=== PATIENT | male | born 1975 | race Caucasian/White ===

== ENCOUNTER 2019-04-12 19:47 | Emergency (ER) | payer OTHER, SELFPAY ==
[2018-11-03 12:39] VITALS: BMI 27.5
[2019-04-12 19:47] VITALS: BP 125/77; PULSE 58; RESP 16; TEMP 36.7; O2SAT 98; BMI 27.8
--- NOTE | 2019-04-12 20:08 | ED.VIS.GEN ---
History of Present Illness Chief Complaint: Laceration Informant: Patient Onset: Today Current Severity: Mild Narrative: Indicates cutting with a tomato can lid inadvertently cut himself on the sharp lid margin left index finger presents for evaluation tetanus is up-to-date no past history no complaints Past Medical History - Allergies and Home Meds Allergies/Adverse Reactions: Allergies No Known Allergies Allergy (Verified 04/12/19 19:49) Primary Care Physician: Damian Kam MD [Primary Care Provider] - Past Medical History: - Smoking Status: Never smoker Review of Systems ROS: - Denies General: Denies: Chills, Fever, Sweats Eyes: Denies: Visual changes - bilaterally, Diplopia ENT: Denies: Rhinorrhea, Sore throat Cardiovascular: Denies: Chest pain, Palpitations Respiratory: Denies: Dyspnea, Cough, Dyspnea on exertion Gastrointestinal: Denies: Abdominal pain, Nausea, Vomiting, Diarrhea, Melena, Hematochezia Genitourinary: Denies: Dysuria, Hematuria, Frequency Musculoskeletal: Denies: Back pain, Extremity Pain Skin: Denies: Rash, Wounds Neurological: Denies: Headache, Weakness, Numbness Physical Exam Vital Signs/Narrative: Vital Signs Temp Pulse Resp BP Pulse Ox 04/12/19 19:47 98.1 F 58 L 16 125/77 H 98 General: Well nourished, Well developed, No Acute Distress Head: Normocephalic, Atraumatic Eyes: Perrl, EOMI ENT: Moist mucous membranes, No rhinorrhea Neck: Supple, Nontender Cardiovascular: Regular rate, Regular rhythm, No murmurs Respiratory: No distress, CTA bilaterally, Chest nontender Abdomen: Soft, Nontender, Nondistended, Normal bowel sounds Back: Nontender, Normal Inspection Extremities: Nontender, No edema, - - Linear 1 cm laceration to left index fingertip there is very little bleeding the wound margins well approximated the nail nailbed unremarkable DIP PIP flexion extension totally normal Skin: Normal color, No rash Neurological: Alert, Oriented x3, Cranial nerves II-XII grossly intact, Normal Strength, Normal Sensation Psychological: Normal affect, Normal Mood Diagnostic/Tx/Re-eval - Medical Decision Making We discussed wound closure options including suturing he refused declined that he preferred tissue adhesive we did cleanse the area was sterilely prepped and applied tissue adhesive with good results there is no bleeding there was excellent approximation of wound margin we will provide aluminum finger splint to protect the area and to follow-up with his family physicians the next few days return for change in status, his tetanus is up-to-date Home stable Final impression 1 cm left index fingertip laceration closed with tissue adhesive ED Disposition - Plan for ED Patient: Instructions: LACERATION, All, LACERATION, Extremity (Skin Glue) Referrals: Damian Kam MD [Primary Care Provider] -
[2019-04-12 20:37] VITALS: BP 120/52; PULSE 80; RESP 16; O2SAT 98
== END 2019-04-12 20:38 | disposition home or self-care (01) ==
LOC: ED 20:22
PROVIDERS: Emergency Provider Emergency Medicine; Family Provider Family Medicine; PCP Family Medicine
DX: S61.211A Laceration without foreign body of left index finger without damage to nail, initial encounter (principal); W26.8XXA Contact with other sharp object(s), not elsewhere classified, initial encounter; Y93.9 Activity, unspecified; Y92.9 Unspecified place or not applicable; Y99.9 Unspecified external cause status
CPT/HCPCS: 12001; 99283

== ENCOUNTER 2019-10-30 17:12 | Emergency (ER) | payer OTHER, SELFPAY ==
[2019-10-30 17:13] VITALS: BP 140/88; PULSE 55; RESP 18; TEMP 36.1; O2SAT 99; BMI 25.2
--- NOTE | 2019-10-30 17:20 | RAD_ITS ---
STUDY: X-RAY - RIGHT KNEE REASON FOR EXAM: Male, 44 years old. Right knee injury. TECHNIQUE: 4 view(s) of the knee. COMPARISON: None. FINDINGS: Normal visualized distal femur. Normal visualized proximal tibia and fibula. Normal proximal tibiofibular articulation. There is no demonstrated fracture. Normal medial femorotibial compartment. Normal lateral femorotibial compartment. Normal patellofemoral articulation. There is no demonstrated joint effusion. The soft tissue structures are unremarkable. RAD/Knee 4 or More Views IMPRESSION: Normal x-ray examination of the knee. Electronically Signed: Josué Santana MD at 17:44 EDT , Service support ,
--- NOTE | 2019-10-30 18:36 | ED.DCSUM_ITS ---
- ER Visit Summary Date of Service: 10/30/19 Chief Complaint: [Injury to right knee] History of Present Illness: The patient is a 44 M presents to the emergency department with an injury to the right leg that occurred this morning. Patient states that a steer, crushed him against a post. Patient complains of pain to the right leg. Complains of swelling. This is a Workmen's [employer]. injury. Patient has no medical history. [] Physical Examination: [HEENT-PERRLA, EOMI. Cranial nerves II through XII grossly intact. TMs clear. Mucous membranes moist. No adenopathy. Cardiovascular-regular rate and rhythm without murmur or ectopy Lungs-clear to auscultation, chest wall stable without crepitus or subcu emphysema Abdomen-normoactive bowel sounds, soft, nontender, no rebound or rigidity, no peritoneal signs. Extremities-intact ?4, normal range of motion, normal pulses. Right leg-patient has a hematoma noted over the proximal anterior medial portion of the tibia just inferior to the knee. No joint effusion noted knee is ligamentously stable. No real tenderness about the joint line of the knee. Patient has some subtle ecchymosis and bruising noted on the anterior aspect lateral aspect of the calf and tibia. Compartments are soft with no evidence of compartment s yndrome.] Test Results: [Rays of the right knee obtained were normal just showed some soft tissue swelling.] Emergency Department Course and Treatment: [Was given an Jose wrap. He did not want any opioids for pain.] Treatment Plan: [Patient will follow-up with corporate care in 3 to 5 days.] Disposition: [Discharged home in stable condition] Impression: [Contusion/crush injury right knee] This note was generated with [employer] dictation software. It may contain incorrect words, spelling, and punctuation that were not noted in review of the chart prior to signing ED Disposition - Plan for ED Patient: Referrals: Damian Kam MD [Primary Care Provider] -
--- NOTE | 2019-10-30 18:39 | DCINST.ED_ITS ---
ED Disposition - Plan for ED Patient: Instructions: ED EXTREMITY CONTUSION Lower Referrals: Damian Kam MD [Primary Care Provider] - [facility] [GROUP OF PHYSICIANS] - 3-5 Days
--- NOTE | 2019-10-30 18:39 | ED.DEP ---
ED Disposition - Plan for ED Patient: Instructions: ED EXTREMITY CONTUSION Lower Referrals: Damian Kam MD [Primary Care Provider] - [facility] [GROUP OF PHYSICIANS] - 3-5 Days
== END 2019-10-30 18:52 | disposition home or self-care (01) ==
LOC: ED 18:48
PROVIDERS: Emergency Provider Emergency Medicine; PCP Family Medicine
DX: S80.01XA Contusion of right knee, initial encounter (principal); W23.0XXA Caught, crushed, jammed, or pinched between moving objects, initial encounter
CPT/HCPCS: 73564; 99282

== ENCOUNTER → 2019-12-31 16:31 | Outpatient (CLI) | payer OTHER, SELFPAY ==
[2019-12-31 16:30] VITALS: BMI 25.2
--- NOTE | 2019-12-31 16:35 | RAD_ITS ---
STUDY: X-RAY CHEST REASON FOR EXAM: Male, 44 years old. Cough x 4 days TECHNIQUE: Frontal and lateral views of the chest. COMPARISON: 06/11/2017. FINDINGS: The lungs are clear and expanded. There is no demonstrated pleural abnormality. Normal size heart. Normal mediastinum and berta. Normal visualized pulmonary arteries. Normal visualized aortic arch and descending thoracic aorta. Normal visualized thoracic spine. Normal visualized ribs, clavicles, and shoulders. There is no demonstrated abnormality of the visualized soft tissue structures of the upper abdomen. RAD/Chest PA and Lateral IMPRESSION: Normal x-ray examination of the chest. Electronically Signed: Josué Santana MD at 16:45 EDT , Service support ,
== END ==
PROVIDERS: PCP Family Medicine; Referring Provider Physician Assistant; Visit Provider Physician Assistant
DX: R05 Cough (principal)
CPT/HCPCS: 71046

== ENCOUNTER → 2020-01-01 | Outpatient (CLI) | payer OTHER, SELFPAY ==
[2019-12-31 16:30] VITALS: BMI 25.2
== END | disposition home or self-care (01) ==
LOC: LABSPEC 11:10
PROVIDERS: PCP Family Medicine; Referring Provider Physician Assistant; Visit Provider Physician Assistant
DX: Z20.828 Contact with and (suspected) exposure to other viral communicable diseases (principal); R05 Cough; R06.09 Other forms of dyspnea; R09.89 Other specified symptoms and signs involving the circulatory and respiratory systems
CPT/HCPCS: 87635; G2023; U0003

== ENCOUNTER 2020-10-08 23:22 | Emergency (ER) | payer OTHER, SELFPAY ==
[2020-01-03 13:13] VITALS: BMI 25.2
[2020-10-08 23:22] VITALS: BP 134/76; PULSE 66; RESP 16; TEMP 36.7; O2SAT 100; BMI 26.1
--- NOTE | 2020-10-09 00:03 | EX.ED.DYSGE1 ---
HPI History of Present Illness Chief Complaint: Back Informant: patient Narrative Narrative: Patient is a 45-year-old previously healthy male who presents to the emergency department for nontraumatic right-sided lower back pain that radiates into his lower leg. He has had this before in the past but it has been many years. He states that he was playing soccer earlier today. It did not bother him until he went home and was sitting down. The pain has been becoming more intense. He has not tried to urinate since the onset of symptoms. He did try to take an anti-inflammatory for this which did not give He denies any fevers or chills. No chest pain, eben Denies any abdominal pain or nausea/vomiting.s of breath. him significant relief. He denies any saddle anesthesia. Pushing on his back and moving the legs seems to make it worse. The leg pain is over the right lateral side just below the knee. He cannot reproduce this unless he pushes on his back. He denies any history of drug abuse. PFSH PFSH Home Medications multivitamin 1 tab PO DAILY 10/08/20 [History Last Taken Unknown] cyclobenzaprine 10 mg PO TID PRN #10 tablet 10/09/20 [Rx Last Taken Unknown] Allergy/AdvReac Type Severity Reaction Status Date / Time No Known Allergies Allergy Verified 10/08/20 23:24 Social History (Updated 01/03/20 @ 13:22 by Harman ZABALA, VJ) Smoking Status: Never smoker alcohol intake: current alcohol intake frequency: holidays/special occasions only ROS ROS ED Constitutional Constitutional ED: Denies chills or fever(s) Eyes Eyes: Denies change in vision ENT ENT ED: Denies epistaxis or rhinorrhea Cardiovascular Cardiovascular: Denies chest pain or palpitations Respiratory/Chest Respiratory/Chest: Denies cough, dyspnea or dyspnea on exertion Gastrointestinal Gastrointestinal: Denies abdominal pain, diarrhea, nausea or vomiting Genitourinary Genitourinary ED: Denies dysuria, hematuria or urinary frequency Musculoskeletal Musculoskeletal: Reports back pain and other Details: Leg pain ; Denies neck pain Integumentary Denies rash Neurologic Neurologic: Denies dizziness, headache(s) or weakness EXAM Physical Exam Const Vital Signs: 10/08/20 23:22 10/09/20 01:02 Temperature 98.1 F Temperature Source Oral Pulse Rate 66 Respiratory Rate 16 16 Blood Pressure 134/76 H Blood Pressure Mean 95 Pulse Ox 100 Oxygen Delivery Method Room Air Positive well nourished and well developed General Appearance ED: well developed and NAD HEENT Reports normocephalic, head/scalp atraumatic and moist mucous membranes Eyes PERRL and EOMs intact bilaterally Neck supple General: Negative for tenderness Chest Wall inspection of chest normal Resp normal respiratory effort and clear to auscultation bilaterally Auscultation: Negative for rales, rhonchi or wheezes Cardio regular rate, regular rhythm and no murmurs GI normal to inspection, nondistended, normoactive bowel sounds and non-tender Palpation: soft; Negative for guarding or rebound tenderness present Back/Spine no CVA tenderness General Back: other Pain over right piriformis. Cervical Spine: Negative for cervical spine tenderness Thoracic Spine / Upper Back: Negative for thoracic spinal tenderness or paraspinal muscle tenderness Lumbar Spine / Lower Back: Negative for lumbar spinal tenderness Extremity normal to inspection Extremity Narrative: 2+ radial pulse bilateral lower extremities. 5 out of 5 muscle strength. No peripheral edema. No reproducible tenderness of the lower extremities. General Extremety ED: Negative for edema or tenderness General Extremity: Negative for edema Neuro oriented x3, CN's II-XII intact bilaterally and no sensory deficits noted Sensorium / Orientation: alert Motor Exam: strength 5/5 throughout Psych mental status grossly normal Skin no rashes or lesions noted MDM MDM MDM Narrative Medical decision making narrative: Patient presents to the ED for nontraumatic low back pain that radiates down his right leg. Upon arrival to the ED vital signs within normal limits. He is in no acute distress. Will trial symptomatic treatment with a dose of Toradol. Without any trauma I do not feel imaging is indicated at this time. His symptoms do sound related to piriformis syndrome as he has reproducible pain over the right buttock. The leg pain is not reproducible. He otherwise is neurovascularly intact. Patient does appear to be resting more comfortably on repeat exam. He is sitting up in the chair now. He states that he can find positions where he is pain-free. Some movement still set off the pain. This time I believe symptomatic treatment is the appropriate course. We will write a prescription for Flexeril. He can take ibuprofen and Tylenol with this. He understands that the Flexeril can make him sleepy and should not take this when operating heavy machinery. I do recommend he follow-up with his PCP otherwise. Return precautions are reviewed. He understands and is agreeable to plan. Discharged home in stable condition. All questions answered. Discharge Plan Triage Chief Complaint: Back ED Provider: Roshan Zuñiga Dx/Rx/DC Orders Clinical Impression: Back pain Instructions: ED Back and Neck Pain, General Prescriptions: New cyclobenzaprine 10 mg tablet 10 mg PO TID PRN (Reason: Muscle Spasm) Qty: 10 RF: 0 No Action multivitamin Tablet 1 tab PO DAILY RF: 0 Primary Care Provider: Damian Kam Referrals: Damian Kam MD [Primary Care Provider] - 3-5 Days if not improving Disposition Disposition: Home, self care Discharge Date/Time: 10/09/20 01:03
[2020-10-09] MEDS: Ketorolac 30 MG/ML Syringe IM (00:17)
[2020-10-09 01:02] VITALS: RESP 16
== END 2020-10-09 01:03 | disposition home or self-care (01) ==
PROVIDERS: Emergency Provider Emergency Medicine; PCP Family Medicine
DX: M54.5 Low back pain (principal); M79.661 Pain in right lower leg
CPT/HCPCS: 96372; 99282; A4216

== ENCOUNTER → 2021-03-16 11:56 | Outpatient (CLI) | payer OTHER, SELFPAY ==
--- NOTE | 2021-03-16 11:59 | RAD_ITS ---
INDICATION: PAIN EXAMINATION/TECHNIQUE: X-RAY - LEFT XR Knee Complete 4 Views or More 4 VIEWS COMPARISON: None. FINDINGS: SOFT TISSUES: No soft tissue swelling or gas. No radiopaque foreign body. BONES/JOINTS: No acute fracture or subluxation.. Degenerative bone changes, unremarkable alignment no evidence of dislocation. No sclerotic or destructive changes observed. RAD/Knee 4 or More Views IMPRESSION: Mild degenerative changes, no acute osseous abnormality is seen. Electronically Signed: Juno Schmid MD at 14:35 EDT Tel , Service support ,
== END ==
PROVIDERS: PCP Family Medicine; Referring Provider Family Medicine; Visit Provider Family Medicine
DX: M25.562 Pain in left knee (principal)
CPT/HCPCS: 73564

== ENCOUNTER 2021-03-27 12:30 | Emergency (ER) | payer OTHER, SELFPAY ==
[2021-03-27 12:31] VITALS: BP 114/76; PULSE 55; RESP 18; TEMP 35.9; O2SAT 97; BMI 26.2
--- NOTE | 2021-03-27 13:02 | EDS_ITS ---
HPI HPI - GI History of Present Illness Chief Complaint: GI Bleed Narrative Narrative: Presents with painful hemorrhoid noticed 3 days ago. Bleeding yesterday. No anticoagulation medicines. He states normal stools. Using [id number] hemorrhoid cream with wipes. Burning sensation when he wipes. No colonoscopies in the past. No past medical history. See a new PCP Dr. Rosales this coming Sunday. No lightheaded symptoms. No abdominal pain. Prior similar symptoms: No PFSH PFSH Medical History no medical history Home Medications multivitamin 1 tab PO DAILY 10/08/20 [History Last Taken Unknown] docusate sodium [Colace] 100 mg PO BID #60 cap 03/27/21 [Rx Last Taken Unknown] hydrocortisone-pramoxine [Proctofoam HC] 1 applic CO BID #10 g 03/27/21 [Rx Last Taken Unknown] Allergy/AdvReac Type Severity Reaction Status Date / Time No Known Allergies Allergy Verified 03/27/21 12:38 Surgical History no surgical history Social History Smoking Status: Never smoker alcohol intake: current alcohol intake frequency: holidays/special occasions on ly ROS ROS ED Constitutional Constitutional ED: Denies chills, fever(s) or sweats Eyes Eyes: Denies change in vision ENT ENT ED: Denies dysphagia or sore throat Cardiovascular Cardiovascular: Denies chest pain, leg edema, palpitations or racing heartbeat Respiratory/Chest Respiratory/Chest: Denies cough, dyspnea or dyspnea on exertion Gastrointestinal Gastrointestinal: Reports other Details: Hemorrhoid ; Denies abdominal pain, diarrhea, nausea or vomiting Genitourinary Genitourinary ED: Denies dysuria, hematuria or urinary frequency Musculoskeletal Musculoskeletal: Denies back pain, extremity pain or neck pain Integumentary Denies rash or wounds Neurologic Neurologic: Denies headache(s), paresthesias or weakness EXAM Physical Exam Const Vital Signs: 03/27/21 12:31 Temperature 96.6 F L Temperature Source Temporal Pulse Rate 55 L Respiratory Rate 18 Blood Pressure 114/76 Blood Pressure Mean 88 Pulse Ox 97 Oxygen Delivery Method Room Air Positive well nourished and well developed General Appearance ED: well developed and NAD HEENT Reports moist mucous membranes normocephalic and atraumatic Eyes PERRL, EOMs intact bilaterally and conjunctivae normal General Eye ED: Yes normal appearance of both eyes Neck no lymphadenopathy and supple General: Negative for tenderness Chest Wall Chest: Negative for tenderness Resp normal respiratory effort and normal air movement Effort and Inspection: symmetric chest movement; Negative for respiratory distress Cardio regular rate, regular rhythm and no murmurs Peripheral Pulses: pulses 2+ throughout GI normal to inspection, nondistended, normoactive bowel sounds and non-tender GI Narrative: Rectal: 2 cm hemorrhoid at 3 o'clock position with abrasion and no active bleeding, tender to palpation. Firm. Palpation: Negative for guarding or rebound tenderness present Back/Spine no CVA tenderness and no thoracic nor lumbar tenderness Extremity normal to inspection General Extremety ED: Negative for edema or tenderness General Extremity: Negative for edema Neuro oriented x3 and no sensory deficits noted Sensorium / Orientation: awake and alert Skin no rashes or lesions noted and no wounds MDM MDM MDM Narrative Medical decision making narrative: Patient exam concerns for a thrombosed hemorrhoid. Discussed with patient I&D for symptom relief. He agrees. Performed with no complications, hemorrhoid flattening dialysis, wound care discussed. Monitor for rebleeding. He is prescribed Proctofoam and Colace. Pads provided for discharge. He is given GI for follow-up. Procedure note: Verbal consent. I&D. Nursing present to assist. 6 cc lidocaine 1% with epinephrine used for local injection, elliptical incision performed, thrombosed hemorrhoids extracted. No active bleeding. 4 x 4 placed for pressure, patient tolerated procedure well. Discharge Plan Triage Chief Complaint: GI Bleed ED Provider: Trey Awad Dx/Rx/DC Orders Clinical Impression: External hemorrhoid, thrombosed Instructions: Thrombosed Hemorrhoids Prescriptions: New docusate sodium [Colace] 100 mg capsule 100 mg PO BID Qty: 60 RF: 0 Proctofoam HC 1-1 % foam 1 applic CO BID Qty: 10 RF: 0 No Action multivitamin Tablet 1 tab PO DAILY RF: 0 Primary Care Provider: Dino Solitario Referrals: iDno Solitario MD [Primary Care Provider] - Timoteo Marcano DO [STAFF PHYSICIAN] - 1 Week Disposition Discharge Date/Time: 03/27/21 14:11
[2021-03-27] MEDS: Lidocaine 1% /Epi 1:100 (20ml) 20 ML Vial INFILT (13:20)
== END 2021-03-27 14:11 | disposition home or self-care (01) ==
PROVIDERS: Emergency Provider Emergency Medicine; PCP Family Medicine
DX: K64.5 Perianal venous thrombosis (principal); K64.4 Residual hemorrhoidal skin tags; Z87.19 Personal history of other diseases of the digestive system
CPT/HCPCS: 99283

== ENCOUNTER 2021-07-29 15:30 | Outpatient (RCR) | payer OTHER, SELFPAY ==
--- NOTE | 2021-06-29 10:23 | HP.PTEVAL_ITS ---
Patient's Visit Information ELLIOT CEVALLOS is a 45 year old M referred to Physical Therapy by Dr. Dino Solitario MD with a diagnosis of Lumbago with sciatica, SI disfunction. Date of Evaluation: 06/28/21 Physical Therapist: Wade Oconnor DPT - Visit Plan Frequency: 2x /Week Duration: 4 Weeks Plan: Start with flexion positioning with modalities to reduce symptoms, progress to extension exercises as tolerated. Add in core stability to reduce future injury. - Subjective Pt. is here today for his initial evaluation with diagnosis of low back with sciatica, SI dysfunction. Pt. reports having pain for ~5 days now after having a 12 hour flight back home from [facility]. 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 He reports having increased R sided low back pain that extends down his leg to lateral calf. Pt. reports that his leg does not give out on him, but does have some N/T. Pt. reports his leg pain is worse than his back. Pt. reports morning are very painful. Pt. has had some relief with pain meds and muscle relaxer. Pt. is still having similar symptoms. Pt. had been doing exercises from physician with mixed tolerance. He is able to sit for a bit, but not too long and is having difficulty walking longer distances. Pt. is hopeful to reduce symptoms in order to get back to all work and recreational activities without limitations. Imaging: none. - Pain R side of lumbar spine Pain Intensity (Out of 10): 8 Pain Intensity Range: 5, 10 - Objective POSTURE: Pt. has general flexed posture in stance with slight R lateral lean during gait. Pt. is pain with attempts to improve. PALAPTION: pt. has tenderness with spring testing at L2-S1 with hypombility noted. Pain at R side of SI joint as well. Normal leg length bilaterally. NEURO: normal reflexes bilaterally. Normal sensation to light and sharp touch. ROM: Lumbar spine: flexion min/mod loss increase NW, ext: max loss increase worse, SB mod loss bi lat increase NW, rotation mod loss bilat increase NW. Pt. has normal HS length bilaterally. MMT: RLE: normal strength of RLE and LLE. No myotomal weakness noted. GAIT: pt. ambulates with minimal to no arm swing (indicating guarding), Pt. has general flexed posture with slight R trunk lean. He does not appear to have a lateral shift in stance and with walking. - Special Tests L/S Slump test left side: Positive L/S Slump test right side: Negative L/S Left Straight Leg Raise: Positive L/S Right Straight Leg Raise: Negative Lumbar Standing: Flexion - Mechanical Response: No effect Lumbar Standing: Flexion - Symptoms During Testing: Increases Lumbar Standing: Flexion - Symptoms After Testing: Worse Lumbar Standing: Extension - Mechanical Response: No effect Lumbar Standing: Extension - Symptoms During Testing: Increases Lumbar Standing: Extension - Symptoms After Testing: Worse Lumbar Standing: Right Side [place] - Symptoms During Testing: Increases Lumbar Standing: Right Side [place] - Symptoms After Testing: No worse Lumbar Standing: Left Side [place] - Mechanical Response: No effect Lumbar Standing: Left Side [place] - Symptoms During Testing: Increases Lumbar Standing: Left Side [place] - Symptoms After Testing: No worse Lumbar Lying: Flexion - Mechanical Response: No effect Lumbar Lying: Flexion - Symptoms During Testing: Decreases Lumbar Lying: Flexion - Symptoms After Testing: Better Lumbar Lying: Extension - Mechanical Response: No effect Lumbar Lying: Extension - Symptoms During Testing: Increases Lumbar Lying: Extension - Symptoms After Testing: Worse Lumbar Static: Slouched Sit - Mechanical Response: No effect Lumbar Static: Slouched Sit - Symptoms During Testing: Increases Lumbar Static: Slouched Sit - Symptoms After Testing: Worse Lumbar Static: Sitting Erect - Mechanical Response: No effect Lumbar Static: Sitting Erect - Symptoms During Testing: Decreases Lumbar Static: Sitting Erect - Symptoms After Testing: No better Lumbar Static:Lying Prone in Extension - Mechanical Response: No effect Lumbar Static: Lying Prone in Extension - Sx During Testing: Increases Lumbar Static: Lying Prone in Extension - Sx After Testing: Worse - Balance/Special Test Scores Oswestry Low Back Score: 33 - Goals Goal 1:: STG: Pt. to have decreased pain with all walking and functional activities to 0-2/10 pain. Goal Time Frame: 2 Weeks Goal 2:: STG: pt. to have no radiating leg pain. Goal Time Frame: 2 Weeks Goal 3:: STG: Pt. to have increased lumbar ROM to at least 50% throughout. Goal Time Frame: 2 Weeks Goal 4:: LTG: Pt. to have full ROM of lumbar spine allowing for ability to comp lete all daily and work activities without limitations. Goal Time Frame: 2-4 Weeks Goal 5:: LTG: Pt. to be educated in HEP for both prophylaxis techniques and for core stability exercises to reduce risk of re occurrence of his back/leg pain. Goal Time Frame: 4-6 Weeks Goal 6:: LTG: Pt. to have increased core strength to fair+ in order to reduce risk for future injury. Goal Time Frame: 4-6 Weeks - Rehabilitation Potential Physical Therapy Diagnosis: Pt. has signs and symptoms consistent with Lumbago with sciatica on his R side. Pt. has subsequent hypomobility, increased pain in back and down his leg and decreased tolerance to all functional and work activities. Pt. would benefit from PT to increase his ROM, decrease pain then promote increase core stability. Rehabilitation Potential: Good - Anticipated Interventions Patient/Client Instruction: Educate patient on: Condition, Plan of Care, Risk Factors, Benefits of Fitness Program For the Purpose of:: To improve decision making, To facilitate caregiver knowledge, To improve self management, To prevent re-injury, To improve ability to perform tasks related to life management Therapeutic Exercise to Include: Strength training, Power training, Body mechanics, Flexibilty training, Passive ROM, Active ROM, Dynamic Lumbar Stabilization, Sam Exercises For the Purpose of:: To decrease pain, To increase ROM, To improve nutrient delivery to tissue, To increase oxygenation perfusion, To improve muscle performance and motor function, To improve ability to perform ADL's, To improve performance and independence with ADL's, To improve health of tissue, To decrease soft tissue restriction, To increase flexibility/ROM Manual Therapy Techniques to Include: Mobilization, Functional dry needling, Soft tissue mobilization For the Purpose of:: To decrease pain, To decrease swelling/inflammation, To increase ROM, To improve nutrient delivery to tissue IF ES: Yes Cryotherapy (ice pack, ice massage): Yes Thermo therapy (hot pack): Yes Ultrasound (thermal/non thermal): Yes For the Purpose of:: To decrease pain, To decrease swelling/inflammation, To increase ROM, To improve nutrient delivery to tissue Thank you for the opportunity to evaluate your patient. For Medicare and Medicare HMO plans, please review the plan of care and approve it. It will need to be FAXED BACK to us at [phone] for Medicare purposes. For Medicare only, by signing this I certify the plan of care. Please let me know if there are questions or concerns regarding this plan of care. Physician Signature: Date:
--- NOTE | 2021-07-29 16:01 | HP.PTREVAL_ITS ---
Dr. Dino Solitario MD, It has been my pleasure to treat ELLIOT CEVALLOS over the last 8 visits for Lumbago with sciatica, SI disfunction. Please see the progress note below for an update on the physical therapy plan of care! Subjective: Pt reports he was making significant progress until recenty trying to strengthen. Pt reports he is now getting a little better Objective/Function: Pt reports he was 80% improved until having a set back 2 weeks ago. Pt reports LBP is now 5/10. Pt reports he has improved R LE radicu lopathy x 80% as it is now just tingling, and not painful. Pt has mad significant gains, but would benefit from further skilled PT to focus on core strengthening and pain reduction to allow him to return to his normal daily activities without limitation Plan Plan: Attempt to get 8 more visits approved Balance/Gait/Functional tests - Balance/Special Test Scores Oswestry Low Back Score: 23 Goals Goal 1:: STG: Pt. to have decreased pain with all walking and functional activities to 0-2/10 pain. Goal Time Frame: 2 Weeks Goal Progress: Progressing Goal 2:: STG: pt. to have no radiating leg pain. Goal Time Frame: 2 Weeks Goal Progress: Progressing Goal 3:: STG: Pt. to have increased lumbar ROM to at least 50% throughout. Goal Time Frame: 2 Weeks Goal Progress: Goal Met Goal 4:: LTG: Pt. to have full ROM of lumbar spine allowing for ability to complete all daily and work activities without limitations. Goal Time Frame: 2-4 Weeks Goal Progress: Progressing Goal 5:: LTG: Pt. to be educated in HEP for both prophylaxis techniques and for core stability exercises to reduce risk of re occurrence of his back/leg pain. Goal Time Frame: 4-6 Weeks Goal Progress: Progressing Goal 6:: LTG: Pt. to have increased core strength to fair+ in order to reduce risk for future injury. Goal Time Frame: 4-6 Weeks Goal Progress: Progressing Anticipated Interventions Patient/Client Instruction: Educate patient on: Condition, Plan of Care, Risk Factors, Benefits of Fitness Program For the Purpose of:: To improve decision making, To facilitate caregiver knowledge, To improve self management, To prevent re-injury, To improve ability to perform tasks related to life management Therapeutic Exercise to Include: Strength training, Power training, Body mechanics, Flexibilty training, Passive ROM, Active ROM, Dynamic Lumbar Stabilization, Sam Exercises For the Purpose of:: To decrease pain, To increase ROM, To improve nutrient delivery to tissue, To increase oxygenation perfusion, To improve muscle performance and motor function, To improve ability to perform ADL's, To improve performance and independence with ADL's, To improve health of tissue, To decrease soft tissue restriction, To increase flexibility/ROM Manual Therapy Techniques to Include: Mobilization, Functional dry needling, Soft tissue mobilization For the Purpose of:: To decrease pain, To decrease swelling/inflammation, To increase ROM, To improve nutrient delivery to tissue IF ES: Yes Cryotherapy (ice pack, ice massage): Yes Thermo therapy (hot pack): Yes Ultrasound (thermal/non thermal): Yes For the Purpose of:: To decrease pain, To decrease swelling/inflammation, To increase ROM, To improve nutrient delivery to tissue Please do not hesitate to contact me at [phone] by phone or if you have questions or concerns regarding this new plan of care! Sincerely, Denny Chavez, PT, ATC
--- NOTE | 2021-12-07 12:37 | HP.PTDCNRP_ITS ---
ELLIOT CEVALLOS was seen in my office for initial evaluation on 06/28/21. The following Plan of Care was established for this patient: Initial Frequency: 2x /Week Initial Duration: 4 Weeks Patient/Client Instruction: Educate patient on: Condition, Plan of Care, Risk Factors, Benefits of Fitness Program For the Purpose of:: To improve decision making, To facilitate caregiver knowledge, To improve self management, To prevent re-injury, To improve ability to perform tasks related to life management Therapeutic Exercise to Include: Strength training, Power training, Body mechanics, Flexibilty training, Passive ROM, Active ROM, Dynamic Lumbar St abilization, Sam Exercises For the Purpose of:: To decrease pain, To increase ROM, To improve nutrient delivery to tissue, To increase oxygenation perfusion, To improve muscle performance and motor function, To improve ability to perform ADL's, To improve performance and independence with ADL's, To improve health of tissue, To decrease soft tissue restriction, To increase flexibility/ROM Manual Therapy Techniques to Include: Mobilization, Functional dry needling, Soft tissue mobilization For the Purpose of:: To decrease pain, To decrease swelling/inflammation, To increase ROM, To improve nutrient delivery to tissue IF ES: Yes Cryotherapy (ice pack, ice massage): Yes Thermo therapy (hot pack): Yes Ultrasound (thermal/non thermal): Yes For the Purpose of:: To decrease pain, To decrease swelling/inflammation, To increase ROM, To improve nutrient delivery to tissue This patient was last seen in our office . Pertinent comments regarding their Physical therapy will appear below: Pt was treated for 8 PT visits for LBP through the date of 07/29/21. Pt has not returned through todays date and is discontinued at this time. At this point I will be discontinuing this patient from physical therapy. I would be happy to see this patient again in the future if found appropriate by the physician. Thank you! Denny Chavez, PT, ATC Balance/Gait/Functional tests - Balance/Special Test Scores Oswestry Low Back Score: 23
== END 2021-07-29 19:00 | disposition home or self-care (01) ==
LOC: PT 15:30
PROVIDERS: PCP Family Medicine; Referring Provider Family Medicine; Visit Provider Family Medicine
DX: M54.41 Lumbago with sciatica, right side (principal); M53.3 Sacrococcygeal disorders, not elsewhere classified
CPT/HCPCS: 97110; 97140; 97161; 97164

== ENCOUNTER 2021-08-10 09:16 | Outpatient (CLI) | payer OTHER, SELFPAY ==
--- NOTE | 2021-08-10 09:19 | RAD_ITS ---
History: BACK PAIN Lumbar spine 7 views including flexion and extension lateral views: Findings: No fracture or subluxation. Straightening of the lumbar lordosis suggestive of muscle spasm. Limited range of motion with flexion and extension. Disc space narrowing noted at the L3-4, L4-5 and L5-S1 levels. Bilateral L5 spondylolysis noted without spondylolisthesis Pedicles and posterior elements appear intact. IMPRESSION: Limited range of motion. Bilateral L5 spondylolysis. Mild multilevel disc space narrowing. at [id number] Reported and signed by: Frandy Car MD Electronically Signed: Frandy Car MD at 8:52 EST , RAD/L/S Spine w Bend Min 6 Vw
== END 2021-08-10 23:59 | disposition home or self-care (01) ==
LOC: MTRAD 09:17
PROVIDERS: PCP Family Medicine; Referring Provider Family Medicine; Visit Provider Family Medicine
DX: M54.9 Dorsalgia, unspecified (principal)
CPT/HCPCS: 72114

== ENCOUNTER 2021-08-25 13:03 | Outpatient (CLI) | payer OTHER, SELFPAY ==
--- NOTE | 2021-08-25 13:04 | MRI_ITS ---
STUDY: MR Spine Lumbar W/O Contrast 08/25/2021 3:07 PM REASON FOR EXAM: Male, 45 years old. Back pain somatic dysfunction of lumbar region, RT LEG RADICULOPATHY TECHNIQUE: MR Spine Lumbar W/O Contrast Standardized fat and water weighted pulse sequences were obtained. COMPARISON: Aug 10 2021 9:23amCR Lumbar Spine FINDINGS: T12-L1: Normal endplates. Normal disc height, hydration and morphology. Normal bilateral facet joints. Normal central canal and bilateral lateral recesses. Normal bilateral intervertebral neural foramina. Normal lumbar lordosis. There is no substantial scoliosis. Normal conus medullaris that terminates at the L1. L1-2: Normal endplates. Normal disc height and morphology. Normal central canal and intervertebral neuroforamina. L2-3: Normal endplates. Normal disc height, hydration and morphology. Normal bilateral facet joints. Normal central canal and bilateral lateral recesses. Normal bilateral intervertebral neural foramina. L3-4: Loss of intervertebral disc height. There is endplate spondylosis of the vertebral body. Normal central canal and intervertebral neuroforamina. There is bilateral facet arthropathy. There is bilateral ligamentum flavum thickening. L4-5: Loss of intervertebral disc height. There is endplate spondylosis of the vertebral body. mild spinal stenosis. There is bilateral facet arthropathy. Right paracentral disc herniation. Narrowing of the right lateral recess. L4 vertebral body hemangioma. There is bilateral ligamentum flavum thickening. L5-S1: Loss of intervertebral disc height. There is endplate spondylosis of the vertebral body. There is bilateral facet arthropathy. Bilateral neural foraminal stenosis. Compression of exiting nerve roots. Discogenic endplate changes. Grade 1 anterolisthesis of L5 on S1 measuring 3.8 mm. Normal visualized sacral ala. Normal visualized paraspinous soft tissue structures. MRI/Spine Lumbar (Routine) IMPRESSION: Multilevel degenerative changes, as described above. L5-S1: Bilateral neural foraminal stenosis. Compression of exiting nerve roots. Grade 1 anterolisthesis of L5 on S1 measuring 3.8 mm. L4-5: mild spinal stenosis. Right paracentral disc herniation. Narrowing of the right lateral recess. L4 vertebral body hemangioma. Electronically Signed: Denny Bautista MD at 15:11 EDT ,
== END 2021-08-25 23:59 | disposition home or self-care (01) ==
PROVIDERS: PCP Family Medicine; Visit Provider Family Medicine
DX: M99.03 Segmental and somatic dysfunction of lumbar region (principal)
CPT/HCPCS: 72148

== ENCOUNTER → 2022-04-25 | Outpatient (CLI) | payer OTHER, SELFPAY ==
--- NOTE | 2022-04-25 12:50 | RAD_ITS ---
STUDY: X-RAY CHEST REASON FOR EXAM: Male, 46 years old. Bronchitis. TECHNIQUE: Frontal and lateral views of the chest. COMPARISON: December 31, 2019. FINDINGS: Stable mild hyperinflation with scattered healed parenchymal granulomatous calcifications. There is no demonstrated pleural abnormality. Normal size heart. Normal mediastinum and berta. Normal visualized pulmonary arteries. Normal visualized aortic arch and descending thoracic aorta. Normal visualized thoracic spine. Normal visualized ribs, clavicles, and shoulders. There is no demonstrated abnormality of the visualized soft tissue structures of the upper abdomen. RAD/Chest PA and Lateral IMPRESSION: Stable chest with no acute or active cardiopulmonary disease. Electronically Signed: Chato Borrego, at 13:29 EST ,
== END | disposition home or self-care (01) ==
LOC: MTRAD 12:48
PROVIDERS: PCP Family Medicine; Referring Provider Family Medicine; Visit Provider Family Medicine
DX: J40 Bronchitis, not specified as acute or chronic (principal)
CPT/HCPCS: 71046

== ENCOUNTER 2023-01-02 15:17 | Emergency (ER) | payer OTHER, SELFPAY ==
[2023-01-02 15:18] VITALS: BP 131/75; PULSE 59; TEMP 36.2; O2SAT 100; BMI 27.2
--- NOTE | 2023-01-02 15:48 | EDS_ITS ---
HPI History of Present Illness Chief Complaint: Back Informant: patient Onset/Context/Timing Onset: Today Context: Gradual Onset Injury: twisting and bending Timing: Continuous Quality: Aching Location: Lumbar (left, no radiation) Current Severity: Moderate Maximum Severity: Moderate Worsened by: improves with Movement and Ambulation Relieved by: Remaining Still Associated Symptoms Associated Symptoms: Negative for Numbness, Tingling, Radiation to Right Leg, Radiation to Left Leg, Abdominal Pain, Unable to Ambulate, Urinary Retention, Urinary Incontinence, Constipation or Fecal Incontinence Narrative Narrative: Patient currently undergoing physical therapy for his left knee. He was doing an exercise today, and he felt something relatively mild in his left low back. There is no significant pain at the time, nor neurologic symptoms, nor abdominal pain. He was able to walk okay, he went home and within the next couple hours he started having pain in that area that gradually started to became worse. No bowel or bladder dysfunction or saddle anesthesia. [facility] Medical History Acute bronchitis, unspecified URI (upper respiratory infection) Home Medications multivitamin 1 tab PO DAILY 10/08/20 [History Last Taken Unknown] benzonatate 200 mg capsule 200 mg PO TID PRN cough #20 caps 10/30/22 [Rx Last Taken Unknown] methylprednisolone 4 mg tablets in a dose pack (Medrol ([place])) See Rx Instructions PO PER PKG DIR #21 tabs 10/30/22 [Rx Last Taken Unknown] cyclobenzaprine 10 mg tablet 10 mg PO TID PRN Muscle Spasm #20 TABLETS 01/02/23 [Rx Last Taken Unknown] naproxen 500 mg tablet (Naprosyn) 500 mg PO BID PRN pain #20 tabs 01/02/23 [Rx Last Taken Unknown] Allergy/AdvReac Type Severity Reaction Status Date / Time No Known Allergies Allergy Verified 01/02/23 15:18 Social History Smoking Status: Never smoker alcohol intake: current alcohol intake frequency: holidays/special occasions only ROS ROS ED Constitutional Constitutional ED: Denies chills or fever(s) Gastrointestinal Gastrointestinal: Denies abdominal pain, constipation, fecal incontinence, nausea or vomiting Genitourinary Genitourinary ED: Reports other Details: no urinary retention ; Denies abdominal discomfort or urinary incontinence Musculoskeletal Musculoskeletal: Reports as per HPI and back pain; Denies neck pain Integumentary Denies rash or wounds Neurologic Neurologic: Denies headache(s), paresthesias or weakness EXAM Physical Exam Const Vital Signs: 01/02/23 15:18 Temperature 97.1 F L Temperature Source Temporal Pulse Rate 59 L Blood Pressure 131/75 H Blood Pressure Mean 93 Pulse Ox 100 Oxygen Delivery Method Room Air Positive well nourished and well developed General Appearance ED: well developed and NAD HEENT Negative for trauma or tenderness Eyes PERRL and EOMs intact bilaterally Neck full ROM and supple GI normal to inspection, nondistended, normoactive bowel sounds, soft to palpation and non-tender Back/Spine normal to inspection Lumbar Spine / Lower Back: ROM limited, paraspinal muscle tenderness left (Mid lumbar without midline tenderness or SI joint/external rotator tenderness of the hip.) and straight leg raise negative bilaterally; Negative for lumbar spinal tenderness Extremity normal to inspection, full ROM and no pedal edema Neuro oriented x3 and no sensory deficits noted Sensorium / Orientation: alert Motor Exam: strength 5/5 throughout and clonus absent Deep Tendon Reflexes: Rt Patellar (L4): 2+, Lt Patellar (L4): 2+, Rt Ankle (S1): 2+ and Lt Ankle (S1): 2+ Deep Tendon Reflexes Back: Rt Patellar (L4): 2+, Lt Patellar (L4): 2+, Rt Ankle (S1): 2+ and Lt Ankle (S1): 2+ Plantar Reflex: Downgoing: bilateral Psych mental status grossly normal and thought process normal Skin no rashes or lesions noted and no wounds MDM MDM MDM Narrative Medical decision making narrative: Reassured patient this is likely musculoskeletal back pain such as muscle or tendon strain, no need for imaging, negative straight leg raises neurologically intact, supportive care advised we will give injections here and prescriptions for home Discharge Plan Triage Chief Complaint: Back ED Provider: Hans Sutherland Dx/Rx/DC Orders Clinical Impression: Acute lumbar myofascial strain Instructions: ED Back Sprain/Strain Prescriptions: New cyclobenzaprine [cyclobenzaprine] 10 mg tablet 10 mg PO TID PRN (Reason: Muscle Spasm) Qty: 20 0RF naproxen [Naprosyn] 500 mg tablet 500 mg PO BID PRN (Reason: pain) Qty: 20 0RF No Action methylprednisolone [Medrol ([place]ison)] 4 mg tablets,dose pack See Rx Instructions PO PER PKG DIR Qty: 21 0RF Rx Instructions: PO PER PKG DIR benzonatate 200 mg capsule 200 mg PO TID PRN (Reason: cough) Qty: 20 0RF multivitamin Tablet 1 tab PO DAILY Primary Care Provider: Dino Solitario Referrals: Dino Solitario MD [Primary Care Provider] - 1 Week if not improving Activity Restrictions/Additional Instructions: Cyclobenzaprine is a muscle relaxer may make you little sleepy, take precautions and plan before you take it, it may or may not help but it is there if you need it. Disposition Disposition: Home, Self Care
[2023-01-02] MEDS: Orphenadrine 60 MG/2 ML Ampul IM (16:07)
[2023-01-02] MEDS: Ketorolac 60 MG/2 ML Vial IM (16:07)
== END 2023-01-02 16:36 | disposition home or self-care (01) ==
LOC: ED 16:00
PROVIDERS: Emergency Provider Emergency Medicine; PCP Family Medicine; Visit Provider Emergency Medicine
DX: S39.012A Strain of muscle, fascia and tendon of lower back, initial encounter (principal); X50.1XXA Overexertion from prolonged static or awkward postures, initial encounter; Y92.538 Other ambulatory health services establishments as the place of occurrence of the external cause
CPT/HCPCS: 96372; 99282

== ENCOUNTER → 2023-02-17 | Outpatient (CLI) | payer OTHER, SELFPAY ==
--- NOTE | 2023-02-17 07:56 | MRI_ITS ---
INDICATION: left medial knee pain EXAMINATION: MRI - LEFT MR Knee W/O Contrast TECHNIQUE: Multiplanar and multisequence MR images of the LEFT knee. IV Contrast Dosage and Agent: None. COMPARISON: FINDINGS: BONE: No fracture or abnormal bone marrow signal. JOINT: No pathologic effusion, synovial hypertrophy, or intra-articular body. MUSCLES: Unremarkable. MENISCI: Medial and lateral menisci unremarkable. CRUCIATE LIGAMENTS: Proximal ACL demonstrates mild increased signal intensity on fat saturation imaging consistent with small partial tear likely subacute or chronic given absence of joint effusion. COLLATERAL LIGAMENTS: Medial collateral ligament and lateral collateral ligamentous complex, inclusive of the popliteal tendon, are intact. CARTILAGE: Articular cartilage intact. OTHER SOFT TISSUES: There is a small partial tear of the proximal patellar tendon with high signal intensity seen on fat saturation imaging. MRI/Lower Ext Joint Only (Routine) IMPRESSION: Partial tear proximal patellar tendon. Small subacute or chronic tear of the proximal ACL. Electronically Signed: Rod Benites MD at 9:03 EDT ,
== END | disposition home or self-care (01) ==
LOC: MRI 07:55
PROVIDERS: PCP Family Medicine; Referring Provider Family Medicine; Visit Provider Family Medicine
DX: M25.562 Pain in left knee (principal)
CPT/HCPCS: 73721

== ENCOUNTER 2023-04-01 22:28 | Emergency (ER) | payer OTHER, SELFPAY ==
[2023-04-01 22:29] VITALS: BP 131/75; PULSE 57; RESP 15; TEMP 36.3; O2SAT 97; BMI 25.9
[2023-04-01] MEDS: Lidocaine/Epi/Tetracaine 50 ML 1 APPLIC TOPICAL (23:25)
--- NOTE | 2023-04-01 23:25 | EDS_ITS ---
HPI History of Present Illness Chief Complaint: Dental Detail of Chief Complaint: Bleeding from gum graft site Informant: patient Onset/Context/Timing Onset: Today and Hours Context: Gradual Onset Timing: Intermittent Current Severity: Mild Maximum Severity: Mild Narrative Narrative: 47-year-old male no significant past medical history. 9 days ago underwent a dental procedure where they took a graft from his hard palate and grafted his gum of his lower dentition and right upper outer gumline. He had been doing well. He was on antibiotics for several days and pain medication. He is not taking ibuprofen. Tonight after eating a meal of soft food he started having some oozing of blood from the graft site. Prior similar symptoms: No Recent Illness/Hospitalization: No PFSH PFS Medical History Acute bronchitis, unspecified Bronchitis Contact with and (suspected) exposure to other viral communicable diseases Left knee pain Tinnitus URI (upper respiratory infection) Allergy/AdvReac Type Severity Reaction Status Date / Time No Known Allergies Allergy Verified 04/01/23 22:32 Surgical History Hx of hand surgery Social History Smoking Status: Never smoker alcohol intake: current alcohol intake frequency: holidays/special occasions only ROS ROS ED ROS Narrative Denies recent illness. Denies bruising. He is on no blood thinners other than ibuprofen. He has had no nosebleeds or hematuria or bloody stools. Review of Systems ROS Unobtainable: Denies due to encephalopathy Constitutional Constitutional ED: Denies chills or fever(s) Eyes Eyes: Denies blurry vision ENT ENT ED: Denies ear pain Cardiovascular Cardiovascular: Denies chest pain Respiratory/Chest Respiratory/Chest: Denies cough Gastrointestinal Gastrointestinal: Denies abdominal pain Genitourinary Genitourinary ED: Denies dysuria Musculoskeletal Musculoskeletal: Denies arthralgias Integumentary Denies abscess Neurologic Neurologic: Denies headache(s) Psychiatric Psychiatric: Denies anxiety Endocrine Endocrinology: Denies cold intolerance Hematologic/Lymphatic Hematologic/Lymphatic: Denies easy bleeding or easy bruising Allergic/Immunologic Allergic/Immunologic ED: Denies mouth swelling or tongue swelling EXAM Physical Exam Narrative Exam Narrative: Well-appearing middle-age male. Vital signs stable afebrile. H EENT exam there is an area on his hard palate on the proximal aspect to his right of the midline mild left where there was a gum graft taken. Currently there is very very mini mal oozing. No pulsatile bleeding. The sites where it was grafted on the right upper outer gumline and lower gumline there is no active bleeding. Otherwise exam normal. Lungs are clear. Heart regular rhythm. Abdomen soft nontender. Const Vital Signs: 04/01/23 22:29 Temperature 97.4 F L Temperature Source Temporal Pulse Rate 57 L Respiratory Rate 15 Blood Pressure 131/75 H Blood Pressure Mean 93 Pulse Ox 97 Oxygen Delivery Method Room Air Positive well nourished and well developed; Negative for obese, cachectic, contractures or unkempt General Appearance ED: well developed and NAD; Negative for unkempt, cachectic or contractures Nutritional Appearance: Negative for cachectic or obese HEENT HEENT Narrative: Very minimal bleeding from upper hard palate mucosal graft site. Negative for trauma Throat: posterior oropharynx normal Eyes PERRL and EOMs intact bilaterally General Eye ED: Negative for pale conjunctiva Neck no lymphadenopathy, supple and no JVD General: normal visual inspection; Negative for anterior neck swelling or tenderness Lymph Lymphatic: no lymphadenopathy noted Chest Wall inspection of chest normal and palpation of chest normal Resp normal respiratory effort, no retractions and clear to auscultation bilaterally Cardio regular rate, regular rhythm, S1 normal heart sound, S2 normal heart sound and no murmurs Jugular Venous Distention: Negative for other Palpation: Negative for palpable S3 Rate: Negative for bradycardia or tachycardic Rhythm: Negative for abnormal rhythm GI normal to inspection, nondistended, normoactive bowel sounds, non-tender, non- distended and no masses Extremity normal to inspection and no joint enlargement General Extremety ED: Negative for edema or other findings General Extremity: Negative for edema or other findings Neuro CN's II-XII intact bilaterally, moves all extremities and no focal motor deficits Sensorium / Orientation: oriented to person, oriented to place and oriented to time; Negative for orientation impaired Motor Exam: strength 5/5 throughout Psych mental status grossly normal Appearance: Negative for unkempt Attitude: No agitated Mood & Affect: Negative for depressed, anxious or tearful Skin no rashes or lesions noted and no wounds Image ED - URI/Dental Diagram: 1. Graft site where the graft was harvested from the hard palate. Minimal oozing. MDM MDM MDM Narrative Medical decision making narrative: Patient has very minimal oozing from the graft site on the hard palate. LET and direct pressure will be applied to the area deceiving get the oozing to stop. Repeat exam patient is doing well at 12:05 AM. He held a let soaked gauze in pl [place] for over 20 minutes. There is no further bleeding at this time. He will follow-up with his dentist tomorrow. History & Record Review Discussion w/independent historian: Patient Additional record(s) reviewed:: No prior records Discharge Plan Triage Chief Complaint: Dental ED Provider: Glenn Raymundo Dx/Rx/DC Orders Clinical Impression: History of surgical procedure on mouth, Post-op bleeding Primary Care Provider: Dino Solitario Referrals: Dino Solitario MD [Primary Care Provider] - Activity Restrictions/Additional Instructions: Call and follow-up with the dentist that performed the procedure on your gums tomorrow. If this starts bleeding again hold direct pressure. Ice to the area and or a tea bag. Do not put any gauze in your mouth without being extremely careful by holding it with direct pressure due to the risk of aspiration. Avoid aspirin and ibuprofen like products that could cause more bleeding. Disposition Disposition: Home, Self Care
== END 2023-04-02 00:13 | disposition home or self-care (01) ==
PROVIDERS: Emergency Provider Emergency Medicine; PCP Family Medicine; Visit Provider Emergency Medicine
DX: K91.840 Postprocedural hemorrhage of a digestive system organ or structure following a digestive system procedure (principal)
CPT/HCPCS: 99282

== ENCOUNTER 2023-04-18 20:09 | Emergency (ER) | payer OTHER, SELFPAY ==
[2023-04-18 20:09] VITALS: BP 127/49; PULSE 52; RESP 18; TEMP 36.6; O2SAT 98; BMI 24.7
--- NOTE | 2023-04-18 21:42 | EX.ED.UPPERE ---
HPI History of Present Illness HPI Narrative: Patient presents with a laceration to his left thumb that occurred today. Patient was using a knife to separate 2 pieces of meat. Patient states the knife slipped and cut his left thumb. Patient admits to some tingling over the pad of his thumb. Patient describes the pain as burning. Patient states it is worse with movement. Patient states his last tetanus was approximately 8 years ago. Patient denies any other injuries. Chief Complaint: Laceration Informant: patient Onset/Context/Timing Onset: Today Context: Sudden Onset Timing: Continuous Quality of Pain: Burning Location: Left thumb Worsened by: Movement Relieved by: Nothing Associated Symptoms Associated Symptoms: Positive for Parasthesia; Negative for Weakness or Loss of Funtion Narrative Tetanus Immunization: 5-10 years [facility] Medical History Acute bronchitis, unspecified Bronchitis Contact with and (suspected) exposure to other viral communicable diseases Left knee pain Patellar tendinitis, left knee Tinnitus URI (upper respiratory infection) Home Medications NK 04/05/23 [History Last Taken Unknown] Allergy/AdvReac Type Severity Reaction Status Date / Time No Known Allergies Allergy Verified 04/18/23 20:12 Surgical History Hx of hand surgery Social History Smoking Status: Never smoker alcohol intake: current alcohol intake frequency: holidays/special occasions only ROS ROS ED Constitutional Constitutional ED: Denies chills or fever(s) Eyes Eyes: Denies blurry vision or change in vision ENT ENT ED: Denies rhinorrhea or sore throat Cardiovascular Cardiovascular: Denies chest pain or palpitations Respiratory/Chest Respiratory/Chest: Denies cough or dyspnea Gastrointestinal Gastrointestinal: Denies nausea or vomiting Genitourinary Genitourinary ED: Denies dysuria or hematuria Musculoskeletal Musculoskeletal: Denies back pain or neck pain Integumentary Denies abscess or rash Neurologic Neurologic: Denies headache(s) or weakness Allergic/Immunologic Allergic/Immunologic ED: Denies mouth swelling or urticaria EXAM Physical Exam Const Vital Signs: 04/18/23 20:09 Temperature 97.9 F Temperature Source Temporal Pulse Rate 52 L Respiratory Rate 18 Blood Pressure 127/49 H Blood Pressure Mean 75 Pulse Ox 98 Oxygen Delivery Method Room Air Positive well nourished and well developed General Appearance ED: well developed and NAD HEENT Reports moist mucous membranes Neck full ROM and supple Neuro oriented x3, CN's II-XII intact bilaterally, moves all extremities, no focal motor deficits and no sensory deficits noted Sensorium / Orientation: alert Motor Exam: strength 5/5 throughout Psych mental status grossly normal Skin Skin Narrative: There is a 1.2 cm full-thickness linear laceration over the pad of the left thumb. There is mild bleeding noted. There is moderate gapping of the wound margins. There is no foreign body noted. There is no bony crepitance noted. There is no involvement of the nailbed. Sensation was intact to light touch in all digits. Capillary refill was less than 2 seconds in all digits. There is full range of motion of the IP and MP joints of the left thumb. MDM MDM MDM Narrative Medical decision making narrative: The wound was cleaned and irrigated with copious amounts of normal saline. The wound was anesthetized with 1% plain lidocaine via digital block. The wound was closed with 2 simple interrupted #4-0 nylon sutures under sterile technique. Patient tolerated the procedure well. Bacitracin dressing was applied. Patient was instructed to keep the wound clean and dry. Patient was instructed to take Tylenol or ibuprofen for pain. Patient was instructed to follow-up with his primary care physician in 7 days for wound recheck and suture removal. Patient understood and was agreeable with the plan. All questions were answered. Procedures Lacerations Left thumb: Length: 1.2 cm Depth: Sub Q Shape: Linear Prep: Sterile Conditions and Chlorhexadine Laceration repair: Digital block, Irrigated, Lidocaine and Skin sutures Irrigated (ml): 100 Number of Sutures/Warnock: 2 Suture Information: Ethilon, Simple and 4-0 Discharge Plan Triage Chief Complaint: Laceration ED Provider: Deacon Webster Dx/Rx/DC Orders Clinical Impression: Laceration of left thumb Instructions: ED Laceration, Hand: All Closures Prescriptions: No Action NK Primary Care Provider: Dino Solitario Referrals: Dino Solitario MD [Primary Care Provider] - 7 Days for suture removal Disposition Disposition: Home, Self Care
[2023-04-18] MEDS: Lidocaine 1% (20 ml mdv) 20 ML Vial INFILT (21:51)
[2023-04-18 22:50] VITALS: BP 118/69; PULSE 71; RESP 18; O2SAT 98
== END 2023-04-18 22:51 | disposition home or self-care (01) ==
PROVIDERS: Emergency Provider Emergency Medicine; PCP Family Medicine; Visit Provider Emergency Medicine
DX: S61.012A Laceration without foreign body of left thumb without damage to nail, initial encounter (principal); W26.0XXA Contact with knife, initial encounter; Y93.G1 Activity, food preparation and clean up
CPT/HCPCS: 12001; 99283

== ENCOUNTER 2023-05-23 08:41 | Day surgery (SDC) | payer OTHER, SELFPAY ==
[2023-05-23] VITALS (7 sets, daily range): BP systolic 109–122; BP diastolic 59–84; PULSE 50–61; RESP 16; TEMP 36.1–36.3; O2SAT 98–100; BMI 25.5
[2023-05-23] MEDS: Lactated Ringers 1,000 ML 15 ML IV (09:41)
--- NOTE | 2023-05-23 10:58 | HP.PCM_ITS ---
HPI - General HPI Narrative ELLIOT CEVALLOS, is a 47 M who presents FOR left knee arthroscopy, debridement patellar tendon, possible medial meniscus repair or partial meniscectomy. No change to history and physical exam. Patient wished to proceed. Risks alternatives benefits discussed as well as postoperative restrictions and narco tic counseling. Knee marked. MR#: [id number] Acct: [id number] Name: ELLIOT CEVALLOS Rep #: [id number] : 1975 Provider: Dr. Zach Hawkins MD Age/Sex: 47/M Location: [facility] [place] Status: Signed Intake Vital Signs 01/02/2315:18 04/01/2322:29 Height 5 ft 10 in 5 ft 10 in Intake Visit Reasons: LEFT KNEE Chief Complaint: left knee Accompanied by: Self Is patient in pain?: Yes Pain scale (1-10): 1 Allergies No Known Allergies Allergy (Verified 04/05/23 14:29) Medications NK 04/05/23 [History Confirmed 04/05/23] [facility] Medical History (Updated 04/05/23 @ 14:46 by Zach Hawkins MD) Acute bronchitis, unspecified Bronchitis Contact with and (suspected) exposure to other viral communicable diseases Left knee pain Patellar tendinitis, left knee Tinnitus URI (upper respiratory infection) Surgical History Hx of hand surgery Social History Smoking Status: Never smoker alcohol intake: current alcohol intake frequency: holidays/special occasions only HPI LEFT KNEE Details: This documentation accurately reflects the service provided and the decisions made by me, Dr. Zach Hawkins MD 04/05/23 1426. Part of today?s visit was documented by [ ], acting as scribe. ELLIOT CEVALLOS is a 47 year old M here today for follow-up on left knee pain. Patient states that the injection did help but wore off. Most of his pain is on the medial side more anteriorly as well as slightly at the patellar tendon. Patient is quite active and it is stopping him from doing the activities that he enjoys. The knee is not versus a loose but it is more so painful that is stopping him from doing and living his active lifestyle. Ortho Exam General General: Yes no acute distress Neurologic: Yes alert and Yes oriented x3 Psychologic: Yes reasonable and appropriate Right Knee Patella Translation: 2 Left Knee Skin/Wound: Yes CDI, No ecchymosis, No erythema and No swelling Knee ROM: Yes ROM-Flexion 0-140 Examination: Yes med jt line tenderness, No Lat jt line tenderness, No TTP inf pole patella, No Crepitus, No Pain with flexion, Yes Lorraine's Test, Yes TTP Patellar tendon, No TTP Tibial tubercle, No TTP Pes Anserine and No Illiotibial band tenderness Quad Atrophy: No Stability: NML: Anterior Drawer, NML: Jennie, NML: Posterior Drawer, NML: Valgus 0, NML: Valgus 30, NML: Varus 0 and NML: Varus 30 Apprehension with Lateral Translation: No Patella Translation: 2 Patellar Tilt Normal: Yes Patella Grind: No KNEE: Patient has normal gait normal alignment medial joint line tenderness negative Lorraine's although there was a little bit of a click with going into full extension seeming to come from medial side of the knee. Supplemental Info [facility] [address] [place] [address] Lower Ext Joint Only (Routine) MR#: [id number] Acct: [id number] Name: ELLIOT CEVALLOS Rep #: [id number] : 1975 M 47 From: Rod Benites MD PCP: Dr. Dino Solitario MD Status: REG CLI Study: Lower Ext Joint Only (Routine) Date of Exam: 02/17/23 Exam# [id number] Ordering Dr: Dino Solitario MD INDICATION: left medial knee pain EXAMINATION: MRI - LEFT MR Knee W/O Contrast TECHNIQUE: Multiplanar and multisequence MR images of the LEFT knee. IV Contrast Dosage and Agent: None. COMPARISON: FINDINGS: BONE: No fracture or abnormal bone marrow signal. JOINT: No pathologic effusion, synovial hypertrophy, or intra-articular body. MUSCLES: Unremarkable. MENISCI: Medial and lateral menisci unremarkable. CRUCIATE LIGAMENTS: Proximal ACL demonstrates mild increased signal intensity on fat saturation imaging consistent with small partial tear likely subacute or chronic given absence of joint effusion. COLLATERAL LIGAMENTS: Medial collateral ligament and lateral collateral ligamentous complex, inclusive of the popliteal tendon, are intact. CARTILAGE: Articular cartilage intact. OTHER SOFT TISSUES: There is a small partial tear of the proximal patellar tendon with high signal intensity seen on fat saturation imaging. MRI/Lower Ext Joint Only (Routine) IMPRESSION: Partial tear proximal patellar tendon. Small subacute or chronic tear of the proximal ACL. Electronically Signed: Rod Benites MD at 9:03 EDT , Coding Level of Care Code Off vis,est,level 3 Diagnoses Left knee pain M25.562 Patellar tendinitis, left knee M76.52 Assessment and Plan Assessment and Plan (1) Left knee pain: Status: Acute Plan: 39-year-old man with ongoing medial sided knee pain as well as pain at the patellar tendon. MRI shows partial undersurface fraying proximal end of patellar tendon. There is no obvious meniscal tear but he has signs and symptoms consistent with a tear of the medial meniscus and there is some area of signal change at the anterior aspect of the medial meniscus that seems to correspond to his pain. He did get good relief with an injection but is not interested in carry on with continued injections or other forms of treatment like rest ice anti-inflammatories or physical therapy. The ACL does feel like it has some mild increased translation compared to the other side but a firm endpoint and negative pivot shift with only strain on MRI so I do not think it is tse in this 47-year-old man to consider ACL reconstruction that being said he is interested in the surgical solution to try to address this problem. In my hands that would be a left knee arthroscopy, debridement patellar tendon, possible medial meniscus repair or partial meniscectomy. We talked about the pros and cons risk benefits of this as well as postoperative recovery 1 to 2 weeks on crutches 6 weeks prior to going back to normal activities unless there is a meniscus repair that would prolong things up to 3 months. He understands wishes to proceed with the surgery no further questions or concerns. Pros and cons risks and benefits were discussed with the patient including but not limited to infection, pain, stiffness, bleeding, damage to surrounding structures, neurovascular injury, recurrence or retear, failure or wear of hardware or fixation, instability, fracture, deep vein thrombosis and pulmonary embolism, anesthetic risks, , patient dissatisfaction, need for further surgery and other risks. Patient understood and wished to proceed with surgery, and signed the informed consent documentation. (2) Patellar tendinitis, left knee: [facility] Medical History Abrasion Acute bronchitis, unspecified Bronchitis Contact with and (suspected) exposure to other viral communicable diseases Left knee pain Patellar tendinitis, left knee Tinnitus URI (upper respiratory infection) Wears glasses Home Medications omega 8-nof-kid-fish oil 1,200 mg (144 mg-216 mg) capsule (Fish Oil) 1 cap PO DAILY SUPPLEMENT 05/11/23 [History Last Taken Unknown] Allergy/AdvReac Type Severity Reaction Status Date / Time No Known Allergies Allergy Verified 05/23/23 09:10 Surgical History Hx of hand surgery Social History Smoking Status: Never smoker alcohol intake: current alcohol intake frequency: holidays/special occasions only Vital Signs Vital Signs Vital Signs: 05/23/23 09:12 05/23/23 09:18 Temperature 97 F L Temperature Source Temporal Pulse Rate 61 Respiratory Rate 16 Respiratory Pattern Normal Blood Pressure 117/65 Blood Pressure Mean 82 Blood Pressure Source Monitor Blood Pressure Position Sitting Blood Pressure Location Right Arm Pulse Ox 100 Oxygen Delivery Method Room Air Weight Weight: 178 lb 9.191 oz Body Mass Index (BMI) 25.5
[2023-05-23] MEDS: Cefazolin 2 GM in 0.9% Normal Saline (100mL Bag) 100 ML IV (11:36)
[2023-05-23] MEDS: Epinephrine (1 mg/ml) 1 MG/ML VIAL (11:52)
[2023-05-23] MEDS: Bupivacaine 0.25% 30 ML Vial (12:12)
--- NOTE | 2023-05-23 12:17 | PCM.OPRPT ---
Problems Associated Problem List Diagnoses (1) Patellar tendinitis, left knee: Report of Operation Date of Procedure: 05/23/23 Pre-Operative Diagnosis: Left knee patellar tendinitis and partial tearing, possible medial meniscus tear Post-Operative Diagnosis: Left knee partial tearing proximal patellar tendon medial meniscus tear and LFC chondral thinning Surgeon: Zach Hawkins Type of Anesthesia: General and Local Anesthesiologist: Silas Caban Estimated Blood Loss (mL): 20 Description of Procedure: Patient brought to the operating room theater. Placed supine on the table. General anesthesia induced. 2 g IV Ancef administered prior to the start of the procedure. Tourniquet applied to left thigh appropriately padded. All bony prominences padded. SCD on the nonoperative leg. Stress positioner to the patient's left side. Lower extremity prepped and draped in the usual sterile fashion allowing over 3 minutes drying talent acquisition partner prior to draping. Preoperative timeout performed to confirm the site patient and surgery. Began by elevating the limb inflated the tourniquet to 250 mmHg. Made standard anterolateral and anteromedial arthroscopy portals. Patellofemoral joint appeared normal. I performed a gentle debridement of the proximal end of the patellar tendon as well as performed a spinal needle trephination at the proximal end as well. There was anterior horn and a partial fraying superior aspect of the medial meniscus I gently debrided that. There is also some fraying but no obvious complete tear at the outer margin anterior horn medial meniscus I probed this it was stable as well to probing no full thickness tear, therefore no repair sutures were placed. Cartilage on the medial side of the knee was normal. There is partial fraying of the ACL but appeared intact I gently debrided that. Normal PCL, normal gutters. Lateral meniscus was stable and solid to probing no tears. Cartilage at the lateral aspect tibial plateau was normal. There was an area at about 90 degrees of flexion at the lateral femoral condyle rectangular in nature anterior to posterior measuring about 1.5 cm and medial to lateral measuring 5 mm with a small area of unstable flap which I again gently debrided. This was grade 3 changes, over 50% loss thickness otherwise normal throughout rest of LFC. Arthroscopy pictures taken and saved throughout the case. Knee thoroughly irrigated. Quarter percent bupivacaine instilled around the soft tissue sites of the portals. Tourniquet let down. Wounds cleaned and dried Steri-Strips applied followed by Adaptic 4 x 4 gauze ABD dressing and Jose wrap. Patient woken up from a general anesthetic transferred off the operating table and taken to postanesthetic care unit in stable condition. All sponge needle instrument counts were correct. Plan for patient weightbearing as tolerated range of motion as tolerated and on crutches follow-up in 2 [address]. cpt 30279?and [id number]? Complications none Admit VTE Documentation VTE Present on Admission: No VTE Mechan Device Prophylaxis: SCD's VTE Pharm Prophylaxis ordered?: No Reason prophylaxis not ordered:: Treatment Not Indicated Procedures Musculoskeletal 20xxx-29xxx: Other Procedure See Report
--- NOTE | 2023-05-23 12:26 | DCINST_ITS ---
Discharge Instructions Diet Discharge Diet: No restrictions Activity Discharge Activity: Use Crutches Ice area for (Minutes): 10 Weight Bearing Status: Weight bearing as tolerated Keep extremity elevated above heart level: Operative Extremity Dressing / Incision Call your doctor if your incision/area has: Continuous Slow Oozing, Sudden Increased Bleeding, Increased Pain/ Swelling, Increased Redness, Foul Smelling Discharge and Swelling at the incision site Remove Dressing in: leave in place till F/U Follow Up Care Please Follow Up With: Zach Hawkins MD When: 2 days Test Results: Test results from this visit will be discussed in further detail at your follow- up appointment, if applicable. Discharge Plan Admission Attending Provider: Zach Hawkins Primary Care Provider: Dino Solitario Discharge Orders/Prescriptions Prescriptions: New oxycodone-acetaminophen [Endocet] 5-325 mg tablet 1 tab PO Q4H MDD 6 PRN (Reason: pain) 5 Days Qty: 20 0RF No Action omega 0-tjv-lsh-fish oil [Fish Oil] 1,200 (144-216) mg capsule 1 cap PO DAILY Patient Comments: WIILL STOP 5 DAYS BEFORE SURGERY Referrals / Follow Up: Dino Solitario MD [Primary Care Provider] - Zach Hawkins MD [Med Staff - Active Staff] - Disposition Disposition (needs filled in before D/C Order can be placed): Home, Self Care
[2023-05-23] MEDS: Oxycodone/Apap 5/325 Tablet PO (13:30)
== END 2023-05-23 13:47 | disposition home or self-care (01) ==
LOC: SDC 08:42 → AC 08:44
PROVIDERS: PCP Family Medicine; Referring Provider Orthopaedic Surgery Sports Medicine; Visit Provider Orthopaedic Surgery Sports Medicine
PROC: (CPT 29870; principal; 2023-05-23 09:50)
DX: S83.242A Other tear of medial meniscus, current injury, left knee, initial encounter (principal); S76.112A Strain of left quadriceps muscle, fascia and tendon, initial encounter; M76.52 Patellar tendinitis, left knee; X58.XXXA Exposure to other specified factors, initial encounter
CPT/HCPCS: 29881; G0289; 01400; J7120; J2405

== ENCOUNTER 2023-08-26 06:15 | Emergency (ER) | payer OTHER, SELFPAY ==
[2023-08-26 06:18] VITALS: BP 124/47; PULSE 78; RESP 20; TEMP 36.7; O2SAT 97; BMI 27.8
--- NOTE | 2023-08-26 06:27 | EKG12_ITS ---
Test Reason : CHEST PRESSURE Blood Pressure : / mmHG Vent. Rate : 074 BPM Atrial Rate : 074 BPM P-R Int : 160 ms QRS Dur : 094 ms QT Int : 360 ms P-R-T Axes : 071 -09 038 degrees QTc Int : 399 ms Normal sinus rhythm Abnormal ECG Confirmed by LOUISE HANNA MD ([id number]), rewrite editor BRENDA RICK ([id number]) on 08/28/2023 10:46:22 AM Referred By: DACIA Confirmed By:LOUISE HANNA MD
--- NOTE | 2023-08-26 06:28 | EDS_ITS ---
HPI History of Present Illness Chief Complaint: Chest Pain Narrative Narrative: 47-year-old male who denies significant past medical history presents with midsternal chest pain and pressure that began at about 3:00 this morning, approximately 3-1/2 hours ago. He states it awoke him from sleep. While he denies any nausea or vomiting, no diaphoresis with this, he felt a little short of breath . As he was walking into the emergency department, he states he developed a nonproductive cough. No fevers or chills, occasional runny nose since 3:00 this morning. He denies any leg swelling. He is not a smoker. He presents because of the continued chest pressure. [facility] Medical History Abrasion Acute bronchitis, unspecified Bronchitis Contact with and (suspected) exposure to other viral communicable diseases Left knee pain Patellar tendinitis, left knee Tinnitus URI (upper respiratory infection) Wears glasses Home Medications omega [id number]-[id number]-fish oil 1,200 mg (144 mg-216 mg) capsule (Fish Oil) 1 cap PO DAILY SUPPLEMENT 05/11/23 [History Last Taken Unknown] Allergy/AdvReac Type Severity Reaction Status Date / Time No Known Allergies Allergy Verified 08/26/23 06:22 Surgical History Hx of hand surgery Social History Smoking Status: Never smoker alcohol intake: current alcohol intake frequency: holidays/special occasions only ROS ROS ED ROS Narrative Constitutional: No fever, no chills. HEENT: No sore throat. No neck pain. No loss of vision. No rhinorrhea. Cardiovascular: Positive midsternal chest pain. No palpitations. No pedal edema. Respiratory: Positive dry cough, a little shortness of breath. Abdominal: No abdominal pain. No nausea. No vomiting. Genitourinary: No dysuria. No hematuria. Musculoskeletal: No myalgias. No arthralgias. Neurologic: No headaches. No dizziness. No lightheadedness. Skin: No rash. No change in color. Psychiatric: No depression. No anxiety. EXAM Physical Exam Narrative Exam Narrative: Afebrile. Vital signs noted. HEENT: Normocephalic. Atraumatic. PERRL, EOMI. Neck soft and supple. No point tenderness or step off. Cardiovascular: Regular rate and rhythm. No murmurs, rubs, or gallops appreciated. Respiratory: No tachypnea. Lungs clear to auscultation bilaterally. Gastrointestinal: Abdomen soft, nontender, with normoactive bowel sounds. No rebound or guarding. Neurological: Awake. Alert. Nonfocal, nonlateralizing. Skin: No rash. Normal color. No pallor. Musculoskeletal: No pedal edema. Full range of motion extremities. Const Vital Signs: 08/26/23 06:18 08/26/23 06:33 Temperature 98.0 F Temperature Source Temporal Pulse Rate 78 Respiratory Rate 20 H Blood Pressure 124/47 H Blood Pressure Mean 72 Pulse Ox 97 98 Oxygen Delivery Method Room Air Room Air Heart Score History: Slightly/Non-Suspicious ECG: Normal Age: >45 - <65 years Risk Factors: No Risk Factors Troponin: </= Normal Limit Score: 1 MDM MDM MDM Narrative Medical decision making narrative: In the differential diagnosis is acute coronary syndrome versus pulmonary embolism versus aortic dissection versus URI/pneumonia. His symptoms began at 3 AM suddenly. He has a dry cough but I have low suspicion for pneumonia as he is afebrile here. I also have low suspicion for pulmonary embolism because he is PERC negative. Regardless, D-dimer will be obtained along with serial troponins, 1 view chest x-ray, CBC, and BMP. EKG was obtained and interpreted by myself independently as normal sinus rhythm at 74 bpm without ectopy or acute ST changes. There is wandering baseline and motion artifact in the inferior leads especially lead II. Chest x-ray in 1 view interpreted by myself independently shows no evidence of an acute pneumonia or consolidation, no pneumothorax. I reviewed the radiology report which confirms my independent interpretation. I reviewed his laboratory work and he has normal white count of 10.3, hemoglobin normal at 14.3, hematocrit 43.5, platelet count normal at 180. D-dimer is negative at less than 0.27 so I have low suspicion for pulmonary embolism currently. BMP reviewed and he has a chloride elevated at 108 which I think is nonspecific, glucose 94, normal BUN of 16 and creatinine 1.20. Sodium is normal at 141 and potassium normal at 3.8. Upon repeat examination at approximately 7:20 AM, he is resting comfortably and states that he feels mildly improved. His initial high-sensitivity troponin is 6. At this point in time, I have low suspicion for acute coronary syndrome. His respiratory swabs are currently pending, but given his cough he may be coming down with an upper respiratory infection/bronchitis. He will be signed out to the oncoming physician, Dr. Small, to check the second troponin, and make final disposition on this patient which I anticipate would be discharged. Patient is in stable condition. History & Record Review Discussion w/independent historian: Patient Additional record(s) reviewed:: Prior ED visit Lab Data Attestation: I reviewed the patient's lab results. Labs: Laboratory Results - last 24 hr 08/26/23 06:30 WBC 10.3 RBC 4.86 Hgb 14.3 Hct 43.5 MCV 89.5 MCH 29.4 MCHC 32.9 RDW Std Deviation 40.3 RDW Coeff of Brook 12.4 Plt Count 180 MPV 11.1 Immature Gran % (Auto) 0.500 Neut % (Auto) 80.9 H Lymph % (Auto) 13.2 L [place] % (Auto) 3.0 Eos % (Auto) 1.6 Baso % (Auto) 0.8 Absolute Neuts (auto) 8.4 H Absolute Lymphs (auto) 1.36 Nucleated RBC % 0 D-Dimer Quant (PE/DVT) < 0.27 L Sodium 141 Potassium 3.8 Chloride 108 H Carbon Dioxide 30.0 Anion Gap 3 L BUN 16 Creatinine 1.20 Estim Creat Clear Calc 86.61 Est GFR (MDRD) Af Amer 83 Est GFR (MDRD) Non-Af 68 BUN/Creatinine Ratio 13.3 Glucose 94 Calcium 9.0 Troponin I High Sens 6 Radiography Diagnostic Testing: Clinical Impression(s) from Imaging Studies Chest X-Ray 08/26/23 06:40 IMPRESSION: 1. Low lung volumes limit the exam. No consolidations. 2. No acute cardiopulmonary abnormality. Electronically Signed: Mike Ferro MD at 7:15 EDT , Discharge Plan Triage Chief Complaint: Chest Pain ED Provider: Earnest Snyder Dx/Rx/DC Orders Clinical Impression: Cough, Chest pressure Instructions: ED Chest Pain, Uncertain Cause, ED Symptoms Uncertain Cause Prescriptions: No Action omega [id number]-[id number]-fish oil [Fish Oil] 1,200 (144-216) mg capsule 1 cap PO DAILY Patient Comments: WIILL STOP 5 DAYS BEFORE SURGERY Primary Care Provider: Dino Solitario Referrals: Dino Solitario MD [Primary Care Provider] - 3-5 Days if not improving
[2023-08-26 06:33] VITALS: O2SAT 98
[2023-08-26 06:39] LABS: Absolute Lymphocyte Count 1.36 X10^3/uL (0.83-4.51); Absolute Neutrophil Count 8.4 X10^3/uL (2.0-7.7); Basophil# 0.08 X10^3/uL; Basophil% 0.8 % (0-1); Eosinophil# 0.16 X10^3/uL; Eosinophils% 1.6 % (0-5); Hematocrit 43.5 % (40-54); Hemoglobin 14.3 g/dL (13.0-16.5); Lymphocyte # 1.36 X10^3/ul (0.83-4.51); Lymphocyte % 13.2 % (19-41); Mean Corp Hgb Conc 32.9 g/dL (32-36); Mean Corpuscular Hgb 29.4 pg (27.0-32.0); Mean Corpuscular Volume 89.5 fL (80-94); Mean Platelet Vol. 11.1 fl (6.2-12.0); Monocyte# 0.31 X10^3/uL; NRBC Flagged by Analyzer 0 % (0-5); Neutrophil # 8.36 X10^3/uL (2.7-7.7); Neutrophil % 80.9 % (47-70); Platelet Count 180 K/mm3 (150-450); RBC Distribution Width CV 12.4 % (11.6-14.6); RBC Distribution Width SD 40.3 fl (35.1-43.9); Red Blood Count 4.86 M/mm3 (4.6-6.2); White Blood Count 10.3 K/mm3 (4.4-11.0)
--- NOTE | 2023-08-26 06:40 | RAD_ITS ---
EXAM: XR CHEST, 1 VIEW CLINICAL INDICATION: chest pain TECHNIQUE: Frontal view of the chest. COMPARISON: No relevant prior studies available. FINDINGS: LUNGS AND PLEURAL SPACES: Low lung volumes limit the exam. No consolidations. No pneumothorax. No effusion. HEART: Unremarkable. Cardiac silhouette not enlarged. MEDIASTINUM: Central airways and mediastinal contour are unremarkable. BONES/JOINTS: Unremarkable. No acute fracture. SOFT TISSUES: Unremarkable. RAD/Chest 1 View (Portable) IMPRESSION: 1. Low lung volumes limit the exam. No consolidations. 2. No acute cardiopulmonary abnormality. Electronically Signed: Mike Ferro MD at 7:15 EDT ,
[2023-08-26 06:55] LABS: Anion Gap 3 (5-15); BUN 16 mg/dL (7-18); BUN/Creat Ratio 13.3 RATIO (10-20); Chloride 108 mmol/L (98-107); EST Glomerular Filtration Rate 68 mL/min (>60); Est Glom Filt Rate - Afr Amer 83 mL/min (>60); Estimated Creatinine Clearance 86.61 ml/min; Glucose 94 mg/dL (74-106); Potassium 3.8 mmol/L (3.5-5.1); Sodium Level 141 mmol/L (136-145); Troponin-I HS (w/2H Reflex) 6 pg/mL (3.0-78.0)
--- OUTSIDE RECORDS SUMMARY | 2023-08-26 06:57 | XMS RPT_ITS | CCD ---
Author Name Unknown Address [address] [place] [address] Organization [facility] Care Team Providers Care Dermatological Surgeon Name Role Phone Radha Morales MD Primary Care Provider ROB SOLITARIO Referring Unavailabl e ANDREW, RADHA A Primary Care Unavailable ROB SOLITARIO Referring Unavailabl e NADREW, RADHA A Primary Care Unavailable ROB SOLITARIO Referring Unavailabl e ANDREW, RADHA A Primary Care Unavailable ROB SOLITARIO Referring Unavailabl e ANDREW, RADHA A Primary Care Unavailable ROB SOLITARIO Referring Unavailabl e ANDREW, RADHA A Primary Care Unavailable DIETER BURNS Attending Unavailable ROB SOLITARIO Referring Unavailabl e ANDREW, RADHA A Primary Care Unavailable ROB SOLITARIO Referring Unavailabl e ANDREW, RADHA A Primary Care Unavailable DIETER BURNS Attending Unavailable ROB SOLITARIO Referring Unavailabl DIETER Renteria Attending Unavailable RADHA MORALES Primary Care Unavailable ROB SOLITARIO Referring Unavailabl e ANDREW, RADHA A Primary Care Unavailable DIETER BURNS Attending Unavailable RADHA MORALES Primary Care Unavailable DIETER BURNS Attending Unavailable ROB SOLITARIO Referring Unavailabl e ROB SOLITARIO Referring Unavailabl e ANDREW, RADHA A Primary Care Unavailable WHITNEY JAQUEZ Attending Unavailable ROB SOLITARIO Referring Unavailabl e ANDREW, RADHA A Primary Care Unavailable ROB SOLITARIO Referring Unavailabl e ANDREW, RADHA A Primary Care Unavailable WHITNEY JAQUEZ Attending Unavailable ROB SOLITARIO Referring Unavailabl e ANDREW, RADHA A Primary Care Unavailable ROB SOLITARIO Referring Unavailabl e DIETER BURNS Attending Unavailable ANDREW, RADHA A Primary Care Unavailable ROB SOLITARIO Referring Unavailabl e KATY, DIETER Attending Unavailable RADHA MORALES A Primary Care Unavailable ROB SOLITARIO Referring Unavailabl e KATY, DIETER Attending Unavailable ILENE MORALESREY A Primary Care Unavailable ROB SOLITARIO Referring Unavailabl e KATY, DIETER Attending Unavailable RADHA MORALES A Primary Care Unavailable ROB SOLITARIO Referring Unavailabl e KATY, DIETER Attending Unavailable ILENE MORALESREY A Primary Care Unavailable ROB SOLITARIO Referring Unavailabl e KATY, DIETER Attending Unavailable ANDREW, RADHA A Primary Care Unavailable ROB SOLITARIO Referring Unavailabl e KATY, DIETER Attending Unavailable RADHA MORALES A Primary Care Unavailable ROB SOLITARIO Referring Unavailabl e ANDREW, RADHA A Primary Care Unavailable KATY, DIETER Attending Unavailable ROB SOLITARIO Referring Unavailabl e ANDREW, RADHA A Primary Care Unavailable ROB SOLITARIO Referring Unavailabl e ANDREW, RADHA A Primary Care Unavailable WHITNEY JAQUEZ Attending Unavailable ROB SOLITARIO Referring Unavailabl e KATY, DIETER Attending Unavailable RADHA MORALES A Primary Care Unavailable RADHA MORALES A Primary Care Unavailable RADHA MORALES A Primary Care Unavailable KATY, DIETER Attending Unavailable ROB SOLITARIO Referring Unavailabl e ROB SOLITARIO Referring Unavailabl e KATY, DIETER Attending Unavailable RADHA MORALES A Primary Care Unavailable ROB SOLITARIO Referring Unavailabl e KATY, DIETER Attending Unavailable RADHA MORALES A Primary Care Unavailable ROB SOLITARIO Referring Unavailabl e ANDREW, RADHA A Primary Care Unavailable ANDREW, RADHA A Primary Care Unavailable KATY, DIETER Attending Unavailable ROB SOLITARIO Referring Unavailabl e ANDREW, RADHA A Primary Care Unavailable KATY, DIETER Attending Unavailable ROB SOLITARIO Referring Unavailabl e ROB SOLITARIO Referring Unavailabl e ANDREW, RADHA A Primary Care Unavailable KATY, DIETER Attending Unavailable ROB SOLITARIO Referring Unavailabl e KATY, DIETER Attending Unavailable RADHA MORALES A Primary Care Unavailable ROB SOLITARIO Referring Unavailabl e ANDREW, RADHA A Primary Care Unavailable ROB SOLIATRIO Referring Unavailabl e ANDREW, RADHA A Primary Care Unavailable ROB SOLITARIO Referring UnavailDIETER Diaz Attending Unavailable RADHA MORALES Primary Care Unavailable ROB SOLITARIO Referring Unavailabl DIETER Renteria Attending Unavailable RADHA MORALES Primary Care Unavailable ROB SOLITARIO Referring Unavailabl DIETER Renteria Attending Unavailable RADHA MORALES Primary Care Unavailable RADHA MORALSE Primary Care Unavailable DIETER BURNS Attending Unavailable ROB SOLITARIO Referring Unavailabl e Medications Completed/Discontinued Medications Medication Drug Class(es) Dates Sig (Normalized) Sig (Original) cyclobenzaprine hydrochloride 10 mg oral tablet (20 sources) Muscle Relaxant Start: 10-19-2020 take 1 tablet by mouth every eight hours as needed cyclobenzaprine (FLEXERIL) 10 mg tablet Take 1 tablet by mouth three times daily as needed for Muscle Spasm. 30 tablet 1 10/19/2020 Active Problems Active Problems Problem Classification Problem Date Documented Date Episodic/Chronic Other connective tissue disease (20 sources) Tendonitis of left patellar tendon; Translations: [Patellar tendinitis, left knee] Onset: 05-31-2023 07-18-2023 Episodic Other eye disorders (1 source) Subconjunctival hemorrhage of right eye; Translations: [Conjunctival hemorrhage, right eye] 12-19-2022 Episodic Past or Other Problems Problem Classification Problem Date Documented Date Episodic/Chronic Neoplasms of unspecified nature or uncertain behavior (20 sources) Neoplasm of uncertain behavior of skin of scalp; Translations: [Neoplasm of uncertain behavior of skin] Onset: 07-31-2017 07-31-2017 Episodic Other connective tissue disease (20 sources) Disorder of Achilles tendon; Translations: [Other specified disorders of synovium and tendon, other site] Onset: 06-15-2022 Episodic Other connective tissue disease (20 sources) Pain in right lower limb; Translations: [Pain in right leg] Onset: 11-17-2020 11-17-2020 Episodic Other screening for suspected conditions (not mental disorders or infectious disease) (20 sources) Patient encounter status; Translations: [Encounter for screening for cardiovascular disorders] Onset: 07-31-2017 07-31-2017 Episodic Spondylosis; intervertebral disc disorders; other back problems (20 sources) Acute back pain with sciatica; Translations: [Lumbago with sciatica, right side] Onset: 11-17-2020 11-17-2020 Episodic Results Test Name Value Interpretation Reference Range Facil ity Vital Signs Date Time Vital Sign Value Performing Clinician Fide christine 12-19-2022 11:41-0400 Body temperature 97.39 [degF] Krislyn Aberegg PA Work Phone: [facility] 12-19-2022 11:41-0400 Body weight 86.64 kg Krislyn Aberegg PA Work Phone: [facility] 12-19-2022 11:41-0400 Diastolic blood pressure 74 mm[Hg] Krislyn Aberegg PA Work Phone: [facility] 12-19-2022 11:41-0400 Heart rate 55 /min Krislyn Aberegg PA Work Phone: [facility] 12-19-2022 11:41-0400 Respiratory rate 16 /min Krislyn Aberegg PA Work Phone: [facility] 12-19-2022 11:41-0400 SaO2% (BldA) [Mass fraction] 97 % Krislyn Aberegg PA Work Phone: [facility] 12-19-2022 11:41-0400 Systolic blood pressure 110 mm[Hg] Krislyn Aberegg PA Work Phone: [facility] Encounters Encounter Date Encounter Type Care Provider Facility Start: 08-23-2023 End: 08-23-2023 ambulatory ROB SOLITARIO Facility:[facility] Start: 08-23-2023 End: 08-23-2023 ambulatory Dieter Burns PT Work Phone: [facility] Physical Therapy Procedures Date Procedure Procedure Detail Performing Clinician Start: 08-01-2017 Lipid 1996 panel - S fe or Plasma Dyana Ch [employer] Work Phone: Plan of Treatment Date Care Activity Detail Author Start: 03-22-2025 Urine microalbumin profile [facility] Start: 06-11-2023 Depression Assessment Depression Ass essment [facility] Start: 02-09-2023 Covid-19 Vaccine ( season) Covid-19 Vaccine () [facility] Start: 02-09-2023 Influenza vaccination [facility] Start: 08-01-2022 [facility] Start: 08-01-2022 LIPID SCREEN LIPID SCREEN [facility] Start: 06-11-2022 DEPRESSION ASSESSMENT DEPRESSION ASS ESSMENT [facility] Start: 07-06-2021 COVID-19 VACCINE (5 - Booster for Pfizer series) COVID-19 VACCINE (5 - Booster for Pfizer series) [facility] Start: 07-06-2021 COVID-19 VACCINE (5 - Pfizer series) COVID-19 VACCINE (5 - Pfizer series) [facility] Start: 08-01-2020 DIABETES SCREEN DIABETES SCREEN [facility] Start: 08-01-2020 Diabetes Screening Diabetes Screenin g [facility] Start: 10-01-2019 COLOGUARD (FIT-DNA) COLOGUARD (FIT-D NA) [facility] Start: 10-01-2019 Colonoscopy COLONOSCOPY [facility] Start: 10-01-2019 COLORECTAL CANCER SCREENING COLORECTAL CANCER SCREENING [facility] Start: 10-01-[address] COLONOGRAPHY [facility] Start: 10-01-2019 FECAL OCCULT BLOOD FECAL OCCULT BLOO D [facility] Start: 10-01-2019 Screening for malign ant neoplasm of colon [facility] Start: 10-01-2019 SIGMOIDOSCOPY SIGMOIDOSCOPY [facility] Start: 1993 Hepatitis B Vaccine (1 of 3 - 19+ 3-dose series) Hepatitis B Vaccine (1 of 3 - 19+ 3-dose series) [facility] Start: 1992 HEPATITIS C SCREENING HEPATITIS C [facility] Start: 1992 Hepatitis C screening Hepatitis C [facility] Start: 1992 HIV SCREENING HIV SCREENING [facility] Start: 1992 HIV screening HIV Screening [facility] Start: 1974 HEPATITIS B (1 of 3 - 3-dose series) HEPATITIS B (1 of 3 - 3-dose series) [facility] Start: 1974 Hepatitis B Vaccine (1 of 3 - 3-dose series) Hepatitis B Vaccine (1 of 3 - 3-dose series) [facility] Immunizations Immunization Date Immunization Notes Care Provider Whitney micharajni 06-07-2022 influenza virus vaccine, unspecified formulation Dyana Ch PTA Work Phone: [facility] 03-06-2020 influenza, injectabl e, quadrivalent, contains preservative Dieter Burns PT [facility] 03-23-2018 influenza, injectabl e, quadrivalent, contains preservative Dieter Burns PT [facility] Work Phone: 03-06-2016 influenza, injectabl e, quadrivalent, contains preservative Dieter Burns PT [facility] 03-22-2015 tetanus toxoid, redu nancy diphtheria toxoid, and acellular pertussis vaccine, adsorbed Dieter Burns PT [facility] Work Phone: Payers Date Payer Category Payer Unknown [id number] 2015 Unknown [id number] Social History Date Type Detail Facility Start: 07-31-2017 End: 12-19-2022 Tobacco smoking status NHIS Never smoked tobacco [facility] Start: 07-31-2017 End: 12-19-2022 Tobacco use and exposure Smokeless tobacco non-user [facility] Start: 02-13-2021 End: 12-19-2022 Alcohol intake Not Asked [facility] Start: 1975 Sex Assigned At Not on file [facility] Start: 02-13-2021 End: 10-12-2022 History of Social function [facility] Start: 02-13-2021 End: 10-12-2022 Tobacco use panel [facility] National Score (1-10 0), lower number is lower risk 66 [facility] Clinical Notes 06-15-2022 to 08-23-2023 Dieter Burns, PT - 08/23/2023 4:22 PM Whitney Yousif PT, DPT - 08/20/2023 3:42 PM Whitney Yousif, PT, DPT - 08/15/2023 3:34 PM Aris Mckay PT - 08/13/2023 3:31 PM EST Note Date & Type Note Facility 08-23-2023 Note HNO ID: [id number] Author: DIETER BURNS PT Service: ? Author Type: Physical Therapist Type: Progress Notes Filed: 08/23/2023 17:15 Note Text: Episode Visit Count: 20 Therapist That Will Accept/Oversee The Plan Of Care: Dieter Burns PT Start of Care Date: 05/31/23 Onset Date: 05/31/23 Patient Identified by Name and Date of : Yes REHABILITATION AND SPORTS THERAPY PHYSICAL THERAPY PROGRESS REPORT PLAN OF CARE UPDATE: Assessment: Elliot Murillo demonstrates difficulty with kneeling, running, jumping, and squatting and improvements in rising from a chair, walking, and working. He has progressed toward goals. Patient continues to present with impairments in independence in exercise, overall function, and strength that interfere with running, kneeling . Current prognosis is Good due to: current objective clinical presentation, good overall health status, good support system/ coping skills . Main findings are gluteal and quadriceps weakness on the LLE. He will benefit from continued skilled therapy services to meet the updated goals for this plan of care as noted below. Goals updated 07/30/2023 Goals for Episode of Care: created on 05/31/23 through 08/27/23 [place] in home exercise program. - MET so far Patient will decrease pain rating by 2 points to meet minimal clinical important difference for numeric pain rating scale. - MET Perform jogging with 2/10 pain or less. - Not able to assess yet, will continue Increase ROM of LLE to WNL for improved gait mechanics - MET Increased strength of LLE to 5/5 for return to PLOF - Progressing, will continue Improve flexibility of L gastrocnemius for improved gait mechanics - Not assessed Normal gait.- MET Reciprocal stair negotiation. - Progressing, ongoing gait abnormalities Patient Goals: Return to jogging Patient Goals: Return to jogging Planned Interventions, Frequency, and Duration: 2x/week, 4 weeks Total Number of Visits Planned: 8 Patient to be seen for Neuromuscular re-education (30046), Therapeutic exercise (83697), Manual therapy (94925), Self-assisted management (43367), Gait Training (08009), Patient/Family/Caregiver Education, Therapeutic activities (75095), Body Mechanics Training, Functional training, General Conditioning PLAN FOR NEXT VISIT: Continue to focus on gluteal and quadriceps strengthening SUBJECTIVE: Saw the physician and said he had no problem for him to start running when the pt is ready. Can get pain with lunges. Still feels some oddness with descending stairs and kneeling in the L leg. Patient Goals: Return to jogging Functional Limitations: running, kneeling Prior Level of Function: Independent without limitations Intake Information: Prescription present Previous Treatment: Surgery Pain: Pain Pain Location: Knee - Left PROMIS Scales 08/08/2023 07/02/2023 05/29/2023 Higher is Better Phys Func - Score 44 (mild dysfunction) 39 (moderate dysfunction) 29 (severe dysfunction) Phys Func - Percentile 27 14 2 Self-Eff Symptom - Score 51 (Average) 37 (Low) 36 (Low) Self-Eff Symptom - Percentile 54 10 8 T-scores: mean of general population = 50. 5 points is clinically meaningfully difference Percentiles provide an indication of how the patient's score ranks in relation to the general population. Higher percentile rankings indicate better function/quality of life. 50th percentile is the average of the general population and indicates half of respondents had a worse score. OBJECTIVE MEASURES WITH LEVEL OF FUNCTION: LE AROM R LE AROM: WNL L LE AROM: WNL LE Strength R LE Strength: Grossly 5/5 L Hip Flexion (L2): 5/5 L Hip ABduction: 4/5 L Hip External Rotation: 4+/5 L Knee Extension (L3): 4+/5 Dynamometer Strength Left Quadriceps Strength (lbs): 58 Gait Gait: Independent L knee IR with jogging and lateral knee pain noted TREATMENT: Therapeutic Exercise: 1: All objective measures taken this session 2: [place] purple TB 3 x 12 reps 5: Lateral band walk series verse GTB at ankles, neutral, foot ER, foot IR 2x[address] Skilled Intervention: Patient was educated in proper exercise technique and purpose for exercises. Provided written instruction for home exercise program to facilitate proper performance and compliance. Correct performance of therapeutic exercises was facilitated with verbal and visual cuing. Billing Therapeutic Exercise Treatment Minutes: 41 Skilled Treatment Time Minutes (timed and untimed codes): 41 Total Session Time (minutes): 41 Session Start Time : 1622 Session Stop Time : 1703 Dieter Burns PT [facility] 08-23-2023 History of Present illness Narrative Images from the original note were not included. Episode Visit Count: 20 Therapist That Will Accept/Oversee The Plan Of Care: Dieter Burns PT Start of Care Date: 05/31/23 Onset Date: 05/31/23 Patient Identified by Name and Date of : Yes REHABILITATION AND SPORTS THERAPY PHYSICAL THERAPY PROGRESS REPORT PLAN OF CARE UPDATE: Assessment: Elliot Murillo demonstrates difficulty with kneeling, running, jumping, and squatting and improvements in rising from a chair, walking, and working. He has progressed toward goals. Patient continues to present with impairments in independence in exercise, overall function, and strength that interfere with running, kneeling . Current prognosis is Good due to: current objective clinical presentation, good overall health status, good support system/ coping skills . Main findings are gluteal and quadriceps weakness on the LLE. He will benefit from continued skilled therapy services to meet the updated goals for this plan of care as noted below. Goals updated 07/30/2023 Goals for Episode of Care: created on 05/31/23 through 08/27/23 [place] in home exercise program. - MET so far Patient will decrease pain rating by 2 points to meet minimal clinical important difference for numeric pain rating scale. - MET Perform jogging with 2/10 pain or less. - Not able to assess yet, will continue Increase ROM of LLE to WNL for improved gait mechanics - MET Increased strength of LLE to 5/5 for return to PLOF - Progressing, will continue Improve flexibility of L gastrocnemius for improved gait mechanics - Not assessed Normal gait.- MET Reciprocal stair negotiation. - Progressing, ongoing gait abnormalities Patient Goals: Return to jogging Patient Goals: Return to jogging Planned Interventions, Frequency, and Duration: 2x/week, 4 weeks Total Number of Visits Planned: 8 Patient to be seen for Neuromuscular re-education (66295), Therapeutic exercise (87069), Manual therapy (62074), Self-assisted management (82635), Gait Training (08231), Patient/Family/Caregiver Education, Therapeutic activities (52048), Body Mechanics Training, Functional training, General Conditioning PLAN FOR NEXT VISIT: Continue to focus on gluteal and quadriceps strengthening SUBJECTIVE: Saw the physician and said he had no problem for him to start running when the pt is ready. Can get pain with lunges. Still feels some oddness with descending stairs and kneeling in the L leg. Patient Goals: Return to jogging Functional Limitations: running, kneeling Prior Level of Function: Independent without limitations Intake Information: Prescription present Previous Treatment: Surgery Pain: Pain Pain Location: Knee - Left PROMIS Scales 08/08/2023 07/02/2023 05/29/2023 Higher is Better Phys Func - Score 44 (mild dysfunction) 39 (moderate dysfunction) 29 (severe dysfunction) Phys Func - Percentile 27 14 2 Self-Eff Symptom - Score 51 (Average) 37 (Low) 36 (Low) Self-Eff Symptom - Percentile 54 10 8 T-scores: mean of general population = 50. 5 points is clinically meaningfully difference Percentiles provide an indication of how the patient's score ranks in relation to the general population. Higher percentile rankings indicate better function/quality of life. 50th percentile is the average of the general population and indicates half of respondents had a worse score. OBJECTIVE MEASURES WITH LEVEL OF FUNCTION: LE AROM R LE AROM: WNL L LE AROM: WNL LE Strength R LE Strength: Grossly 5/5 L Hip Flexion (L2): 5/5 L Hip ABduction: 4/5 L Hip External Rotation: 4+/5 L Knee Extension (L3): 4+/5 Dynamometer Strength Left Quadriceps Strength (lbs): 58 Gait Gait: Independent L knee IR with jogging and lateral knee pain noted TREATMENT: Therapeutic Exercise: 1: All objective measures taken this session 2: [place] purple TB 3 x 12 reps 5: Lateral band walk series verse GTB at ankles, neutral, foot ER, foot IR 2x[address] Skilled Intervention: Patient was educated in proper exercise technique and purpose for exercises. Provided written instruction for home exercise program to facilitate proper performance and compliance. Correct performance of therapeutic exercises was facilitated with verbal and visual cuing. Billing Therapeutic Exercise Treatment Minutes: 41 Skilled Treatment Time Minutes (timed and untimed codes): 41 Total Session Time (minutes): 41 Session Start Time : 1622 Session Stop Time : 1703 Dieter Burns PT documented in this encounter [facility] 08-20-2023 Note HNO ID: [id number] Author: WHITNEY JAQUEZ PT, DPT Service: ? Author Type: Physical Therapist Type: Progress Notes Filed: 08/20/2023 16:24 Note Text: Episode Visit Count: 19 Therapist That Will Accept/Oversee The Plan Of Care: Dieter Burns PT Start of Care Date: 05/31/23 Onset Date: 05/31/23 Patient Identified by Name and Date of : Yes REHABILITATION AND SPORTS THERAPY PHYSICAL THERAPY TREATMENT NOTE ASSESSMENT: Elliot Murillo tolerated the session with expected muscle soreness. He demonstrated pain with attempted mini lunge prior to BFR. Good tolerance of all exercises this session. Lateral hip fatigue with band walk series to end the session. The patient will continue to benefit from ongoing skilled physical therapy to progress toward set goals. PLAN FOR NEXT VISIT: PN, potentially move away from BFR. SUBJECTIVE: Patient reports he wishes that he would have returned to running by now. Still some pain occasionally when descending stairs. Pain: Pain Pain Level: 1 Pain Location: Knee - Left Post Treatment Pain Post Treatment Pain Level: No Change Post Treatment Pain Location: Knee - Left OBJECTIVE MEASURES WITH LEVEL OF FUNCTION: Anterior knee pain with lunging. TREATMENT: Therapeutic Exercise: 1: Stationary bike x 5 minutes, seat # 3 lvl 2.5 2: BFR LAQ in sitting 2# ankle weight LOP 128mmHg large cuff, x30,15,15,15 (30 second rest between sets, 1 minute rest between exercises) 3: BFR SL HS curl machine 50# (last set 40#) in sitting LOP 128mmHg large cuff, x30,15,15,15 (30 second rest between sets, 1 minute rest between exercises) 4: BFR leg press 30# SL( last set of 15 at 40#) ; x30,15,15,15 large cuff 144 mmHg (30 second rest between sets, 1 minute rest between exercises) 5: Lateral band walk series verse GTB at ankles, neutral, foot ER, foot IR 2x20 [address] Skilled Intervention: Patient was educated in proper exercise technique and purpose for exercises. Skilled judgment was used in selection of appropriate interventions. Correct performance of therapeutic exercises was facilitated with verbal and visual cuing. Billing Therapeutic Exercise Treatment Minutes: 40 Skilled Treatment Time Minutes (timed and untimed codes): 40 Total Session Time (minutes): 40 Session Start Time : 1542 Session Stop Time : 162 Whitney Jaquez PT, DPT [facility] 08-20-2023 History of Present illness Narrative Episode Visit Count: 19 Therapist That Will Accept/Oversee The Plan Of Care: Dieter Burns PT Start of Care Date: 05/31/23 Onset Date: 05/31/23 Patient Identified by Name and Date of : Yes REHABILITATION AND SPORTS THERAPY PHYSICAL THERAPY TREATMENT NOTE ASSESSMENT: Elliot Murillo tolerated the session with expected muscle soreness. He demonstrated pain with attempted mini lunge prior to BFR. Good tolerance of all exercises this session. Lateral hip fatigue with band walk series to end the session. The patient will continue to benefit from ongoing skilled physical therapy to progress toward set goals. PLAN FOR NEXT VISIT: PN, potentially move away from BFR. SUBJECTIVE: Patient reports he wishes that he would have returned to running by now. Still some pain occasionally when descending stairs. Pain: Pain Pain Level: 1 Pain Location: Knee - Left Post Treatment Pain Post Treatment Pain Level: No Change Post Treatment Pain Location: Knee - Left OBJECTIVE MEASURES WITH LEVEL OF FUNCTION: Anterior knee pain with lunging. TREATMENT: Therapeutic Exercise: 1: Stationary bike x 5 minutes, seat # 3 lvl 2.5 2: BFR LAQ in sitting 2# ankle weight LOP 128mmHg large cuff, x30,15,15,15 (30 second rest between sets, 1 minute rest between exercises) 3: BFR SL HS curl machine 50# (last set 40#) in sitting LOP 128mmHg large cuff, x30,15,15,15 (30 second rest between sets, 1 minute rest between exercises) 4: BFR leg press 30# SL( last set of 15 at 40#) ; x30,15,15,15 large cuff 144 mmHg (30 second rest between sets, 1 minute rest between exercises) 5: Lateral band walk series verse GTB at ankles, neutral, foot ER, foot IR 2x20 [address] Skilled Intervention: Patient was educated in proper exercise technique and purpose for exercises. Skilled judgment was used in selection of appropriate interventions. Correct performance of therapeutic exercises was facilitated with verbal and visual cuing. Billing Therapeutic Exercise Treatment Minutes: 40 Skilled Treatment Time Minutes (timed and untimed codes): 40 Total Session Time (minutes): 40 Session Start Time : 1542 Session Stop Time : 1622 Whitney Jaquez PT, DPT documented in this encounter [facility] 08-15-2023 Note HNO ID: [id number] Author: WHITNEY JAQUEZ PT, DPT Service: ? Author Type: Physical Therapist Type: Progress Notes Filed: 08/16/2023 10:31 Note Text: Episode Visit Count: 18 Therapist That Will Accept/Oversee The Plan Of Care: Dieter Burns PT Start of Care Date: 05/31/23 Onset Date: 05/31/23 Patient Identified by Name and Date of : Yes REHABILITATION AND SPORTS THERAPY PHYSICAL THERAPY TREATMENT NOTE ASSESSMENT: Elliot Murillo tolerated the session with fatigue and expected muscle soreness. He demonstrated difficulty with hip abduction with BFR due to fatigue. The patient will continue to benefit from ongoing skilled physical therapy to progress toward set goals. PLAN FOR NEXT VISIT: Continue with BFR and hip strengthening. SUBJECTIVE: Pt reports that he had some pain in the knee. Pt reports that he felt fine after last session. Pain: Pain Pain Level: 2 Pain Location: Knee - Left Post Treatment Pain Post Treatment Pain Location: Knee - Left OBJECTIVE MEASURES WITH LEVEL OF FUNCTION: Form observed throughout session TREATMENT: Therapeutic Exercise: 1: Stationary bike x 5 minutes, seat # 3 lvl 2.5 (1:1 direct supervision. subjective collected) 2: BFR leg press 30# SL( last set of 15 at 20#) ; x30,15,15,15 large cuff 144 mmHg (30 second rest between sets, 1 minute rest between exercises) 3: BFR hip abduction machine 50# x30,15,15,15 large cuff, 152 mmHg 4: BFR SL HS curl machine 40# Skilled Intervention: Patient was educated in proper exercise technique and purpose for exercises. Skilled judgment was used in selection of appropriate interventions. Correct performance of therapeutic exercises was facilitated with verbal cuing. Billing Therapeutic Exercise Treatment Minutes: 38 Skilled Treatment Time Minutes (timed and untimed codes): 38 Total Session Time (minutes): 38 Session Start Time : 1531 Session Stop Time : 161 HARPREET Iqbal PT, DPReva [facility] 08-15-2023 History of Present illness Narrative Episode Visit Count: 18 Therapist That Will Accept/Oversee The Plan Of Care: Dieter Burns PT Start of Care Date: 05/31/23 Onset Date: 05/31/23 Patient Identified by Name and Date of : Yes REHABILITATION AND SPORTS THERAPY PHYSICAL THERAPY TREATMENT NOTE ASSESSMENT: Elliot Murillo tolerated the session with fatigue and expected muscle soreness. He demonstrated difficulty with hip abduction with BFR due to fatigue. The patient will continue to benefit from ongoing skilled physical therapy to progress toward set goals. PLAN FOR NEXT VISIT: Continue with BFR and hip strengthening. SUBJECTIVE: Pt reports that he had some pain in the knee. Pt reports that he felt fine after last session. Pain: Pain Pain Level: 2 Pain Location: Knee - Left Post Treatment Pain Post Treatment Pain Location: Knee - Left OBJECTIVE MEASURES WITH LEVEL OF FUNCTION: Form observed throughout session TREATMENT: Therapeutic Exercise: 1: Stationary bike x 5 minutes, seat # 3 lvl 2.5 (1:1 direct supervision. subjective collected) 2: BFR leg press 30# SL( last set of 15 at 20#) ; x30,15,15,15 large cuff 144 mmHg (30 second rest between sets, 1 minute rest between exercises) 3: BFR hip abduction machine 50# x30,15,15,15 large cuff, 152 mmHg 4: BFR SL HS curl machine 40# Skilled Intervention: Patient was educated in proper exercise technique and purpose for exercises. Skilled judgment was used in selection of appropriate interventions. Correct performance of therapeutic exercises was facilitated with verbal cuing. Billing Therapeutic Exercise Treatment Minutes: 38 Skilled Treatment Time Minutes (timed and untimed codes): 38 Total Session Time (minutes): 38 Session Start Time : 1531 Session Stop Time : 161 HARPREET Iqbal PT, DPT documented in this encounter [facility] 08-13-2023 Note HNO ID: [id number] Author: ARIS HERNÁNDEZ, BELÉN Service: ? Author Type: Physical Therapist Type: Progress Notes Filed: 08/13/2023 17:30 Note Text: Episode Visit Count: 17 Therapist That Will Accept/Oversee The Plan Of Care: Dieter Burns PT Start of Care Date: 05/31/23 Onset Date: 05/31/23 Patient Identified by Name and Date of : Yes REHABILITATION AND SPORTS THERAPY PHYSICAL THERAPY TREATMENT NOTE ASSESSMENT: Elliot Murillo tolerated the session with fatigue and expected muscle soreness. He demonstrated improvements in technique with heel taps with increased step height and fatigue. The patient will continue to benefit from ongoing skilled physical therapy to progress toward set goals. PLAN FOR NEXT VISIT: Continue with BFR and hip strengthening. SUBJECTIVE: Pt reports that he had some glute soreness after last session. Pain: Pain Pain Level: 0 Pain Location: Knee - Left Post Treatment Pain Post Treatment Pain Level: 0 Post Treatment Pain Location: Knee - Left OBJECTIVE MEASURES WITH LEVEL OF FUNCTION: Good eccentric quad control with heel taps on 6 inch step. TREATMENT: Therapeutic Exercise: 1: Stationary bike x 5 minutes, seat # 3 lvl 2.5 (1:1 direct supervision. Discussed rationale for gluteal soreness.) 2: Hip machine: abduction, flexion , abduction, and extension; 60# 2x10 B 3: BFR leg press 20# SL; large cuff 144 mmhg (30 second rest between sets, 1 minute rest between exercises) 4: BFR bridges, LOP 144 mmHg large cuff, x30,15,15,15 5: BFR heel taps on 6 inch step x30,15,15,15 large cuff, 152 mmHg Skilled Intervention: Patient was educated in proper exercise technique and purpose for exercises. Skilled judgment was used in selection of appropriate interventions. Correct performance of therapeutic exercises was facilitated with verbal and visual cuing. Billing Therapeutic Exercise Treatment Minutes: 45 Skilled Treatment Time Minutes (timed and untimed codes): 45 Total Session Time (minutes): 45 Session Start Time : 1529 Session Stop Time : 1614 Dyana Ch, [employer] Aris Hernández, BELÉN [facility] 08-13-2023 History of Present illness Narrative Episode Visit Count: 17 Therapist That Will Accept/Oversee The Plan Of Care: Dieter Burns PT Start of Care Date: 05/31/23 Onset Date: 05/31/23 Patient Identified by Name and Date of : Yes REHABILITATION AND SPORTS THERAPY PHYSICAL THERAPY TREATMENT NOTE ASSESSMENT: Elliot Murillo tolerated the session with fatigue and expected muscle soreness. He demonstrated improvements in technique with heel taps with increased step height and fatigue. The patient will continue to benefit from ongoing skilled physical therapy to progress toward set goals. PLAN FOR NEXT VISIT: Continue with BFR and hip strengthening. SUBJECTIVE: Pt reports that he had some glute soreness after last session. Pain: Pain Pain Level: 0 Pain Location: Knee - Left Post Treatment Pain Post Treatment Pain Level: 0 Post Treatment Pain Location: Knee - Left OBJECTIVE MEASURES WITH LEVEL OF FUNCTION: Good eccentric quad control with heel taps on 6 inch step. TREATMENT: Therapeutic Exercise: 1: Stationary bike x 5 minutes, seat # 3 lvl 2.5 (1:1 direct supervision. Discussed rationale for gluteal soreness.) 2: Hip machine: abduction, flexion , abduction, and extension; 60# 2x10 B 3: BFR leg press 20# SL; large cuff 144 mmhg (30 second rest between sets, 1 minute rest between exercises) 4: BFR bridges, LOP 144 mmHg large cuff, x30,15,15,15 5: BFR heel taps on 6 inch step x30,15,15,15 large cuff, 152 mmHg Skilled Intervention: Patient was educated in proper exercise technique and purpose for exercises. Skilled judgment was used in selection of appropriate interventions. Correct performance of therapeutic exercises was facilitated with verbal and visual cuing. Billing Therapeutic Exercise Treatment Minutes: 45 Skilled Treatment Time Minutes (timed and untimed codes): 45 Total Session Time (minutes): 45 Session Start Time : 1529 Session Stop Time : 1614 HARPREET Iqbal PT documented in this encounter [facility] 08-10-2023 Note HNO ID: [id number] Author: WHITNEY JAQUEZ PT, DPT Service: ? Author Type: Physical Therapist Type: Progress Notes Filed: 08/10/2023 14:09 Note Text: Episode Visit Count: 16 Therapist That Will Accept/Oversee The Plan Of Care: Dieter Burns PT Start of Care Date: 05/31/23 Onset Date: 06/15/21 Patient Identified by Name and Date of : Yes REHABILITATION AND SPORTS THERAPY PHYSICAL THERAPY TREATMENT NOTE ASSESSMENT: Elliot Murillo tolerated the session with fatigue and expected muscle soreness. He demonstrated improvements in SL leg press with BFR without any pain in LLE. The patient will continue to benefit from ongoing skilled physical therapy to progress toward set goals. PLAN FOR NEXT VISIT: Consider hip machine without BFR for BLE to increase stability in LLE SUBJECTIVE: Pt tried elliptical yesterday and that caused pain, he however was able to use the rowing machine. Pt stated tiredness after last session, no soreness or pain in L knee. Pain: Pain Pain Level: 0 Pain Location: Knee - Left Post Treatment Pain Post Treatment Pain Level: 0 Post Treatment Pain Location: Knee - Left OBJECTIVE MEASURES WITH LEVEL OF FUNCTION: Good form with eccentric heel taps. TREATMENT: Therapeutic Exercise: 1: Stationary bike x 5 minutes, seat # 3 lvl 2.5 (1:1 direct supervision. Discussed exercises pt can complete at home and rationale for pain with eliptical.) 2: BFR hip thrusts ( only x 30) then switched to bridges- too hard on his shoulders , LOP 128mmHg large cuff, x30,15,15,15 (30 second rest between sets, 1 minute rest between exercise) 3: BFR leg press 20# SL; large cuff 144 mmhg (30 second rest between sets, 1 minute rest between exercise, no pain today) 4: BFR heel taps on 4 inch step x30,15,15,15 large cuff, 152 mmHg (30 second rest between sets, 1 minute rest between exercise) 5: BFR hip abduction machine 50# x30,15,15,15 large cuff, 152 mmHg (30 second rest between sets, 1 minute rest between exercise) Skilled Intervention: Patient was educated in proper exercise technique and purpose for exercises. Skilled judgment was used in selection of appropriate interventions. Correct performance of therapeutic exercises was facilitated with verbal and visual cuing. Billing Therapeutic Exercise Treatment Minutes: 42 Skilled Treatment Time Minutes (timed and untimed codes): 42 Total Session Time (minutes): 42 Session Start Time : 844 Session Stop Time : 926 Dyana Ch, HARPREET Jaquez, PT, DPT [facility] 08-10-2023 History of Present illness Narrative Episode Visit Count: 16 Therapist That Will Accept/Oversee The Plan Of Care: Dieter Burns PT Start of Care Date: 05/31/23 Onset Date: 06/15/21 Patient Identified by Name and Date of : Yes REHABILITATION AND SPORTS THERAPY PHYSICAL THERAPY TREATMENT NOTE ASSESSMENT: Elliot Murillo tolerated the session with fatigue and expected muscle soreness. He demonstrated improvements in SL leg press with BFR without any pain in LLE. The patient will continue to benefit from ongoing skilled physical therapy to progress toward set goals. PLAN FOR NEXT VISIT: Consider hip machine without BFR for BLE to increase stability in LLE SUBJECTIVE: Pt tried elliptical yesterday and that caused pain, he however was able to use the rowing machine. Pt stated tiredness after last session, no soreness or pain in L knee. Pain: Pain Pain Level: 0 Pain Location: Knee - Left Post Treatment Pain Post Treatment Pain Level: 0 Post Treatment Pain Location: Knee - Left OBJECTIVE MEASURES WITH LEVEL OF FUNCTION: Good form with eccentric heel taps. TREATMENT: Therapeutic Exercise: 1: Stationary bike x 5 minutes, seat # 3 lvl 2.5 (1:1 direct supervision. Discussed exercises pt can complete at home and rationale for pain with eliptical.) 2: BFR hip thrusts ( only x 30) then switched to bridges- too hard on his shoulders , LOP 128mmHg large cuff, x30,15,15,15 (30 second rest between sets, 1 minute rest between exercise) 3: BFR leg press 20# SL; large cuff 144 mmhg (30 second rest between sets, 1 minute rest between exercise, no pain today) 4: BFR heel taps on 4 inch step x30,15,15,15 large cuff, 152 mmHg (30 second rest between sets, 1 minute rest between exercise) 5: BFR hip abduction machine 50# x30,15,15,15 large cuff, 152 mmHg (30 second rest between sets, 1 minute rest between exercise) Skilled Intervention: Patient was educated in proper exercise technique and purpose for exercises. Skilled judgment was used in selection of appropriate interventions. Correct performance of therapeutic exercises was facilitated with verbal and visual cuing. Billing Therapeutic Exercise Treatment Minutes: 42 Skilled Treatment Time Minutes (timed and untimed codes): 42 Total Session Time (minutes): 42 Session Start Time : 844 Session Stop Time : 926 Dyana Ch, HARPREET Jaquez PT, DPT documented in this encounter [facility] 08-08-2023 Note HNO ID: [id number] Author: WHITNEY JAQUEZ PT, DPT Service: ? Author Type: Physical Therapist Type: Progress Notes Filed: 08/10/2023 14:29 Note Text: Episode Visit Count: 15 Therapist That Will Accept/Oversee The Plan Of Care: Dieter Burns PT Start of Care Date: 05/31/23 Onset Date: 06/15/21 Patient Identified by Name and Date of : Yes REHABILITATION AND SPORTS THERAPY PHYSICAL THERAPY TREATMENT NOTE ASSESSMENT: Elliot Murillo tolerated the session with fatigue and expected muscle soreness. He demonstrated difficulty with LAQ due to fatigue , but improvements in pain with completing LAQ through full range. The patient will continue to benefit from ongoing skilled physical therapy to progress toward set goals. PLAN FOR NEXT VISIT: Consider hip thrusts with BFR or prone HS curls SUBJECTIVE: Pt reports that he was not able to exercise as much last week due to his daughter being hospitalized. Pt states he is walking at more of his normal space. He cannot descend stairs reciprocally if he is carrying a child or has a backpack on. Pain: Pain Pain Level: 1 Pain Location: Knee - Left Post Treatment Pain Post Treatment Pain Level: No Change Post Treatment Pain Location: Knee - Left OBJECTIVE MEASURES WITH LEVEL OF FUNCTION: Good form with heel taps on 4 inch step. TREATMENT: Therapeutic Exercise: 1: Stationary bike x 5 minutes, seat # 3 lvl 2.5 2: BFR bridges x30,15,15,15 large cuff, 144mmHg (30 second rest between reps, 1 minute between exercises) 3: BFR re-aquisition in standing using large cuff; LOP= 190 mmHg , 80%=152 mmHg 4: BFR heel taps on 4 inch step x30,15,15,15 large cuff, 152 mmHg (30 second rest between reps, 1 minute between exercises) 5: BFR prone hip extension x30,15,15,15 large cuff, 144mmHg (30 second rest between reps, 1 minute between exercises) 6: BFR LAQ in sitting LOP 128mmHg large cuff, x30,15,15,15 (30 second rest between reps, 1 minute between exercises) Skilled Intervention: Patient was educated in proper exercise technique and purpose for exercises. Skilled judgment was used in selection of appropriate interventions. Correct performance of therapeutic exercises was facilitated with verbal and visual cuing. Billing Therapeutic Exercise Treatment Minutes: 45 Skilled Treatment Time Minutes (timed and untimed codes): 45 Total Session Time (minutes): 45 Session Start Time : 1520 Session Stop Time : 1605 Dyana Ch, [employer] Whitney Jaquez, PT, DPT [facility] 08-08-2023 History of Present illness Narrative Episode Visit Count: 15 Therapist That Will Accept/Oversee The Plan Of Care: Dieter Burns PT Start of Care Date: 05/31/23 Onset Date: 06/15/21 Patient Identified by Name and Date of : Yes REHABILITATION AND SPORTS THERAPY PHYSICAL THERAPY TREATMENT NOTE ASSESSMENT: Elliot Murillo tolerated the session with fatigue and expected muscle soreness. He demonstrated difficulty with LAQ due to fatigue , but improvements in pain with completing LAQ through full range. The patient will continue to benefit from ongoing skilled physical therapy to progress toward set goals. PLAN FOR NEXT VISIT: Consider hip thrusts with BFR or prone HS curls SUBJECTIVE: Pt reports that he was not able to exercise as much last week due to his daughter being hospitalized. Pt states he is walking at more of his normal space. He cannot descend stairs reciprocally if he is carrying a child or has a backpack on. Pain: Pain Pain Level: 1 Pain Location: Knee - Left Post Treatment Pain Post Treatment Pain Level: No Change Post Treatment Pain Location: Knee - Left OBJECTIVE MEASURES WITH LEVEL OF FUNCTION: Good form with heel taps on 4 inch step. TREATMENT: Therapeutic Exercise: 1: Stationary bike x 5 minutes, seat # 3 lvl 2.5 2: BFR bridges x30,15,15,15 large cuff, 144mmHg (30 second rest between reps, 1 minute between exercises) 3: BFR re-aquisition in standing using large cuff; LOP= 190 mmHg , 80%=152 mmHg 4: BFR heel taps on 4 inch step x30,15,15,15 large cuff, 152 mmHg (30 second rest between reps, 1 minute between exercises) 5: BFR prone hip extension x30,15,15,15 large cuff, 144mmHg (30 second rest between reps, 1 minute between exercises) 6: BFR LAQ in sitting LOP 128mmHg large cuff, x30,15,15,15 (30 second rest between reps, 1 minute between exercises) Skilled Intervention: Patient was educated in proper exercise technique and purpose for exercises. Skilled judgment was used in selection of appropriate interventions. Correct performance of therapeutic exercises was facilitated with verbal and visual cuing. Billing Therapeutic Exercise Treatment Minutes: 45 Skilled Treatment Time Minutes (timed and untimed codes): 45 Total Session Time (minutes): 45 Session Start Time : 1520 Session Stop Time : 1605 HARPREET Iqbal PT, DPT documented in this encounter [facility] 07-30-2023 Note HNO ID: [id number] Author: WHITNEY JAQUEZ PT, DPT Service: ? Author Type: Physical Therapist Type: Progress Notes Filed: 07/30/2023 18:53 Note Text: Episode Visit Count: 14 Therapist That Will Accept/Oversee The Plan Of Care: Dieter Burns PT Start of Care Date: 05/31/23 Onset Date: 06/15/21 Patient Identified by Name and Date of : Yes REHABILITATION AND SPORTS THERAPY PHYSICAL THERAPY PROGRESS REPORT PLAN OF CARE UPDATE: Assessment: Elliot Murillo demonstrates improvements in overall strength, pain levels, and functional performance. Ongoing difficulty with pain during activities at his PLOF, and impaired stair negotiation. LLE strength greatly improved, though not symmetrical with RLE. He has progressed toward/met goals as outlined below. Patient continues to present with impairments in gait, independence in exercise, overall function, strength, and symptom management that interfere with running, walking, stair negotiation . Current prognosis is Good due to: current objective clinical presentation, good overall health status, good support system/ coping skills . He will benefit from continued skilled therapy services to meet the updated goals for this plan of care as noted below. Goals updated 07/30/2023 Goals for Episode of Care: created on 05/31/23 through 08/27/23 [place] in home exercise program. - MET so far Patient will decrease pain rating by 2 points to meet minimal clinical important difference for numeric pain rating scale. - MET Perform jogging with 2/10 pain or less. - Not able to assess yet, will continue Increase ROM of LLE to WNL for improved gait mechanics - MET Increased strength of LLE to 5/5 for return to PLOF - Progressing, will continue Improve flexibility of L gastrocnemius for improved gait mechanics - Not assessed Normal gait.- MET Reciprocal stair negotiation. - Progressing, ongoing gait abnormalities Patient Goals: Return to jogging Planned Interventions, Frequency, and Duration: 2x/week, 4 weeks Total Number of Visits Planned: 8 Patient to be seen for Neuromuscular re-education (31222), Therapeutic exercise (11782), Manual therapy (15974), Self-assisted management (05888), Gait Training (67821), Patient/Family/Caregiver Education, Therapeutic activities (22005), Body Mechanics Training, Functional training, General Conditioning PLAN FOR NEXT VISIT: BFR re-acquisition in standing. Continue BFR training for quad strength. SUBJECTIVE: Patient is able to descend stairs reciprocally, though, he does not increased knee valgus on the left with stairs. Functional Limitations: running, walking, stair negotiation Pain: Pain Pain Level: 1 Pain Location: Knee - Left Post Treatment Pain Post Treatment Pain Location: Knee - Left PROMIS Scales Higher is Better 07/02/2023 05/29/2023 12/18/2022 Phys Func - Score 39 (moderate dysfunction) 29 (severe dysfunction) 48 (within normal limits) Phys Func - Percentile 14% 2% 42% Self-Eff Symptom - Score 37 (Low) 36 (Low) 48 (Average) Self-Eff Symptom - Percentile 10% 8% 42% T-scores: mean of general population = 50. 5 points is clinically meaningfully difference Percentiles provide an indication of how the patient's score ranks in relation to the general population. Higher percentile rankings indicate better function/quality of life. 50th percentile is the average of the general population and indicates half of respondents had a worse score. OBJECTIVE MEASURES WITH LEVEL OF FUNCTION: Posture / Alignment Posture: Slump Knee Observations L Knee Palpation Tenderness: No tenderness noted LE AROM L Knee Extension: 3 Degrees L Knee Flexion: 142 Degrees LE Strength R Hip Extension: 5/5 R Hip Flexion (L2): 5/5 R Hip ABduction: 5/5 R Hip External Rotation: 4+/5 L Hip Extension: 5/5 L Hip Flexion (L2): 5/5 L Hip ABduction: 4/5 L Hip External Rotation: 4+/5 L Knee Extension (L3): 4+/5 Dynamometer Strength Left Quadriceps Strength (lbs): 58.7 Functional Strength Functional Strength: Pain with full LAQ during eccentric portion, now pain with LAQ to 45 degrees Gait Gait Observation: WNL Stairs: WNL on ascent, increased left knee hyperextension on the left on descent. Decreased eccentric control/ TREATMENT: Therapeutic Exercise: 1: Stationary bike x 5 minutes, seat # 3 lvl 2.5 2: Re-assessment per above 3: BFR re-acquisition using large cuff supine, LOP 180 mmHg, 80% = 144 mmHg 4: BFR re-acquisition using large cuff sitting, LOP 160 mmHg, 80% = 128 mmHg 6: Leg press 80# no BFR , slight pain at terminal knee extension 2x10 Skilled Intervention: Skilled judgment was used in selection of appropriate interventions. Correct performance of therapeutic exercises was facilitated with verbal and visual cuing. Billing Therapeutic Exercise Treatment Minutes: 43 Skilled Treatment Time Minutes (timed and untimed codes): 43 Total Session Time (minutes (more content not included)... [facility] 07-30-2023 History of Present illness Narrative Episode Visit Count: 14 Therapist That Will Accept/Oversee The Plan Of Care: Dieter Burns PT Start of Care Date: 05/31/23 Onset Date: 06/15/21 Patient Identified by Name and Date of : Yes REHABILITATION AND SPORTS THERAPY PHYSICAL THERAPY PROGRESS REPORT PLAN OF CARE UPDATE: Assessment: Elliot Murillo demonstrates improvements in overall strength, pain levels, and functional performance. Ongoing difficulty with pain during activities at his PLOF, and impaired stair negotiation. LLE strength greatly improved, though not symmetrical with RLE. He has progressed toward/met goals as outlined below. Patient continues to present with impairments in gait, independence in exercise, overall function, strength, and symptom management that interfere with running, walking, stair negotiation . Current prognosis is Good due to: current objective clinical presentation, good overall health status, good support system/ coping skills . He will benefit from continued skilled therapy services to meet the updated goals for this plan of care as noted below. Goals updated 07/30/2023 Goals for Episode of Care: created on 05/31/23 through 08/27/23 [place] in home exercise program. - MET so far Patient will decrease pain rating by 2 points to meet minimal clinical important difference for numeric pain rating scale. - MET Perform jogging with 2/10 pain or less. - Not able to assess yet, will continue Increase ROM of LLE to WNL for improved gait mechanics - MET Increased strength of LLE to 5/5 for return to PLOF - Progressing, will continue Improve flexibility of L gastrocnemius for improved gait mechanics - Not assessed Normal gait.- MET Reciprocal stair negotiation. - Progressing, ongoing gait abnormalities Patient Goals: Return to jogging Planned Interventions, Frequency, and Duration: 2x/week, 4 weeks Total Number of Visits Planned: 8 Patient to be seen for Neuromuscular re-education (81816), Therapeutic exercise (32776), Manual therapy (33967), Self-assisted management (02773), Gait Training (36213), Patient/Family/Caregiver Education, Therapeutic activities (88941), Body Mechanics Training, Functional training, General Conditioning PLAN FOR NEXT VISIT: BFR re-acquisition in standing. Continue BFR training for quad strength. SUBJECTIVE: Patient is able to descend stairs reciprocally, though, he does not increased knee valgus on the left with stairs. Functional Limitations: running, walking, stair negotiation Pain: Pain Pain Level: 1 Pain Location: Knee - Left Post Treatment Pain Post Treatment Pain Location: Knee - Left PROMIS Scales Higher is Better 07/02/2023 05/29/2023 12/18/2022 Phys Func - Score 39 (moderate dysfunction) 29 (severe dysfunction) 48 (within normal limits) Phys Func - Percentile 14% 2% 42% Self-Eff Symptom - Score 37 (Low) 36 (Low) 48 (Average) Self-Eff Symptom - Percentile 10% 8% 42% T-scores: mean of general population = 50. 5 points is clinically meaningfully difference Percentiles provide an indication of how the patient's score ranks in relation to the general population. Higher percentile rankings indicate better function/quality of life. 50th percentile is the average of the general population and indicates half of respondents had a worse score. OBJECTIVE MEASURES WITH LEVEL OF FUNCTION: Posture / Alignment Posture: Slump Knee Observations L Knee Palpation Tenderness: No tenderness noted LE AROM L Knee Extension: 3 Degrees L Knee Flexion: 142 Degrees LE Strength R Hip Extension: 5/5 R Hip Flexion (L2): 5/5 R Hip ABduction: 5/5 R Hip External Rotation: 4+/5 L Hip Extension: 5/5 L Hip Flexion (L2): 5/5 L Hip ABduction: 4/5 L Hip External Rotation: 4+/5 L Knee Extension (L3): 4+/5 Dynamometer Strength Left Quadriceps Strength (lbs): 58.7 Functional Strength Functional Strength: Pain with full LAQ during eccentric portion, now pain with LAQ to 45 degrees Gait Gait Observation: WNL Stairs: WNL on ascent, increased left knee hyperextension on the left on descent. Decreased eccentric control/ TREATMENT: Therapeutic Exercise: 1: Stationary bike x 5 minutes, seat # 3 lvl 2.5 2: Re-assessment per above 3: BFR re-acquisition using large cuff supine, LOP 180 mmHg, 80% = 144 mmHg 4: BFR re-acquisition using large cuff sitting, LOP 160 mmHg, 80% = 128 mmHg 6: Leg press 80# no BFR , slight pain at terminal knee extension 2x10 Skilled Intervention: Skilled judgment was used in selection of appropriate interventions. Correct performance of therapeutic exercises was facilitated with verbal and visual cuing. Billing Therapeutic Exercise Treatment Minutes: 43 Skilled Treatment Time Minutes (timed and untimed codes): 43 Total Session Time (minutes): 43 Session Start Time : 1547 Session Stop Time : 1630 Whitney Jaquez PT, DPT documented in this encounter [facility] 07-27-2023 Note HNO ID: [id number] Author: WHITNEY JAQUEZ PT, DPT Service: ? Author Type: Film Processor Type: Progress Notes Filed: 08/01/2023 12:14 Note Text: Episode Visit Count: 13 Therapist That Will Accept/Oversee The Plan Of Care: Dieter Burns PT Start of Care Date: 05/31/23 Onset Date: 06/15/21 Patient Identified by Name and Date of : Yes REHABILITATION AND SPORTS THERAPY PHYSICAL THERAPY TREATMENT NOTE ASSESSMENT: Elliot Murillo tolerated the session with fatigue and expected muscle soreness. He demonstrated difficulty with pain in HS with leg press with BFR . The patient will continue to benefit from ongoing skilled physical therapy to progress toward set goals. PLAN FOR NEXT VISIT: Re-aquisiton using large cuff due to increased muscle mass. SUBJECTIVE: Pt reports that he is able to descend stairs reciprocally. Pt states eventhough SLR with weight was challenging, he was not sore afterwards. Pain: Pain Pain Level: 0 Pain Location: Knee - Left Post Treatment Pain Post Treatment Pain Location: Knee - Left Post Treatment Symptoms: Fatigue and soreness in L HS OBJECTIVE MEASURES WITH LEVEL OF FUNCTION: Form observed throughout session. TREATMENT: Therapeutic Exercise: 1: Stationary bike x 5 minutes, seat # 3 lvl 2.5 (1:1 throughout. Discussed use of certain equipment to benefit certain muscle groups.) 2: BFR M cuff 152 mmHg (80% LOP) SLR 1# ankle weight x 30, 15,15,15 (30 second rest between sets, 1 minute rest between exercise.) 3: BFR M cuff 152 mmHg (80% LOP) 20# SL LP x 30 x15 x15 x15 (c/o pain in HS) 4: BFR M cuff 152 mmHg (80% LOP) 40# SL HS curls x 30 x15 x15 x15 5: BFR M cuff 152 mmHg (80% LOP) calf raises on step x 30, 15,15,15 Skilled Intervention: Patient was educated in proper exercise technique and purpose for exercises. Skilled judgment was used in selection of appropriate interventions. Correct performance of therapeutic exercises was facilitated with verbal and visual cuing. Billing Therapeutic Exercise Treatment Minutes: 46 Skilled Treatment Time Minutes (timed and untimed codes): 46 Total Session Time (minutes): 46 Session Start Time : 1523 Session Stop Time : 1609 Dyana Ch, [employer] Whitney Jaquez, PT, DPT [facility] 07-27-2023 History of Present illness Narrative Episode Visit Count: 13 Therapist That Will Accept/Oversee The Plan Of Care: Dieter Burns PT Start of Care Date: 05/31/23 Onset Date: 06/15/21 Patient Identified by Name and Date of : Yes REHABILITATION AND SPORTS THERAPY PHYSICAL THERAPY TREATMENT NOTE ASSESSMENT: Elliot Murillo tolerated the session with fatigue and expected muscle soreness. He demonstrated difficulty with pain in HS with leg press with BFR . The patient will continue to benefit from ongoing skilled physical therapy to progress toward set goals. PLAN FOR NEXT VISIT: Re-aquisiton using large cuff due to increased muscle mass. SUBJECTIVE: Pt reports that he is able to descend stairs reciprocally. Pt states eventhough SLR with weight was challenging, he was not sore afterwards. Pain: Pain Pain Level: 0 Pain Location: Knee - Left Post Treatment Pain Post Treatment Pain Location: Knee - Left Post Treatment Symptoms: Fatigue and soreness in L HS OBJECTIVE MEASURES WITH LEVEL OF FUNCTION: Form observed throughout session. TREATMENT: Therapeutic Exercise: 1: Stationary bike x 5 minutes, seat # 3 lvl 2.5 (1:1 throughout. Discussed use of certain equipment to benefit certain muscle groups.) 2: BFR M cuff 152 mmHg (80% LOP) SLR 1# ankle weight x 30, 15,15,15 (30 second rest between sets, 1 minute rest between exercise.) 3: BFR M cuff 152 mmHg (80% LOP) 20# SL LP x 30 x15 x15 x15 (c/o pain in HS) 4: BFR M cuff 152 mmHg (80% LOP) 40# SL HS curls x 30 x15 x15 x15 5: BFR M cuff 152 mmHg (80% LOP) calf raises on step x 30, 15,15,15 Skilled Intervention: Patient was educated in proper exercise technique and purpose for exercises. Skilled judgment was used in selection of appropriate interventions. Correct performance of therapeutic exercises was facilitated with verbal and visual cuing. Billing Therapeutic Exercise Treatment Minutes: 46 Skilled Treatment Time Minutes (timed and untimed codes): 46 Total Session Time (minutes): 46 Session Start Time : 1523 Session Stop Time : 1609 Dyana Ch PTA documented in this encounter [facility] 07-23-2023 Note HNO ID: [id number] Author: WHITNEY JAQUEZ, PT, DPT Service: ? Author Type: Physical Therapist Type: Progress Notes Filed: 07/23/2023 16:57 Note Text: Episode Visit Count: 12 Therapist That Will Accept/Oversee The Plan Of Care: Dieter Burns PT Start of Care Date: 05/31/23 Onset Date: 06/15/21 Patient Identified by Name and Date of : Yes REHABILITATION AND SPORTS THERAPY PHYSICAL THERAPY TREATMENT NOTE ASSESSMENT: Elliot Murillo tolerated the session with expected muscle soreness. He demonstrated good tolerance of BFR exercises this session. Education provided regarding proper squat form during goblet squat. Ongoing pain with LAQ around patellar tendon. The patient will continue to benefit from ongoing skilled physical therapy to progress toward set goals. PLAN FOR NEXT VISIT: Continue with BFR for quad strenghtening, continue assessing pain with LAQ. Ongoing gait training. SUBJECTIVE: Patient reports ongoing knee stiffness when he wakes up in the morning. He reports he is nervous to walk normally due to fear of increasing the pain. Per patient, MD cleared him to run potentially next week. Pain: Pain Pain Level: 1 Pain Location: Knee - Left Post Treatment Pain Post Treatment Pain Level: 0 Post Treatment Pain Location: Knee - Left Post Treatment Symptoms: Fatigue and soreness OBJECTIVE MEASURES WITH LEVEL OF FUNCTION: Gait Stairs: Mild decreased stance phase left, with exaggerated TKE at times. Limited knee flexion during swing phase. TREATMENT: Therapeutic Exercise: 1: Stationary bike x 5 minutes, seat # 3 lvl 2.5 2: Side-stepping BTB at ankles x [address], monster walk x30ft each way 3: BFR M cuff 152 mmHg (80% LOP) step downs on 4 inch step x 30 x15 x15 x15 4: BFR M cuff 152 mmHg (80% LOP) goblet squat 10# KB x 30 x15 x15 x15 5: Ongoing pain with LAQ, though less than previous session 6: BFR M cuff 152 mmHg (80% LOP) SLR 4# ankle weight x 30, reduced to 2.5# ankle weight x15 reduced to no weight due to patient muscle fatigue x15 x15, no weight recommended moving forward 7: Education on OKC vs CKC exercises, pain management, and rehabilitation process. Education on adding eccentric lower to squats at home. Skilled Intervention: Patient was educated in proper exercise technique and purpose for exercises. Reviewed and educated patient on additions/changes for home exercise program as above (*). Skilled judgment was used in selection of appropriate interventions. Correct performance of therapeutic exercises was facilitated with verbal and visual cuing. Billing Therapeutic Exercise Treatment Minutes: 46 Skilled Treatment Time Minutes (timed and untimed codes): 46 Total Session Time (minutes): 46 Session Start Time : 1545 Session Stop Time : 1631 Whitney Jaquez PT, DPT [facility] 07-23-2023 History of Present illness Narrative Episode Visit Count: 12 Therapist That Will Accept/Oversee The Plan Of Care: Dieter Burns PT Start of Care Date: 05/31/23 Onset Date: 06/15/21 Patient Identified by Name and Date of : Yes REHABILITATION AND SPORTS THERAPY PHYSICAL THERAPY TREATMENT NOTE ASSESSMENT: Elliot Murillo tolerated the session with expected muscle soreness. He demonstrated good tolerance of BFR exercises this session. Education provided regarding proper squat form during goblet squat. Ongoing pain with LAQ around patellar tendon. The patient will continue to benefit from ongoing skilled physical therapy to progress toward set goals. PLAN FOR NEXT VISIT: Continue with BFR for quad strenghtening, continue assessing pain with LAQ. Ongoing gait training. SUBJECTIVE: Patient reports ongoing knee stiffness when he wakes up in the morning. He reports he is nervous to walk normally due to fear of increasing the pain. Per patient, MD cleared him to run potentially next week. Pain: Pain Pain Level: 1 Pain Location: Knee - Left Post Treatment Pain Post Treatment Pain Level: 0 Post Treatment Pain Location: Knee - Left Post Treatment Symptoms: Fatigue and soreness OBJECTIVE MEASURES WITH LEVEL OF FUNCTION: Gait Stairs: Mild decreased stance phase left, with exaggerated TKE at times. Limited knee flexion during swing phase. TREATMENT: Therapeutic Exercise: 1: Stationary bike x 5 minutes, seat # 3 lvl 2.5 2: Side-stepping BTB at ankles x [address], monster walk x30ft each way 3: BFR M cuff 152 mmHg (80% LOP) step downs on 4 inch step x 30 x15 x15 x15 4: BFR M cuff 152 mmHg (80% LOP) goblet squat 10# KB x 30 x15 x15 x15 5: Ongoing pain with LAQ, though less than previous session 6: BFR M cuff 152 mmHg (80% LOP) SLR 4# ankle weight x 30, reduced to 2.5# ankle weight x15 reduced to no weight due to patient muscle fatigue x15 x15, no weight recommended moving forward 7: Education on OKC vs CKC exercises, pain management, and rehabilitation process. Education on adding eccentric lower to squats at home. Skilled Intervention: Patient was educated in proper exercise technique and purpose for exercises. Reviewed and educated patient on additions/changes for home exercise program as above (*). Skilled judgment was used in selection of appropriate interventions. Correct performance of therapeutic exercises was facilitated with verbal and visual cuing. Billing Therapeutic Exercise Treatment Minutes: 46 Skilled Treatment Time Minutes (timed and untimed codes): 46 Total Session Time (minutes): 46 Session Start Time : 1545 Session Stop Time : 1631 Whitney Jaquez PT, DPT documented in this encounter [facility] 07-18-2023 Note HNO ID: [id number] Author: WHITNEY JAQUEZ PT, DPT Service: ? Author Type: Film Processor Type: Progress Notes Filed: 08/01/2023 12:13 Note Text: Episode Visit Count: 11 Therapist That Will Accept/Oversee The Plan Of Care: Dieter Burns PT Start of Care Date: 05/31/23 Onset Date: 06/15/21 Patient Identified by Name and Date of : Yes REHABILITATION AND SPORTS THERAPY PHYSICAL THERAPY TREATMENT NOTE ASSESSMENT: Elliot Murillo tolerated the session with fatigue and expected muscle soreness. He demonstrated difficulty with LAQ due to increased pain when relaxing into knee flexion and improved gait. The patient will continue to benefit from ongoing skilled physical therapy to progress toward set goals. PLAN FOR NEXT VISIT: Asseds AROM LAQ for pain. Continue with BFR for quad strenghtening SUBJECTIVE: Pt reports that both of his legs were sore after last session. Pt reports that soreness has decreased, but still having some. Pain: Pain Pain Level: 0 Pain Location: Knee - Left Post Treatment Pain Post Treatment Pain Location: Knee - Left Post Treatment Symptoms: Fatigue and soreness OBJECTIVE MEASURES WITH LEVEL OF FUNCTION: Decreased lateral heel whip with ambulation this visit compared to previous session. TREATMENT: Therapeutic Exercise: 1: Stationary bike x 5 minutes, seat # 3 lvl 2.5 2: Side-stepping BTB at ankles x [address] 3: Monster walks with BTB all 4 directions x 2 laps around gym. 4: Heel taps on 4 inch step 3x10 LLE 5: BFR M cuff 152 mmHg (80% LOP) step downs on 4 inch step x 30 x15 x15 x15 6: BFR M cuff 152 mmHg (80% LOP) squats x 30 x15 x15 x15 7: Acquisition in sitting Medium cuff LOP= 230 mmHg, 80%=184mmHg 8: Attempted LAQ with BFR, but increased pain with bending L knee so discontinued Skilled Intervention: Patient was educated in proper exercise technique and purpose for exercises. Skilled judgment was used in selection of appropriate interventions. Correct performance of therapeutic exercises was facilitated with verbal and visual cuing. Billing Therapeutic Exercise Treatment Minutes: 42 Skilled Treatment Time Minutes (timed and untimed codes): 42 Total Session Time (minutes): 42 Session Start Time : 1528 Session Stop Time : 1610 Dyana Ch, HARPREET Jaquez, PT, DPT [facility] 07-18-2023 History of Present illness Narrative Episode Visit Count: 11 Therapist That Will Accept/Oversee The Plan Of Care: Dieter Burns PT Start of Care Date: 05/31/23 Onset Date: 06/15/21 Patient Identified by Name and Date of : Yes REHABILITATION AND SPORTS THERAPY PHYSICAL THERAPY TREATMENT NOTE ASSESSMENT: lEliot Murillo tolerated the session with fatigue and expected muscle soreness. He demonstrated difficulty with LAQ due to increased pain when relaxing into knee flexion and improved gait. The patient will continue to benefit from ongoing skilled physical therapy to progress toward set goals. PLAN FOR NEXT VISIT: Asseds AROM LAQ for pain. Continue with BFR for quad strenghtening SUBJECTIVE: Pt reports that both of his legs were sore after last session. Pt reports that soreness has decreased, but still having some. Pain: Pain Pain Level: 0 Pain Location: Knee - Left Post Treatment Pain Post Treatment Pain Location: Knee - Left Post Treatment Symptoms: Fatigue and soreness OBJECTIVE MEASURES WITH LEVEL OF FUNCTION: Decreased lateral heel whip with ambulation this visit compared to previous session. TREATMENT: Therapeutic Exercise: 1: Stationary bike x 5 minutes, seat # 3 lvl 2.5 2: Side-stepping BTB at ankles x [address] 3: Monster walks with BTB all 4 directions x 2 laps around gym. 4: Heel taps on 4 inch step 3x10 LLE 5: BFR M cuff 152 mmHg (80% LOP) step downs on 4 inch step x 30 x15 x15 x15 6: BFR M cuff 152 mmHg (80% LOP) squats x 30 x15 x15 x15 7: Acquisition in sitting Medium cuff LOP= 230 mmHg, 80%=184mmHg 8: Attempted LAQ with BFR, but increased pain with bending L knee so discontinued Skilled Intervention: Patient was educated in proper exercise technique and purpose for exercises. Skilled judgment was used in selection of appropriate interventions. Correct performance of therapeutic exercises was facilitated with verbal and visual cuing. Billing Therapeutic Exercise Treatment Minutes: 42 Skilled Treatment Time Minutes (timed and untimed codes): 42 Total Session Time (minutes): 42 Session Start Time : 1528 Session Stop Time : 1610 Dyana Ch PTA documented in this encounter [facility] 07-16-2023 Note HNO ID: [id number] Author: DIETER BURNS PT Service: ? Author Type: Physical Therapist Type: Progress Notes Filed: 07/16/2023 17:34 Note Text: Episode Visit Count: 10 Therapist That Will Accept/Oversee The Plan Of Care: Dieter Burns PT Start of Care Date: 05/31/23 Onset Date: 06/15/21 Patient Identified by Name and Date of : Yes REHABILITATION AND SPORTS THERAPY PHYSICAL THERAPY TREATMENT NOTE ASSESSMENT: Elliot Murillo tolerated the session with fatigue and expected muscle soreness. He demonstrated improvements in technique with squats and improved gait pattern with cueing. The patient will continue to benefit from ongoing skilled physical therapy to progress toward set goals. PLAN FOR NEXT VISIT: Continue with BFR strengthening for the L quad. SUBJECTIVE: Pt reports that he is feeling good. Feels that he is walking weird, but not because of pain. Pain: Pain Pain Level: 0 Pain Location: Knee - Left OBJECTIVE MEASURES WITH LEVEL OF FUNCTION: Increased L lateral heel whip and decreased push off on LLE. TREATMENT: Therapeutic Exercise: 1: Stationary bike x 5 minutes, seat # 4 lvl 2.5 2: BFR M cuff 152 mmHg (80% LOP) 20# SL LP x 30 x15 x15 x15 (30 second rest between sets, 1 minute rest between exercise) 3: BFR M cuff 152 mmHg (80% LOP) squats x 30 x15 x15 x15 (30 second rest between sets, 1 minute rest between exercise) Skilled Intervention: Patient was educated in proper exercise technique and purpose for exercises. Skilled judgment was used in selection of appropriate interventions. Correct performance of therapeutic exercises was facilitated with verbal and visual cuing. Gait Trainin: Gait training with emphasis on improved push off with L forefoot with swing phase with increased L knee flexion. Skilled Intervention: Patient was provided supervision during pre-gait/gait training to prevent falls and insure safety. Facilitated proper gait cycle with the use of verbal and visual cues for correction of gait deviations identified in the objective section above. Billing Therapeutic Exercise Treatment Minutes: 32 Gait Training Treatment Minutes: 8 Skilled Treatment Time Minutes (timed and untimed codes): 40 Total Session Time (minutes): 40 Session Start Time : 1530 Session Stop Time : 1610 HARPREET Iqbal PT [facility] 07-12-2023 Note HNO ID: [id number] Author: DIETER BURNS PT Service: ? Author Type: Physical Therapist Type: Progress Notes Filed: 07/12/2023 16:31 Note Text: Episode Visit Count: 9 Therapist That Will Accept/Oversee The Plan Of Care: Dieter Burns PT Start of Care Date: 05/31/23 Onset Date: 06/15/21 Patient Identified by Name and Date of : Yes REHABILITATION AND SPORTS THERAPY PHYSICAL THERAPY TREATMENT NOTE ASSESSMENT: Elliot Murillo tolerated the session with expected muscle soreness. He demonstrated good tolerance to newly performed BFR strengthening exercises. The patient will continue to benefit from ongoing skilled physical therapy to progress toward set goals. PLAN FOR NEXT VISIT: Continue with BFR strengthening for the L quad. SUBJECTIVE: When sitting too much then he has a little more pain. Had a good day yesterday but more sore today and not sure why. Was able to put on his sock as he should normally be able to do. Pain: Pain Pain Level: (Not rated) Pain Location: Knee - Left OBJECTIVE MEASURES WITH LEVEL OF FUNCTION: Gait WNL TREATMENT: Therapeutic Exercise: 1: BFR M cuff 152 mmHg (80% LOP) 20# SL LP x 30 x15 x15 x15 2: BFR M cuff 152 mmHg (80% LOP) Supine SLR x 30 x15 x15 x15 3: Side-stepping BTB at ankles x [address] 4: Stationary bike seat 5 2.5 min , then seat 4 for 2.5 min Skilled Intervention: Patient was educated in proper exercise technique and purpose for exercises. Provided written instruction for home exercise program to facilitate proper performance and compliance. Correct performance of therapeutic exercises was facilitated with verbal and visual cuing. Billing Therapeutic Exercise Treatment Minutes: 42 Skilled Treatment Time Minutes (timed and untimed codes): 42 Total Session Time (minutes): 42 Session Start Time : 1547 Session Stop Time : 1629 Dieter Burns PT [facility] 07-09-2023 Note HNO ID: [id number] Author: DIETER BURNS PT Service: ? Author Type: Physical Therapist Type: Progress Notes Filed: 07/09/2023 15:28 Note Text: Episode Visit Count: 8 Therapist That Will Accept/Oversee The Plan Of Care: Dieter Burns PT Start of Care Date: 05/31/23 Onset Date: 06/15/21 Patient Identified by Name and Date of : Yes REHABILITATION AND SPORTS THERAPY PHYSICAL THERAPY TREATMENT NOTE ASSESSMENT: Elliot Murillo tolerated the session with expected muscle soreness. Pt did demonstrate some meniscal soreness during wall slide exercise. He demonstrated improved knee flexion ROM. The patient will continue to benefit from ongoing skilled physical therapy to progress toward set goals. PLAN FOR NEXT VISIT: BFR strengthening starting with SL leg press and SLR. SUBJECTIVE: Feeling very weak when walking. Pain: Pain Pain Level: 4 Pain Location: Knee - Left OBJECTIVE MEASURES WITH LEVEL OF FUNCTION: LE AROM L Knee Flexion: 138 Degrees (144 with help) TREATMENT: Therapeutic Exercise: 1: Stationary bike x 2.5 minutes, seat #8, then seat #6 for 2.5 min 2: *Wall slides 3 x 10 3: Seated HS curl machine 50# 3 x 10 4: *BFR acquisition supine 152 mmhg and standing at 80% 200 mmHg 5: Knee flexion stretch on chair x 10 7: SL Leg press 30# 2x12 with 3 second eccentric control lowering Skilled Intervention: Patient was educated in proper exercise technique and purpose for exercises. Correct performance of therapeutic exercises was facilitated with verbal and visual cuing. Billing Therapeutic Exercise Treatment Minutes: 45 Skilled Treatment Time Minutes (timed and untimed codes): 45 Total Session Time (minutes): 45 Session Start Time : 1442 Session Stop Time : 1527 Dieter Burns PT [facility] 07-04-2023 Note HNO ID: [id number] Author: GABBI GOLDBERG PT Service: ? Author Type: Physical Therapist Type: Progress Notes Filed: 07/04/2023 16:29 Note Text: Episode Visit Count: 7 Therapist That Will Accept/Oversee The Plan Of Care: Dieter Burns PT Start of Care Date: 05/31/23 Onset Date: 06/15/21 Patient Identified by Name and Date of : Yes REHABILITATION AND SPORTS THERAPY PHYSICAL THERAPY TREATMENT NOTE ASSESSMENT: Elliot Murillo tolerated the session with fatigue and expected muscle soreness. He demonstrated difficulty with step downs on 6 inch step, pt fearful of knee not supporting him. The patient will continue to benefit from ongoing skilled physical therapy to progress toward set goals. PLAN FOR NEXT VISIT: Continue with eccentric quad strengthening and advancing flexion ROM. SUBJECTIVE: Pt reports that his knee is feeling good today. Pt states wearing boots yesterday and his knee felt like it kept hyper-extending in a sense. Pain: Pain Pain Level: 1 Pain Location: Knee - Left Post Treatment Pain Post Treatment Pain Level: 0 Post Treatment Pain Location: Knee - Left Post Treatment Symptoms: tired and sore OBJECTIVE MEASURES WITH LEVEL OF FUNCTION: LE AROM L Knee Flexion: 128 Degrees (with deep squat, 130 supine with assistance) Knee alignment observed with all exercises, especially with eccentric control of the quads. TREATMENT: Therapeutic Exercise: 1: Stationary bike x 2.5 minutes, seat #9, then 2.5 minutes, seat #8 (1:1 throughout. Subjective collected) 2: knee flexion stretch on step 3x30 second holds 3: Deep squat holds 3x15 seconds for knee flexion 4: Heel slides x10 5: Step downs on 4 inch step 1x10, then 1x10 on 6 inch step, somewhat painful at a certain point of knee flexion on lateral side of proximal tibia 6: Eccentric quads on 4 inch step 2x5 LLE (cues to keep weight shifted posteriorly) 7: SL Leg press 30# 2x8 with 3 second eccentric control lowering 8: Seated LAQ 1# 2 x 10 Skilled Intervention: Patient was educated in proper exercise technique and purpose for exercises. Skilled judgment was used in selection of appropriate interventions. Correct performance of therapeutic exercises was facilitated with verbal and visual cuing. Billing Therapeutic Exercise Treatment Minutes: 46 Skilled Treatment Time Minutes (timed and untimed codes): 46 Total Session Time (minutes): 46 Session Start Time : 1528 Session Stop Time : 1614 HARPREET Iqbal, PT [facility] 07-02-2023 Note HNO ID: [id number] Author: DIETER BURNS PT Service: ? Author Type: Physical Therapist Type: Progress Notes Filed: 07/02/2023 13:22 Note Text: Episode Visit Count: 6 Therapist That Will Accept/Oversee The Plan Of Care: Dieter Burns PT Start of Care Date: 05/31/23 Onset Date: 06/15/21 Patient Identified by Name and Date of : Yes REHABILITATION AND SPORTS THERAPY PHYSICAL THERAPY PROGRESS REPORT PLAN OF CARE UPDATE: Assessment: Elliot Murillo demonstrates difficulty with walking in the community, stair negotiation, recreational activities, running, jumping, and squatting and improvements in rising from a chair and walking. He has progressed toward goals. Patient continues to present with impairments in ADL's, independence in exercise, overall function, range of motion, and strength that interfere with running, walking, stair negotiation . Current prognosis is Good due to: current objective clinical presentation, good overall health status, good support system/ coping skills . He will benefit from continued skilled therapy services to meet the updated goals for this plan of care as noted below. Goals updated 07/02/2023 Goals for Episode of Care: created on 05/31/23 through 08/23/23 [place] in home exercise program. - MET so far Patient will decrease pain rating by 2 points to meet minimal clinical important difference for numeric pain rating scale. - Progressing, will continue Perform jogging with 2/10 pain or less. - Not able to assess yet, will continue Increase ROM of LLE to WNL for improved gait mechanics - Nearly Met Increased strength of LLE to 5/5 for return to PLOF - Progressing, will continue Improve flexibility of L gastrocnemius for improved gait mechanics - Not assessed Normal gait.- MET Reciprocal stair negotiation. - Progressing, will continue Patient Goals: Return to jogging Patient Goals: Return to jogging Planned Interventions, Frequency, and Duration: 2x/week, 4 weeks Total Number of Visits Planned: 8 Patient to be seen for Neuromuscular re-education (54137), Therapeutic exercise (69883), Manual therapy (86033), Self-assisted management (12186), Gait Training (37862), Patient/Family/Caregiver Education PLAN FOR NEXT VISIT: Assess knee ROM. stationary bike. Quad strengthening as tolerated focusing on eccentric phase. SUBJECTIVE: Cannot go down the stairs normally.Can go up the stairs normally. Patient Goals: Return to jogging Functional Limitations: running, walking, stair negotiation Prior Level of Function: Independent without limitations Intake Information: Prescription present Previous Treatment: Surgery Pain: Pain Pain Level: 1 Pain Location: Knee - Left PROMIS Scales Higher is Better 07/02/2023 05/29/2023 12/18/2022 Phys Func - Score 39 (moderate dysfunction) 29 (severe dysfunction) 48 (within normal limits) Phys Func - Percentile 14% 2% 42% Self-Eff Symptom - Score 37 (Low) 36 (Low) 48 (Average) Self-Eff Symptom - Percentile 10% 8% 42% T-scores: mean of general population = 50. 5 points is clinically meaningfully difference Percentiles provide an indication of how the patient's score ranks in relation to the general population. Higher percentile rankings indicate better function/quality of life. 50th percentile is the average of the general population and indicates half of respondents had a worse score. OBJECTIVE MEASURES WITH LEVEL OF FUNCTION: Knee Observations L Knee Palpation Tenderness: Patellar tendon LE AROM R LE AROM: WNL L Knee Flexion: 124 Degrees (130 with assistance) LE Strength R LE Strength: Grossly 5/5 L Knee Extension (L3): 3-/5 Lower Extremity Dynamometer Testing : Yes Dynamometer Strength Right Quadriceps Strength (lbs): 78 Left Quadriceps Strength (lbs): 25.8 Gait Gait Observation: WNL Stairs: Modified Independent Stairs: Pt lacks ability to completely extend the knee due to walking with ascending stairs and must step down with the LLE one step at a time TREATMENT: Therapeutic Exercise: 1: All objective measures taken this session 2: Squats x 10 3: Seated LAQ 1# 2 x 10 4: Knee flexion stretch on step 10 x 10 sec holds Skilled Intervention: Patient was educated in proper exercise technique and purpose for exercises. Provided written instruction for home exercise program to facilitate proper performance and compliance. Correct performance of therapeutic exercises was facilitated with verbal and visual cuing. Billing Therapeutic Exercise Treatment Minutes: 42 Skilled Treatment Time Minutes (timed and untimed codes): 42 Total Session Time (minutes): 42 Session Start Time : 1216 Session Stop Time : 1258 Dieter Burns PT [facility] 06-25-2023 Note HNO ID: [id number] Author: DIETER BURNS PT Service: ? Author Type: Physical Therapist Type: Progress Notes Filed: 06/25/2023 16:34 Note Text: Episode Visit Count: 5 Therapist That Will Accept/Oversee The Plan Of Care: Dieter Burns PT Start of Care Date: 05/31/23 Onset Date: 06/15/21 Patient Identified by Name and Date of : Yes REHABILITATION AND SPORTS THERAPY PHYSICAL THERAPY TREATMENT NOTE ASSESSMENT: Elliot Murillo tolerated the session with fatigue and expected muscle soreness. He demonstrated improvements in technique with STS. The patient will continue to benefit fromto progress toward set goals ongoing skilled physical therapy . PLAN FOR NEXT VISIT: Continue with hip and knee stability and strengthening SUBJECTIVE: Pt reports that he did a lot of stairs yestreday and his knee was sore from that . Pain: Pain Pain Level: 0 Pain Location: Knee - Left OBJECTIVE MEASURES WITH LEVEL OF FUNCTION: LE AROM L Knee Flexion: 118 Degrees TREATMENT: Therapeutic Exercise: 1: Stationary bike x 5 minutes, seat #10 with partial revolutions, then full revolutions backwards, then full revolutions forwards (1:1 throughout. Subjective collected) 2: Supine heel slides 2x10 3: Supine SLR 3x10 4: *STS 2x10 (minimal weight shift to the R with descent, corrected with verbal cueing) 5: Step ups on 6 inch step 2x10 6: Lateral step ups 1x10 on 4 inch step, 1x10 on 6 inch step 7: Standing hip abduction 2x10 on LLE 8: Standing hip extension 2x10 LLE 9: LAQ 2x10 LLE Skilled Intervention: Patient was educated in proper exercise technique and purpose for exercises. Reviewed and educated patient on additions/changes for home exercise program as above (*). Skilled judgment was used in selection of appropriate interventions. Correct performance of therapeutic exercises was facilitated with verbal and visual cuing. Billing Therapeutic Exercise Treatment Minutes: 41 Skilled Treatment Time Minutes (timed and untimed codes): 41 Total Session Time (minutes): 41 Session Start Time : 1522 Session Stop Time : 1603 Dyana Ch, HARPREET Burns, PT [facility] 06-20-2023 Note HNO ID: [id number] Author: GABBI GOLDBERG PT Service: ? Author Type: Physical Therapist Type: Progress Notes Filed: 06/20/2023 17:52 Note Text: Episode Visit Count: 4 Therapist That Will Accept/Oversee The Plan Of Care: Dieter Burns PT Start of Care Date: 05/31/23 Onset Date: 06/15/21 Patient Identified by Name and Date of : Yes REHABILITATION AND SPORTS THERAPY PHYSICAL THERAPY TREATMENT NOTE ASSESSMENT: Elliot Murillo tolerated the session with fatigue and expected muscle soreness. He demonstrated difficulty with STS due to fatigue. The patient will continue to benefit from ongoing skilled physical therapy to progress toward set goals. PLAN FOR NEXT VISIT: Give STS for HEP SUBJECTIVE: Pt reports that his knee was really sore the next day after last session. Pt rpeorts that his knee is feeling okay today. Pain: Pain Pain Level: 0 Pain Location: Knee - Left Post Treatment Pain Post Treatment Pain Location: Knee - Left Post Treatment Symptoms: My knee feels tired OBJECTIVE MEASURES WITH LEVEL OF FUNCTION: LE AROM L Knee Extension: 3 Degrees (hyperextension) L Knee Flexion: 113 Degrees TREATMENT: Therapeutic Exercise: 1: Stationary bike x 5 minutes, seat #10 with partial revolutions (1:1 throughout. Discussed continuation of icing and progressions of exercises and incorporation of BFR.) 2: Supine heel slides 2x10 3: Supine SLR 3x10 4: Supine quad sets 3x10 5: Seated LAQ 2x10 6: Step ups on 6 inch step 2x10 7: Lateral step ups on 6 inch step 1x10 (stated pain on last rep, but thinks it may be due to muscles getting fatigued) 8: STS 2x8 (very fatiguing, favoring LLE) Skilled Intervention: Patient was educated in proper exercise technique and purpose for exercises. Skilled judgment was used in selection of appropriate interventions. Correct performance of therapeutic exercises was facilitated with verbal and visual cuing. Billing Therapeutic Exercise Treatment Minutes: 42 Skilled Treatment Time Minutes (timed and untimed codes): 42 Total Session Time (minutes): 42 Session Start Time : 1445 Session Stop Time : 1527 HARPREET Iqbal, PT [facility] 06-18-2023 Note HNO ID: [id number] Author: DIETER BURNS PT Service: ? Author Type: Physical Therapist Type: Progress Notes Filed: 06/18/2023 09:59 Note Text: Episode Visit Count: 3 Therapist That Will Accept/Oversee The Plan Of Care: Dieter Burns PT Start of Care Date: 05/31/23 Onset Date: 06/15/21 Patient Identified by Name and Date of : Yes REHABILITATION AND SPORTS THERAPY PHYSICAL THERAPY TREATMENT NOTE ASSESSMENT: Elliot Murillo tolerated the session with fatigue and expected muscle soreness. He demonstrated improvements in ability to perform SLR actively on LLE with minimal quad lag.. The patient will continue to benefit from ongoing skilled physical therapy to progress toward set goals. PLAN FOR NEXT VISIT: Asses response to quad strengthening for HEP. COntinue with quad strengthening as able. SUBJECTIVE: Pt reports that his knee is feeling better today. Pt states he is able to go up the stairs reciprocally, but can only do 1 step at a time descending. Pt still having some pain when bending the knee too much. Pain: Pain Pain Level: 0 Pain Location: Knee - Left OBJECTIVE MEASURES WITH LEVEL OF FUNCTION: LE AROM L Knee Flexion: 102 Degrees TREATMENT: Therapeutic Exercise: 1: Sitting HS stretch 3 x 30 sec 2: Supine SLR 2x10 qith minimal quad lag. 3: *Supine quad sets with half roll under ankle 2x10 with 5 second holds (gave seated for HEP) 4: Supine SAQ 2x10 5: Prone TKE 2x8 6: Supine heel slides AROM 2x10 with 3-4 second hold at end range. 7: Seated HS curls with GTB 1x10 8: *Seated LAQ x10 Skilled Intervention: Patient was educated in proper exercise technique and purpose for exercises. Reviewed and educated patient on additions/changes for home exercise program as above (*). Skilled judgment was used in selection of appropriate interventions. Provided written instruction for home exercise program to facilitate proper performance and compliance. Correct performance of therapeutic exercises was facilitated with verbal and visual cuing. Billing Therapeutic Exercise Treatment Minutes: 40 Skilled Treatment Time Minutes (timed and untimed codes): 40 Total Session Time (minutes): 40 Session Start Time : 842 Session Stop Time : 922 Dyana Ch, [employer] Dieter Burns PT [facility] 06-12-2023 Note HNO ID: [id number] Author: Dieter Burns PT Service: ? Author Type: Physical Therapist Type: Progress Notes Filed: 06/12/2023 2:57 PM Note Text: Episode Visit Count: 2 Therapist That Will Accept/Oversee The Plan Of Care: Dieter Burns PT Start of Care Date: 05/31/23 Onset Date: 06/15/21 Patient Identified by Name and Date of : Yes REHABILITATION AND SPORTS THERAPY PHYSICAL THERAPY TREATMENT NOTE ASSESSMENT: Elliot Murillo tolerated the session with expected muscle soreness. He demonstrated good tolerance to NMES and all therapeutic exercises. The patient will continue to benefit from ongoing skilled physical therapy to progress toward set goals. PLAN FOR NEXT VISIT: Attended NMES as needed. Could trial SLR to assess ability SUBJECTIVE: The knee feels like it wants to give out when he moves or twists at times. Pain: Pain Pain Level: 0 Pain Location: Knee - Left OBJECTIVE MEASURES WITH LEVEL OF FUNCTION: LE AROM L Knee Extension: 2 Degrees L Knee Flexion: 88 Degrees Pt unable to perform SLR at the beginning of the session. After NMES modality, pt is able to perform SLR with slight quad lag due to decreased mobility of the knee joint not necessarily weakness TREATMENT: Discussed the purpose of NMES to recruit more motor units and pt is agreeable to trying this modality Therapeutic Exercise: 1: Longisitting quad set 30 reps x 10 sec each (done with NMES simultaneously with active quad contraction during on cycle) 2: Long-sitting knee ext stretch 5 x 20 sec holds (Done with towel roll under heel and 3# weight on distal quad) 3: Sitting Hs stretch x 30 sec 4: Standing calf stretch x 30 sec Skilled Intervention: Patient was educated in proper exercise technique and purpose for exercises. Correct performance of therapeutic exercises was facilitated with verbal and visual cuing. Billing Therapeutic Exercise Treatment Minutes: 50 Skilled Treatment Time Minutes (timed and untimed codes): 50 Total Session Time (minutes): 50 Session Start Time : 1407 Session Stop Time : 1457 Dieter Burns PT [facility] 05-31-2023 Note HNO ID: [id number] Author: Dieter Burns PT Service: ? Author Type: Physical Therapist Type: Progress Notes Filed: 05/31/2023 4:36 PM Note Text: Episode Visit Count: 1 Therapist That Will Accept/Oversee The Plan Of Care: Dieter Burns PT Start of Care Date: 05/31/23 Onset Date: 06/15/21 Patient Identified by Name and Date of : Yes REHABILITATION AND SPORTS THERAPY PHYSICAL THERAPY EVALUATION PLAN OF CARE: Assessment: Elliot Murillo presents with diagnosis of post op medial meniscectomy and patellar tendon debridement that interferes with running, walking, stair negotiation . He presents with impairments in ADL's, independence in exercise, overall function, range of motion, strength, and tissue tenderness. Patient did not complete the PROMIS? (Patient Reported Outcome Measures Information System). Prognosis for therapy is Good due to: current objective clinical presentation, good overall health status, good support system/ coping skills . He will benefit from skilled therapy services to meet the goals established for this plan of care as noted below. Goals for Episode of Care: created on 05/31/23 through 08/23/23 [place] in home exercise program. Patient will decrease pain rating by 2 points to meet minimal clinical important difference for numeric pain rating scale. Perform jogging with 2/10 pain or less. Increase ROM of LLE to WNL for improved gait mechanics Increased strength of LLE to 5/5 for return to PLOF Improve flexibility of L gastrocnemius for improved gait mechanics Normal gait. Reciprocal stair negotiation. Patient Goals: Return to jogging Planned Interventions, Frequency, and Duration: Current Frequency: 2x/week Duration: 4 weeks Total Number of Visits Planned: 8 Planned Treatment Interventions: Neuromuscular re-education (09664), Therapeutic exercise (16122), Manual therapy (80366), Self-assisted management (32225), Gait Training (33566), Patient/Family/Caregiver Education PLAN FOR NEXT VISIT: Work on improving knee ROM. Quad sets, SLR once leg extension is WNL. sidelying hip abduction and clamshell. Patient demonstrates good understanding of plan of care and treatment. The above goals and plan of care were discussed and agreed upon by patient/family. SUBJECTIVE: Surgery last sunday. 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 5 points is clinically meaningfully difference Percentiles provide an indication of how the patient's score ranks in relation to the general population. Higher percentile rankings indicate better function/quality of life. 50th percentile is the average of the general population and indicates half of respondents had a worse score. OBJECTIVE MEASURES WITH LEVEL OF FUNCTION: Posture / Alignment Posture: Slump LE AROM R Knee Extension: 0 Degrees R Knee Flexion: 139 Degrees L Knee Extension: 3 Degrees L Knee Flexion: 65 Degrees LE Flexibility Flexibility: Gastrocnemius Flexibility R Gastrocnemius Flexibility: WNL L Gastrocnemius Flexibility: Tight LE Strength R LE Strength: Grossly 5/5 L LE Strength: Not tested due to post-op status Gait Gait Observation: Antalgic gait with LLE Stairs: Pt unable to do in a recipricol fashion Education: Education Learning Preferences: Demonstration, Explanation, Performance, Printed Materials TREATMENT: PT Treatment Interventions: Therapeutic Exercise Evaluation Therapeutic Exercise: 1: Discussed therapy goals and exam findings. 2: Knee flexion stretch seated x 10 holding 5 sec each 3: Knee extension stretch x 60 sec with 2# over distal quad 4: Long-sitting gastroc stretch 3 x 30 sec Skilled Intervention: Patient was educated in proper exercise technique and purpose for exercises. Skilled judgment was used in selection of appropriate interventions. Provided written instruction for home exercise program to facilitate proper performance and compliance. Correct performance of therapeutic exercises was facilitated with verbal and visual cuing. Billing * Evaluation Low Complexity: 1 Unit Therapeutic Exercise Treatment Minutes: 11 Skilled Treatment Time Minutes (timed and untimed codes): 24 Total Session Time (minutes): 24 Session Start Time : 1511 Session Stop Time : 153 Dieter (more content not included)... [facility] 03-23-2023 Note HNO ID: [id number] Author: Dieter Burns PT Service: ? Author Type: Physical Therapist Type: Progress Notes Filed: 03/23/2023 11:05 AM Note Text: 03/23/2023 [facility] REHABILITATION AND SPORTS THERAPY PHYSICAL THERAPY DISCONTINUANCE OF CARE Plan of Care Period: Start of Care Date: 06/15/22 Last Visit Date: 01/02/2023 Therapy Program: The following is a summary of the interventions provided for this episode of care; Therapeutic exercise, Neuromuscular re-education, Manual therapy, Self-assisted management, and Patient/Family/Caregiver Education Assessment: The following is the goal status: Goals updated 12/11/2022 Goals for Episode of Care: created on 06/15/22 through 08/24/22 Pt will demo Gluteal strength of 4+/5 or greater in 8 weeks week or less for return to running - MET Pt will report overall improvement in symptoms by 50% or greater in 8 weeks or less with ADL's - MET Pt will report overall improvement of symptoms by 80% in 4 weeks or less - MET Pt will demo improved intrinsic foot strength by displaying decreased R foot pronation with gait in 8 weeks or less - Progressed, will continue [place] in home exercise program. - Met so far, will continue Pt will be able to jog with 2/10 pain or less in 6 weeks or less - Met so far Pt will demo good knee control with 8 heel tap for LLE in 4 weeks (NEW) Patient Goals: Decrease pain to allow pt to run and complete ADL's without pain Based on the most recent progress report, patient was progressing as expected toward functional goals based on pain levels and documented subjective information on progress. Reason for Discontinuation of Care: Patient has not returned to therapy or scheduled additional follow-up appointments. Dieter Burns PT [facility] 01-02-2023 Note HNO ID: [id number] Author: Dieter Burns PT Service: ? Author Type: Physical Therapist Type: Progress Notes Filed: 01/02/2023 4:16 PM Note Text: Episode Visit Count: 26 Therapist That Will Accept/Oversee The Plan Of Care: Dieter Burns Start of Care Date: 06/15/22 Onset Date: 06/15/21 Patient Identified by Name and Date of : Yes REHABILITATION AND SPORTS THERAPY PHYSICAL THERAPY TREATMENT NOTE ASSESSMENT: Elliot Murillo tolerated the session with Some reproduction of L knee pain with heavier weight with DL LP exercise. He demonstrated tolerance to HEP as long as he avoids excessive knee flexion and weight. The patient will continue to benefit from ongoing skilled physical therapy to progress toward set goals. PLAN FOR NEXT VISIT: Continue strengthening the LE's SUBJECTIVE: Patient Reason for Visit: The L knee feels better isnce he has been resting it the past few days. bending the knee excessively hurts and the heel tap exercise can hurt. Does not feel like the PT is helping his knee much but the R achilles tendon is much better overall. Pain: Pain Pain Level: 4 Pain Location: Knee - Left Post Treatment Pain Post Treatment Pain Level: (Not rated) OBJECTIVE MEASURES WITH LEVEL OF FUNCTION: L patellar tendon is not tender Pt points deep into medial joint line as location of pain L knee ROM full in supine TREATMENT: Therapeutic Exercise: 1: DL LP 184# x 3 (too painful) 2: DL LP 160# 3 x 10 3: Seated Hs curl 100# 3 x 10 4: Monster walks Purple TB 20 feet x 2 F and B 5: Side-stepping purple TB around ankles in athletic position [address] x 3 6: SL stance with side taps purple TB to fatigue each leg x 2 Skilled Intervention: Patient was educated in proper exercise technique and purpose for exercises. Correct performance of therapeutic exercises was facilitated with verbal and visual cuing. Billing Therapeutic Exercise Treatment Minutes: 43 Total Treatment Time Minutes (timed/untimed): 43 Session Start Time : 1235 Session Stop Time : 1318 Dieter Burns PT [facility] 12-19-2022 Note HNO ID: [id number] Author: VJ Onofre Service: ? Author Type: Physician Senior Gl Accountant Type: Progress Notes Filed: 12/19/2022 11:51 AM Note Text: This note was created using Bloom[employer]. Subjective Elliot Murillo is a 47 year old male. HPI 47-year-old male presents for right eye redness that started few days ago. He states that his right eye feels a little bit irritated. He does wear glasses, no contacts. No vision changes. No headache, dizziness, vomiting. He denies being hit in the face or eye, no trauma. He states he does not have high blood pressure. No pain in the eye. No pressure in the eye. No other complaints. History reviewed. No pertinent past medical history. PAST SURGICAL HISTORY Procedure Laterality Date NONE ALLERGIES Patient has no known allergies. MEDICATIONS Ibuprofen (ADVIL) 100 mg tablet Take 100 mg by mouth every 6 hours as needed. Multivitamin capsule Take 1 capsule by mouth once daily. predniSONE (DELTASONE) 20 mg tablet Take 2 tablets by mouth once daily. (Patient not taking: Reported on 12/19/2022) cyclobenzaprine (FLEXERIL) 10 mg tablet Take 1 tablet by mouth three times daily as needed for Muscle Spasm. (Patient not taking: Reported on 12/19/2022) OMEGA-3 FATTY ACIDS/FISH OIL (OMEGA 3 FISH OIL ORAL) Take by mouth. (Patient not taking: Reported on 10/19/2020 ) FAMILY HISTORY Problem Relation Age of Onset Heart Brother arythmia Social History Tobacco Use Smoking status: Never Smokeless tobacco: Never Review of Systems Constitutional: Negative for chills and fever. HENT: Negative for congestion and sore throat. Eyes: Positive for redness. Negative for photophobia, pain, discharge, itching and visual disturbance. Respiratory: Negative for cough and shortness of breath. Gastrointestinal: Negative for diarrhea and vomiting. Objective BP 110/74 Pulse (!) 55 Temp 36.3 ?C (97.4 ?F) (Tympanic) Resp 16 Wt 86.6 kg (191 lb) SpO2 97% BMI 27.42 kg/m? Physical Exam Vitals and nursing note reviewed. Constitutional: General: He is not in acute distress. Appearance: Normal appearance. He is not toxic-appearing. HENT: Nose: Nose normal. Mouth/Throat: Mouth: Mucous membranes are moist. Eyes: General: Vision grossly intact. Extraocular Movements: Extraocular movements intact. Conjunctiva/sclera: Right eye: Hemorrhage present. Comments: Right subconjunctival hemorrhage noted. PERRLA. EOMI. Right eye 20/13, left eye 20/20, bilateral 20/20 Cardiovascular: Rate and Rhythm: Normal rate and regular rhythm. Pulmonary: Effort: Pulmonary effort is normal. Breath sounds: Normal breath sounds. Skin: General: Skin is warm and dry. Neurological: Mental Status: He is alert. Assessment and Plan ASSESSMENT/PLAN: 1. Subconjunctival hemorrhage of right eye - ICD9: 372.72, ICD10: H11.31 -No signs of trauma on exam. Eye exam normal other than subconjunctival hemorrhage. -BP normal on exam. Vision normal on exam. -Advised patient that should resolve on its own. If he develops eye pain, headache, vision changes, dizziness, go to ER immediately. -If it does not resolve, follow-up with his eye doctor. Diagnosis and treatment plan were discussed and questions were answered to the patient's satisfaction. Pt acknowledged understanding of concepts and follow up plan. Specific signs and symptoms that would indicate the need for higher level of care were discussed in detail warranting prompt ER evaluation. VJ Onofre [facility] 12-19-2022 History of Present illness Narrative This note was created using [employer]. Subjective Elliot Murillo is a 47 year old male. HPI 47-year-old male presents for right eye redness that started few days ago. He states that his right eye feels a little bit irritated. He does wear glasses, no contacts. No vision changes. No headache, dizziness, vomiting. He denies being hit in the face or eye, no trauma. He states he does not have high blood pressure. No pain in the eye. No pressure in the eye. No other complaints. History reviewed. No pertinent past medical history. PAST SURGICAL HISTORY Procedure Laterality Date NONE ALLERGIES Patient has no known allergies. MEDICATIONS Ibuprofen (ADVIL) 100 mg tablet Take 100 mg by mouth every 6 hours as needed. Multivitamin capsule Take 1 capsule by mouth once daily. predniSONE (DELTASONE) 20 mg tablet Take 2 tablets by mouth once daily. (Patient not taking: Reported on 12/19/2022) cyclobenzaprine (FLEXERIL) 10 mg tablet Take 1 tablet by mouth three times daily as needed for Muscle Spasm. (Patient not taking: Reported on 12/19/2022) OMEGA-3 FATTY ACIDS/FISH OIL (OMEGA 3 FISH OIL ORAL) Take by mouth. (Patient not taking: Reported on 10/19/2020 ) FAMILY HISTORY Problem Relation Age of Onset Heart Brother arythmia Social History Tobacco Use Smoking status: Never Smokeless tobacco: Never Review of Systems Constitutional: Negative for chills and fever. HENT: Negative for congestion and sore throat. Eyes: Positive for redness. Negative for photophobia, pain, discharge, itching and visual disturbance. Respiratory: Negative for cough and shortness of breath. Gastrointestinal: Negative for diarrhea and vomiting. Objective BP 110/74 Pulse (!) 55 Temp 36.3 C (97.4 F) (Tympanic) Resp 16 Wt 86.6 kg (191 lb) SpO2 97% BMI 27.42 kg/m Physical Exam Vitals and nursing note reviewed. Constitutional: General: He is not in acute distress. Appearance: Normal appearance. He is not toxic-appearing. HENT: Nose: Nose normal. Mouth/Throat: Mouth: Mucous membranes are moist. Eyes: General: Vision grossly intact. Extraocular Movements: Extraocular movements intact. Conjunctiva/sclera: Right eye: Hemorrhage present. Comments: Right subconjunctival hemorrhage noted. PERRLA. EOMI. Right eye 20/13, left eye 20/20, bilateral 20/20 Cardiovascular: Rate and Rhythm: Normal rate and regular rhythm. Pulmonary: Effort: Pulmonary effort is normal. Breath sounds: Normal breath sounds. Skin: General: Skin is warm and dry. Neurological: Mental Status: He is alert. Assessment and Plan ASSESSMENT/PLAN: 1. Subconjunctival hemorrhage of right eye - ICD9: 372.72, ICD10: H11.31 -No signs of trauma on exam. Eye exam normal other than subconjunctival hemorrhage. -BP normal on exam. Vision normal on exam. -Advised patient that should resolve on its own. If he develops eye pain, headache, vision changes, dizziness, go to ER immediately. -If it does not resolve, follow-up with his eye doctor. Diagnosis and treatment plan were discussed and questions were answered to the patient's satisfaction. Pt acknowledged understanding of concepts and follow up plan. Specific signs and symptoms that would indicate the need for higher level of care were discussed in detail warranting prompt ER evaluation. VJ Onofre documented in this encounter [facility] 12-18-2022 Note HNO ID: [id number] Author: Dieter Burns PT Service: ? Author Type: Physical Therapist Type: Progress Notes Filed: 12/18/2022 6:11 PM Note Text: Episode Visit Count: 25 Therapist That Will Accept/Oversee The Plan Of Care: Dieter Bruns Start of Care Date: 06/15/22 Onset Date: 06/15/21 Patient Identified by Name and Date of : Yes REHABILITATION AND SPORTS THERAPY PHYSICAL THERAPY TREATMENT NOTE ASSESSMENT: Elliot Murillo tolerated the session with increased symptoms. He demonstrated difficulty with increased medial joint line pain with weighted knee flexion beyond 70 degrees. The patient will continue to benefit from ongoing skilled physical therapy to progress toward set goals. PLAN FOR NEXT VISIT: Assess reaction to new HEP. quad strengthening SUBJECTIVE: Patient Reason for Visit: After the last session the L knee was very painful. Pain: Pain Pain Level: (Not rated) Pain Location: Knee - Left Pain Level 2: 1 Pain Location 2: Ankle - Right OBJECTIVE MEASURES WITH LEVEL OF FUNCTION: TREATMENT: Therapeutic Exercise: 1: Squats with purple TB around distal thighs 2 x 10 2: Wall sits with purple TB around distal thighs 4 x 20 sec holds 3: Discussed modifying heel tap exercise with 4 step instead of 6 but be sure not to continue with the HEP if the pain worsens Skilled Intervention: Patient was educated in proper exercise technique and purpose for exercises. Provided written instruction for home exercise program to facilitate proper performance and compliance. Correct performance of therapeutic exercises was facilitated with verbal and visual cuing. Billing Neuromuscular Re-Education Treatment Minutes: 26 Total Treatment Time Minutes (timed/untimed): 26 Dieter Burns PT [facility] 12-18-2022 History of Present illness Narrative Episode Visit Count: 25 Therapist That Will Accept/Oversee The Plan Of Care: Dieter Burns Start of Care Date: 06/15/22 Onset Date: 06/15/21 Patient Identified by Name and Date of : Yes REHABILITATION AND SPORTS THERAPY PHYSICAL THERAPY TREATMENT NOTE ASSESSMENT: Elliot Murillo tolerated the session with increased symptoms. He demonstrated difficulty with increased medial joint line pain with weighted knee flexion beyond 70 degrees. The patient will continue to benefit from ongoing skilled physical therapy to progress toward set goals. PLAN FOR NEXT VISIT: Assess reaction to new HEP. quad strengthening SUBJECTIVE: Patient Reason for Visit: After the last session the L knee was very painful. Pain: Pain Pain Level: (Not rated) Pain Location: Knee - Left Pain Level 2: 1 Pain Location 2: Ankle - Right OBJECTIVE MEASURES WITH LEVEL OF FUNCTION: TREATMENT: Therapeutic Exercise: 1: Squats with purple TB around distal thighs 2 x 10 2: Wall sits with purple TB around distal thighs 4 x 20 sec holds 3: Discussed modifying heel tap exercise with 4 step instead of 6 but be sure not to continue with the HEP if the pain worsens Skilled Intervention: Patient was educated in proper exercise technique and purpose for exercises. Provided written instruction for home exercise program to facilitate proper performance and compliance. Correct performance of therapeutic exercises was facilitated with verbal and visual cuing. Billing Neuromuscular Re-Education Treatment Minutes: 26 Total Treatment Time Minutes (timed/untimed): 26 Dieter Burns PT documented in this encounter [facility] 12-11-2022 Note HNO ID: [id number] Author: Dieter Burns PT Service: ? Author Type: Physical Therapist Type: Progress Notes Filed: 12/11/2022 9:52 AM Note Text: Episode Visit Count: 24 Therapist That Will Accept/Oversee The Plan Of Care: Dieter Burns Start of Care Date: 06/15/22 Onset Date: 06/15/21 Patient Identified by Name and Date of : Yes REHABILITATION AND SPORTS THERAPY PHYSICAL THERAPY PROGRESS REPORT PLAN OF CARE UPDATE: Assessment: Elliot Murillo demonstrates difficulty with continued knee pain with running, knee stability, and slight achilles tendon pain and improvements in overall LE strength, decreased pain intensity, improved tolerance to exercise and jogging (achilles). He has progressed toward goals. Patient continues to present with impairments in independence in exercise, overall function, and L quad control that interfere with running . Current prognosis is Good due to: current objective clinical presentation, good overall health status, good support system/ coping skills . He will benefit from continued skilled therapy services to meet the updated goals for this plan of care as noted below. Goals updated 12/11/2022 Goals for Episode of Care: created on 06/15/22 through 08/24/22 Pt will demo Gluteal strength of 4+/5 or greater in 8 weeks week or less for return to running - MET Pt will report overall improvement in symptoms by 50% or greater in 8 weeks or less with ADL's - MET Pt will report overall improvement of symptoms by 80% in 4 weeks or less - MET Pt will demo improved intrinsic foot strength by displaying decreased R foot pronation with gait in 8 weeks or less - Progressed, will continue [place] in home exercise program. - Met so far, will continue Pt will be able to jog with 2/10 pain or less in 6 weeks or less - Met so far Pt will demo good knee control with 8 heel tap for LLE in 4 weeks (NEW) Patient Goals: Decrease pain to allow pt to run and complete ADL's without pain Patient Goals: Decrease pain to allow pt to run and complete ADL's without pain Planned Interventions, Frequency, and Duration: 1x/week, 4 weeks Total Number of Visits Planned: 4 Patient to be seen for Therapeutic exercise (69800), Neuromuscular re-education (66186), Manual therapy (59894), Self-assisted management (89184), Gait Training ([id number]), Patient/Family/Caregiver Education PLAN FOR NEXT VISIT: Quad control exercises SUBJECTIVE: Patient Reason for Visit: No improvement with the L knee but not getting worse. Doing some biking. The knee is sore. Patient Goals: Decrease pain to allow pt to run and complete ADL's without pain Functional Limitations: running Prior Level of Function: Independent without limitations Intake Information: Prescription present Previous Treatment: Exercises per physician Pain: Pain Pain Level: 4 Pain Location: Knee - Left Pain Level 2: 1 Pain Location 2: Ankle - Right PROMIS Scales Higher is Better 11/02/2022 Phys Func - Score 50 (within normal limits) Phys Func - Percentile 50 % Self-Eff Symptom - Score 49 (Average) Self-Eff Symptom - Percentile 46 % T-scores: mean of general population = 50. 5 points is clinically meaningfully difference Percentiles provide an indication of how the patient's score ranks in relation to the general population. Higher percentile rankings indicate better function/quality of life. 50th percentile is the average of the general population and indicates half of respondents had a worse score. OBJECTIVE MEASURES WITH LEVEL OF FUNCTION: LE AROM R LE AROM: WNL L LE AROM: WNL L Knee Flexion: 135 Degrees (Pain at end range in joint line on either side of patellar tendon) LE Flexibility Flexibility: Hip Internal Rotation Flexibility, Hip External Rotation Flexibility R Hamstring Flexibility: WNL L Hamstring Flexibility: WNL R Quadriceps Flexibility: WNL L Quadriceps Flexibility: WNL R Hip Internal Rotation Flexibility: WNL L Hip Internal Rotation Flexibility: WNL R Hip External Rotation Flexibility: WNL L Hip External Rotation Flexibility: WNL LE Joint Mobility R Patellar Mobility: WNL L Patellar Mobility: WNL LE Strength R LE Strength: 5/5 grossly L LE Strength: 5/5 grossly TREATMENT: Neuromuscular Re-Education: 1: All objective measures taken this session 2: Heel taps on 6 surface focusing on knee control and avoiding knee valgus throughout the exercise. 2 x 10 reps (Used a yard stick as a target for the knee to help maintain proper alignment and reinforce proper mechanics) Skilled Intervention: Skilled judgment used to assess appropriate program for balance and coordination activity. Billing Neuromuscular Re-Education Treatment Minutes: 25 Total Treatment Time Minutes (timed/untimed): 25 Dieter Burns, PT [facility] 12-11-2022 History of Present illness Narrative Episode Visit Count: 24 Therapist That Will Accept/Oversee The Plan Of Care: Dieter Burns Start of Care Date: 06/15/22 Onset Date: 06/15/21 Patient Identified by Name and Date of : Yes REHABILITATION AND SPORTS THERAPY PHYSICAL THERAPY PROGRESS REPORT PLAN OF CARE UPDATE: Assessment: Elliot Murillo demonstrates difficulty with continued knee pain with running, knee stability, and slight achilles tendon pain and improvements in overall LE strength, decreased pain intensity, improved tolerance to exercise and jogging (achilles). He has progressed toward goals. Patient continues to present with impairments in independence in exercise, overall function, and L quad control that interfere with running . Current prognosis is Good due to: current objective clinical presentation, good overall health status, good support system/ coping skills . He will benefit from continued skilled therapy services to meet the updated goals for this plan of care as noted below. Goals updated 12/11/2022 Goals for Episode of Care: created on 06/15/22 through 08/24/22 Pt will demo Gluteal strength of 4+/5 or greater in 8 weeks week or less for return to running - MET Pt will report overall improvement in symptoms by 50% or greater in 8 weeks or less with ADL's - MET Pt will report overall improvement of symptoms by 80% in 4 weeks or less - MET Pt will demo improved intrinsic foot strength by displaying decreased R foot pronation with gait in 8 weeks or less - Progressed, will continue [place] in home exercise program. - Met so far, will continue Pt will be able to jog with 2/10 pain or less in 6 weeks or less - Met so far Pt will demo good knee control with 8 heel tap for LLE in 4 weeks (NEW) Patient Goals: Decrease pain to allow pt to run and complete ADL's without pain Patient Goals: Decrease pain to allow pt to run and complete ADL's without pain Planned Interventions, Frequency, and Duration: 1x/week, 4 weeks Total Number of Visits Planned: 4 Patient to be seen for Therapeutic exercise (55187), Neuromuscular re-education (52111), Manual therapy (93311), Self-assisted management (58727), Gait Training (74906), Patient/Family/Caregiver Education PLAN FOR NEXT VISIT: Quad control exercises SUBJECTIVE: Patient Reason for Visit: No improvement with the L knee but not getting worse. Doing some biking. The knee is sore. Patient Goals: Decrease pain to allow pt to run and complete ADL's without pain Functional Limitations: running Prior Level of Function: Independent without limitations Intake Information: Prescription present Previous Treatment: Exercises per physician Pain: Pain Pain Level: 4 Pain Location: Knee - Left Pain Level 2: 1 Pain Location 2: Ankle - Right PROMIS Scales Higher is Better 11/02/2022 Phys Func - Score 50 (within normal limits) Phys Func - Percentile 50 % Self-Eff Symptom - Score 49 (Average) Self-Eff Symptom - Percentile 46 % T-scores: mean of general population = 50. 5 points is clinically meaningfully difference Percentiles provide an indication of how the patient's score ranks in relation to the general population. Higher percentile rankings indicate better function/quality of life. 50th percentile is the average of the general population and indicates half of respondents had a worse score. OBJECTIVE MEASURES WITH LEVEL OF FUNCTION: LE AROM R LE AROM: WNL L LE AROM: WNL L Knee Flexion: 135 Degrees (Pain at end range in joint line on either side of patellar tendon) LE Flexibility Flexibility: Hip Internal Rotation Flexibility, Hip External Rotation Flexibility R Hamstring Flexibility: WNL L Hamstring Flexibility: WNL R Quadriceps Flexibility: WNL L Quadriceps Flexibility: WNL R Hip Internal Rotation Flexibility: WNL L Hip Internal Rotation Flexibility: WNL R Hip External Rotation Flexibility: WNL L Hip External Rotation Flexibility: WNL LE Joint Mobility R Patellar Mobility: WNL L Patellar Mobility: WNL LE Strength R LE Strength: 5/5 grossly L LE Strength: 5/5 grossly TREATMENT: Neuromuscular Re-Education: 1: All objective measures taken this session 2: Heel taps on 6 surface focusing on knee control and avoiding knee valgus throughout the exercise. 2 x 10 reps (Used a yard stick as a target for the knee to help maintain proper alignment and reinforce proper mechanics) Skilled Intervention: Skilled judgment used to assess appropriate program for balance and coordination activity. Billing Neuromuscular Re-Education Treatment Minutes: 25 Total Treatment Time Minutes (timed/untimed): 25 Dieter Burns PT documented in this encounter [facility] 12-04-2022 Note HNO ID: [id number] Author: Dieter Burns PT Service: ? Author Type: Physical Therapist Type: Progress Notes Filed: 12/04/2022 1:08 PM Note Text: Episode Visit Count: 23 Therapist That Will Accept/Oversee The Plan Of Care: Dieter Burns Start of Care Date: 06/15/22 Onset Date: 06/15/21 Patient Identified by Name and Date of : Yes REHABILITATION AND SPORTS THERAPY PHYSICAL THERAPY TREATMENT NOTE ASSESSMENT: Elliot Murillo tolerated the session with no issues. He demonstrated good tolerance to all therapeutic exercises. The patient will continue to benefit from ongoing skilled physical therapy to progress toward set goals. PLAN FOR NEXT VISIT: POC update SUBJECTIVE: Patient Reason for Visit: The ankle is doing pretty well. The L knee is still giving him problems when running Pain: Pain Pain Level: 0 Pain Location: Heel - Right OBJECTIVE MEASURES WITH LEVEL OF FUNCTION: TREATMENT: Therapeutic Exercise: 2: BLE hops with BFR x 30 x 15 x 15 x 15 (medium cuff at 147 mmhG) 3: SL heel raise with speed x30, x15, x15, x15 (medium cuff at 147 mmHg) 4: DL LP 113#x 15 x 15, x 15 (Medium cuff at 147 mmHg) Skilled Intervention: Correct performance of therapeutic exercises was facilitated with verbal and visual cuing. Billing Therapeutic Exercise Treatment Minutes: 32 Total Treatment Time Minutes (timed/untimed): 32 Dieter Burns PT [facility] 12-04-2022 History of Present illness Narrative Episode Visit Count: 23 Therapist That Will Accept/Oversee The Plan Of Care: Dieter Burns Start of Care Date: 06/15/22 Onset Date: 06/15/21 Patient Identified by Name and Date of : Yes REHABILITATION AND SPORTS THERAPY PHYSICAL THERAPY TREATMENT NOTE ASSESSMENT: Elliot Murillo tolerated the session with no issues. He demonstrated good tolerance to all therapeutic exercises. The patient will continue to benefit from ongoing skilled physical therapy to progress toward set goals. PLAN FOR NEXT VISIT: POC update SUBJECTIVE: Patient Reason for Visit: The ankle is doing pretty well. The L knee is still giving him problems when running Pain: Pain Pain Level: 0 Pain Location: Heel - Right OBJECTIVE MEASURES WITH LEVEL OF FUNCTION: TREATMENT: Therapeutic Exercise: 2: BLE hops with BFR x 30 x 15 x 15 x 15 (medium cuff at 147 mmhG) 3: SL heel raise with speed x30, x15, x15, x15 (medium cuff at 147 mmHg) 4: DL LP 113#x 15 x 15, x 15 (Medium cuff at 147 mmHg) Skilled Intervention: Correct performance of therapeutic exercises was facilitated with verbal and visual cuing. Billing Therapeutic Exercise Treatment Minutes: 32 Total Treatment Time Minutes (timed/untimed): 32 Dieter Burns PT documented in this encounter [facility] 11-20-2022 Note HNO ID: [id number] Author: Dieter Burns PT Service: ? Author Type: Physical Therapist Type: Progress Notes Filed: 11/20/2022 5:38 PM Note Text: Episode Visit Count: 22 Therapist That Will Accept/Oversee The Plan Of Care: Dieter Burns Start of Care Date: 06/15/22 Onset Date: 06/15/21 Patient Identified by Name and Date of : Yes REHABILITATION AND SPORTS THERAPY PHYSICAL THERAPY TREATMENT NOTE ASSESSMENT: Elliot Murillo tolerated the session with expected muscle soreness. He demonstrated good tolerance to therapeutic exercises. The patient will continue to benefit from ongoing skilled physical therapy to progress toward set goals. PLAN FOR NEXT VISIT: PRogress quad strengthening SUBJECTIVE: Pain: Pain Pain Location: Heel - Right Pain Location 2: Knee - Left OBJECTIVE MEASURES WITH LEVEL OF FUNCTION: Negative Lorraine's and Apley's testing May be demonstrating more joint line pain but challenging to tell Negative anterior drawer and posterior drawer TREATMENT: Therapeutic Exercise: 2: BLE hops 2 x 10 3: SL heel raise with speed x30, x15, x15, x15 (M cuff at 147 mmHg) 4: DL LP 184# x 30, then 113#x 15, then 80# x 15, x 15 Skilled Intervention: Patient was educated in proper exercise technique and purpose for exercises. Correct performance of therapeutic exercises was facilitated with verbal and visual cuing. Billing Therapeutic Exercise Treatment Minutes: 38 Total Treatment Time Minutes (timed/untimed): 38 Dieter Burns PT [facility] 11-02-2022 Note HNO ID: [id number] Author: Dieter Burns PT Service: ? Author Type: Physical Therapist Type: Progress Notes Filed: 11/02/2022 10:40 AM Note Text: Episode Visit Count: 21 Therapist That Will Accept/Oversee The Plan Of Care: Dieter Burns Start of Care Date: 06/15/22 Onset Date: 06/15/21 Patient Identified by Name and Date of : Yes REHABILITATION AND SPORTS THERAPY PHYSICAL THERAPY PROGRESS REPORT PLAN OF CARE UPDATE: Assessment: Elliot Murillo demonstrates difficulty with running and improvements in pain intensity, strength, and independence with the HEP. He has progressed toward goals. Patient continues to present with impairments in independence in exercise and strength that interfere with running . Current prognosis is . He will benefit from continued skilled therapy services to meet the updated goals for this plan of care as noted below. Goals updated 11/02/2022 Goals for Episode of Care: created on 06/15/22 through 08/24/22 Pt will demo Gluteal strength of 4+/5 or greater in 8 weeks week or less for return to running - MET Pt will report overall improvement in symptoms by 50% or greater in 8 weeks or less with ADL's - MET Pt will report overall improvement of symptoms by 80% in 4 weeks or less - MET Pt will demo improved intrinsic foot strength by displaying decreased R foot pronation with gait in 8 weeks or less - Progressed, will continue [place] in home exercise program. - Met so far, will continue Pt will be able to jog with 2/10 pain or less in 6 weeks or less - Met so far Patient Goals: Decrease pain to allow pt to run and complete ADL's without pain Patient Goals: Decrease pain to allow pt to run and complete ADL's without pain Planned Interventions, Frequency, and Duration: , Patient to be seen for PLAN FOR NEXT VISIT: Continue with BFR strengthening. Toe walking as suggested exercise. SUBJECTIVE: Patient Reason for Visit: Had treatment for pneumonia which also helped the L knee. Feeling good. Ran 15 minutes at 5.5 mph. Wants to continue with therapy once a week. Patient Goals: Decrease pain to allow pt to run and complete ADL's without pain Functional Limitations: running Prior Level of Function: Independent without limitations Intake Information: Prescription present Previous Treatment: Exercises per physician Pain: Pain Pain Level: 0 Pain Location: Heel - Right Pain Level 2: 0 Pain Location 2: Knee - Left PROMIS Scales Higher is Better 11/02/2022 Phys Func - Score 50 (within normal limits) Phys Func - Percentile 50 % Self-Eff Symptom - Score 49 (Average) Self-Eff Symptom - Percentile 46 % T-scores: mean of general population = 50. 5 points is clinically meaningfully difference Percentiles provide an indication of how the patient's score ranks in relation to the general population. Higher percentile rankings indicate better function/quality of life. 50th percentile is the average of the general population and indicates half of respondents had a worse score. OBJECTIVE MEASURES WITH LEVEL OF FUNCTION: LE AROM R LE AROM: WNL L LE AROM: WNL LE Flexibility R Hamstring Flexibility: WNL L Hamstring Flexibility: WNL R Quadriceps Flexibility: WNL L Quadriceps Flexibility: WNL R Hip Internal Rotation Flexibility: WNL L Hip Internal Rotation Flexibility: WNL R Hip External Rotation Flexibility: WNL L Hip External Rotation Flexibility: WNL LE Strength R LE Strength: 5/5 grossly L LE Strength: 5/5 grossly R Hip Extension: 4+/5 L Hip Extension: 4/5 Arch of R foot decreased pronation during WB TREATMENT: Therapeutic Exercise: 2: All ovbjective measures taken this session 3: SL heel raise with speed x30, x15, x15, x15 (Medium cuff at 147 mmHg) 4: DL LP 84# x 30, x 15x 15, x 15 Skilled Intervention: Patient was educated in proper exercise technique and purpose for exercises. Correct performance of therapeutic exercises was facilitated with verbal cuing. Billing Therapeutic Exercise Treatment Minutes: 40 Total Treatment Time Minutes (timed/untimed): 40 Dieter Burns PT [facility] 10-30-2022 Note HNO ID: [id number] Author: Dieter Burns PT Service: ? Author Type: Physical Therapist Type: Progress Notes Filed: 10/30/2022 9:46 AM Note Text: Episode Visit Count: 20 Therapist That Will Accept/Oversee The Plan Of Care: Dieter Burns Start of Care Date: 06/15/22 Onset Date: 06/15/21 Patient Identified by Name and Date of : Yes REHABILITATION AND SPORTS THERAPY PHYSICAL THERAPY TREATMENT NOTE ASSESSMENT: Elliot Murillo tolerated the session with no issues. He demonstrated good tolerance to HEP. The patient will continue to benefit from ongoing skilled physical therapy to progress toward set goals. PLAN FOR NEXT VISIT: POC update SUBJECTIVE: Patient Reason for Visit: Sunday night out of the blue the knee was not letting him sleep. Running for 10 min and no problems. Next week he hopes to be able to 20 min. Does have 1-2/10 pain durign the exercise and a little pain the next. Pain: Pain Pain Level: 0 Pain Location: Heel - Right Additional Pain Information : Location 2 Pain Level 2: 1 Pain Location 2: Knee - Left OBJECTIVE MEASURES WITH LEVEL OF FUNCTION: L knee ext iso causes some familiar knee pain TREATMENT: Therapeutic Exercise: 3: SL heel raise with speed x30, x15, x15, x15 (medium cuff 147 mmHg) 4: LP 82.5# x 30, x 15 , x 15, x 15 (medium cuff at 161 mmHg) Skilled Intervention: Patient was educated in proper exercise technique and purpose for exercises. Correct performance of therapeutic exercises was facilitated with verbal cuing. Billing Therapeutic Exercise Treatment Minutes: 30 Total Treatment Time Minutes (timed/untimed): 30 Dieter Burns PT [facility] 10-26-2022 Note HNO ID: [id number] Author: Dieter Burns PT Service: ? Author Type: Physical Therapist Type: Progress Notes Filed: 10/26/2022 3:32 PM Note Text: Episode Visit Count: 19 Therapist That Will Accept/Oversee The Plan Of Care: Dieter Burns Start of Care Date: 06/15/22 Onset Date: 06/15/21 Patient Identified by Name and Date of : Yes REHABILITATION AND SPORTS THERAPY PHYSICAL THERAPY TREATMENT NOTE ASSESSMENT: Elliot Murillo tolerated the session with no issues. He demonstrated improved strength of the LE with LP exercise. The patient will continue to benefit from ongoing skilled physical therapy to progress toward set goals. PLAN FOR NEXT VISIT: BFR strengthening. Trial SL heel raise without assistance of other leg SUBJECTIVE: Patient Reason for Visit: The tendon is between sore and discomfort. The knee can be uncomfortable. Still fearful about relapsing into more tendon pain with exercise. Pain: Pain Pain Level: 1 Pain Location: Heel - Right OBJECTIVE MEASURES WITH LEVEL OF FUNCTION: Gait WNL without pain TREATMENT: Therapeutic Exercise: 2: Discussed trialing DL LP in the gym starting at 200 lbs. Also, discussed SL heel raise without assistance during the concentric phase with the other leg. 3: SL heel raise with speed x30, x15, x15, x15 (Medium cuff 147 mmHg) 4: LP 82.5# x 30, x 15 , x 15, x 15 (medium cuff at 161 mmHg) Skilled Intervention: Patient was educated in proper exercise technique and purpose for exercises. Correct performance of therapeutic exercises was facilitated with verbal cuing. Billing Therapeutic Exercise Treatment Minutes: 25 Total Treatment Time Minutes (timed/untimed): 25 Dieter Burns PT [facility] 10-20-2022 Note HNO ID: [id number] Author: Dieter Burns PT Service: ? Author Type: Physical Therapist Type: Progress Notes Filed: 10/20/2022 9:27 AM Note Text: Episode Visit Count: 18 Therapist That Will Accept/Oversee The Plan Of Care: Dieter Burns Start of Care Date: 06/15/22 Onset Date: 06/15/21 Patient Identified by Name and Date of : Yes REHABILITATION AND SPORTS THERAPY PHYSICAL THERAPY TREATMENT NOTE ASSESSMENT: Elliot Murillo tolerated the session with no issues. He demonstrated good tolerance to therapeutic exercises. The patient will continue to benefit from ongoing skilled physical therapy to progress toward set goals. PLAN FOR NEXT VISIT: BFR therapeutic exercises SUBJECTIVE: Patient Reason for Visit: Sunday pt was feeling better and went to the gym. Ran 5 min on the treadmill with no problem. Pain: Pain Pain Level: (Not rated) Pain Location: Heel - Right OBJECTIVE MEASURES WITH LEVEL OF FUNCTION: L posterior capsule tight and R is WNL TREATMENT: Therapeutic Exercise: 1: Seated glute max stretch in figure 4 position 2 x 30 sec 2: Posterior capsule stretch (LLE) 2 x 30 seconds in supine 3: SL heel raise with speed x30, x15, x15, x15 (Medium cuff at 70% occlusion 147 mmHg) 4: LP 80# x 30, x 15 , x 15, x 15 (medium cuff at 70% occlusion 161 mmHg) Skilled Intervention: Patient was educated in proper exercise technique and purpose for exercises. Provided written instruction for home exercise program to facilitate proper performance and compliance. Correct performance of therapeutic exercises was facilitated with verbal cuing. Billing Therapeutic Exercise Treatment Minutes: 41 Total Treatment Time Minutes (timed/untimed): 41 Dieter Burns PT [facility] 10-16-2022 Note HNO ID: [id number] Author: Dieter Burns PT Service: ? Author Type: Physical Therapist Type: Progress Notes Filed: 10/16/2022 2:48 PM Note Text: Episode Visit Count: 17 Therapist That Will Accept/Oversee The Plan Of Care: Dieter Burns Start of Care Date: 06/15/22 Onset Date: 06/15/21 Patient Identified by Name and Date of : Yes REHABILITATION AND SPORTS THERAPY PHYSICAL THERAPY TREATMENT NOTE ASSESSMENT: Elliot Murillo tolerated the session with no issues. He demonstrated good tolerance to therapeutic exercises. The patient will continue to benefit from ongoing skilled physical therapy to progress toward set goals. PLAN FOR NEXT VISIT: Assess reaction to HEP SUBJECTIVE: Patient Reason for Visit: Pain 8in the L knee after running. Now a little painful to go down stairs and squat. Pain: Pain Pain Location: Heel - Right OBJECTIVE MEASURES WITH LEVEL OF FUNCTION: Bilat Hs strength 4/5 TREATMENT: Therapeutic Exercise: 2: Discussed Hs strengthening exercises that are appropriate for home use 3: SL heel raise with speed x30, x15, x15, x15 (medium cuff 70% 147 mmHg) 4: LP 80# x 30, x 15 , x 15, x 15 Skilled Intervention: Patient was educated in proper exercise technique and purpose for exercises. Provided written instruction for home exercise program to facilitate proper performance and compliance. Correct performance of therapeutic exercises was facilitated with verbal and visual cuing. Billing Therapeutic Exercise Treatment Minutes: 40 Total Treatment Time Minutes (timed/untimed): 40 Dieter Burns PT [facility] 10-16-2022 History of Present illness Narrative Episode Visit Count: 17 Therapist That Will Accept/Oversee The Plan Of Care: Dieter Burns Start of Care Date: 06/15/22 Onset Date: 06/15/21 Patient Identified by Name and Date of : Yes REHABILITATION AND SPORTS THERAPY PHYSICAL THERAPY TREATMENT NOTE ASSESSMENT: Elliot Murillo tolerated the session with no issues. He demonstrated good tolerance to therapeutic exercises. The patient will continue to benefit from ongoing skilled physical therapy to progress toward set goals. PLAN FOR NEXT VISIT: Assess reaction to HEP SUBJECTIVE: Patient Reason for Visit: Pain 8in the L knee after running. Now a little painful to go down stairs and squat. Pain: Pain Pain Location: Heel - Right OBJECTIVE MEASURES WITH LEVEL OF FUNCTION: Bilat Hs strength 4/5 TREATMENT: Therapeutic Exercise: 2: Discussed Hs strengthening exercises that are appropriate for home use 3: SL heel raise with speed x30, x15, x15, x15 (medium cuff 70% 147 mmHg) 4: LP 80# x 30, x 15 , x 15, x 15 Skilled Intervention: Patient was educated in proper exercise technique and purpose for exercises. Provided written instruction for home exercise program to facilitate proper performance and compliance. Correct performance of therapeutic exercises was facilitated with verbal and visual cuing. Billing Therapeutic Exercise Treatment Minutes: 40 Total Treatment Time Minutes (timed/untimed): 40 Dieter Burns PT documented in this encounter [facility] 10-05-2022 Note HNO ID: [id number] Author: Dieter Burns PT Service: ? Author Type: Physical Therapist Type: Progress Notes Filed: 10/16/2022 1:55 PM Note Text: Episode Visit Count: 16 Therapist That Will Accept/Oversee The Plan Of Care: Dieter Burns Start of Care Date: 06/15/22 Onset Date: 06/15/21 Patient Identified by Name and Date of : Yes REHABILITATION AND SPORTS THERAPY PHYSICAL THERAPY TREATMENT NOTE ASSESSMENT: Elliot Murillo tolerated the session with no issues. He demonstrated good tolerance to all therapeutic exercises. The patient will continue to benefit from ongoing skilled physical therapy to progress toward set goals. PLAN FOR NEXT VISIT: Jogging on treadmill 6-7 min. LE strengthening with BFR cuffs SUBJECTIVE: Patient Reason for Visit: Rosalia good overall. No pain after the jog a few days ago. Pain in Left knee with prolonged flexion (in the car) and stairs. Pain: Pain Pain Location: Heel - Right OBJECTIVE MEASURES WITH LEVEL OF FUNCTION: Quad flexibility WBL Knee flexion ROM WNL Patellar mobility WNL bilat without grinding or pain TREATMENT: Therapeutic Exercise: 2: Discussed jogging regimen in terms of duration and speed. Discussed progression of jogging program to increase duration instead of speed for now. 3: SL heel raise with speed x30, x15, x15, x15 (medium cuff 70% 147 mmHg) 4: LP 82# x30, x 15 , x 15, x 15 (Medium cuff at 70% occlusion pressure of 161 mmHg) Skilled Intervention: Patient was educated in proper exercise technique and purpose for exercises. Billing Therapeutic Exercise Treatment Minutes: 38 Total Treatment Time Minutes (timed/untimed): 38 Dieter Burns, PT [facility] 10-05-2022 History of Present illness Narrative Episode Visit Count: 16 Therapist That Will Accept/Oversee The Plan Of Care: Dieter Burns Start of Care Date: 06/15/22 Onset Date: 06/15/21 Patient Identified by Name and Date of : Yes REHABILITATION AND SPORTS THERAPY PHYSICAL THERAPY TREATMENT NOTE ASSESSMENT: Elliot Murillo tolerated the session with no issues. He demonstrated good tolerance to all therapeutic exercises. The patient will continue to benefit from ongoing skilled physical therapy to progress toward set goals. PLAN FOR NEXT VISIT: Jogging on treadmill 6-7 min. LE strengthening with BFR cuffs SUBJECTIVE: Patient Reason for Visit: Ros[place] good overall. No pain after the job a few days ago. Pain in Left knee with prolonged flexion (in the car) and stairs. Pain: Pain Pain Location: Heel - Right OBJECTIVE MEASURES WITH LEVEL OF FUNCTION: Quad flexibility WBL Knee flexion ROM WNL Patellar mobility WNL bilat without grinding or pain TREATMENT: Therapeutic Exercise: 2: Discussed jogging regimen in terms of duration and speed. Discussed progression of jogging program to increase duration instead of speed for now. 3: SL heel raise with speed x30, x15, x15, x15 (medium cuff 70% 147 mmHg) 4: LP 82# x30, x 15 , x 15, x 15 Skilled Intervention: Patient was educated in proper exercise technique and purpose for exercises. Billing Therapeutic Exercise Treatment Minutes: 38 Total Treatment Time Minutes (timed/untimed): 38 Dieter Burns PT documented in this encounter [facility] 10-02-2022 Note HNO ID: [id number] Author: Dieter Burns PT Service: ? Author Type: Physical Therapist Type: Progress Notes Filed: 10/02/2022 9:22 AM Note Text: Episode Visit Count: 15 Therapist That Will Accept/Oversee The Plan Of Care: Dieter Burns Start of Care Date: 06/15/22 Onset Date: 06/15/21 Patient Identified by Name and Date of : Yes REHABILITATION AND SPORTS THERAPY PHYSICAL THERAPY PROGRESS REPORT PLAN OF CARE UPDATE: Assessment: Elliot Murillo demonstrates difficulty with running and improvements in pain levels, tolerance to load in the achilles, and level of independence with the exercise. He has progressed toward goals. Patient continues to present with impairments in independence in exercise, overall function, and symptom management that interfere with running . Current prognosis is Good due to: current objective clinical presentation, good overall health status, good support system/ coping skills . Pt will continue to benefit from BFR strengthening of the R achilles. He will benefit from continued skilled therapy services to meet the updated goals for this plan of care as noted below. Goals updated 10/02/2022 Goals for Episode of Care: created on 06/15/22 through 08/24/22 Pt will demo Gluteal strength of 4+/5 or greater in 8 weeks week or less for return to running - MET Pt will report overall improvement in symptoms by 50% or greater in 8 weeks or less with ADL's - MET Pt will report overall improvement of symptoms by 80% in 4 weeks or less - MET Pt will demo improved intrinsic foot strength by displaying decreased R foot pronation with gait in 8 weeks or less - Not met, will continue [place] in home exercise program. - Met so far, will continue Pt will be able to jog with 2/10 pain or less in 6 weeks or less - Met so far Patient Goals: Decrease pain to allow pt to run and complete ADL's without pain Patient Goals: Decrease pain to allow pt to run and complete ADL's without pain Planned Interventions, Frequency, and Duration: 2x/week, 4 weeks Total Number of Visits Planned: 8 Patient to be seen for Therapeutic exercise (35960), Neuromuscular re-education (50369), Manual therapy (31884), Self-assisted management (43281), Gait Training (25258), Patient/Family/Caregiver Education PLAN FOR NEXT VISIT: BFR loading of the R tendon SUBJECTIVE: Patient Reason for Visit: On sunday walked around a pool and at the end he felt some pain at the moment but nothing later that day. Pt feels 85% overall improvement at this time. Better mornings. Patient Goals: Decrease pain to allow pt to run and complete ADL's without pain Functional Limitations: running Prior Level of Function: Independent without limitations Intake Information: Prescription present Previous Treatment: Exercises per physician Pain: Pain Pain Level: 1 Pain Location: Heel - Right PROMIS Scales T-scores: mean of general population = 50. 5 points is clinically meaningfully difference Percentiles provide an indication of how the patient's score ranks in relation to the general population. Higher percentile rankings indicate better function/quality of life. 50th percentile is the average of the general population and indicates half of respondents had a worse score. OBJECTIVE MEASURES WITH LEVEL OF FUNCTION: LE AROM R LE AROM: WNL L LE AROM: WNL LE Flexibility Flexibility: Hip Internal Rotation Flexibility, Hip External Rotation Flexibility R Hamstring Flexibility: WNL L Hamstring Flexibility: WNL R Quadriceps Flexibility: WNL L Quadriceps Flexibility: WNL R Hip Internal Rotation Flexibility: WNL L Hip Internal Rotation Flexibility: WNL R Hip External Rotation Flexibility: WNL L Hip External Rotation Flexibility: WNL LE Strength R LE Strength: 5/5 grossly L LE Strength: 5/5 grossly Functional Strength R Single Leg Heel Raise: Able to perform without pain TREATMENT: Therapeutic Exercise: 1: All objective measures taken this session 2: Jogging on treadmill x 5 min (Assessing for tendon pain) 3: SL heel raise with speed x30, x15, x15, x15 (medium cuff 70% 147 mmHg) 4: LP 79# x30, x 15 , x 15, x 15 (Medium cuff at 70% occlusion pressure of 161 mmHg) Skilled Intervention: Patient was educated in proper exercise technique and purpose for exercises. Skilled judgment was provided in selection of appropriate interventions. Correct performance of therapeutic exercises was facilitated with verbal and visual cuing. Billing Therapeutic Exercise Treatment Minutes: 45 Total Treatment Time Minutes (timed/untimed): 45 Dieter Burns PT [facility] 10-02-2022 History of Present illness Narrative Episode Visit Count: 15 Therapist That Will Accept/Oversee The Plan Of Care: Dieter Burns Start of Care Date: 06/15/22 Onset Date: 06/15/21 Patient Identified by Name and Date of : Yes REHABILITATION AND SPORTS THERAPY PHYSICAL THERAPY PROGRESS REPORT PLAN OF CARE UPDATE: Assessment: Elliot Murillo demonstrates difficulty with running and improvements in pain levels, tolerance to load in the achilles, and level of independence with the exercise. He has progressed toward goals. Patient continues to present with impairments in independence in exercise, overall function, and symptom management that interfere with running . Current prognosis is Good due to: current objective clinical presentation, good overall health status, good support system/ coping skills . Pt will continue to benefit from BFR strengthening of the R achilles. He will benefit from continued skilled therapy services to meet the updated goals for this plan of care as noted below. Goals updated 10/02/2022 Goals for Episode of Care: created on 06/15/22 through 08/24/22 Pt will demo Gluteal strength of 4+/5 or greater in 8 weeks week or less for return to running - MET Pt will report overall improvement in symptoms by 50% or greater in 8 weeks or less with ADL's - MET Pt will report overall improvement of symptoms by 80% in 4 weeks or less - MET Pt will demo improved intrinsic foot strength by displaying decreased R foot pronation with gait in 8 weeks or less - Not met, will continue [place] in home exercise program. - Met so far, will continue Pt will be able to jog with 2/10 pain or less in 6 weeks or less - Met so far Patient Goals: Decrease pain to allow pt to run and complete ADL's without pain Patient Goals: Decrease pain to allow pt to run and complete ADL's without pain Planned Interventions, Frequency, and Duration: 2x/week, 4 weeks Total Number of Visits Planned: 8 Patient to be seen for Therapeutic exercise (37316), Neuromuscular re-education (03271), Manual therapy (05809), Self-assisted management (41728), Gait Training (87702), Patient/Family/Caregiver Education PLAN FOR NEXT VISIT: BFR loading of the R tendon SUBJECTIVE: Patient Reason for Visit: On sunday walked around a pool and at the end he felt some pain at the moment but nothing later that day. Pt feels 85% overall improvement at this time. Better mornings. Patient Goals: Decrease pain to allow pt to run and complete ADL's without pain Functional Limitations: running Prior Level of Function: Independent without limitations Intake Information: Prescription present Previous Treatment: Exercises per physician Pain: Pain Pain Level: 1 Pain Location: Heel - Right PROMIS Scales T-scores: mean of general population = 50. 5 points is clinically meaningfully difference Percentiles provide an indication of how the patient's score ranks in relation to the general population. Higher percentile rankings indicate better function/quality of life. 50th percentile is the average of the general population and indicates half of respondents had a worse score. OBJECTIVE MEASURES WITH LEVEL OF FUNCTION: LE AROM R LE AROM: WNL L LE AROM: WNL LE Flexibility Flexibility: Hip Internal Rotation Flexibility, Hip External Rotation Flexibility R Hamstring Flexibility: WNL L Hamstring Flexibility: WNL R Quadriceps Flexibility: WNL L Quadriceps Flexibility: WNL R Hip Internal Rotation Flexibility: WNL L Hip Internal Rotation Flexibility: WNL R Hip External Rotation Flexibility: WNL L Hip External Rotation Flexibility: WNL LE Strength R LE Strength: 5/5 grossly L LE Strength: 5/5 grossly Functional Strength R Single Leg Heel Raise: Able to perform without pain TREATMENT: Therapeutic Exercise: 1: All objective measures taken this session 2: Jogging on treadmill x 5 min (Assessing for tendon pain) 3: SL heel raise with speed x30, x15, x15, x15 (medium cuff 70% 147 mmHg) 4: LP 79# x30, x 15 , x 15, x 15 (Medium cuff at 70% occlusion pressure of 161 mmHg) Skilled Intervention: Patient was educated in proper exercise technique and purpose for exercises. Skilled judgment was provided in selection of appropriate interventions. Correct performance of therapeutic exercises was facilitated with verbal and visual cuing. Billing Therapeutic Exercise Treatment Minutes: 45 Total Treatment Time Minutes (timed/untimed): 45 Dieter Burns PT documented in this encounter [facility] 09-28-2022 Note HNO ID: [id number] Author: Dieter Burns PT Service: ? Author Type: Physical Therapist Type: Progress Notes Filed: 09/28/2022 8:56 AM Note Text: Episode Visit Count: 14 Therapist That Will Accept/Oversee The Plan Of Care: Dieter Burns Start of Care Date: 06/15/22 Onset Date: 06/15/21 Patient Identified by Name and Date of : Yes REHABILITATION AND SPORTS THERAPY PHYSICAL THERAPY TREATMENT NOTE ASSESSMENT: Elliot Murillo tolerated the session with no issues. He demonstrated good tolerance to increasing LP load by 5 lbs. The patient will continue to benefit from ongoing skilled physical therapy for reassessment by supervising therapist. PLAN FOR NEXT VISIT: POC update SUBJECTIVE: Patient Reason for Visit: Pt feels good. No soreness today. When he wakes up he can just tell the tendon feels slightly different. Pain: Pain Pain Location: Heel - Right OBJECTIVE MEASURES WITH LEVEL OF FUNCTION: Rechecked occlusion pressure of LE in standing (70%=147) and lying (70%=161) today TREATMENT: Therapeutic Exercise: 1: SL eccentric heel lowering on step with explosive concentric phase x30, x15, x15, x15 (Medium cuff at 70% occlusion at 147 mmHg) 2: LP 79# x30, x 15 , x 15, x 15 (Medium cuff at 70% occlusion pressure of 161 mmHg) Skilled Intervention: Patient was educated in proper exercise technique and purpose for exercises. Correct performance of therapeutic exercises was facilitated with verbal and visual cuing. Billing Therapeutic Exercise Treatment Minutes: 31 Total Treatment Time Minutes (timed/untimed): 31 Dieter Burns PT [facility] 09-25-2022 Note HNO ID: [id number] Author: Dieter Burns PT Service: ? Author Type: Physical Therapist Type: Progress Notes Filed: 09/25/2022 9:02 AM Note Text: Episode Visit Count: 13 Therapist That Will Accept/Oversee The Plan Of Care: Dieter Burns Start of Care Date: 06/15/22 Onset Date: 06/15/21 Patient Identified by Name and Date of : Yes REHABILITATION AND SPORTS THERAPY PHYSICAL THERAPY TREATMENT NOTE ASSESSMENT: Elliot Murillo tolerated the session with no issues. He demonstrated good challenge with the heel raises. The patient will continue to benefit from ongoing skilled physical therapy to progress toward set goals. PLAN FOR NEXT VISIT: Quick heel raises SUBJECTIVE: Patient Reason for Visit: Feeling good today. Having some vertigo. Pain: Pain Pain Location: Heel - Right OBJECTIVE MEASURES WITH LEVEL OF FUNCTION: TREATMENT: Therapeutic Exercise: 1: SL eccentric heel lowering on step with explosive concentric phase x30, x15, x15, x15 (Medium cuff at 154 mmHg) 2: LP 74# x30, x 15 , x 15, x 15 (medium cuff at 140 mmHg at second notch for LP) 3: Standing calf stretch 4 x 30 sec Skilled Intervention: Patient was educated in proper exercise technique and purpose for exercises. Correct performance of therapeutic exercises was facilitated with verbal cuing. Billing Therapeutic Exercise Treatment Minutes: 33 Total Treatment Time Minutes (timed/untimed): 33 Dieter Burns PT [facility] 09-25-2022 History of Present illness Narrative Episode Visit Count: 13 Therapist That Will Accept/Oversee The Plan Of Care: Dieter Burns Start of Care Date: 06/15/22 Onset Date: 06/15/21 Patient Identified by Name and Date of : Yes REHABILITATION AND SPORTS THERAPY PHYSICAL THERAPY TREATMENT NOTE ASSESSMENT: Elliot Murillo tolerated the session with no issues. He demonstrated good challenge with the heel raises. The patient will continue to benefit from ongoing skilled physical therapy to progress toward set goals. PLAN FOR NEXT VISIT: Quick heel raises SUBJECTIVE: Patient Reason for Visit: Feeling good today. Having some vertigo. Pain: Pain Pain Location: Heel - Right OBJECTIVE MEASURES WITH LEVEL OF FUNCTION: TREATMENT: Therapeutic Exercise: 1: SL eccentric heel lowering on step with explosive concentric phase x30, x15, x15, x15 (Medium cuff at 154 mmHg) 2: LP 74# x30, x 15 , x 15, x 15 (medium cuff at 140 mmHg at second notch for LP) 3: Standing calf stretch 4 x 30 sec Skilled Intervention: Patient was educated in proper exercise technique and purpose for exercises. Correct performance of therapeutic exercises was facilitated with verbal cuing. Billing Therapeutic Exercise Treatment Minutes: 33 Total Treatment Time Minutes (timed/untimed): 33 Dieter Burns PT documented in this encounter [facility] 09-21-2022 Note HNO ID: [id number] Author: Dieter Burns PT Service: ? Author Type: Physical Therapist Type: Progress Notes Filed: 09/21/2022 12:05 PM Note Text: Episode Visit Count: 12 Therapist That Will Accept/Oversee The Plan Of Care: Dieter Burns Start of Care Date: 06/15/22 Onset Date: 06/15/21 Patient Identified by Name and Date of : Yes REHABILITATION AND SPORTS THERAPY PHYSICAL THERAPY TREATMENT NOTE ASSESSMENT: Elliot Murillo tolerated the session with fatigue and no issues. He demonstrated difficulty with finishing RLE heel raise with quick concentric phase due to fatigue and LLE needed to help at times. The patient will continue to benefit from ongoing skilled physical therapy to progress toward set goals. PLAN FOR NEXT VISIT: Continue loading achilles with focus on quick concentric phase SUBJECTIVE: Patient Reason for Visit: Pt is feeling really good. Had to help with soccer practice and did some jogging. Today he does not have pain after jogging the day before, just tight. Sometimes if he does not take ibuprofen when going to bed he can wake up with 1-2/10 pain. Pain: Pain Pain Location: Heel - Right OBJECTIVE MEASURES WITH LEVEL OF FUNCTION: Good form with leg press and no pain TREATMENT: Therapeutic Exercise: 1: SL eccentric heel lowering on step with explosive concentric phase x30, x15, x15, x15 (medium cuff at 140 mmHg) 2: LP 69# x30, x 15 , x 15, x 15 (medium cuff bilat at 140 mmHg) Skilled Intervention: Patient was educated in proper exercise technique and purpose for exercises. Correct performance of therapeutic exercises was facilitated with verbal cuing. Billing Therapeutic Exercise Treatment Minutes: 30 Total Treatment Time Minutes (timed/untimed): 30 Dieter Burns PT [facility] 09-21-2022 History of Present illness Narrative Episode Visit Count: 12 Therapist That Will Accept/Oversee The Plan Of Care: Dieter Burns Start of Care Date: 06/15/22 Onset Date: 06/15/21 Patient Identified by Name and Date of : Yes REHABILITATION AND SPORTS THERAPY PHYSICAL THERAPY TREATMENT NOTE ASSESSMENT: Elliot Murillo tolerated the session with fatigue and no issues. He demonstrated difficulty with finishing RLE heel raise with quick concentric phase due to fatigue and LLE needed to help at times. The patient will continue to benefit from ongoing skilled physical therapy to progress toward set goals. PLAN FOR NEXT VISIT: Continue loading achilles with focus on quick concentric phase SUBJECTIVE: Patient Reason for Visit: Pt is feeling really good. Had to help with soccer practice and did some jogging. Today he does not have pain after jogging the day before, just tight. Sometimes if he does not take ibuprofen when going to bed he can wake up with 1-2/10 pain. Pain: Pain Pain Location: Heel - Right OBJECTIVE MEASURES WITH LEVEL OF FUNCTION: Good form with leg press and no pain TREATMENT: Therapeutic Exercise: 1: SL eccentric heel lowering on step with explosive concentric phase x30, x15, x15, x15 (medium cuff at 140 mmHg) 2: LP 69# x30, x 15 , x 15, x 15 (medium cuff bilat at 140 mmHg) Skilled Intervention: Patient was educated in proper exercise technique and purpose for exercises. Correct performance of therapeutic exercises was facilitated with verbal cuing. Billing Therapeutic Exercise Treatment Minutes: 30 Total Treatment Time Minutes (timed/untimed): 30 Dieter Burns PT documented in this encounter [facility] 09-11-2022 Note HNO ID: [id number] Author: Dieter Burns PT Service: ? Author Type: Physical Therapist Type: Progress Notes Filed: 09/11/2022 8:51 AM Note Text: Episode Visit Count: 11 Therapist That Will Accept/Oversee The Plan Of Care: Dieter Burns Start of Care Date: 06/15/22 Onset Date: 06/15/21 Patient Identified by Name and Date of : Yes REHABILITATION AND SPORTS THERAPY PHYSICAL THERAPY TREATMENT NOTE ASSESSMENT: Elliot Murillo tolerated the session with no issues. He demonstrated good tolerance to newly added LP exercise. The patient will continue to benefit from ongoing skilled physical therapy to progress toward set goals. PLAN FOR NEXT VISIT: BFR quad and achilles exercises SUBJECTIVE: Patient Reason for Visit: Doing well. Last time he had no problem with SL heel lowering. Pain: Pain Pain Level: 1 Pain Location: Heel - Right Description: ( I know something is there ) OBJECTIVE MEASURES WITH LEVEL OF FUNCTION: Good form with both therapeutic exercises performed today No pain with therapeutic exercises using BFR TREATMENT: Therapeutic Exercise: 1: SL eccentric heel lowering on step x30, x15, x15, x15 (Using BFR at 154 mmHg medium cuff) 2: LP 64# x30, x 15 , x 15, x 15 (Using BFR medium cuff at 140 mmHg) Skilled Intervention: Patient was educated in proper exercise technique and purpose for exercises. Provided written instruction for home exercise program to facilitate proper performance and compliance. Correct performance of therapeutic exercises was facilitated with verbal and visual cuing. Billing Therapeutic Exercise Treatment Minutes: 30 Total Treatment Time Minutes (timed/untimed): 30 Dieter Burns PT [facility] 09-11-2022 History of Present illness Narrative Episode Visit Count: 11 Therapist That Will Accept/Oversee The Plan Of Care: Dieter Burns Start of Care Date: 06/15/22 Onset Date: 06/15/21 Patient Identified by Name and Date of : Yes REHABILITATION AND SPORTS THERAPY PHYSICAL THERAPY TREATMENT NOTE ASSESSMENT: Elliot Murillo tolerated the session with no issues. He demonstrated good tolerance to newly added LP exercise. The patient will continue to benefit from ongoing skilled physical therapy to progress toward set goals. PLAN FOR NEXT VISIT: BFR quad and achilles exercises SUBJECTIVE: Patient Reason for Visit: Doing well. Last time he had no problem with SL heel lowering. Pain: Pain Pain Level: 1 Pain Location: Heel - Right Description: ( I know something is there ) OBJECTIVE MEASURES WITH LEVEL OF FUNCTION: Good form with both therapeutic exercises performed today No pain with therapeutic exercises using BFR TREATMENT: Therapeutic Exercise: 1: SL eccentric heel lowering on step x30, x15, x15, x15 (Using BFR at 154 mmHg medium cuff) 2: LP 64# x30, x 15 , x 15, x 15 (Using BFR medium cuff at 140 mmHg) Skilled Intervention: Patient was educated in proper exercise technique and purpose for exercises. Provided written instruction for home exercise program to facilitate proper performance and compliance. Correct performance of therapeutic exercises was facilitated with verbal and visual cuing. Billing Therapeutic Exercise Treatment Minutes: 30 Total Treatment Time Minutes (timed/untimed): 30 Dieter Burns PT documented in this encounter [facility] 09-04-2022 Note HNO ID: [id number] Author: Dieter Burns PT Service: ? Author Type: Physical Therapist Type: Progress Notes Filed: 09/04/2022 2:26 PM Note Text: Episode Visit Count: 10 Therapist That Will Accept/Oversee The Plan Of Care: Dieter Burns Start of Care Date: 06/15/22 Onset Date: 06/15/21 Patient Identified by Name and Date of : Yes REHABILITATION AND SPORTS THERAPY PHYSICAL THERAPY TREATMENT NOTE ASSESSMENT: Elliot Murillo tolerated the session with no issues. He demonstrated good tolerance to BFR therapeutic exercises. The patient will continue to benefit from ongoing skilled physical therapy to progress toward set goals. PLAN FOR NEXT VISIT: Continue with BFR exercises including squats and SL lowering SUBJECTIVE: Patient Reason for Visit: Was pretty sore after the last round of exercises. The calf was really sore and did not take any meds. Wants to continue as the tendon did not hurt. Pain: Pain Pain Level: 0 Pain Location: Heel - Right OBJECTIVE MEASURES WITH LEVEL OF FUNCTION: No achilles tendon pain after therapeutic exercises TREATMENT: Therapeutic Exercise: 1: SL eccentric heel lowering on step x30, x15, x15, x15 (BFR medium cuff at 154 mmHg) 2: LP 280 lbs x 6 reps 3: Squat x30, x15, x15, x15 (BFR Medium cuff at 154mmHg) Skilled Intervention: Patient was educated in proper exercise technique and purpose for exercises. Correct performance of therapeutic exercises was facilitated with verbal and visual cuing. Billing Therapeutic Exercise Treatment Minutes: 40 Total Treatment Time Minutes (timed/untimed): 40 Dieter Burns PT [facility] 09-04-2022 History of Present illness Narrative Episode Visit Count: 10 Therapist That Will Accept/Oversee The Plan Of Care: Dieter Burns Start of Care Date: 06/15/22 Onset Date: 06/15/21 Patient Identified by Name and Date of : Yes REHABILITATION AND SPORTS THERAPY PHYSICAL THERAPY TREATMENT NOTE ASSESSMENT: Elliot Murillo tolerated the session with no issues. He demonstrated good tolerance to BFR therapeutic exercises. The patient will continue to benefit from ongoing skilled physical therapy to progress toward set goals. PLAN FOR NEXT VISIT: Continue with BFR exercises including squats and SL lowering SUBJECTIVE: Patient Reason for Visit: Was pretty sore after the last round of exercises. The calf was really sore and did not take any meds. Wants to continue as the tendon did not hurt. Pain: Pain Pain Level: 0 Pain Location: Heel - Right OBJECTIVE MEASURES WITH LEVEL OF FUNCTION: No achilles tendon pain after therapeutic exercises TREATMENT: Therapeutic Exercise: 1: SL eccentric heel lowering on step x30, x15, x15, x15 (BFR medium cuff at 154 mmHg) 2: LP 280 lbs x 6 reps 3: Squat x30, x15, x15, x15 (BFR Medium cuff at 154mmHg) Skilled Intervention: Patient was educated in proper exercise technique and purpose for exercises. Correct performance of therapeutic exercises was facilitated with verbal and visual cuing. Billing Therapeutic Exercise Treatment Minutes: 40 Total Treatment Time Minutes (timed/untimed): 40 Dieter Burns PT documented in this encounter [facility] 09-01-2022 Note HNO ID: [id number] Author: Dieter Burns PT Service: ? Author Type: Physical Therapist Type: Progress Notes Filed: 09/01/2022 9:52 AM Note Text: Episode Visit Count: 9 Therapist That Will Accept/Oversee The Plan Of Care: Dieter Burns Start of Care Date: 06/15/22 Onset Date: 06/15/21 Patient Identified by Name and Date of : Yes REHABILITATION AND SPORTS THERAPY PHYSICAL THERAPY PROGRESS REPORT PLAN OF CARE UPDATE: Assessment: Elliot Murillo demonstrates difficulty with stair negotiation, recreational activities, and running and improvements in overall pain with stair negotiation, improved LE strength, and level of independence with the HEP. He has progressed toward goals. Patient continues to present with impairments in independence in exercise, overall function, and strength that interfere with stair negotiation, running, jumping . Current prognosis is Good due to: current objective clinical presentation, good overall health status, good support system/ coping skills . He will benefit from continued skilled therapy services to meet the updated goals for this plan of care as noted below. Goals updated 09/01/2022 Goals for Episode of Care: created on 06/15/22 through 08/24/22 Pt will demo Gluteal strength of 4+/5 or greater in 8 weeks week or less for return to running - MET Pt will report overall improvement in symptoms by 50% or greater in 8 weeks or less with ADL's - MET Pt will report overall improvement of symptoms by 80% in 4 weeks or less (NEW) Pt will demo improved intrinsic foot strength by displaying decreased R foot pronation with gait in 8 weeks or less - Not met, will continue [place] in home exercise program. - Met so far, will continue Pt will be able to jog with 2/10 pain or less in 6 weeks or less (NEW) Patient Goals: Decrease pain to allow pt to run and complete ADL's without pain Patient Goals: Decrease pain to allow pt to run and complete ADL's without pain Planned Interventions, Frequency, and Duration: 2x/week, 4 weeks Total Number of Visits Planned: 8 Patient to be seen for Therapeutic exercise (27208), Neuromuscular re-education (50698), Manual therapy (43986), Self-assisted management ([id number]), Gait Training ([id number]), Patient/Family/Caregiver Education PLAN FOR NEXT VISIT: BFR SL heel lowering SUBJECTIVE: Patient Reason for Visit: Pt states he thinks he is about 60% improved at this point. Wants to continue therapy. Pain is the worse in the morning at 3-4/10. Going down the stairs is painful. Jogging would still be painful and waking up in the morning still is the worst time for pain. Patient Goals: Decrease pain to allow pt to run and complete ADL's without pain Functional Limitations: stair negotiation, running, jumping Prior Level of Function: Independent without limitations Intake Information: Prescription present Previous Treatment: Exercises per physician Pain: Pain Pain Level: 1 Pain Location: Heel - Right PROMIS Scales T-scores: mean of general population = 50. 5 points is clinically meaningfully difference Percentiles provide an indication of how the patient's score ranks in relation to the general population. Higher percentile rankings indicate better function/quality of life. 50th percentile is the average of the general population and indicates half of respondents had a worse score. OBJECTIVE MEASURES WITH LEVEL OF FUNCTION: LE AROM R LE AROM: WNL L LE AROM: WNL LE Strength R LE Strength: 5/5 grossly L LE Strength: 5/5 grossly R Hip Extension: 4+/5 R Hip ABduction: 5/5 R Hip External Rotation: 4+/5 R Knee Extension (L3): 5/5 R Ankle Dorsiflexion (L4): 5/5 R Ankle Plantar Flexion: 5/5 R Ankle Inversion: 5/5 R Ankle Eversion: 5/5 Gait Gait Observation: R foot pronation during gait TREATMENT: Therapeutic Exercise: 1: SL eccentric heel lowering on step x30, x15, x15, x15 (medium cuff at 154 mmHg) 3: Squat x30, x15, x15, x15 (medium cuff each leg and 154mmHg) 4: All objective measures taken this session Skilled Intervention: Patient was educated in proper exercise technique and purpose for exercises. Provided written instruction for home exercise program to facilitate proper performance and compliance. Correct performance of therapeutic exercises was facilitated with verbal and visual cuing. Billing Therapeutic Exercise Treatment Minutes: 40 Total Treatment Time Minutes (timed/untimed): 40 Dieter Burns, PT [facility] 09-01-2022 History of Present illness Narrative Episode Visit Count: 9 Therapist That Will Accept/Oversee The Plan Of Care: Dieter Burns Start of Care Date: 06/15/22 Onset Date: 06/15/21 Patient Identified by Name and Date of : Yes REHABILITATION AND SPORTS THERAPY PHYSICAL THERAPY PROGRESS REPORT PLAN OF CARE UPDATE: Assessment: Elliot Murillo demonstrates difficulty with stair negotiation, recreational activities, and running and improvements in overall pain with stair negotiation, improved LE strength, and level of independence with the HEP. He has progressed toward goals. Patient continues to present with impairments in independence in exercise, overall function, and strength that interfere with stair negotiation, running, jumping . Current prognosis is Good due to: current objective clinical presentation, good overall health status, good support system/ coping skills . He will benefit from continued skilled therapy services to meet the updated goals for this plan of care as noted below. Goals updated 09/01/2022 Goals for Episode of Care: created on 06/15/22 through 08/24/22 Pt will demo Gluteal strength of 4+/5 or greater in 8 weeks week or less for return to running - MET Pt will report overall improvement in symptoms by 50% or greater in 8 weeks or less with ADL's - MET Pt will report overall improvement of symptoms by 80% in 4 weeks or less (NEW) Pt will demo improved intrinsic foot strength by displaying decreased R foot pronation with gait in 8 weeks or less - Not met, will continue [place] in home exercise program. - Met so far, will continue Pt will be able to jog with 2/10 pain or less in 6 weeks or less (NEW) Patient Goals: Decrease pain to allow pt to run and complete ADL's without pain Patient Goals: Decrease pain to allow pt to run and complete ADL's without pain Planned Interventions, Frequency, and Duration: 2x/week, 4 weeks Total Number of Visits Planned: 8 Patient to be seen for Therapeutic exercise (34530), Neuromuscular re-education (53151), Manual therapy (55404), Self-assisted management ([id number]), Gait Training ([id number]), Patient/Family/Caregiver Education PLAN FOR NEXT VISIT: BFR SL heel lowering SUBJECTIVE: Patient Reason for Visit: Pt states he thinks he is about 60% improved at this point. Wants to continue therapy. Pain is the worse in the morning at 3-4/10. Going down the stairs is painful. Jogging would still be painful and waking up in the morning still is the worst time for pain. Patient Goals: Decrease pain to allow pt to run and complete ADL's without pain Functional Limitations: stair negotiation, running, jumping Prior Level of Function: Independent without limitations Intake Information: Prescription present Previous Treatment: Exercises per physician Pain: Pain Pain Level: 1 Pain Location: Heel - Right PROMIS Scales T-scores: mean of general population = 50. 5 points is clinically meaningfully difference Percentiles provide an indication of how the patient's score ranks in relation to the general population. Higher percentile rankings indicate better function/quality of life. 50th percentile is the average of the general population and indicates half of respondents had a worse score. OBJECTIVE MEASURES WITH LEVEL OF FUNCTION: LE AROM R LE AROM: WNL L LE AROM: WNL LE Strength R LE Strength: 5/5 grossly L LE Strength: 5/5 grossly R Hip Extension: 4+/5 R Hip ABduction: 5/5 R Hip External Rotation: 4+/5 R Knee Extension (L3): 5/5 R Ankle Dorsiflexion (L4): 5/5 R Ankle Plantar Flexion: 5/5 R Ankle Inversion: 5/5 R Ankle Eversion: 5/5 Gait Gait Observation: R foot pronation during gait TREATMENT: Therapeutic Exercise: 1: SL eccentric heel lowering on step x30, x15, x15, x15 (medium cuff at 154 mmHg) 3: Squat x30, x15, x15, x15 (medium cuff each leg and 154mmHg) 4: All objective measures taken this session Skilled Intervention: Patient was educated in proper exercise technique and purpose for exercises. Provided written instruction for home exercise program to facilitate proper performance and compliance. Correct performance of therapeutic exercises was facilitated with verbal and visual cuing. Billing Therapeutic Exercise Treatment Minutes: 40 Total Treatment Time Minutes (timed/untimed): 40 Dieter Burns PT documented in this encounter [facility] 08-28-2022 Note HNO ID: [id number] Author: Dieter Burns PT Service: ? Author Type: Physical Therapist Type: Progress Notes Filed: 08/28/2022 9:50 AM Note Text: Episode Visit Count: 8 Therapist That Will Accept/Oversee The Plan Of Care: Dieter Burns Start of Care Date: 06/15/22 Onset Date: 06/15/21 Patient Identified by Name and Date of : Yes REHABILITATION AND SPORTS THERAPY PHYSICAL THERAPY TREATMENT NOTE ASSESSMENT: Elliot Murillo tolerated the session with no issues. He demonstrated difficulty with increased soreness after the last session. The patient will continue to benefit from ongoing skilled physical therapy to progress toward set goals. PLAN FOR NEXT VISIT: BFR squats and heel raises. POC update SUBJECTIVE: Patient Reason for Visit: Feeling good today. It was a tough week though. Pain: Pain Pain Level: 3 Pain Location: Heel - Right OBJECTIVE MEASURES WITH LEVEL OF FUNCTION: Very difficult completing BFR for squats but form overall is acceptable TREATMENT: Therapeutic Exercise: 1: BLE eccentric heel lowering on step x30, x15, x15, x15 (Medium cuff at 154 mmHg) 2: Sidelying hip abd x30, x15, x15, x15 (Medium cuff at 140 mmHg) 3: Squat x30, x15, x15, x15 (BFR medium cuff at 154 mmHg) Skilled Intervention: Patient was educated in proper exercise technique and purpose for exercises. Provided written instruction for home exercise program to facilitate proper performance and compliance. Correct performance of therapeutic exercises was facilitated with verbal and visual cuing. Billing Therapeutic Exercise Treatment Minutes: 38 Total Treatment Time Minutes (timed/untimed): 38 Dieter Burns PT [facility] 08-17-2022 History of Present illness Narrative Episode Visit Count: 7 Therapist That Will Accept/Oversee The Plan Of Care: Dieter Burns Start of Care Date: 06/15/22 Onset Date: 06/15/21 Patient Identified by Name and Date of : Yes [facility]ATION [facility]Y PHYSICAL THERAPY TREATMENT NOTE ASSESSMENT: Elliot Murillo tolerated the session with no issues. He demonstrated good tolerance with therapeutic exercises. The patient will continue to benefit from ongoing skilled physical therapy to progress toward set goals. PLAN FOR NEXT VISIT: Continue with BFR for strengthening as tolerated SUBJECTIVE: Patient Reason for Visit: The tendon seems to be smoothing out and less of a bump on the tendon. Pain: Pain Pain Level: (1-2/10) Pain Location: Heel - Right OBJECTIVE MEASURES WITH LEVEL OF FUNCTION: TREATMENT: Therapeutic Exercise: 1: BLE eccentric heel lowering on step x30, x15, x15, x15 (medium cuff at 154 mmHg) 2: Sidelying hip abd x30, x15, x15, x15 (medium cuff at 140 mmHg (70%)) 3: Standing BLE soleus raises x 30, x15, x15, x15 (mudium cuff done at 70% occlusion 154 mmHg) Skilled Intervention: Patient was educated in proper exercise technique and purpose for exercises. Provided written instruction for home exercise program to facilitate proper performance and compliance. Correct performance of therapeutic exercises was facilitated with verbal and visual cuing. Billing Therapeutic Exercise Treatment Minutes: 46 Total Treatment Time Minutes (timed/untimed): 46 Dieter Burns PT documented in this encounter [facility] 08-15-2022 History of Present illness Narrative Episode Visit Count: 6 Therapist That Will Accept/Oversee The Plan Of Care: Dieter Burns Start of Care Date: 06/15/22 Onset Date: 06/15/21 Patient Identified by Name and Date of : Yes REHABIL[facility]ATION [facility]TS [facility]ERAPY PHYSICAL THERAPY TREATMENT NOTE ASSESSMENT: Elliot Murillo tolerated the session with no issues. He demonstrated good tolerance for all therapeutic exercises. The patient will continue to benefit from ongoing skilled physical therapy to progress toward set goals. PLAN FOR NEXT VISIT: Continue with heel lowering using BFR. Resisted side-stepping. SUBJECTIVE: Patient Reason for Visit: Lot of pain sat and sunday. Rosalia like twisted ankle like he ran. but not terrible. achilles is better. Pain: Pain Pain Level: 2 Pain Location: Heel - Right OBJECTIVE MEASURES WITH LEVEL OF FUNCTION: Less pain by end of session in the ankle TREATMENT: Therapeutic Exercise: 1: BLE eccentric heel lowering on step x30, x15, x15, x15 (Medium cuff BFR, 70% occlusion at 154 mmHg) 2: Sidelying hip abd x30, x15, x15, x15 (Medium cuff BFR, 70% occlusion at 154 mmHg) 3: Standing BLE soleus raises x 30, x15, x15, x15 (Medium cuff 60% 132 mmHg occlusion) 4: Resisted side-stepping purple TB around ankles [address] x 2, x 2 sets Skilled Intervention: Patient was educated in proper exercise technique and purpose for exercises. Provided written instruction for home exercise program to facilitate proper performance and compliance. Correct performance of therapeutic exercises was facilitated with verbal and visual cuing. Billing Therapeutic Exercise Treatment Minutes: 55 Total Treatment Time Minutes (timed/untimed): 55 Dieter Burns PT documented in this encounter [facility] 08-11-2022 History of Present illness Narrative Episode Visit Count: 5 Therapist That Will Accept/Oversee The Plan Of Care: Dieter Burns Start of Care Date: 06/15/22 Onset Date: 06/15/21 Patient Identified by Name and Date of : Yes REHABIL[facility]ATION AND [facility]ORTS [facility]ERAPY PHYSICAL THERAPY TREATMENT NOTE ASSESSMENT: Elliot Murillo tolerated the session with no issues. He demonstrated good tolerance towards all therapeutic exercises. The patient will continue to benefit from ongoing skilled physical therapy to progress toward set goals. PLAN FOR NEXT VISIT: Trial 75% WB on RLE on stairs with eccentric heel lowering SUBJECTIVE: Patient Reason for Visit: Was moving quicker with son yesterday and so his ankle is mors sore today. Pain: Pain Pain Level: 4 Pain Location: Heel - Right OBJECTIVE MEASURES WITH LEVEL OF FUNCTION: Standing 70% occlusion pressure BFR is 175 mmHg Lying 70% occlusion pressure BFR is 154 mmHg TREATMENT: Therapeutic Exercise: 1: BLE eccentric heel lowering on step x30, x15, x15, x15 (Medium BFR cuff at 70% occlusion 175 mmHg) 2: Sidelying hip abd x30, x15, x15, x15 (Medium cuff BFR, 70% occlusion at 154 mmHg) 3: Soleus heel raises 2 x 10 4: Ankle Inv against gravity 5# at foot, x 20 Skilled Intervention: Patient was educated in proper exercise technique and purpose for exercises. Correct performance of therapeutic exercises was facilitated with verbal and visual cuing. Billing Therapeutic Exercise Treatment Minutes: 45 Total Treatment Time Minutes (timed/untimed): 45 Dieter Burns PT documented in this encounter [facility] 08-08-2022 History of Present illness Narrative Episode Visit Count: 4 Therapist That Will Accept/Oversee The Plan Of Care: Dieter Burns Start of Care Date: 06/15/22 Onset Date: 06/15/21 Patient Identified by Name and Date of : Yes REHABIL[facility]ATION AND [facility]ORTS [facility]ERAPY PHYSICAL THERAPY TREATMENT NOTE ASSESSMENT: Elliot Murillo tolerated the session with no issues. Pt reports having no contraindications of using the BFR cuff. He demonstrated good tolerance to therapeutic exercises with use of the BFR cuff. The patient will continue to benefit from ongoing skilled physical therapy to progress toward set goals. PLAN FOR NEXT VISIT: Use BFR at 65% occlusion with eccentric heel lowering and hip abd exercises. Possibly add ankle inversion. SUBJECTIVE: Patient Reason for Visit: The ankle is feeling better since stopping running and sliptical training. Stopped running with his kids too. Pain: Pain Pain Level: 3 Pain Location: Heel - Right Post Treatment Pain Post Treatment Pain Level: 2 Post Treatment Pain Location: Heel - Right OBJECTIVE MEASURES WITH LEVEL OF FUNCTION: Occlusion number 60% is Pt requires a medium sized cuff TREATMENT: Therapeutic Exercise: 1: BLE eccentric heel lowering ground floor x30, x15,x 15, x15 reps (Using BFR at 60% occlusion = 132 mmHg) 2: R hip abd in sidelying x 30, x 15, x15, x15 reps (BFR 60% fmmivqaca=653 mmHg) Skilled Intervention: Patient was educated in proper exercise technique and purpose for exercises. Correct performance of therapeutic exercises was facilitated with verbal and visual cuing. Billing Therapeutic Exercise Treatment Minutes: 45 Total Treatment Time Minutes (timed/untimed): 45 Dieter Burns PT documented in this encounter [facility] 08-01-2022 History of Present illness Narrative Episode Visit Count: 3 Therapist That Will Accept/Oversee The Plan Of Care: Dieter Burns Start of Care Date: 06/15/22 Onset Date: 06/15/21 Patient Identified by Name and Date of : Yes REHABILITATION AND SPORTS THERAPY PHYSICAL THERAPY PROGRESS REPORT PLAN OF CARE UPDATE: Assessment: Elliot Murillo demonstrates difficulty with running, walking, stairs and improvements in level of independence with the HEP. He has progressed towards 1 PT goal at this time. Patient continues to present with impairments in independence in exercise, overall function, strength, and symptom management that interfere with stair negotiation, running, jumping . Current prognosis is Good due to: current objective clinical presentation, good overall health status, good support system/ coping skills . He will benefit from continued skilled therapy services to meet the updated goals for this plan of care as noted below. Goals updated 08/01/2022 Goals for Episode of Care: created on 06/15/22 through 08/24/22 Pt will demo Gluteal strength of 4+/5 or greater in 8 weeks week or less for return to running - Progressing, will continue Pt will report overall improvement in symptoms by 50% or greater in 8 weeks or less with ADL's - Not met, will continue Pt will demo improved intrinsic foot strength by displaying decreased R foot pronation with gait in 8 weeks or less - Not met, will continue [place] in home exercise program. - Met so far, will continue Patient Goals: Decrease pain to allow pt to run and complete ADL's without pain Patient Goals: Decrease pain to allow pt to run and complete ADL's without pain Planned Interventions, Frequency, and Duration: 2x/week, 4 weeks Total Number of Visits Planned: 8 Patient to be seen for Therapeutic exercise (93718), Neuromuscular re-education (88178), Manual therapy (46203), Self-assisted management (50526), Gait Training (42984), Patient/Family/Caregiver Education PLAN FOR NEXT VISIT: BFR training if tolerated/meets requirements SUBJECTIVE: Patient Reason for Visit: The heel has been hurting quite a bit. Running for 15 minutes yesterday and could not walk today. Patient Goals: Decrease pain to allow pt to run and complete ADL's without pain Functional Limitations: stair negotiation, running, jumping Prior Level of Function: Independent without limitations Intake Information: Prescription present Previous Treatment: Exercises per physician Pain: Pain Pain Level: 7 Pain Location: Heel - Right PROMIS Scales T-scores: mean of general population = 50. 5 points is clinically meaningfully difference Percentiles provide an indication of how the patient's score ranks in relation to the general population. Higher percentile rankings indicate better function/quality of life. 50th percentile is the average of the general population and indicates half of respondents had a worse score. T-scores: mean of general population = 50. 5 points is clinically meaningfully difference Percentiles provide an indication of how the patient's score ranks in relation to the general population. Higher percentile rankings indicate better function/quality of life. 50th percentile is the average of the general population and indicates half of respondents had a worse score. OBJECTIVE MEASURES WITH LEVEL OF FUNCTION: Posture / Alignment R LE Anatomical Alignment Weight-Bearing: R Pes planus LE AROM R LE AROM: WNL L LE AROM: WNL LE Strength R Hip Extension: 4+/5 R Hip Flexion (L2): 4+/5 R Hip ABduction: 4-/5 R Hip External Rotation: 4/5 R Knee Extension (L3): 5/5 R Ankle Dorsiflexion (L4): 5/5 R Ankle Plantar Flexion: 5/5 R Ankle Inversion: 5/5 R Ankle Eversion: 5/5 L Hip Extension: 4-/5 L Hip Flexion (L2): 4+/5 L Hip ABduction: 4-/5 L Hip External Rotation: 4-/5 L Knee Extension (L3): 4+/5 L Ankle Dorsiflexion (L4): 5/5 L Ankle Plantar Flexion: 5/5 L Ankle Inversion: 5/5 L Ankle Eversion: 5/5 TREATMENT: Therapeutic Exercise: 1: All objective measures taken this session 2: 1st 5th digit flexion, 2-4th digit ext 2 x 10 3: Discussed the possible use of BFR with eccentric exercises to try and improve symptoms and increase strength as efficiently as possible. Skilled Intervention: Patient was educated in proper exercise technique and purpose for exercises. Correct performance of therapeutic exercises was facilitated with verbal and visual cuing. Self-Fpc Management: 1: Extensive discussion on the importance of stopping undurance based exercises at this point as pt's pain is worsening. Discussed the importance of preventing further pain to avoid further injury to the achilles. Discussed tendon pain characteristics. Skilled Intervention: Skilled judgment in the selection of proper modification for activity of daily living/home management based on clinical presentation, deficits, and needs. Billing Therapeutic Exercise Treatment Minutes: 35 Self-Care/Home Management Treatment Minutes: 10 Total Treatment Time Minutes (timed/untimed): 45 Dieter Burns PT documented in this encounter [facility] 06-23-2022 History of Present illness Narrative Episode Visit Count: 2 Therapist That Will Accept/Oversee The Plan Of Care: Dieter Burns Start of Care Date: 06/15/22 Onset Date: 06/15/21 Patient Identified by Name and Date of : Yes REHABILITATION AND [facility]ORTS THERAPY PHYSICAL THERAPY TREATMENT NOTE ASSESSMENT: Elliot Murillo tolerated the session with no issues. He demonstrated difficulty with pain in the morning after using the elliptical for 30 min then rowing. The patient will continue to benefit from ongoing skilled physical therapy to progress toward set goals. PLAN FOR NEXT VISIT: Manually assess quality of gastroc muscle belly. Continue with hip and quad strengthening. SUBJECTIVE: Patient Reason for Visit: The tamela is sore or more sore than before. Having some difficulty with feeling the right muscles working during the exercises. Pain: Pain Pain Level: 5 Pain Location: Heel - Right OBJECTIVE MEASURES WITH LEVEL OF FUNCTION: Good form with therapeutic exercises TREATMENT: Therapeutic Exercise: 1: Sidelying hip abd x 10 (Discussed avoiding using the eliptical at this point due to it most liek;y contributing to pt's heel pain) 2: Clam purple band 2 x 10 each leg 3: Sidelying clam 2# x 10 each side 4: Side-stepping purple 12 feet x [address] 5: Standing hip abd purple [address] Skilled Intervention: Patient was educated in proper exercise technique and purpose for exercises. Provided written instruction for home exercise program to facilitate proper performance and compliance. Correct performance of therapeutic exercises was facilitated with verbal and visual cuing. Billing Therapeutic Exercise Treatment Minutes: 40 Total Treatment Time Minutes (timed/untimed): 40 Dieter Burns PT documented in this encounter [facility] 06-15-2022 History of Present illness Narrative Episode Visit Count: 1 Therapist That Will Accept/Oversee The Plan Of Care: Dieter Burns Start of Care Date: 06/15/22 Onset Date: 06/15/21 Patient Identified by Name and Date of : Yes REHABILITATION AND SPORTS THERAPY PHYSICAL THERAPY EVALUATION PLAN OF CARE: Assessment: Elliot Murillo presents with chief complaint of R ankle pain that interferes with stair negotiation . He presents with impairments in independence in exercise, strength , symptom management, and running and stair negotiation. Prognosis for therapy is . Increased navicular drop of R foot vs Left and demonstrates a more pronated foot on the R when walking. Weakness of the gluteals is another pertinent finding. He will benefit from skilled therapy services to meet the goals established for this plan of care as noted below. Goals for Episode of Care: created on 06/15/22 through 08/24/22 Pt will demo Gluteal strength of 4+/5 or greater in 8 weeks week or less for return to running Pt will report overall improvement in symptoms by 50% or greater in 8 weeks or less with ADL's Pt will demo improved intrinsic foot strength by displaying decreased R foot pronation with gait in 8 weeks or less [place] in home exercise program. Patient Goals: Decrease pain to allow pt to run and complete ADL's without pain Planned Interventions, Frequency, and Duration: Current Frequency: 1x/week Duration: 4 weeks Total Number of Visits Planned: 4 Planned Treatment Interventions: Therapeutic exercise (38042);Neuromuscular re-education (67518);Manual therapy (44779);Self-assisted management (19630);Gait Training (82455);Patient/Family/Caregiver Education PLAN FOR NEXT VISIT: Assess reaction to HEP Patient demonstrates good understanding of plan of care and treatment. The above goals and plan of care were discussed and agreed upon by patient/family. SUBJECTIVE: Elliot Murillo is a 46 year old male seen today for R tendon achilles tendonosus. hurt after a run. Also had back and knee pain that he focused on. Worse in the morning and going up/down stairs. No popping or clicking Patient Goals: Decrease pain to allow pt to run and complete ADL's without pain Functional Limitations: stair negotiation Prior Level of Function: Independent without limitations Relevant History Preferred Language: Scottish Intake Information: Prescription present Previous Treatment: Exercises per physician Pain: Pain Pain Level: 6 Pain Location: Heel - Right Description: Sharp Post Treatment Pain Post Treatment Pain Level: (Not rated) Post Treatment Pain Location: Heel - Right PROMIS Scales T-scores: mean of general population = 50. 5 points is clinically meaningfully difference Percentiles provide an indication of how the patient's score ranks in relation to the general population. Higher percentile rankings indicate better function/quality of life. 50th percentile is the average of the general population and indicates half of respondents had a worse score. T-scores: mean of general population = 50. 5 points is clinically meaningfully difference Percentiles provide an indication of how the patient's score ranks in relation to the general population. Higher percentile rankings indicate better function/quality of life. 50th percentile is the average of the general population and indicates half of respondents had a worse score. OBJECTIVE MEASURES WITH LEVEL OF FUNCTION: Posture / Alignment R LE Anatomical Alignment Weight-Bearing: R Pes planus (flexible) L LE Anatomical Alignment Weight-Bearing: L Average arch height R LE Anatomical Alignment Non Weight-Bearing: R Average arch height L LE Anatomical Alignment Non Weight-Bearing: L Average arch height LE AROM R LE AROM: WNL L LE AROM: WNL LE Flexibility Flexibility: Hamstring Flexibility;Quadriceps Flexibility R Hamstring Flexibility: WNL L Hamstring Flexibility: WNL R Quadriceps Flexibility: WNL L Quadriceps Flexibility: WNL LE Joint Mobility R Talocrural Joint: WNL L Talocrural Joint: WNL LE Strength R Hip Extension: 4+/5 R Hip Flexion (L2): 4+/5 R Hip ABduction: 3+/5 R Hip External Rotation: 4/5 R Knee Extension (L3): 5/5 R Ankle Dorsiflexion (L4): 5/5 R Ankle Plantar Flexion: 5/5 R Ankle Inversion: 5/5 R Ankle Eversion: 5/5 L Hip Extension: 3+/5 (Cramping in the HS muscle belly) L Hip Flexion (L2): 4+/5 L Hip ABduction: 4-/5 L Hip External Rotation: 4-/5 L Knee Extension (L3): 4+/5 (Pain limiting) L Ankle Dorsiflexion (L4): 5/5 L Ankle Plantar Flexion: 5/5 L Ankle Inversion: 5/5 L Ankle Eversion: 5/5 Gait Gait Observation: R foot pronation during gait Education: Education Learning Preferences: Demonstration;Explanation;Performa nce;Printed Materials Barriers: None Learning/educational needs: Home exercise program;Plan of Care Education Provided: Yes, see treatment interventions for education provided Education Provided To: Patient Education Mode/Type: Demonstration;Explanation/Discussi on;Literature/Printed Materials;Performance Response to Education/Teach Back: States/Identifies;Return Demonstration TREATMENT: PT Treatment Interventions: Therapeutic Exercise Evaluation Therapeutic Exercise: 1: Discussed therapy goals , examf dinginds, purpose of the HEP. HEP ahndout provided. Discussed physical function of the foot when walking and brief discussion of anatomy of the foot. 2: Sidelying hip abd x 10 3: Sidelying clam x 10 4: Bridge with strap assist x 10 5: Toe flexion on towel x 10 6: 1st digit ext with 2-5th digit flexion x 10 7: SL eccentric heel drops x 8 Skilled Intervention: Patient was educated in proper exercise technique and purpose for exercises. Correct performance of therapeutic exercises was facilitated with verbal and visual cuing. Billing * Evaluation Low Complexity: 1 Unit Therapeutic Exercise Treatment Minutes: 30 Total Treatment Time Minutes (timed/untimed): 48 Dieter Burns PT documented in this encounter [facility] Diagnosis Achilles tendonosis of right lower extremity- Primary [facility] Diagnosis Achilles tendonosis of right lower extremity- Primary [facility] Diagnosis Achilles tendonosis of right lower extremity- Primary [facility] Diagnosis Achilles tendonosis of right lower extremity- Primary documented in this encounter [facility] note* Diagnosis Achilles tendonosis of right lower extremity- [facility] Achilles tendonosis of right lower extremity- [facility] Diagnosis Achilles tendonosis of right lower extremity- Primary [facility] Diagnosis Achilles tendonosis of right lower extremity- Primary [facility] Diagnosis Achilles tendonosis of right lower extremity- Primary [facility] Diagnosis Achilles tendonosis of right lower extremity- Primary [facility] Diagnosis Achilles tendonosis of right lower extremity- [facility] Diagnosis Achilles tendonosis of right lower extremity- Primary [facility] Diagnosis Subconjunctival hemorrhage of right eye- Primary [facility] Diagnosis Patellar tendinitis of left knee- Primary Patellar tendinitis [facility] Diagnosis Patellar tendinitis of left knee- Primary Patellar tendinitis [facility] Diagnosis Patellar tendinitis of left knee- Primary Patellar tendinitis [facility] Diagnosis Patellar tendinitis of left knee- Primary Patellar tendinitis [facility] Diagnosis Patellar tendinitis of left knee- Primary Patellar tendinitis [facility] Diagnosis Patellar tendinitis of left knee- Primary Patellar tendinitis documented in this encounter [facility] Reason for Referral Specialty Diagnoses / Procedures Referred By Harvey ugalde Referred To Contact [facility] Diagnoses Achilles tendonosis of right lower extremity Procedures PT REHAB FOLLOW UP ORDER THERAPEUTIC EXERCISES RE, EA 15 MIN. Dieter Burns, PT [facility] [place] [address] [place] [id number] Referral ID Status Reason Start Date Expiration Date Visits Requested Visits Authorized [id number] Pending Review PCP Requested Referral Auto-Generate d Referral 06/15/2022 09/13/2022 1 1 Specialty Diagnoses / Procedures Referred By Hravey ugalde Referred To Contact [facility] Diagnoses Achilles tendonosis of right lower extremity Procedures PT REHAB FOLLOW UP ORDER THERAPEUTIC EXERCISES RE, EA 15 MIN. Dieter Burns, PT [address] [place] [address] [facility] [place] [address] [place] [address] Referral ID Status Reason Start Date Expiration Date Visits Requested Visits Authorized [id number] Pending Review PCP Requested Referral Auto-Generate d Referral 08/01/2022 10/30/2022 1 1 Referral ID Status Reason Start Date Expiration Date Visits Requested Visits Authorized [id number] Pending Review PCP Requested Referral Auto-Generate d Referral 09/01/2022 11/30/2022 1 1 Referral ID Status Reason Start Date Expiration Date Visits Requested Visits Authorized [id number] Pending Review PCP Requested Referral Auto-Generate d Referral 10/02/2022 12/31/2022 1 1 Referral ID Status Reason Start Date Expiration Date Visits Requested Visits Authorized [id number] Pending Review PCP Requested Referral Auto-Generate d Referral 12/11/2022 03/11/2023 1 1 Summary Purpose Family History No Family History Records Found Advance Directives No Advanced Directives Records Found Additional Source Comments Source Comments (unrecognize d section and content) In the event this informatio n is protected by the Federal Confidentiality of Alcohol and Drug Abuse Patient Records regulations: The Federal rules restrict any use of the information to criminally investigate or prosecute any alcohol or drug abuse patient.[facility] the event this information is protected by the Federal Confidentiality of Alcohol and Drug Abuse Patient Records regulations: The Federal rules restrict any use of the information to criminally investigate or prosecute any alcohol or drug abuse patient.[facility] HospitalIn the event this information is protected by the Federal Confidentiality of Alcohol and Drug Abuse Patient Records regulations: The Federal rules restrict any use of the information to criminally investigate or prosecute any alcohol or drug abuse patient.[facility]In the event this information is protected by the Federal Confidentiality of Alcohol and Drug Abuse Patient Records regulations: The Federal rules restrict any use of the information to criminally investigate or prosecute any alcohol or drug abuse patient.[facility] HospitalIn the event this information is protected by the Federal Confidentiality of Alcohol and Drug Abuse Patient Records regulations: The Federal rules restrict any use of the information to criminally investigate or prosecute any alcohol or drug abuse patient.[facility] HospitalIn the event this information is protected by the Federal Confidentiality of Alcohol and Drug Abuse Patient Records regulations: The Federal rules restrict any use of the information to criminally investigate or prosecute any alcohol or drug abuse patient.[facility] HospitalIn the event this information is protected by the Federal Confidentiality of Alcohol and Drug Abuse Patient Records regulations: The Federal rules restrict any use of the information to criminally investigate or prosecute any alcohol or drug abuse patient.[facility] HospitalIn the event this information is protected by the Federal Confidentiality of Alcohol and Drug Abuse Patient Records regulations: The Federal rules restrict any use of the information to criminally investigate or prosecute any alcohol or drug abuse patient.[facility] HospitalIn the event this information is protected by the Federal Confidentiality of Alcohol and Drug Abuse Patient Records regulations: The Federal rules restrict any use of the information to criminally investigate or prosecute any alcohol or drug abuse patient.[facility] HospitalIn the event this information is protected by the Federal Confidentiality of Alcohol and Drug Abuse Patient Records regulations: The Federal rules restrict any use of the information to criminally investigate or prosecute any alcohol or drug abuse patient.[facility] HospitalIn the event this information is protected by the Federal Confidentiality of Alcohol and Drug Abuse Patient Records regulations: The Federal rules restrict any use of the information to criminally investigate or prosecute any alcohol or drug abuse patient.[facility] HospitalIn the event this information is protected by the Federal Confidentiality of Alcohol and Drug Abuse Patient Records regulations: The Federal rules restrict any use of the information to criminally investigate or prosecute any alcohol or drug abuse patient.[facility] HospitalIn the event this information is protected by the Federal Confidentiality of Alcohol and Drug Abuse Patient Records regulations: The Federal rules restrict any use of the information to criminally investigate or prosecute any alcohol or drug abuse patient.[facility] HospitalIn the event this information is protected by the Federal Confidentiality of Alcohol and Drug Abuse Patient Records regulations: The Federal rules restrict any use of the information to criminally investigate or prosecute any alcohol or drug abuse patient.[facility] HospitalIn the event this information is protected by the Federal Confidentiality of Alcohol and Drug Abuse Patient Records regulations: The Federal rules restrict any use of the information to criminally investigate or prosecute any alcohol or drug abuse patient.[facility] HospitalIn the event this information is protected by the Federal Confidentiality of Alcohol and Drug Abuse Patient Records regulations: The Federal rules restrict any use of the information to criminally investigate or prosecute any alcohol or drug abuse patient.[facility] HospitalIn the event this information is protected by the Federal Confidentiality of Alcohol and Drug Abuse Patient Records regulations: The Federal rules restrict any use of the information to criminally investigate or prosecute any alcohol or drug abuse patient.[facility] HospitalIn the event this information is protected by the Federal Confidentiality of Alcohol and Drug Abuse Patient Records regulations: The Federal rules restrict any use of the information to criminally investigate or prosecute any alcohol or drug abuse patient.[facility] HospitalIn the event this information is protected by the Federal Confidentiality of Alcohol and Drug Abuse Patient Records regulations: The Federal rules restrict any use of the information to criminally investigate or prosecute any alcohol or drug abuse patient.[facility] HospitalIn the event this information is protected by the Federal Confidentiality of Alcohol and Drug Abuse Patient Records regulations: The Federal rules restrict any use of the information to criminally investigate or prosecute any alcohol or drug abuse patient.[facility] HospitalIn the event this information is protected by the Federal Confidentiality of Alcohol and Drug Abuse Patient Records regulations: The Federal rules restrict any use of the information to criminally investigate or prosecute any alcohol or drug abuse patient.[facility] HospitalIn the event this information is protected by the Federal Confidentiality of Alcohol and Drug Abuse Patient Records regulations: The Federal rules restrict any use of the information to criminally investigate or prosecute any alcohol or drug abuse patient.[facility] HospitalIn the event this information is protected by the Federal Confidentiality of Alcohol and Drug Abuse Patient Records regulations: The Federal rules restrict any use of the information to criminally investigate or prosecute any alcohol or drug abuse patient.[facility] HospitalIn the event this information is protected by the Federal Confidentiality of Alcohol and Drug Abuse Patient Records regulations: The Federal rules restrict any use of the information to criminally investigate or prosecute any alcohol or drug abuse patient.[facility] HospitalIn the event this information is protected by the Federal Confidentiality of Alcohol and Drug Abuse Patient Records regulations: The Federal rules restrict any use of the information to criminally investigate or prosecute any alcohol or drug abuse patient.[facility] HospitalIn the event this information is protected by the Federal Confidentiality of Alcohol and Drug Abuse Patient Records regulations: The Federal rules restrict any use of the information to criminally investigate or prosecute any alcohol or drug abuse patient.[facility] HospitalIn the event this information is protected by the Federal Confidentiality of Alcohol and Drug Abuse Patient Records regulations: The Federal rules restrict any use of the information to criminally investigate or prosecute any alcohol or drug abuse patient.[facility] HospitalIn the event this information is protected by the Federal Confidentiality of Alcohol and Drug Abuse Patient Records regulations: The Federal rules restrict any use of the information to criminally investigate or prosecute any alcohol or drug abuse patient.[facility] HospitalIn the event this information is protected by the Federal Confidentiality of Alcohol and Drug Abuse Patient Records regulations: The Federal rules restrict any use of the information to criminally investigate or prosecute any alcohol or drug abuse patient.[facility] Reason for Visit (unrecogniz ed section and content) Specialty Diagnoses / Procedures Referred By Contac t Referred To Contact PHYSICAL THERAPY Diagnoses lonto/phonophoresis Procedures lonto/phonophoresis Rob Solitario MD [address] [address] [address] [facility] [address] [place] [address] Referral ID Status Reason Start Date Expiration Date V isits Requested Visits Authorized [id number] Authorized 06/11/2022 06/10/2023 45 45 Reason Comments PT Eval Referral ID Status Reason Start Date Expiration Date V isits Requested Visits Authorized [id number] Outside PCP 06/07/2022 08/06/2022 1 1 Reason Comments Physical Therapy Specialty Diagnoses / Procedures Referred By Contac t Referred To Contact PHYSICAL THERAPY Diagnoses lonto/phonophoresis Procedures lonto/phonophoresis Rob Solitario MD [address] [address] [address] [facility] [address] [place] [address] Reason Comments Eye Problem Red irritated right eye x 1 day Specialty Diagnoses / Procedures Referred By Contac t Referred To Contact PHYSICAL THERAPY Diagnoses lonto/phonophoresis Procedures lonto/phonophoresis Rob Solitario MD [address] [place] [address] [address] [facility] [address] [place] [address] Referral ID Status Reason Start Date Expiration Date V isits Requested Visits Authorized [id number] Authorized 06/11/2023 06/10/2024 45 45 Reason Comments PT Progress Note Care Teams (unrecognized sec tion and content) Dermatological Surgeon Relationship Specialty Start Date End Date Radha Morales MD [address] [place] [address] PCP - General Family Medicine 02/28/16 Dermatological Surgeon Relationship Specialty Start Date End Date Radha Morales MD [address] [place] [address] PCP - General Family Medicine 02/28/16 Dermatological Surgeon Relationship Specialty Start Date End Date Radha Morales MD [address] [place] [address] PCP - General Family Medicine 02/28/16 Dermatological Surgeon Relationship Specialty Start Date End Date Radha Morales MD [facility] [place] [address] PCP - General Family Medicine 02/28/16 Dermatological Surgeon Relationship Specialty Start Date End Date Radha Morales MD [address] [place] [address], [place] [address] PCP - General Family Medicine 02/28/16 Dermatological Surgeon Relationship Specialty Start Date End Date Rdaha Morales MD [facility] [place] [address] PCP - General Family Medicine 02/28/16 Dermatological Surgeon Relationship Specialty Start Date End Date Radha Morales MD [facility] [place] [address] PCP - General Family Medicine 02/28/16 Dermatological Surgeon Relationship Specialty Start Date End Date Radha Morales MD [facility] [place] [address] PCP - General Family Medicine 02/28/16 Dermatological Surgeon Relationship Specialty Start Date End Date Radha Morales MD [facility] [place] [address] PCP - General Family Medicine 02/28/16 Dermatological Surgeon Relationship Specialty Start Date End Date Radha Morales MD [facility] [place] [address] PCP - General Family Medicine 02/28/16 Dermatological Surgeon Relationship Specialty Start Date End Date Radha Morales MD [address] [place] [address] PCP - General Family Medicine 02/28/16 Dermatological Surgeon Relationship Specialty Start Date End Date Radha Morales MD [address] [place] [address] PCP - General Family Medicine 02/28/16 Dermatological Surgeon Relationship Specialty Start Date End Date Radha Morales MD [address] [place] [address] PCP - General Family Medicine 02/28/16 Dermatological Surgeon Relationship Specialty Start Date End Date Radha Morales MD [address] [place] [address] PCP - General Family Medicine 02/28/16 Dermatological Surgeon Relationship Specialty Start Date End Date Radha Morales MD [address] [place] [address] PCP - General Family Medicine 02/28/16 Dermatological Surgeon Relationship Specialty Start Date End Date Radha Morales MD [address] [place] [address] PCP - General Family Medicine 02/28/16 Dermatological Surgeon Relationship Specialty Start Date End Date Radha Morales MD [address] [place] [address] PCP - General Family Medicine 02/28/16 (unrecognized sect ion and content) No Status Records Found INFORMATION SOURCE (unrecogn ized section and content) FOR RECORDS PERTAINING TO PATIENTS WHO ARE OR HAVE BEEN ENROLLED IN A CHEMICAL DEPENDENCY/SUBSTANCEABUSE PROGRAM, SOME INFORMATION MAY BE OMITTED. This clinical summary was aggregated from multiple sources. Caution should be exercised in using it in the provision of clinical care. This summary normalizes information from multiple sources, and as a consequence, information in this document may materially change the coding, format and clinical context of patient data. In addition, data may be omitted in some cases. CLINICAL DECISIONS SHOULD BE BASED ON THE PRIMARY CLINICAL RECORDS. [facility], [facility]. provides no warranty or guarantee of the accuracy or completeness of information in this document.
[2023-08-26 07:11] LABS: D-Dimer Quantitative (DVT/PE) < 0.27 FEU/ug/m (0.27-0.49)
[2023-08-26 07:15] VITALS: BP 123/63; PULSE 80; RESP 16; O2SAT 99
[2023-08-26 08:00] VITALS: BP 133/92; PULSE 89; RESP 16; O2SAT 99
[2023-08-26 08:35] LABS: Reflex Troponin-HS? (from REC) Y
[2023-08-26 09:00] VITALS: BP 96/62; PULSE 82; RESP 19; O2SAT 95
[2023-08-26 09:04] LABS: Troponin-I HS 5 pg/mL (3.0-78.0)
[2023-08-26 09:15] VITALS: BP 100/61; PULSE 81; RESP 18; TEMP 37.3; O2SAT 95
== END 2023-08-26 09:24 | disposition home or self-care (01) ==
PROVIDERS: Emergency Provider Emergency Medicine; PCP Family Medicine; Visit Provider Emergency Medicine
DX: R05.9 Cough, unspecified (principal); R07.89 Other chest pain
CPT/HCPCS: 71045; 80048; 84484; 85025; 85379; 87631; 93005; 99284; A4216

== ENCOUNTER 2024-10-25 19:25 | Emergency (ER) | payer OTHER, SELFPAY ==
[2024-10-25 19:25] VITALS: BP 118/71; PULSE 104; RESP 15; TEMP 36.1; O2SAT 98; BMI 27.8
--- NOTE | 2024-10-25 19:53 | EDS_ITS ---
HPI History of Present Illness HPI Narrative: Patient presents with pain over the dorsal aspect of his left wrist and hand that began today. Patient states it began rather suddenly. Patient states it is constant. Patient describes the pain as burning. Patient states it is worse with certain movements. Patient denies any paresthesias or weakness. Patient denies any other injuries. Chief Complaint: Upper Extremity Injury Informant: patient Onset/Context/Timing Onset: Today Context: Sudden Onset Quality of Pain: Burning Location: Left hand and wrist Worsened by: Certain movements Relieved by: Nothing Associated Symptoms Associated Symptoms: Negative for Parasthesia, Weakness or Loss of Funtion [facility] Medical History Wears glasses Abrasion Patellar tendinitis, left knee Left knee pain Acute bronchitis, unspecified URI (upper respiratory infection) Contact with and (suspected) exposure to other viral communicable diseases Bronchitis Tinnitus Home Medications ?Medication ?Instructions ?Recorded ?Last Taken ?Type omega 5-gml-ter-fish oil 1,200 mg 1 cap PO DAILY SUPPL EMENT 05/11/23 Unknown History (144 mg-216 mg) capsule (Fish Oil) naproxen 500 mg tablet (Naprosyn) 500 mg PO BID PRN pa in #20 tabs 10/25/24 Unknown Rx Allergy/AdvReac Type Severity Reaction Status Date / Time No Known Allergies Allergy Verified 10/25/24 19:28 Family History no significant family his Surgical History Hx of hand surgery Social History Smoking Status: Never smoker alcohol intake: current alcohol intake frequency: holidays/special occasions only ROS ROS ED Constitutional Constitutional ED: Denies chills or fever(s) Eyes Eyes: Denies blurry vision or change in vision ENT ENT ED: Reports rhinorrhea; Denies sore throat Cardiovascular Cardiovascular: Denies chest pain or palpitations Respiratory/Chest Respiratory/Chest: Denies cough or dyspnea Gastrointestinal Gastrointestinal: Denies nausea or vomiting Genitourinary Genitourinary ED: Denies dysuria or hematuria Musculoskeletal Musculoskeletal: Denies back pain or neck pain Integumentary Denies abscess or rash Neurologic Neurologic: Denies headache(s) or weakness Allergic/Immunologic Allergic/Immunologic ED: Denies mouth swelling or urticaria EXAM Physical Exam Const Vital Signs: 10/25/24 19:25 Temperature 97 F L Temperature Source Temporal Pulse Rate 104 H Respiratory Rate 15 Blood Pressure 118/71 Blood Pressure Mean 86 Pulse Ox 98 Positive well nourished and well developed General Appearance ED: well developed and NAD HEENT Reports moist mucous membranes Neck full ROM and supple Extremity Extremity Narrative: There is tenderness over the dorsal aspect of the left hand and wrist area. There is no edema or ecchymosis. There is no bony crepitance or step-off. There is no deformity noted. Range of motion was limited in all motions of the left hand and wrist secondary to pain. Strength is 5/5 in the radial, median, and ulnar areas. Sensation was intact to light touch in the radial, median, and ulnar areas. Neuro oriented x3, CN's II-XII intact bilaterally, moves all extremities, no focal motor deficits and no sensory deficits noted Sensorium / Orientation: alert Motor Exam: strength 5/5 throughout Psych mental status grossly normal MDM MDM MDM Narrative Medical decision making narrative: Differential diagnosis includes tendinitis, muscle strain, ligament sprain, and occult fracture. X-rays of the left wrist will be obtained to assess for occult fracture. Radiography Diagnostic Testing: X-rays of the left wrist were obtained. There are 3 views. On my independent interpretation, there is no acute fracture or dislocation noted. There is no soft tissue swelling noted. Radiologist also interpreted the x-rays and agrees. Treatment and Re-Evaluation Narrative: Patient was advised of his findings. Patient was advised that this could be tendon or ligament strain. Patient was instructed to ice and elevate the left hand. Patient was given prescription for Naprosyn for pain. Patient was instructed to follow-up with his primary care physician in 5 to 7 days. Patient understood and was agreeable with the plan. All questions were answered. Discharge Plan Triage Chief Complaint: Upper Extremity Injury ED Provider: Deacon Webster Dx/Rx/DC Orders Clinical Impression: Sprain and strain of left wrist Instructions: ED Wrist Sprain Prescriptions: New naproxen [Naprosyn] 500 mg tablet 500 mg PO BID PRN (Reason: pain) Qty: 20 0RF No Action omega 2-tbo-pkv-fish oil [Fish Oil] 1,200 (144-216) mg capsule 1 cap PO DAILY Patient Comments: WIILL STOP 5 DAYS BEFORE SURGERY Primary Care Provider: Canddio Solitario Referrals: Candido Solitario MD [Primary Care Provider] - 5-7 Days Print Language: Lithuanian Disposition Disposition: Home, Self Care
--- NOTE | 2024-10-25 20:07 | RAD_ITS ---
PROCEDURE: WRIST MIN 3 VIEWS 10/25/2024 REASON FOR EXAM: INJURY/PAIN TECHNIQUE: 3 view(s) of the left wrist COMPARISON: None FINDINGS: No acute fracture or dislocation. Joint spaces are maintained. No significant soft tissue swelling. No radiopaque foreign body. RAD/Wrist min 3 Views IMPRESSION: No acute findings. Reading Location: [facility]
[2024-10-25 20:54] VITALS: BP 118/77; PULSE 50; RESP 16; TEMP 36.1; O2SAT 98
== END 2024-10-25 20:56 | disposition home or self-care (01) ==
PROVIDERS: Emergency Provider Emergency Medicine; PCP Family Medicine; Visit Provider Emergency Medicine
DX: S63.92XA Sprain of unspecified part of left wrist and hand, initial encounter (principal); X58.XXXA Exposure to other specified factors, initial encounter
CPT/HCPCS: 73110; 99283

== ENCOUNTER 2025-05-22 21:13 | Emergency (ER) | payer OTHER, SELFPAY ==
[2025-05-22 21:15] VITALS: BP 148/90; PULSE 61; RESP 18; TEMP 36.9; O2SAT 100; BMI 26.5
--- OUTSIDE RECORDS SUMMARY | 2025-05-22 21:41 | XMS RPT_ITS | CCD ---
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 Dino Solitario Primary Care Provider [phone] Dr. Dino Solitario Referring Provider VJ Samaniego Attending Provider MD Zach Hawkins Attending Provider Dr. Dino Solitario Primary Care Provider Dr. Dino Solitario Referring Provider Dr. Dino Solitario Primary Care Provider Dr. Dino Solitario Referring Provider MD Zach Hawkins Attending Provider MD Zach Hawkins Referring Provider MD Zach Hawkins Other Provider Dr. Dino Solitario Primary Care Provider [phone] MD Zach Hawkins Attending Provider MD Zach Hawkins Referring Provider MD Zach Hawkins Other Provider Dr. Dino Solitario Referring Provider Damian Kam MD Primary Care Provider Unavailable Primary Care Provider UnavailDr. Candido Holcomb MD Primary Care Provider Dr. Deacon Webster DO Emergency Provider FRANCESCA OLIVAS Attending Unavailable TANJA POWELL Attending Unavailable Deacon Webster Attending Unavailable Candido Solitario Primary Care Unavailable Harman Samaniego Attending Unavailable Candido Solitario Referring Unavailable Candido Solitario Primary Care Unavailable Kassi VICK, Dr. Rey Primary Care Physicia n Dr. Candido Solitario MD Referring Provider Harman Samaniego Attending Physician Medications Current Medications Medication Drug Class(es) Dates Sig (Normalized) Sig (Original) amoxicillin 875 mg oral tablet (1 source) Penicillin-class Antibacterial Start: 03-04-2025 take 1 tablet by mouth twice daily Amoxicillin 875 mg tablet Active 875 mg PO TWICE A DAY March 04, 2025 12:00am Complies with drug therapy ibuprofen 100 mg oral tablet (20 sources) Nonsteroidal Anti-inflammatory Drug take 1 tablet by mouth every six hours as needed Ibuprofen (ADVIL) 100 mg tablet Take 100 mg by mouth every 6 hours as needed. Active Comment on above: Take 100 mg by mouth every 6 hours as needed. Multivitamin capsule (20 sources) take 1 capsule by mouth once daily Multivitamin capsule Take 1 capsule by mouth once daily. Active take 1 capsule by mouth once elza ly Multivitamin capsule Take 1 capsule by mouth once daily. 0 Active Comment on above: Take 1 capsule by [facility] once daily. naproxen 500 mg oral tablet (9 sources) Nonsteroidal Anti-inflammatory Drug Start: 10-25-2024 take 1 tablet by mouth twice daily as needed for pain Start: 01-02-2023 End: 02-22-2023 take 1 tablet by mouth twice daily as needed for pain Naproxen (Naprosyn) 500 mg tablet Discontinued 500 mg PO TWICE A DAY as needed for pain January 02, 2023 12:00am February 22, 2023 3:01pm Sangrey (Nk) (1 source) Start: 04-05-2023 Sangrey (Nk) A ctive April 04, 2023 11:00pm Leroy 5-Dhs-Pzr-Fish Oil (Fi sh Oil) 1,200 (144-216) mg capsule (4 sources) Start: 05-11-2023 Start: 05-11-2023 Leroy 3-Dha-Ep a-Fish Oil (Fish Oil) 1,200 (144-216) mg capsule Active 1 NMA PO DAILY May 11, 2023 1:00am Start: 05-11-2023 take 1 capsule by mo uth once daily Leroy 6-Hwf-Bqo-Fish Oil (Fish Oil) 1,200 (144-216) mg capsule Active 1 CAP PO DAILY May 11, 2023 1:00am Start: 05-11-2023 take 1 capsule by mo uth once daily Leroy 4-Ptz-Cwa-Fish Oil (Fish Oil) 1,200 (144-216) mg capsule Active 1 CAP PO DAILY May 11, 2023 12:00am OMEGA-3 FATTY ACIDS/FISH OIL (OMEGA 3 FISH OIL ORAL) (20 sources) OMEGA-3 FATTY AC IDS/FISH OIL (OMEGA 3 FISH OIL ORAL) Take by mouth. Active OMEGA-3 FATTY AC IDS/FISH OIL (OMEGA 3 FISH OIL ORAL) Take by mouth. 0 Active Comment on above: Take by mouth. predniSONE 20 mg oral tablet (20 sources) Start: 02-18-2025 predniSONE (DELTASONE) 20 mg tablet 3 tablets x 1 day, 2 tablets x 1 day, 1 tablet x 1 day 6 tablet 02/18/2025 Active Start: 10-19-2020 End: 02-18-2025 take 2 tablets by mouth once daily predniSONE (DELTASONE) 20 mg tablet Take 2 tablets by mouth once daily. 10 tablet 10/19/2020 02/18/2025 Discontinued (Course of therapy completed) Comment on above: Take 2 tablets by [facility] once daily. Completed/Discontinued Medications Medication Drug Class(es) Dates Sig (Normalized) Sig (Original) acetaminophen 325 mg / oxyCODONE hydrochloride 5 mg oral tablet (4 sources) Opioid Agonist Start: 05-23-2023 End: 07-13-2023 Oxycodone-Acetaminop hen (Endocet) 5-325 mg tablet Discontinued 1 {tbl} PO Q4H as needed for pain 20 5 0 May 23, 2023 July 13, 2023 3:36pm Patellar tendinitis of left knee Patellar tendinitis, left knee benzonatate 200 mg oral capsule (7 sources) Non-narcotic Antitussive Start: 10-30-2022 End: 02-22-2023 take 1 capsule by mouth three times daily as needed for cough Benzonatate 200 mg capsule Discontinued 200 mg PO THREE TIMES A DAY as needed for cough 20 0 October 30, 2022 12:00am February 22, 2023 3:00pm cyclobenzaprine hydrochloride 10 mg oral tablet (20 sources) Muscle Relaxant Start: 10-19-2020 End: 02-22-2023 take 1 tablet by mouth three times daily as needed for muscle spasms Cyclobenzaprine 10 mg tablet Discontinued 10 mg PO THREE TIMES A DAY as needed for Muscle Spasm 20 0 January 02, 2023 12:00am February 22, 2023 3:00pm Comment on above: Take 1 tablet by bobbi three times daily as needed for Muscle Spasm. Leroy 2-Jwc-Tgw-Fish Oil (7 sources) Start: 02-22-2023 End: 04-01-2023 Leroy 0-Xvk-Ihf-Fish Oil (Fish Oil) 300-1,000 mg capsule Discontinued 1 NMA PO DAILY February 22, 2023 12:00am April 01, 2023 10:44pm Start: 02-22-2023 End: 04-01-2023 take 300-1000 mg by mouth once daily Leroy 9-Kxk-Zeu-Fish Oil (Fish Oil) 300-1,000 mg capsule Discontinued 1 CAP PO DAILY February 21, 2023 11:00pm April 01, 2023 9:44pm Start: 02-22-2023 End: 04-01-2023 take 300-1000 mg by mouth once daily Leroy 4-Ksh-Gnw-Fish Oil (Fish Oil) 300-1,000 mg capsule Discontinued 1 CAP PO DAILY February 22, 2023 12:00am April 01, 2023 10:44pm Start: 02-22-2023 take 300-1000 mg by mouth once daily Leroy 7-Esk-Ufx-Fish Oil (Fish Oil) 300-1,000 mg capsule Active 1 CAP PO DAILY February 22, 2023 12:00am docusate sodium 100 mg oral capsule (9 sources) Start: 03-27-2021 End: 10-30-2022 take 1 capsule by mouth twice daily Docusate Sodium (Colace) 100 mg capsule Discontinued 100 mg PO TWICE A DAY 60 0 March 27, 2021 12:00am October 30, 2022 2:24pm hydrocortisone acetate 10 mg/ml / pramoxine hydrochloride 10 mg/ml rectal foam (9 sources) Corticosteroid Start: 03-27-2021 End: 10-30-2022 Hydrocortisone-Pra moxine (Proctofoam Hc) 1-1 % foam Discontinued 1 NMA RC TWICE A DAY March 27, 2021 12:00am October 30, 2022 2:24pm Start: 03-27-2021 End: 10-30-2022 Hydrocortisone-Pramoxine (Pr octofoam Hc) 1-1 % foam Discontinued 1 APPLIC RC TWICE A DAY March 27, 2021 12:00am October 30, 2022 2:24pm methylPREDNISolone 4 mg oral tablet (7 sources) Corticosteroid Start: 10-30-2022 End: 02-22-2023 take 1 tablet by mouth once Methylprednisolone (Medrol (Edison)) 4 mg tablets,dose pack Discontinued 0 PO per package directions October 30, 2022 12:00am February 22, 2023 3:01pm PO PER PKG DIR Multivitamin preparation (7 sources) Start: 10-08-2020 End: 04-01-2023 take 1 tablet by mouth once daily Multivitamin Discontinued 1 TABLET PO DAILY October 07, 2020 11:00pm April 01, 2023 9:44pm Start: 10-08-2020 End: 04-01-2023 take 1 tablet by mouth once daily Multivitamin Discontinued 1 TABLET PO DAILY October 08, 2020 12:00am April 01, 2023 10:44pm Start: 10-08-2020 take 1 tablet by bobbi th once daily Multivitamin Active 1 TABLET PO DAILY October 07, 2020 11:00pm Start: 10-08-2020 take 1 tablet by bobbi th once daily Multivitamin Active 1 TABLET PO DAILY October 08, 2020 12:00am Multivitamin Tablet (2 sources) Start: 10-08-2020 End: 04-01-2023 Multivitamin Tablet Disconti nued 1 {tbl} PO DAILY October 08, 2020 12:00am April 01, 2023 10:44pm Problems Active Problems Problem Classification Problem Date Documented Date Episodic/Chronic Acute bronchitis (8 sources) Acute bronchitis; Translations: [Acute bronchitis, unspecified] 10-30-2022 Episodic Chronic obstructive pulmonary disease and bronchiectasis (9 sources) Bronchitis; Translations: [Bronchitis, not specified as acute or chronic] 02-22-2023 Episodic Complications of surgical procedures or medical care (6 sources) Postoperative hemorrhage; Translations: [Postoperative hemorrhage] 04-02-2023 Episodic Hemorrhoids (9 sources) Thrombosed external hemorrhoids; Translations: [Perianal venous thrombosis] 04-04-2021 Episodic Immunizations and screening for infectious disease (11 sources) Contact with and (suspected) exposure to other viral communicable diseases; Translations: [Contact with or suspected exposure to other viral communicable disease] Onset: 03-11-2024 02-22-2023 Episodic Nonspecific chest pain (3 sources) Chest discomfort; Translations: [Other chest pain] 08-26-2023 Episodic Open wounds of extremities (5 sources) Laceration of left thumb; Translations: [Laceration without foreign body of left thumb without damage to nail, initial encounter] 04-18-2023 Episodic Other connective tissue disease (3 sources) Patellar tendonitis; Translations: [Patellar tendinitis, left knee] 04-05-2023 Episodic Other connective tissue disease (7 sources) Patellar tendinitis, left knee; Translations: [Patellar tendinitis] 04-05-2023 Episodic Other connective tissue disease (20 sources) Tendonitis of left patellar tendon; Translations: [Patellar tendinitis, left knee] Onset: 05-31-2023 07-18-2023 Episodic Other ear and sense organ disorders (9 sources) Tinnitus; Translations: [Tinnitus, unspecified ear] 02-22-2023 Episodic Other eye disorders (1 source) Subconjunctival hemorrhage of right eye; Translations: [Conjunctival hemorrhage, right eye] 12-19-2022 Episodic Other lower respiratory disease (3 sources) Cough; Translations: [Cough] 08-26-2023 Episodic Other non-traumatic joint disorders (16 sources) Pain in left knee; Translations: [Left knee pain] 02-22-2023 Episodic Other upper respiratory infections (8 sources) Upper respiratory infection; Translations: [Acute upper respiratory infection, unspecified] 10-30-2022 Episodic Poisoning by nonmedicinal substances (2 sources) Wound finding; Translations: [Toxic effect of venom of bees, accidental (unintentional), initial encounter] Onset: 02-18-2025 02-18-2025 Episodic Residual codes; unclassified (6 sources) History of surgical procedure on mouth; Translations: [Other specified postprocedural states] 04-02-2023 Episodic Spondylosis; intervertebral disc disorders; other back problems (20 sources) Backache; Translations: [Dorsalgia, unspecified] Onset: 11-17-2020 11-17-2020 Episodic Sprains and strains (9 sources) Lower back injury; Translations: [Strain of muscle, fascia and tendon of lower back, initial encounter] 01-10-2023 Episodic Past or Other Problems Problem Classification [...] right leg] Onset: 11-17-2020 11-17-2020 Episodic Other non-traumatic joint disorders (1 source) Pain in left wrist; Translations: [Pain in left wrist] Onset: 10-29-2024 Episodic Other screening for suspected conditions (not mental disorders or infectious disease) (20 sources) Patient encounter status; Translations: [Encounter for screening for cardiovascular disorders] Onset: 07-31-2017 07-31-2017 Episodic Results Test Name Value Interpretation Reference Range Facility Urgent Care Visit Reporton 0 03-04-2025 Urgent Care Visit Report [facility] [address], [address] [place] [id number] OFFICE VISIT Date of Service: 03/04/25 MR#: [id number] Acct: [id number] Name: ELLIOT MURILLO Rep #: [id number] : 1975 Provider: VJ Shahid Age/Sex: 49/M Location: [facility] Status: Signed Intake Vital Signs 10/25/24 19:25 03/04/25 17:40 Height 5 ft 11 in BP 110/72 Blood Pressure Location Lt brachial Position Sitting Respiration 15 Pulse 52 L Pulse Source NIBP Temp 98.2 F Temp Source Oral Pulse Oximetry (%) 97 Oxygen Delivery Method room air Intake Visit Reasons: COUGH, CONGESTION Chief Complaint: cough, congest, face pain, bloody mucus Voice Over Artist Required: No Is patient in pain?: No Allergies No Known Allergies Allergy (Verified 03/04/25 17:40) Have you fallen in the past year?: No Nurse's Note: cough, congest, face pain, bloody mucus x 12 days. denies fever PFSH Medical History Wears glasses Abrasion Patellar tendinitis, left knee Left knee pain Acute bronchitis, unspecified URI (upper respiratory infection) Contact with and (suspected) exposure to other viral communicable diseases Bronchitis Tinnitus Surgical History Hx of hand surgery Social History Smoking Status: Never smoker alcohol intake: current alcohol intake frequency: holidays/special occasions only HPI HPI Chief Complaint: cough, congest, face pain, bloody mucus Details: ELLIOT MURILLO, is a 49 M who presents to the office today for [facility] evaluation at the [facility] for approximately 2-week history of progressively worsening R>L facial pressure/congestion with purulent blood-tinged postnasal drip/cough and bilateral ear pressure. No complaints of fever, chills, myalgias, fatigue, runny nose, or nausea/vomiting/colby rrhea. No complaints of chest pain/shortness of breath/dyspnea on exertion. No close contacts with similar complaints. No other associated symptoms and no other alleviating/aggrava ting factors. ROS Const Constitutional: No other (as above) Exam Const General: cooperative, healthy appearing and no acute distress Orientation: alert, awake [facility] Head: normal to inspection Ears: hearing grossly normal bilaterally, external ears normal, TM's normal bilaterally and EAC's normal Nose: external nose normal, nares normal, septum normal and no nasal discharge Face and sinus: normal facial exam, sinuses nontender (w/ right maxillary fullness to palpation) and face symmetric Mouth: oral mucosae normal, lip normal, tongue normal and oropharynx normal Throat: posterior oropharynx normal, tonsils normal, uvula midline and postnasal drainage (moderate amount purulent) Eyes General: appearance normal, both eyes and all related structures Neck Neck: normal visual inspection, full ROM, no meningeal signs, supple and lymphadenopathy (R>L anterior cervical lymph node swelling/tender to palpation) Neck mass: No Thyroid: thyroid normal Chest Chest palpation inspection: normal inspection of the chest Resp Effort Inspection: normal respiratory effort and able to speak in complete sentences Auscultation: Bilateral: Clear to Auscultation Cardio Palpation: normal PMI Rate: Bradycardic Rhythm: regular rhythm Heart Sounds: S1 normal, S2 normal Pulses: radial pulses present GI Inspection: normal to inspection Skin General: no rashes or lesions noted Neuro General: patient alert, patient awake Cognition: normal cognition Speech: speech normal Psych Appearance: grossly normal Mental Status: mental status grossly normal Mood: congruent mood Affect: normal affect Speech and Movement: speech and movement normal Attitude: cooperative Diagnoses Acute maxillary sinusitis, unspecified J01.00 Assessment and Plan Assessment and Plan (1) Acute maxillary sinusitis, unspecified: Status: Acute Plan: Amoxicillin as prescribed today. Supportive measures as instructed today. Follow-up with PCP in 3 to 5 days should symptoms not improve, sooner should symptoms worsen or any other concerns develop. Patient states acknowledging understanding all the above. Coding Level of Care Code Off vis,est,level 3 Assessment and Plan Assessment and Plan Medications: New amoxicillin 875 mg PO BID 20 tabs 0RF Clinical Quality Measures Falls Risk Screening/Assistive Devices Have you fallen in the past year?: No 03/04/25 1748 Date Harman Spears Signature: Date (if applicable) [facility] Office Visit ([facility]) ---- ELLIOT MURILLO ([id number]) 1975 M Date Time Provider Department 02/18/25 9:00 AM FRANCESCA OLIVAS During your visit today, we recorded the following information about you: Temperature Pulse Respiration Blood pressure 98.2 degrees 62/minute 16/minute 124/72 Weight 86.5 kg Francesca Olivas APRN.CNP 02/18/2025 8:59 AM Signed - Prednisone per directions. Take with food and take earlier in the day - Cool compresses - Continue triamcinolone twice daily for no more than 14 days - If no improvement in the next 3 days follow up or sooner if symptoms worsen Francesca Olivas APRN.CNP 02/18/2025 9:07 AM Signed [facility] Subjective The patient is a 49-year-old male presenting for evaluation of a 3-day history of pruritic, burning reaction to an insect bite, he believes is a bee sting. Patient presents with: Insect Bite: ? bee sting on upper left arm, redness,swelling, itching, burning and warm to touch x 3 days HPI The patient is a 49-year-old male presenting with a suspected insect bite on the right lower extremity. Suspected Insect Bite: - [place] - Did not see what bit him; initially thought he touched something. - Describes a burning sensation and discomfort when walking. 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 - Took Benadryl and applied a topical cream (similar to hydrocortisone) with minimal relief. - Denies reduction in swelling from treatments. Review of Systems Skin: (+) pruritus, (+) burning sensation, (+) swelling Objective BP 124/72 Pulse 62 Temp 36.8 ?C (98.2 ?F) Resp 16 Wt 86.5 kg (190 lb 11.2 oz) SpO2 98% BMI 27.38 kg/m? Physical Exam Vitals reviewed. Constitutional: Appearance: Normal appearance. HENT: Head: Normocephalic. Eyes: Extraocular Movements: Extraocular movements intact. Skin: Neurological: Mental Status: He is alert. Assessment/Plan: { 1. Local reaction to bee sting, accidental or unintentional, initial encounter (T63.441A) - Acute local reaction to bee sting on Sunday; no evidence of infection. - Start short course of oral steroids: 3 tablets today, 2 tablets tomorrow, 1 tablet the next day. - Advised to take steroids with food to minimize GI upset and earlier in the day to avoid sleep disturbance. - Continue topical corticosteroid cream and cool compresses for symptomatic relief. - Educated that typical resolution is 5-10 days - Advised to follow up if no improvement in 3 days or sooner if symptoms worsen. Recording using [employer] software for draft documentation of the visit was discussed with the patient/authorized containers sales representative; all questions welcomed and answered. Patient/authorized containers sales representative agreed to proceed Francesca Olivas APRN.[employer] MDM Procedures Allergies As of Date: 02/18/2025 (No Known Allergies) Date Reviewed: 02/18/2025 Reviewed by: Suellen Rubio MA - Fully Assessed Reason for Visit: Insect Bite [929] Cmt: ? bee sting on upper left arm, redness,swelling, itching, burning and warm to touch x 3 days Primary Visit Diagnosis:Local reaction to bee sting, accidental or unintentional, initial encounter [T63.441A] Order(s):predniSONE (DELTASONE) 20 mg tablet3 tablets x 1 day, 2 tablets x 1 day, 1 tablet x 1 dayDisp: 6 tabletRfl: 0 Prescriptions as of 02/18/2025 - predniSONE (DELTASONE) 20 mg tablet 3 tablets x 1 day, 2 tablets x 1 day, 1 tablet x 1 day - Ibuprofen (ADVIL) 100 mg tablet Take 100 mg by mouth every 6 hours as needed. - cyclobenzaprine (FLEXERIL) 10 mg tablet Take 1 tablet by mouth three times daily as needed for Muscle Spasm. - Multivitamin capsule Take 1 capsule by mouth once daily. - OMEGA-3 FATTY ACIDS/FISH OIL (OMEGA 3 FISH OIL ORAL) Take by mouth. 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 Take with food and take earlier in the day - Cool compresses - Continue triamcinolone twice daily for no more than 14 days - If no improvement in the next 3 days follow up or sooner if symptoms worsen Prescriptions ordered this encounter Disp Refills Start End PREDNISONE 20 MG TABLET 6 ta* 0 02/18/2025 Si tablets x 1 day, 2 tablets x 1 day, 1 tablet x 1 day Medications Discontinued During This Encounter Prescriptions - predniSONE (DELTASONE) 20 mg table (more content not included)... Normal [facility] Emergency Department Summary on 10-25-2024 Emergency Department Summary [facility] Medical Records Department [address] [place] [id number] Emergency Department Summary 10/25/24 MR#: [id number] Acct: [id number] Name: ELLIOT MURILLO Rep #: [id number] : 1975 49 From: Deacon Webster DO PCP: Dr. Candido Solitario MD Status:DEP ER Location: ED HPI History of Present Illness HPI Narrative: Patient presents with pain over the dorsal aspect of his left wrist and hand that began today. Patient states it began rather suddenly. Patient states it is constant. Patient describes the pain as burning. Patient states it is worse with certain movements. Patient denies any paresthesias or weakness. Patient denies any other injuries. Chief Complaint: Upper Extremity Injury Informant: patient Onset/Context/Timin g Onset: Today Context: Sudden Onset Quality of Pain: Burning Location: Left hand and wrist Worsened by: Certain movements Relieved by: Nothing Associated Symptoms Associated Symptoms: Negative for Parasthesia, Weakness or Loss of Funtion [facility] Medical History Wears glasses Abrasion Patellar tendinitis, left knee Left knee pain Acute bronchitis, unspecified URI (upper respiratory infection) Contact with and (suspected) exposure to other viral communicable diseases Bronchitis Tinnitus Home Medications ???Medication ???Instructions ???Recorded ???Last Taken ???Type omega 5-myl-sww-fish oil 1,200 mg 1 cap PO DAILY SUPPLEMENT 3 Unknown History (144 mg-216 mg) capsule (Fish Oil) naproxen 500 mg tablet (Naprosyn) 500 mg PO BID PRN pain #20 tabs 0 10/25/24 Unknown Rx Allergy/AdvReac Type Severity Reaction Status Date / Time No Known Allergies Allergy Verified 10/25/24 19:28 Family History no significant family his Surgical History Hx of hand surgery Social History Smoking Status: Never smoker alcohol intake: current alcohol intake frequency: holidays/special occasions only ROS ROS ED Constitutional Constitutional ED: Denies chills or fever(s) Eyes Eyes: Denies blurry vision or change in vision ENT ENT ED: Reports rhinorrhea; Denies sore throat Cardiovascular Cardiovascular: Denies chest pain or palpitations Respiratory/Chest Respiratory/Chest: Denies cough or dyspnea Gastrointestinal Gastrointestinal: Denies nausea or vomiting Genitourinary Genitourinary ED: Denies dysuria or hematuria Musculoskeletal Musculoskeletal: Denies back pain or neck pain Integumentary Denies abscess or rash Neurologic Neurologic: Denies headache(s) or weakness Allergic/Immunologi c Allergic/Immunologi c ED: Denies mouth swelling or urticaria EXAM Physical Exam Const Vital Signs: 10/25/24 19:25 Temperature 97 F L Temperature Source Temporal Pulse Rate 104 H Respiratory Rate 15 Blood Pressure 118/71 Blood Pressure Mean 86 Pulse Ox 98 Positive well nourished and well developed General Appearance ED: well developed and NAD HEENT Reports moist mucous membranes Neck full ROM and supple Extremity Extremity Narrative: There is tenderness over the dorsal aspect of the left hand and wrist area. There is no edema or ecchymosis. There is no bony crepitance or step-off. There is no deformity noted. Range of motion was limited in all motions of the left hand and wrist secondary to pain. Strength is 5/5 in the radial, median, and ulnar areas. Sensation was intact to light touch in the radial, median, and ulnar areas. Neuro oriented x3, CN's II-XII intact bilaterally, moves all extremities, no focal motor deficits and no sensory deficits noted Sensorium / Orientation: alert Motor Exam: strength 5/5 throughout Psych mental status grossly normal MDM MDM MDM Narrative Medical decision making narrative: Differential diagnosis includes tendinitis, muscle strain, ligament sprain, and occult fracture. X- rays of the left wrist will be obtained to assess for occult fracture. Radiography Diagnostic Testing: X-rays of the left wrist were obtained. There are 3 views. On my independent interpretation, there is no acute fracture or dislocation noted. There is no soft tissue swelling noted. Radiologist also interpreted the x-rays and agrees. Treatment and Re-Evaluation Narrative: Patient was advised of his findings. Patient was advised that this could be tendon or ligament strain. Patient was instructed to ice and elevate the left hand. Patient was given prescription for Naprosyn for pain. Patient was instructed to follow-up with his primary care physician in 5 to 7 days. Patient understood and was agreeable with the plan. All questions were answered. Discharge Plan (more content not included)... Normal [facility] Wrist min 3 Viewson 10-26-19 Wrist min 3 Views [facility] Imaging Services [address], [place] [address] Wrist min 3 Views MR#: [id number] Acct: [id number] Name: ELLIOT MURILLO Rep #: [id number] : 1975 M 49 From: Trip otero MD PCP: Dr. Candido Solitario MD Status: REG ER Study: Wrist min 3 Views Date of Exam: 10/25/24 Exam# [id number] Ordering Dr: Deacon Webster DO PROCEDURE: WRIST MIN 3 VIEWS 10/25/2024 REASON FOR EXAM: INJURY/PAIN TECHNIQUE: 3 view(s) of the left wrist COMPARISON: None FINDINGS: No acute fracture or dislocation. Joint spaces are maintained. No significant soft tissue swelling. No radiopaque foreign body. RAD/Wrist min 3 Views IMPRESSION: No acute findings. Reading Location: [facility] CC: Dr. Candido Solitario MD; Dr. Deacon Webster DO Refrigeration Operator: Signed [facility] (PEDS[facility]) ---- ELLIOT MURILLO ([id number]) 1975 M Date Time Provider Department 03/11/24 9:15 PM TANJA POWELL PEDSWS During your visit today, we recorded the following information about you: Allergies As of Date: 03/11/2024 (No Known Allergies) Date Reviewed: 02/13/2021 Reviewed by: Mckenzie Stephens MA - Fully Assessed Reason for Visit: Nurse Visit [792] Visit Diagnosis:Encounter for immunization [Z23] Order(s):INFLUENZA VACCINE, AGE 6MO-64YR, TRIVALENT (AFLURIA, FLULAVAL, FLUVIRIN, FLUZONE) [[id number]] Order #: [id number] Prescriptions as of 03/11/2024 - Ibuprofen (ADVIL) 100 mg tablet Take 100 mg by mouth every 6 hours as needed. - predniSONE (DELTASONE) 20 mg tablet Take 2 tablets by mouth once daily. - cyclobenzaprine (FLEXERIL) 10 mg tablet Take 1 tablet by mouth three times daily as needed for Muscle Spasm. - Multivitamin capsule Take 1 capsule by mouth once daily. - OMEGA-3 FATTY ACIDS/FISH OIL (OMEGA 3 FISH OIL ORAL) Take by mouth. 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 Right leg pain [M79.604] 11/17/2020 Acute right-sided low back pain with right-side*11/18/19 21 Achilles tendonosis of right lower extremity [M*06/15/2022 Patellar tendinitis of left knee [M76.52] 05/31/2023 Encounter Status:Closed by TIANNA CABALLERO on 03/11/24 Normal [facility] Absolute lymphocyte countOrd ered By: Earnest Snyder on 08-26-2023 Lymphocytes Auto (Unsp spec) [#/Vol] 1.36 10*3/uL 0.83-4.51 [facility] Automated lymphocyte count a s percentage of total leukocytesOrdered By: Earnest Snyder on 08-26-2023 Lymphocytes/100 WBC Auto (Unsp spec) 13.2 % 19-41 [facility] Basophil percentageOrdered B y: Earnest Snyder on 08-26-2023 Basophils/100 WBC (Bld) 0.8 % 0-1 [facility] Chloride [Moles/Vol] 108 mmol/L 98-107 [facility] Eosinophils/100 WBC (Bld) 1.6 % 0-5 [facility] Glucose [Mass/Vol] 94 mg/dL 74-106 [facility] Hemoglobin (Bld) [Mass/Vol] 14.3 g/dL 13.0-16.5 [facility] Monocytes/100 WBC (Bld) 3.0 % 0-10 [facility] Neutrophils (Bld) [#/Vol] 8.4 10*3/uL 2.0-7.7 [facility] Neutrophils/100 WBC (Bld) 80.9 % 47-70 [facility] Potassium [Moles/Vol] 3.8 mmol/L 3.5-5.1 [facility] Sodium [Moles/Vol] 141 mmol/L 136-145 [facility] WBC (Bld) [#/Vol] 10.3 10*3/uL 4.4-11.0 [facility] Determination of erythrocyte mean corpuscular volume (MCV)Ordered By: Earnest Snyder on 08-26-2023 MCV (RBC) [Entitic vol] 89.5 fL 80-94 [facility] Erythrocyte distribution wid th ratioOrdered By: Earnest Snyder on 08-26-2023 Erythrocyte distribution width (RBC) [Ratio] 12.4 % 11.6-14.6 [facility] Erythrocyte distribution wid th standard deviationOrdered By: Earnest Snyder on 08-26-2023 Erythrocyte distribution width (RBC) [Entitic vol] 40.3 fL 35.1-43.9 [facility] Hematocrit Auto (Bld) [Volum e fraction]Ordered By: Earnest Snyder on 08-26-2023 Hematocrit (Bld) [Volume fraction] 43.5 % 40-54 [facility] Immature granulocytes/100 WB C Auto (Bld)Ordered By: Earnest Snyder on 08-26-2023 Immature granulocytes/100 WBC (Bld) 0.500 % 0.0-0.9 [facility] Comment on above: IG% - Immature Granu locytes (promyelocytes, myelocytes and metamyelocytes) > 1% indicates that a LEFT SHIFT is Present. Laboratory - Chemistry and C hemistry - challengeOrdered By: Earnest Snyder on 08-26-2023 CO2 [Moles/Vol] 30.0 mmol/L 21.0-32.0 [facility] Urea nitrogen/Creatinine [Mass ratio] 13.3 mg/mg 10-20 [facility] Laboratory - Hematology and Cell countsOrdered By: Earnest Snyder on 08-26-2023 MCH (RBC) [Entitic mass] 29.4 pg 27.0-32.0 [facility] MCHC (RBC) [Mass/Vol] 32.9 g/dL 32-36 [facility] Nucleated RBC/100 WBC (Bld) [Ratio] 0 % 0-5 [facility] Platelet mean volume (Bld) [Entitic vol] 11.1 fL 6.2-12.0 [facility] Platelets (Bld) [#/Vol] 180 10*3/uL 150-450 [facility] Laboratory - Microbiology an d Antimicrobial susceptibilityOrdered By: Earnest Snyder on 08-26-2023 SARS-CoV-2 (COVID-19) RNA ALEX+probe Ql (Unsp spec) [facility] No Panel InformationOrdered By: Earnest Snyder on 08-26-2023 Troponin I High Sensitivity 5 pg/mL 3.0-78.0 [facility] Comment on above: Please Note: New [place] t Units and Gender Specific Reference Ranges. For more information see Policy Stat Procedure [place] High Sensitivity Troponin (TNIH) and attachments. D-Dimer Quantitative (PE/DVT) < 0.27 FEU/ug/m 0.27-0.49 [facility] Comment on above: NORMAL D-Dimer level (<0.50) indicates no DVT or PE. Estimated Creatinine Clearance Calc 86.61 ml/min [facility] Estimated GFR (MDRD) Amer 83 mL/min >60 [facility] Comment on above: GFR Calc Estimated GFR (MDRD) Non-Af Amer 68 mL/min >60 [facility] Comment on above: Non- GFR Calc RBC Auto (Bld) [#/Vol]Ordere d By: Earnest Snyder on 08-26-2023 RBC (Bld) [#/Vol] 4.86 10*6/uL 4.6-6.2 [facility] Serum or plasma calcium aida urement (mass/volume)Ordered By: Earnest Snyder on 08-26-2023 Calcium [Mass/Vol] 9.0 mg/dL 8.5-10.1 [facility] Serum or plasma creatinine m easurement (mass/volume)Ordered By: Earnest Snyder on 08-26-2023 Creatinine [Mass/Vol] 1.20 mg/dL 0.70-1.30 [facility] Comment on above: The validity of the calculated GFR & GFRAA in patients over 70 years has not been determined. Clinical correlation is essential. Serum or plasma urea nitroge n measurement (mass/volume)Ordered By: Earnest Snyder on 08-26-2023 Urea nitrogen [Mass/Vol] 16 mg/dL 7-18 [facility] Thin prep Papanicolaou smear with manual screeningOrdered By: Earnest Snyder on 08-26-2023 Thin prep Papanicolaou smear with manual screening 3 5-15 [facility] Vital Signs Date Time Vital Sign Value Performing Clinician Fide christine 03-04-2025 17:40-0400 Body temperature 98.2 [degF] Dr. Candido Solitario MD Work Phone: [facility] 03-04-2025 17:40-0400 Diastolic blood pressure 72 mm[Hg] Dr. Candido Solitario MD Work Phone: [facility] 03-04-2025 17:40-0400 Heart rate 52 /min Dr. Candido Solitario MD Work Phone: [facility] 03-04-2025 17:40-0400 Respiratory rate 15 /min Dr. Candido Solitario MD Work Phone: [facility] 03-04-2025 17:40-0400 SaO2% (BldA) [Mass fraction] 97 % Dr. Candido Solitario MD Work Phone: [facility] 03-04-2025 17:40-0400 Systolic blood pressure 110 mm[Hg] Dr. Candido Solitario MD Work Phone: [facility] 02-18-2025 08:46-0400 Body mass index (BMI) [Ratio] 27.38 kg/m2 Francesca Brigotti [employer] Work Phone: [facility] 02-18-2025 08:46-0400 Body temperature 98.2 [degF] Francesca Brigotti [employer] Work Phone: [facility] 02-18-2025 08:46-0400 Body weight 86.5 kg Francesca Brigotti [employer] Work Phone: [facility] 02-18-2025 08:46-0400 Diastolic blood pressure 72 mm[Hg] Francesca Brigotti [employer] Work Phone: [facility] 02-18-2025 08:46-0400 Heart rate 62 /min Francesca Brigotti [employer] Work Phone: [facility] 02-18-2025 08:46-0400 Respiratory rate 16 /min Francesca Brigotti [employer] Work Phone: [facility] 02-18-2025 08:46-0400 SaO2% (BldA) [Mass fraction] 98 % Francesca Brigotti [employer] Work Phone: [facility] 02-18-2025 08:46-0400 Systolic blood pressure 124 mm[Hg] Francesca Olivas APRN.[employer] Work Phone: [facility] 10-25-2024 20:54-0400 Body temperature 97 [degF] Dr. Candido Solitario MD Work Phone: [facility] 10-25-2024 20:54-0400 Diastolic blood pressure 77 mm[Hg] Dr. Candido Solitario MD Work Phone: [facility] 10-25-2024 20:54-0400 Heart rate 50 /min Dr. Candido Solitario MD Work Phone: [facility] 10-25-2024 20:54-0400 Respiratory rate 16 /min Dr. Candido Solitario MD Work Phone: [facility] 10-25-2024 20:54-0400 SaO2% (BldA) [Mass fraction] 98 % Dr. Candido Solitario MD Work Phone: [facility] 10-25-2024 20:54-0400 Systolic blood pressure 118 mm[Hg] Dr. Candido Solitario MD Work Phone: [facility] 10-25-2024 19:25-0400 Body height 180.[address] Candido Solitario MD Work Phone: [facility] 10-25-2024 19:25-0400 Body mass index (BMI) [Ratio] 27.8 kg/m2 Dr. Candido Solitario MD Work Phone: [facility] 10-25-2024 19:25-0400 Body weight 90.[address] Candido Solitario MD Work Phone: [facility] 08-26-2023 09:15-0400 Body temperature 99.2 [degF] Dr. Dino Solitario Work Phone: [facility] 08-26-2023 09:15-0400 Diastolic blood pressure 61 mm[Hg] Dr. Dino Solitario Work Phone: [facility] 08-26-2023 09:15-0400 Heart rate 81 /min Dr. Dino Solitario Work Phone: [facility] 08-26-2023 09:15-0400 Respiratory rate 18 /min Dr. Dino Solitario Work Phone: [facility] 08-26-2023 09:15-0400 SaO2% (BldA) [Mass fraction] 95 % Dr. Dino Solitario Work Phone: [facility] 08-26-2023 09:15-0400 Systolic blood pressure 100 mm[Hg] Dr. Dino Solitario Work Phone: [facility] 08-26-2023 06:18-0400 Body height 180.[address] Dino Solitario Work Phone: [facility] 08-26-2023 06:18-0400 Body mass index (BMI) [Ratio] 27.8 kg/m2 Dr. Dino Solitario Work Phone: [facility] 08-26-2023 06:18-0400 Body weight 90.[address] Dino Solitario Work Phone: [facility] 05-23-2023 13:03-0500 Body temperature 97.2 [degF] Dr. Dino Solitario Work Phone: [facility] 05-23-2023 13:03-0500 Diastolic blood pressure 84 mm[Hg] Dr. Dino Solitario Work Phone: [facility] 05-23-2023 13:03-0500 Heart rate 60 /min Dr. Dino Solitario Work Phone: [facility] 05-23-2023 13:03-0500 Respiratory rate 16 /min Dr. Dino Solitario Work Phone: [facility] 05-23-2023 13:03-0500 SaO2% (BldA) [Mass fraction] 100 % Dr. Dino Solitario Work Phone: [facility] 05-23-2023 13:03-0500 Systolic blood pressure 117 mm[Hg] Dr. Dino Solitario Work Phone: [facility] 05-23-2023 09:18-0500 Body height [address] Dino Solitario Work Phone: [facility] 05-23-2023 09:18-0500 Body mass index (BMI) [Ratio] 25.5 kg/m2 Dr. Dino Solitario Work Phone: [facility] 05-23-2023 09:18-0500 Body weight [address] Dino Solitario Work Phone: [facility] 04-18-2023 22:50-0500 Diastolic blood pressure 69 mm[Hg] Dr. Dino Solitario Work Phone: [facility] 04-18-2023 22:50-0500 Heart rate 71 /min Dr. Dino Solitario Work Phone: [facility] 04-18-2023 22:50-0500 Respiratory rate 18 /min Dr. Dino Solitario Work Phone: [facility] 04-18-2023 22:50-0500 SaO2% (BldA) [Mass fraction] 98 % Dr. Dino Solitario Work Phone: [facility] 04-18-2023 22:50-0500 Systolic blood pressure 118 mm[Hg] Dr. Dino Solitario Work Phone: [facility] 04-18-2023 20:09-0500 Body height 180.[address] Dino Solitario Work Phone: [facility] 04-18-2023 20:09-0500 Body mass index (BMI) [Ratio] 24.7 kg/m2 Dr. Dino Solitario Work Phone: [facility] 04-18-2023 20:09-0500 Body temperature 97.9 [degF] Dr. Dino Solitario Work Phone: [facility] 04-18-2023 20:09-0500 Body weight 80.[address] Dino Solitario Work Phone: [facility] 04-01-2023 22:29-0400 Body height 177.[address] Dino Solitario Work Phone: [facility] 04-01-2023 22:29-0400 Body mass index (BMI) [Ratio] 25.9 kg/m2 Dr. Dino Solitario Work Phone: [phone] [address] 04-01-2023 22:29-0400 Body temperature 97.4 [degF] Dr. Dino Solitario Work Phone: [phone] [place] [address] 04-01-2023 22:29-0400 Body weight 82.[address] Dino Solitario Work Phone: [facility] 04-01-2023 22:29-0400 Diastolic blood pressure 75 mm[Hg] Dr. Dino Solitario Work Phone: [facility] 04-01-2023 22:29-0400 Heart rate 57 /min Dr. Dino Solitario Work Phone: [facility] 04-01-2023 22:29-0400 Respiratory rate 15 /min Dr. Dino Solitario Work Phone: [facility] 04-01-2023 22:29-0400 SaO2% (BldA) [Mass fraction] 97 % Dr. Dino Soliatrio Work Phone: [facility] 04-01-2023 22:29-0400 Systolic blood pressure 131 mm[Hg] Dr. Dino Solitario Work Phone: [facility] 01-02-2023 15:18-0400 Body height 177.[address] Dino Solitario Work Phone: [facility] 01-02-2023 15:18-0400 Body mass index (BMI) [Ratio] 27.2 kg/m2 Dr. Dino Solitario Work Phone: [facility] 01-02-2023 15:18-0400 Body temperature 97.1 [degF] Dr. Dino Solitario Work Phone: [facility] 01-02-2023 15:18-0400 Body weight 86.[address] Dino Solitario Work Phone: [facility] 01-02-2023 15:18-0400 Diastolic blood pressure 75 mm[Hg] Dr. Dino Solitario Work Phone: [facility] 01-02-2023 15:18-0400 Heart rate 59 /min Dr. Dino Solitario Work Phone: [facility] 01-02-2023 15:18-0400 SaO2% (BldA) [Mass fraction] 100 % Dr. Dino Solitario Work Phone: [facility] 01-02-2023 15:18-0400 Systolic blood pressure 131 mm[Hg] Dr. Dino Solitario Work Phone: [facility] 12-19-2022 11:41-0400 Body temperature 97.39 [degF] Krislyn Aberegg PA Work Phone: [facility] 12-19-2022 11:41-0400 Body weight 86.64 kg Krislyn Aberegg PA Work Phone: [facility] 12-19-2022 11:41-0400 Diastolic blood pressure 74 mm[Hg] Krislyn Aberegg PA Work Phone: [facility] 12-19-2022 11:41-0400 Heart rate 55 /min Krislyn Aberegg PA Work Phone: [facility] 12-19-2022 11:41-0400 Respiratory rate 16 /min Krislyn Aberegg PA Work Phone: [facility] 12-19-2022 11:41-0400 SaO2% (BldA) [Mass fraction] 97 % Nimisha Zaragozagg PA Work Phone: [facility] 12-19-2022 11:41-0400 Systolic blood pressure 110 mm[Hg] Nimisha Zaragozagg PA Work Phone: [facility] 10-30-2022 14:23-0400 Body mass index (BMI) [Ratio] 26.6 kg/m2 Dr. Dino Solitario Work Phone: [facility] 10-30-2022 14:23-0400 Body temperature 97.3 [degF] Dr. Dino Solitario Work Phone: [facility] 10-30-2022 14:23-0400 Body weight 84.[address] Dino Solitario Work Phone: [facility] 10-30-2022 14:23-0400 Diastolic blood pressure 72 mm[Hg] Dr. Dino Solitario Work Phone: [facility] 10-30-2022 14:23-0400 Heart rate 58 /min Dr. Dino Solitario Work Phone: [facility] 10-30-2022 14:23-0400 Respiratory rate 16 /min Dr. Dino Solitario Work Phone: [facility] 10-30-2022 14:23-0400 SaO2% (BldA) [Mass fraction] 97 % Dr. Dino Solitario Work Phone: [facility] 10-30-2022 14:23-0400 Systolic blood pressure 118 mm[Hg] Dr. Dino Solitario Work Phone: [facility] Encounters Encounter Date Encounter Type Care Provider Facility Start: 03-04-2025 End: 03-04-2025 ambulatory Harman ZABALA [place]: 03-04-2025 End: 03-04-2025 Patient encounter procedure Harman [place]vo [place] [facility] Work Phone: Start: 02-18-2025 End: 02-18-2025 Office outpatient visit 15 minutes Francesca Olivas APRN.[employer] Work Phone: [facility] Comment on above: Local reaction to be e sting, accidental or unintentional, initial encounter (Primary Dx) Start: 02-18-2025 End: 02-19-2025 ambulatory FRANCESCA OLIVAS Facility:[facility] Start: 10-25-2024 End: 10-25-2024 Emergency department patient visit Dr. Candido Solitario MD Work Phone: -Emergency Department Work Phone: Start: 03-11-2024 End: 03-11-2024 Patient encounter procedure Tanja Powell MD Work Phone: [facility] Comment on above: Encounter for immuni zation Start: 03-11-2024 End: 03-11-2024 ambulatory TANJA POWELL Facility:[facility] Start: 10-15-2023 End: 10-15-2023 ambulatory Wade Burns PT Work Phone: [facility] Comment on above: Patellar tendinitis of left knee (Primary Dx) Start: 10-01-2023 End: 10-01-2023 ambulatory Wade Burns PT Work Phone: [facility] Comment on above: Patellar tendinitis of left knee (Primary Dx) Start: 09-24-2023 End: 09-24-2023 ambulatory Dyana Kashuba MANAGER HAIR Work Phone: [facility] Comment on above: Patellar tendinitis of left knee (Primary Dx) Start: 09-19-2023 End: 09-19-2023 ambulatory Dyana Kashuba MANAGER HAIR Work Phone: [facility] Comment on above: Patellar tendinitis of left knee (Primary Dx) Start: 09-12-2023 End: 09-12-2023 ambulatory Dyana Kashuba MANAGER HAIR Work Phone: [facility] Comment on above: Patellar tendinitis of left knee (Primary Dx) Start: 09-10-2023 End: 09-10-2023 ambulatory Dyanacharly Shawba MANAGER HAIR Work Phone: [facility] Comment on above: Patellar tendinitis of left knee (Primary Dx) Start: 08-29-2023 End: 08-29-2023 ambulatory Dyana Shawba MANAGER HAIR Work Phone: [facility] Comment on above: Patellar tendinitis of left knee (Primary Dx) Start: 08-27-2023 End: 08-27-2023 ambulatory Dyanacharly Shawba MANAGER HAIR Work Phone: [facility] Comment on above: Patellar tendinitis of left knee (Primary Dx) Start: 08-26-2023 End: 08-26-2023 Emergency department patient visit Dr. Dino Solitario Work Phone: [facility] Work Phone: Start: 08-23-2023 End: 08-23-2023 ambulatory Wade Burns PT Work Phone: [facility] Comment on above: Patellar tendinitis of left knee (Primary Dx) Start: 08-20-2023 End: 08-20-2023 ambulatory Mark Melton PT, DPT [facility] Comment on above: Patellar tendinitis of left knee (Primary Dx) Start: 08-15-2023 End: 08-15-2023 ambulatory Dyana Shawba MANAGER HAIR Work Phone: [facility] Comment on above: Patellar tendinitis of left knee (Primary Dx) Start: 08-13-2023 End: 08-13-2023 ambulatory Dyana Tinohuba MANAGER HAIR Work Phone: [facility] Comment on above: Patellar tendinitis of left knee (Primary Dx) Start: 08-10-2023 End: 08-10-2023 ambulatory Dyana Tinohuba MANAGER HAIR Work Phone: [facility] Comment on above: Patellar tendinitis of left knee (Primary Dx) Start: 08-08-2023 End: 08-08-2023 ambulatory Dyana Ch MANAGER HAIR Work Phone: [facility] Comment on above: Patellar tendinitis of left knee (Primary Dx) Start: 07-30-2023 End: 07-30-2023 ambulatory McKena Roslynoennes PT, DPT [facility] Comment on above: Patellar tendinitis of left knee (Primary Dx) Start: 07-27-2023 End: 07-27-2023 ambulatory Dyana Shawba MANAGER HAIR Work Phone: [facility] Comment on above: Patellar tendinitis of left knee (Primary Dx) Start: 07-23-2023 End: 07-23-2023 ambulatory McKena Thoennes PT, DPT [facility] Comment on above: Patellar tendinitis of left knee (Primary Dx) Start: 07-18-2023 End: 07-18-2023 ambulatory Dyana Shawba MANAGER HAIR Work Phone: [facility] Comment on above: Patellar tendinitis of left knee (Primary Dx) Start: 07-13-2023 End: 07-13-[address] Dino Solitario Work Phone: [facility] Work Phone: Start: 06-08-2023 End: 06-08-[address] Dino Solitario Work Phone: [facility] Work Phone: Start: 05-25-2023 End: 05-25-[address] Dino Solitario Work Phone: [facility] Work Phone: Start: 05-23-2023 Non-patient / Non-visit Dr. Jo Solitario Work Phone: [facility] Start: 05-23-2023 End: 05-23-2023 Admission to same day surgery center Dr. Dino Solitario Work Phone: [facility] Start: 05-23-2023 End: 05-23-[address] Dino Solitario Work Phone: [facility] Work Phone: Start: 04-18-2023 End: 04-18-2023 Emergency department patient visit Dr. Dino Solitario Work Phone: [facility] Work Phone: Start: 04-05-2023 End: 04-05-[address] Dino Solitario Work Phone: [facility] Work Phone: Start: 04-01-2023 End: 04-02-2023 Emergency department patient visit Dr. Dino Solitario Work Phone: [facility] Work Phone: Start: 02-22-2023 End: 02-22-[address] Dino Solitario Work Phone: [facility] Work Phone: Start: 02-17-2023 End: 02-17-[address] Dino Solitario Work Phone: [facility] Work Phone: Start: 02-17-2023 End: 02-17-[address] Dino Solitario Work Phone: [facility] Work Phone: Start: 01-02-2023 End: 01-02-2023 Emergency department patient visit Dr. 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) Start: 12-18-2022 End: 12-18-2022 ambulatory Wadedomingo Burns PT Work Phone: [facility] Comment on above: Achilles tendonosis of right lower extremity (Primary Dx) Start: 12-11-2022 End: 12-11-2022 ambulatory Wade Chato PT Work Phone: [facility] Comment on above: Achilles tendonosis of right lower extremity (Primary Dx) Start: 12-04-2022 End: 12-04-2022 ambulatory Wade Chato PT Work Phone: [facility] Comment on above: Achilles tendonosis of right lower extremity (Primary Dx) Start: 10-30-2022 End: 10-30-[address] Dino Solitario Work Phone: [facility] Work Phone: Start: 10-16-2022 End: 10-16-2022 ambulatory Wade Burns PT Work Phone: [facility] Comment on above: Achilles tendonosis of right lower extremity (Primary Dx) Start: 10-05-2022 End: 10-05-2022 ambulatory Wadedomingo Burns PT Work Phone: [facility] Comment on above: Achilles tendonosis of right lower extremity (Primary Dx) Start: 10-02-2022 End: 10-02-2022 ambulatory Wade Chato PT Work Phone: [facility] Comment on above: Achilles tendonosis of right lower extremity (Primary Dx) Start: 09-25-2022 End: 09-25-2022 ambulatory Wade Chato PT Work Phone: [facility] Comment on above: Achilles tendonosis of right lower extremity (Primary Dx) Start: 09-21-2022 End: 09-21-2022 ambulatory Wade Burns PT Work Phone: [facility] Comment on above: Achilles tendonosis of right lower extremity (Primary Dx) Start: 09-11-2022 End: 09-11-2022 ambulatory Wade Burns PT Work Phone: [facility] Comment on above: Achilles tendonosis of right lower extremity (Primary Dx) Start: 09-04-2022 End: 09-04-2022 ambulatory Wade Chato PT Work Phone: [facility] Comment on above: Achilles tendonosis of right lower extremity (Primary Dx) Start: 09-01-2022 End: 09-01-2022 ambulatory Wade Chato PT Work Phone: [facility] Comment on above: Achilles tendonosis of right lower extremity (Primary Dx) Start: 08-17-2022 End: 08-17-2022 ambulatory Wade Chato PT Work Phone: [facility] Comment on above: Achilles tendonosis of right lower extremity (Primary Dx) Start: 08-15-2022 End: 08-15-2022 ambulatory Wade Burns PT Work Phone: [facility] Comment on above: Achilles tendonosis of right lower extremity (Primary Dx) Start: 08-11-2022 End: 08-11-2022 ambulatory Wade Burns PT Work Phone: [facility] Comment on above: Achilles tendonosis of right lower extremity (Primary Dx) Start: 08-08-2022 End: 08-08-2022 ambulatory Wadedomingo Burns PT Work Phone: [facility] Comment on above: Achilles tendonosis of right lower extremity (Primary Dx) Start: 08-01-2022 End: 08-01-2022 ambulatory Wadedomingo Burns PT Work Phone: [facility] Comment on above: Achilles tendonosis of right lower extremity (Primary Dx) Start: 06-23-2022 End: 06-23-2022 ambulatory Wadedomingo Burns PT Work Phone: [facility] Comment on above: Achilles tendonosis of right lower extremity (Primary Dx) Start: 06-15-2022 End: 06-15-2022 ambulatory Wade Burns PT [facility] Comment on above: Achilles tendonosis of right lower extremity (Primary Dx) Start: 04-25-2022 End: 04-25-2022 ambulatory [facility] Work Phone: Start: 04-25-2022 End: 04-25-2022 Patient encounter procedure [facility] Start: 08-25-2021 End: 08-25-2021 Patient encounter procedure [facility] Start: 08-10-2021 End: 08-10-2021 Patient encounter procedure [facility] Start: 07-31-2017 Patient encounter status Wade lee PT [facility] Work Phone: Procedures Date Procedure Procedure Detail Performing Clinician Start: 10-25-2024 Plain x-ray of wrist Dr Michelle Solitario MD Work Phone: Start: 08-26-2023 SARS-CoV-2, Influenz a & RSV (PCR) Dr. Dino Solitario Work Phone: Start: 08-26-2023 Plain chest X-ray Dr. Grace Solitario Work Phone: Start: 05-23-[address] Dino Solitario Work Phone: Start: 02-17-2023 MRI of joint of lowe r extremity Dr. Dino Solitario Work Phone: Start: 04-25-2022 Plain chest X-ray Start: 08-25-2021 MRI of lumbar spine Start: 08-10-2021 Complete x-ray serie s of lumbar spine with bending views Start: 08-01-2017 Lipid 1996 panel - S fe or Plasma Dyana Dima [employer]GER [employer] Work Phone: Plan of Treatment Date Care Activity Detail Author Start: 08-04-2034 Urine microalbumin profile DTaP,Tdap,Td Vaccine (4 - Td or Tdap) [facility] Start: 03-22-2025 Urine microalbumin profile [facility] Start: 02-09-2025 Influenza vaccination Influenza Vacc ine (#1) [facility] Start: 10-25-2024 [facility] Start: 2024 Pneumococcal Vaccine : 50+ (1 of 1 - PCV) Pneumococcal Vaccine: 50+ (1 of 1 - PCV) [facility] Start: 2024 Shingrix Vaccine (1 of 2) Ribera grix Vaccine (1 of 2) [facility] Start: 02-10-2024 Covid-19 Vaccine ( season) Covid-19 Vaccine ( season) [facility] Start: 02-10-2024 Influenza vaccination Influenz a Vaccine (Season Ended) [facility] Start: 10-29-2023 End: 10-29-2023 Patient encounter procedure 10/29/2023 2:45 PM EDT OT/PT/Speech Visit [facility] [address] [place] [address] Wade Burns, PT [address] [place] [address] lonto/phonophoresis Procedures: lonto/phonophoresis [facility] Comment on above: lonto/phonophoresis Procedures: lonto/phonophoresis Start: 10-15-2023 End: 10-15-2023 Patient encounter procedure 10/15/2023 2:45 PM EDT OT/PT/Speech Visit [facility] [address] [place] [address] Wade Burns, PT [address] [place] [address] lonto/phonophoresis Procedures: lonto/phonophoresis [facility] Comment on above: lonto/phonophoresis Procedures: lonto/phonophoresis Start: 08-26-2023 [facility] Start: 06-11-2023 Behavioral Health Screening Behavioral Health Screening [facility] Start: 06-11-2023 Depression Assessment Depression Ass essment [facility] Start: 05-25-2023 Patient referral [facility] Work Phone: Start: 05-23-2023 Anes open/surg arthroscopic proc knee joint nos ANESTH KNEE JOINT SURGERY [facility] Start: 05-23-2023 Arthrs kne surg w/meniscectomy med/lat w/shvg KNEE ARTHROSCOPY/SURGERY [facility] Start: 05-23-2023 Gait training procedure [facility] Start: 05-23-2023 Notification of physician [facility] Start: 05-23-2023 Patient discharge [facility] Start: 05-23-2023 Application of device [facility] Start: 05-23-2023 Assessment of risk o f venous thromboembolism [facility] Start: 05-23-2023 Catheterization of vein [facility] Start: 05-23-2023 Deep breathing and coughing exercises [facility] Start: 05-23-2023 Following clinical pathway protocol [facility] Start: 05-23-2023 Incentive spirometry [facility] Start: 05-23-2023 Introduction of urin yvonne catheter [facility] Start: 05-23-2023 Patient education [facility] Start: 05-23-2023 Provision of activit y privileges [facility] Start: 05-23-2023 Taking patient vital signs [facility] Start: 05-23-2023 Vital signs measurements [facility] Start: 05-23-2023 End: 05-23-2023 [facility] Start: 05-23-2023 Medication education [facility] Start: 04-18-2023 [facility] Start: 04-18-2023 Simple repair scalp/neck/ax/genit/trunk 2.5cm/< RPR S/N/AX/GEN/TRNK 2.5CM/< [facility] Start: 04-02-2023 [facility] Start: 02-09-2023 Covid-19 Vaccine ( season) Covid-19 Vaccine ( season) [facility] Start: 02-09-2023 Influenza vaccination [facility] Start: 08-01-2022 Lipid panel Lipid Screening [facility] Start: 08-01-2022 LIPID SCREEN LIPID SCREEN [facility] Start: 06-11-2022 DEPRESSION ASSESSMENT DEPRESSION ASS ESSMENT [facility] Start: 07-06-2021 COVID-19 VACCINE (5 - Booster for Pfizer series) COVID-19 VACCINE (5 - Booster for Pfizer series) [facility] Start: 07-06-2021 COVID-19 VACCINE (5 - Pfizer series) COVID-19 VACCINE (5 - Pfizer series) [facility] Start: 08-01-2020 DIABETES SCREEN DIABETES SCREEN [facility] Start: 08-01-2020 Diabetes Screening Diabetes Screenin g [facility] Start: 10-01-2019 COLOGUARD (FIT-DNA) COLOGUARD (FIT-D NA) [facility] Start: 10-01-2019 Colonoscopy COLONOSCOPY [facility] Start: 10-01-2019 COLORECTAL CANCER SCREENING COLORECTAL CANCER SCREENING [facility] Start: 10-01-[address] COLONOGRAPHY [facility] Start: 10-01-2019 FECAL OCCULT BLOOD FECAL OCCULT BLOO D [facility] Start: 10-01-2019 Screening for malign ant neoplasm of colon [facility] Start: 10-01-2019 SIGMOIDOSCOPY SIGMOIDOSCOPY [facility] Start: 1993 Hepatitis B Vaccine (1 of 3 - 19+ 3-dose series) Hepatitis B Vaccine (1 of 3 - 19+ 3-dose series) [facility] Start: 1992 Anxiety Screening Anxiety Screening [facility] Start: 1992 Depression Screening Depression Scre ening [facility] Start: 1992 HEPATITIS C SCREENING HEPATITIS C [facility] Start: 1992 Hepatitis C screening Hepatitis C [facility] Start: 1992 HIV SCREENING HIV SCREENING [facility] Start: 1992 HIV screening HIV Screening [facility] Start: 1974 HEPATITIS B (1 of 3 - 3-dose series) HEPATITIS B (1 of 3 - 3-dose series) [facility] Start: 1974 Hepatitis B Vaccine (1 of 3 - 3-dose series) Hepatitis B Vaccine (1 of 3 - 3-dose series) [facility] Patient Education [facility] Work Phone: Patient referral [facility] Work Phone: [facility] Immunizations Immunization Date Immunization Notes Care Provider Whitney londono 03-11-2024 influenza, seasonal, injectable Tanja [facility] MD Work Phone: [facility] 03-11-2024 influenza virus vaccine, unspecified formulation Francesca Brendon [employer] Work Phone: [facility] 06-07-2022 influenza virus vaccine, unspecified formulation Dyana Ch [employer]GER [employer] Work Phone: [facility] 03-06-2020 influenza, injectabl e, quadrivalent, contains preservative Wade Burns PT [facility] 03-23-2018 influenza, injectabl e, quadrivalent, contains preservative Wade Burns PT [facility] Work Phone: 03-06-2016 influenza, injectabl e, quadrivalent, contains preservative Wade Burns PT [facility] 03-22-2015 tetanus toxoid, redu nancy diphtheria toxoid, and acellular pertussis vaccine, adsorbed Wade Burns PT [facility] Work Phone: Payers Date Payer Category Payer Self-pay [id number] 2024 Unknown [id number] 2022 Private Health Insurance [facility] CHOICE PLAN GENERIC [id number] 2022 Unknown [id number] 2015 Unknown [id number] Unknown [id number] Unknown [id number] Unknown [id number] Social History Date Type Detail Facility Start: 03-27-2021 End: 08-26-2023 Tobacco smoking status [facility] Unknown if ever smoked [facility] Start: 10-08-2020 Non-smoker [facility] Start: 1975 Sex Assigned At Male [facility] Start: 07-31-2017 End: 10-25-2024 Tobacco smoking status COIS Never smoked tobacco [facility] Start: 07-31-2017 End: 12-19-2022 Tobacco use and exposure Smokeless tobacco non-user [facility] Start: 02-13-2021 End: 12-19-2022 Alcohol intake Not Asked [facility] Start: 1975 Sex Assigned At Not on file [facility] Start: 02-13-2021 End: 10-12-2022 History of Social function [facility] Start: 02-13-2021 End: 10-12-2022 Tobacco use panel [facility] Start: 05-12-2012 National Score (1-100), lower number is lower risk 66 [facility] Goals Date Patient Goal Desired Activity /State Mental Status Date Assessment Result Facility 08-26-2023 Cognitive function Level Of Cons ciousness Awake;Alert;Appropriate;Follow s Commands [facility] Work Phone: 05-23-2023 Cognitive function Awake;Drowsy [place] Work Phone: 05-23-2023 Cognitive function Arousable To Voice/Nam e [facility] Work Phone: Clinical Notes 06-15-2022 to 03-04-2025 Note Date & Type Note Facility 03-04-2025 Progress note [facility] 03-04-2025 Progress note Note Date/Time March 04, 2025 5:46pm [facility] [address], [address] [place] [address] OFFICE VISIT Date of Service: 03/04/25 MR#: [id number] Acct: [id number] Name: ELLIOT MURILLO Rep #: [id number] : 1975 Provider: VJ Shahid Age/Sex: 49/M [facility] Status: Signed Intake Vital Signs 10/25/24 19:25 03/04/25 17:40 Height 5 ft 11 in BP 110/72 Blood Pressure Location Lt brachial Position Sitting Respiration 15 Pulse 52 L Pulse Source NIBP Temp 98.2 F Temp Source Oral Pulse Oximetry (%) 97 Oxygen Delivery Method room air Intake Visit Reasons: COUGH, CONGESTION Chief Complaint: cough, congest, face pain, bloody mucus Voice Over Artist Required: No Is patient in pain?: No Allergies No Known Allergies Allergy (Verified 03/04/25 17:40) Have you fallen in the past year?: No Nurse's Note: cough, congest, face pain, bloody mucus x 12 days. denies fever [facility] Wears glasses Abrasion Patellar tendinitis, left knee Left knee pain Acute bronchitis, unspecified URI (upper respiratory infection) Contact with and (suspected) exposure to other viral communicable diseases Bronchitis Tinnitus Surgical History Hx of hand surgery Social History Smoking Status: Never smoker alcohol intake: current alcohol intake frequency: holidays/special occasions only HPI HPI Chief Complaint: cough, congest, face pain, bloody mucus Details: ELLIOT MURILLO, is a 49 M who presents to the office today for [facility] for approximately 2-week history of progressively worsening R>L facial pressure/congestion with purulent blood-tinged postnasal drip/cough and bilateral ear pressure. No complaints of fever, chills, myalgias,fatigue, runny nose, or nausea/vomiting/diarrhea. No complaints of chest pain/shortness of breath/dyspnea on exertion. No close contacts with similar complaints. No other associated symptoms and no other alleviating/aggravating factors. ROS Const Constitutional: No other (as above) Exam Const General: cooperative, healthy appearing and no acute distress Orientation: alert, awake HENMT Head: normal to inspection Ears: hearing grossly normal bilaterally, external ears normal, TM's normal bilaterally and EAC's normal Nose: external nose normal, nares normal, septum normal and no nasal discharge Face and sinus: normal facial exam, sinuses nontender (w/ right maxillary fullness to palpation) and face symmetric Mouth: oral mucosae normal, lip normal, tongue normal and oropharynx normal Throat: posterior oropharynx normal, tonsils normal, uvula midline and postnasal drainage (moderate amount purulent) Eyes General: appearance normal, both eyes and all related structures Neck Neck: normal visual inspection, full ROM, no meningeal signs, supple and lymphadenopathy (R>L anterior cervical lymph node swelling/tender to palpation) Neck mass: No Thyroid: thyroid normal Chest Chest palpation & inspection: normal inspection of the chest Resp Effort & Inspection: normal respiratory effort and able to speak in complete sentences Auscultation: Bilateral: Clear to Auscultation Cardio Palpation: normal PMI Rate: Bradycardic Rhythm: regular rhythm Heart Sounds: S1 normal, S2 normal Pulses: radial pulses present GI Inspection: normal to inspection Skin General: no rashes or lesions noted Neuro General: patient alert, patient awake Cognition: normal cognition Speech: speech normal Psych Appearance: grossly normal Mental Status: mental status grossly normal Mood: congruent mood Affect: normal affect Speech and Movement: speech and movement normal Attitude: cooperative Diagnoses Acute maxillary sinusitis, unspecified J01.00 Assessment and Plan Assessment and Plan (1) Acute maxillary sinusitis, unspecified: Status: Acute Plan: Amoxicillin as prescribed today. Supportive measures as instructed today. Follow-up with PCP in 3 to 5 days should symptoms not improve, sooner should symptoms worsen or any other concerns develop. Patient states acknowledging understanding all the above. Coding Level of Care Code Off vis,est,level 3 Assessment and Plan Assessment and Plan Medications: New amoxicillin 875 mg PO BID 20 tabs 0RF Clinical Quality Measures Falls Risk Screening/Assistive Devices Have you fallen in the past year?: No 03/04/25 1748 <Electronically signed by Harman ZABALA> Date _ Harman ZABALA Cosigner Signature: Date (if applicable) CC: ~ Sutton Solasta Work Phone: [phone]) 743-778809-10-2025 NoteHNO ID: [id number] Author: FRANCESCA OLIVAS APRN.[facility] Service: ? Author Type: Nurse Practitioner Type: Progress Notes Filed: 02/18/2025 09:07 Note Text: [facility] Subjective The patient is a 49-year-old male presenting for evaluation of a 3-day history of pruritic, burning reaction to an insect bite, he believes is a bee sting. Patient presents with: Insect Bite: ? bee sting on upper left arm, redness,swelling, itching, burning and warm to touch x 3 days HPI The patient is a 49-year-old male presenting with a suspected insect bite on the right lower extremity. Suspected Insect Bite: - [place] - Did not see what bit him; initially thought he touched something. - Describes a burning sensation and discomfort when walking. 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 - Took Benadryl and applied a topical cream (similar to hydrocortisone) with minimal relief. - Denies reduction in swelling from treatments. Review of Systems Skin: (+) pruritus, (+) burning sensation, (+) swelling Objective BP 124/72 Pulse 62 Temp 36.8 ?C (98.2 ?F) Resp 16 Wt 86.5 kg (190 lb 11.2 oz) SpO2 98% BMI 27.38 kg/m? Physical Exam Vitals reviewed. Constitutional: Appearance: Normal appearance. HENT: Head: Normocephalic. Eyes: Extraocular Movements: Extraocular movements intact. Skin: Neurological: Mental Status: He is alert. Assessment/Plan: { 1. Local reaction to bee sting, accidental or unintentional, initial encounter (T63.441A) - Acute local reaction to bee sting on Sunday; no evidence of infection. - Start short course of oral steroids: 3 tablets today, 2 tablets tomorrow, 1 tablet the next day. - Advised to take steroids with food to minimize GI upset and earlier in the day to avoid sleep disturbance. - Continue topical corticosteroid cream and cool compresses for symptomatic relief. - Educated that typical resolution is 5-10 days - Advised to follow up if no improvement in 3 days or sooner if symptoms worsen. Recording using [employer] software for draft documentation of the visit was discussed with the patient/authorized containers sales representative; all questions welcomed and answered. Patient/authorized containers sales representative agreed to proceed Francesca Olivas APRN.LIZET [facility]09-10-2025 History of Present illness Narrative* Francesca Olivas APRN.CNP - 02/18/2025 9:05 AM EDT Images from the original note were not included. [facility] Subjective The patient is a 49-year-old male presenting for evaluation of a 3-day history of pruritic, burningreaction to an insect bite, he believes is a bee sting. Patient presents with: Insect Bite: ? bee sting on upper left arm, redness,swelling, itching, burning and warm to touch x 3 days HPI The patient is a 49-year-old male presenting with a suspected insect bite on the right lower extremity. Suspected Insect Bite: - [place]. - Did not see what bit him; initially thought he touched something. - Describes a burning sensation and discomfort when walking. 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 - Took Benadryl and applied a topical cream (similar to hydrocortisone) with minimal relief. - Denies reduction in swelling from treatments. Review of Systems Skin: (+) pruritus, (+) burning sensation, (+) swelling Objective BP 124/72 Pulse 62 Temp 36.8 C (98.2 F) Resp 16 Wt 86.5 kg (190 lb 11.2 oz) SpO2 98% BMI 27.38 kg/m Physical Exam Vitals reviewed. Constitutional: Appearance: Normal appearance. HENT: Head: Normocephalic. Eyes: Extraocular Movements: Extraocular movements intact. Skin: Neurological: Mental Status: He is alert. Assessment/Plan: { 1. Local reaction to bee sting, accidental or unintentional, initial encounter (T63.441A) - Acute local reaction to bee sting on Sunday; no evidence of infection. - Start short course of oral steroids: 3 tablets today, 2 tablets tomorrow, 1 tablet the next day. - Advised to take steroids with food to minimize GI upset and earlier in the day to avoid sleep disturbance. - Continue topical corticosteroid cream and cool compresses for symptomatic relief. - Educated that typical resolution is 5-10 days - Advised to follow up if no improvement in 3 days or sooner if symptoms worsen. Recording using [employer] software for draft documentation of the visit was discussed with the patient/authorized containers sales representative; all questions welcomed and answered. Patient/authorized containers sales representative agreed to proceed Francesca Olivas APRN.CNP MDM [facility] Instructions* Patient Instructions* Francesca Olivas APRN.CNP - 02/18/2025 8:59 AM EDT - Prednisone per directions. Take with food and take earlier in the day - Cool compresses - Continue triamcinolone twice daily for no more than 14 days - If no improvement in the next 3 days follow up or sooner if symptoms worsen [facility] Radiology Diagnostic study note [facility] Imaging Services [address] [place], [place] [id number] Wrist min 3 Views MR#: [id number] Acct: [id number] Name: ELLIOT MURILLO Rep #: [id number] : 1975 M 49 From: Jennifer Gonzalez MD PCP: Dr. Candido Solitario MD Status: REG ER Study:Wrist min 3 Views Date of Exam: Exam# [id number] Ordering Dr: Deacon Webster DO PROCEDURE: WRIST MIN 3 VIEWS 10/25/2024 REASON FOR EXAM: INJURY/PAIN TECHNIQUE: 3 view(s) of the left wrist COMPARISON: None FINDINGS: No acute fracture or dislocation. Joint spaces are maintained. No significant soft tissue swelling.No radiopaque foreign body. RAD/Wrist min 3 Views IMPRESSION: No acute findings. Reading Location: [facility] CC: Dr. Candido Solitario MD; Dr. Deacon Webster DO ~ Refrigeration Operator: Signed [facility]10-22-2024 NoteHNO ID: [id number] Author: WADE BURNS PT Service: ? Author Type: Physical Therapist Type: Progress Notes Filed: 04/01/2024 09:10 Note Text: 04/01/2024 [facility] PHYSICAL THERAPY DISCONTINUANCE OF CARE Plan of Care Period: Start of Care Date: 05/31/23 Last Visit Date: 10/15/2023 Therapy Program: The following is a summary of the interventions provided for this episode of care; Therapeutic exercise, Neuromuscular re-education, Manual therapy, and Self-senior care management Assessment: The following is the goal status: Goals updated 08/23/2023 Goals for Episode of Care: created on 05/31/23 through 08/27/23 [place] in home exercise program. - MET so far Patient will decrease pain rating by 2 points to meet minimal clinical important difference for numeric pain rating scale. - MET Perform jogging with 2/10 pain or less. - Progressing, lateral knee pain with jogging Increase ROM of LLE to WNL for improved gait mechanics - MET Increased strength of LLE to 5/5 for return to PLOF - Progressing, will continue Improve flexibility of L gastrocnemius for improved gait mechanics - Not assessed Normal gait.- MET Reciprocal stair negotiation. - MET Patient Goals: Return to jogging Based on the most recent progress report, patient was progressing as expected toward functional goals based on home exercise program compliance, pain levels, documented subjective information on progress, and documented objective information regarding ADL's, gait, range of motion, and strength. Reason for Discontinuation of Care: Patient has not returned to therapy or scheduled additional follow-up appointments. [facility] History of Present illness Narrative* Wade Burns PT - 10/15/2023 2:38 PM EDT Episode Visit Count: 29 Therapist That Will Accept/Oversee The Plan Of Care: Wade Burns PT Start of Care Date: 05/31/23 Onset Date: 05/31/23 Patient Identified by Name and Date of : Yes REHABILITATION AND SPORTS THERAPY PHYSICAL THERAPY TREATMENT NOTE ASSESSMENT: Elliot Murillo tolerated the session with expected muscle soreness. He demonstrated good tolerance to all therapeutic activities and exercises performed this session. The patient will continue to benefit from ongoing skilled physical therapy to progress toward set goals and for reasse ssment by supervising therapist. PLAN FOR NEXT VISIT: PN SUBJECTIVE: Doing well. Running with the kids no problem. No pain. Pain: Pain Pain Level: 0 Pain Location: Knee - Left OBJECTIVE MEASURES WITH LEVEL OF FUNCTION: TREATMENT: Therapeutic Exercise: 1: Jogging treadmill 3 min6.0 mph (1 on 1 time spent discussing running form) 2: SL heel raises x 30 3: Prone quad stretch 4 x 30 sec Skilled Intervention: Patient was educated in proper exercise technique and purpose for exercises. Therapeutic Activity: 1: DL jump with soft landing 2 x 10 2: SL jump BUE support at parallel bars x 10 Skilled Intervention: Ensured patient safety with use of supervision Neuromuscular Re-Education: 1: SL balance on pad x 30 sec 2: SL balance and Y tap x 10 3: SL ball toss x 20 rebounder on large disc 4: SL stance on pad LLE kicking ball tossed at foot 2 x 10 Skilled Intervention: Skilled judgment used to assess appropriate program for balance and coordination activity. Billing Therapeutic Exercise Treatment Minutes: 9 Therapeutic Activity Treatment Minutes: 8 Neuromuscular Re-Education Treatment Minutes: 21 Skilled Treatment Time Minutes (timed and untimed codes): 38 Total Session Time (minutes): 38 Session Start Time : 1439 Session Stop Time : 1517 Wade Burns PT documented in this encounterBet[facility]04-22-[facility] History of Present illness Narrative* Wade Burns, PT - 10/01/2023 10:44 AM EDT Images from the original note were not included. Episode Visit Count: 28 Therapist That Will Accept/Oversee The Plan Of Care: Wade Burns PT Start of Care Date: 05/31/23 Onset Date: 05/31/23 Patient Identified by Name and Date of : Yes REHABILITATION AND SPORTS THERAPY PHYSICAL THERAPY PROGRESS REPORT PLAN OF CARE UPDATE: Assessment: Elliot Murillo demonstrates improvements in stair negotiation, recreational activities, running,and jumping. He has progressed toward goals. Patient continues to present with impairments in strength that interfere with nothing . Current prognosis is Good due to: current objective clinical presentation, good overall health status, good support system/ coping skills . He will benefit from continued skilled therapy services to meet the updated goals for this plan of care as noted below. Goals updated 08/23/2023 Goals for Episode of Care: created on 05/31/23 through 08/27/23 [place] in home exercise program. - MET so far Patient will decrease pain rating by 2 points to meet minimal clinical important difference for numeric pain rating scale. - MET Perform jogging with 2/10 pain or less. - Progressing, lateral knee pain with jogging Increase ROM of LLE to WNL for improved gait mechanics - MET Increased strength of LLE to 5/5 for return to PLOF - Progressing, will continue Improve flexibility of L gastrocnemius for improved gait mechanics - Not assessed Normal gait.- MET Reciprocal stair negotiation. - MET Patient Goals: Return to jogging Patient Goals: Return to jogging Planned Interventions, Frequency, and Duration: 1x every other week, 4 weeks Total Number of Visits Planned: 2 Patient to be seen for Neuromuscular re-education (21273), Therapeutic exercise (90926), Manual therapy (26259), Self-senior care management (17017), Gait Training (69748), Patient/Family/Caregiver Education, Therapeutic activities (60302), Body Mechanics Training, Functional training, General Conditioning PLAN FOR NEXT VISIT: Jumps, LP, SL heel raises SUBJECTIVE: Things are going good. Did some jogging. Did start soccer practice last week. Pain stays minimum. Feels like he is getting stronger little by little. Patient Goals: Return to jogging Functional Limitations: nothing Prior Level of Function: Independent without limitations Intake Information: Prescription present Previous Treatment: Surgery Pain: Pain Pain Location: Knee - Left PROMIS Scales 09/10/2023 08/08/2023 07/02/2023 Higher is Better Phys Func - Score 48 (within normal limits) 44 (mild dysfunction) 39 (moderate dysfunction) Phys Func - Percentile 42 27 14 Self-Eff Symptom - Score 38 (Low) 51 (Average) 37 (Low) Self-Eff Symptom - Percentile 12 54 10 T-scores: mean of general population = 50. [...] L LE AROM: WNL LE Flexibility Flexibility: Gastrocnemius Flexibility R Gastrocnemius Flexibility: WNL L Gastrocnemius Flexibility: WNL LE Strength R LE Strength: Grossly 5/5 L LE Strength: Grossly 5/5 R Hip External Rotation: 4+/5 Lower Extremity Dynamometer Testing : Yes Dynamometer Strength Right Quadriceps Strength (lbs): 74.8 Left Quadriceps Strength (lbs): 78.4 Gait Gait Distance (feet): 50 Gait Observation: WNL. Jogging form is WNL Stairs: WNL Pt unable to perform 30 straight SL heel raises LLE (able to reach 21) TREATMENT: Therapeutic Exercise: 1: All objective measures taken this session 2: SL heel raises 21 reps 3: Jogging treadmill 6 mph x 2 min (assessing and discussing running technique) 4: *Discussed modificcations to the HEP to progress strength in weaker areas Skilled Intervention: Patient was educated in proper exercise technique and purpose for exercises. Provided written instruction for home exercise program to facilitate proper performance and compliance. Correct performance of therapeutic exercises was facilitated with verbal and visual cuing. Billing Therapeutic Exercise Treatment Minutes: 39 Skilled Treatment Time Minutes (timed and untimed codes): 39 Total Session Time (minutes): 39 Session Start Time : 1043 Session Stop Time : 1122 Wade Burns PT documented in this encounterBet[facility]04-15-2024 History of Present illness Narrative* Aris Hernández, PT - 09/24/2023 3:25 PM EDT Episode Visit Count: 27 Therapist That Will Accept/Oversee The Plan Of Care: Wade Burns PT Start of Care Date: 05/31/23 Onset Date: 05/31/23 Patient Identified by Name and Date of : Yes REHABILITATION AND SPORTS THERAPY PHYSICAL THERAPY TREATMENT NOTE ASSESSMENT: Elliot Murillo tolerated the session with fatigue and expected muscle soreness. He demonstrated difficulty with stair master due to fatigue. The patient will continue to benefit from ongoing skilled physical therapy to progress toward set goals. PLAN FOR NEXT VISIT: PN SUBJECTIVE: Pt states that he has done a little bit of running and it has been okay. Pain: Pain Pain Level: (It's bothering me, not pain, but not normal.) Pain Location: Knee - Left Post Treatment Pain Post Treatment Pain Level: 0 Post Treatment Pain Location: Knee - Left Post Treatment Symptoms: Fatigue OBJECTIVE MEASURES WITH LEVEL OF FUNCTION: Improved form with jogging on treadmill. TREATMENT: Therapeutic Exercise: 1: Treadmill for warm up: walking for 1 minute, then 1 minute jog at level 6 x 2 rounds (1:1 throughout. Form observed.) 2: SL Leg press 90# 3x10 3: L heel taps on 9 inch step 3x10 4: Forward lunges on BOSU 2x10 B 5: Lateral lunges on BOSU 2x10 B 6: Stair [facility] x 5 minutes Skilled Intervention: Patient was educated in proper exercise technique and purpose for exercises. Skilled judgment was used in selection of appropriate interventions. Correct performance of therapeutic exercises was facilitated with verbal and visual cuing. Neuromuscular Re-Education: 1: L SLS around the world with 10# KB 2x10 each direction 2: Vertical jumping 2x10, then x10 with increased height Skilled Intervention: Skilled judgment used to assess appropriate program for balance and coordination activity. Billing Therapeutic Exercise Treatment Minutes: 36 Neuromuscular Re-Education Treatment Minutes: 10 Skilled Treatment Time Minutes (timed and untimed codes): 46 Total Session Time (minutes): 46 Session Start Time : 1524 Session Stop Time : 1610 DyanaHARPREET Gonzalez PT documented in this encounterBethesda [facility]04-10-2024 History of Present illness Narrative* Zhane Chua, PT - 09/19/2023 3:35 PM EDT Episode Visit Count: 26 Therapist That Will Accept/Oversee The Plan Of Care: Wade Burns PT Start of Care Date: 05/31/23 Onset Date: 05/31/23 Patient Identified by Name and Date of : Yes REHABILITATION AND SPORTS THERAPY PHYSICAL THERAPY TREATMENT NOTE ASSESSMENT: Elliot Murillo tolerated the session with fatigue and expected muscle soreness. He demonstrated difficulty with leg press and L single leg exercises and stability throughout session. The patient will continue to benefit from ongoing skilled physical therapy to progress toward set goals. PLAN FOR NEXT VISIT: Continue with jogging with emphasis on proper mechaincs. Continue with LLE stability SUBJECTIVE: Pt wearing soft knee compression brace today and that seems to be helping. His knee is feeling good today Pain: Pain Pain Level: 0 Pain Location: Knee - Left Post Treatment Pain Post Treatment Pain Level: 0 Post Treatment Pain Location: Knee - Left OBJECTIVE MEASURES WITH LEVEL OF FUNCTION: Increased fatigue throughout entire session in LLE TREATMENT: Therapeutic Exercise: 1: Treadmill for warm up: walking for 1 minute, then 1 minute jog at level 5.5 x 2 rounds (1:1 throughout. Form observed. When fatigue set in L hip drop noted and more weight shifted to RLE) 2: L heel taps on 6 inch step 3x10 3: SL Leg press 90# 3x10 (very challenging with 3rd set) 4: Forward lunges on BOSU 2x10 B 5: Lateral lunges on BOSU 2x10 B 6: Quadruped hip ER 3x10 LLE 7: LAQ 3x10 Skilled Intervention: Patient was educated in proper exercise technique and purpose for exercises. Skilled judgment was used in selection of appropriate interventions. Correct performance of therapeutic exercises was facilitated with verbal and visual cuing. Billing Therapeutic Exercise Treatment Minutes: 46 Skilled Treatment Time Minutes (timed and untimed codes): 46 Total Session Time (minutes): 46 Session Start Time : 1527 Session Stop Time : 1613 HARPREET Iqbal, PT documented in this encounterBethesda [facility]04-03-2024 History of Present illness Narrative* Zhane Chua, PT - 09/12/2023 3:32 PM EDT Episode Visit Count: 25 Therapist That Will Accept/Oversee The Plan Of Care: Wade Burns PT Start of Care Date: 05/31/23 Onset Date: 05/31/23 Patient Identified by Name and Date of : Yes REHABILITATION AND SPORTS THERAPY PHYSICAL THERAPY TREATMENT NOTE ASSESSMENT: Elliot Murillo tolerated the session with fatigue and expected muscle soreness. He demonstrated difficulty with LLE stability exercises. The patient will continue to benefit from ongoing skilled physical therapy to progress toward set goals. PLAN FOR NEXT VISIT: Continue with jogging with emphasis on proper mechaincs. Continue with LLE stability SUBJECTIVE: Pt states he did rowing this morning and then his hip abduction series and he felt thatit was hard to complete the whole series because his muscles were tired. Pain: Pain Pain Level: 0 Pain Location: Knee - Left Post Treatment Pain Post Treatment Pain Level: 0 Post Treatment Pain Location: Knee - Left OBJECTIVE MEASURES WITH LEVEL OF FUNCTION: Challenged with SLS exercises this visit due to fatigue and weakness. TREATMENT: Therapeutic Exercise: 1: Treadmill for warm up: walking for 1 minute, then 1 minute jog at level 5.5 x 2 rounds (1:1 throughout. Form observed. When fatigue set in L hip drop noted and more weight shifted to RLE) 2: Quadruped hip ER 2x10 B 3: Sidelying hip abduction 3x10 4: RDL's on LLE with 10# KB with tap on 9 inch step x10 5: SL Leg press 90# Skilled Intervention: Patient was educated in proper exercise technique and purpose for exercises. Skilled judgment was used in selection of appropriate interventions. Correct performance of therapeutic exercises was facilitated with verbal and visual cuing. Neuromuscular Re-Education: 1: L SLS on foam, ball toss into rebounder 2: L SLS around the workd with 10# KB 2x10 each direction Skilled Intervention: Skilled judgment used to assess appropriate program for balance and coordination activity. Billing Therapeutic Exercise Treatment Minutes: 34 Neuromuscular Re-Education Treatment Minutes: 12 Skilled Treatment Time Minutes (timed and untimed codes): 46 Total Session Time (minutes): 46 Session Start Time : 1529 Session Stop Time : 1615 HARPREET Iqbal, PT documented in this encounterBethesda [facility]04-01-2024 History of Present illness Narrative* Wade Burns, PT - 09/10/2023 12:34 PM EDT Episode Visit Count: 24 Therapist That Will Accept/Oversee The Plan Of Care: Wade Burns PT Start of Care Date: 05/31/23 Onset Date: 05/31/23 Patient Identified by Name and Date of : Yes REHABILITATION AND SPORTS THERAPY PHYSICAL THERAPY TREATMENT NOTE ASSESSMENT: Elliot Murillo tolerated the session with fatigue and expected muscle soreness. He demonstrated difficulty with equal step length with jogging. The patient will continue to benefit from ongoing skilled physical therapy to progress toward set goals. PLAN FOR NEXT VISIT: Continue with jogging with emphasis on proper mechaincs. SUBJECTIVE: Pt reports that his knee is feeling good today. Pt reports that he had a little pain going down the steps today on insider of femur per pt. Pain: Pain Pain Location: Knee - Left Post Treatment Pain Post Treatment Pain Level: 0 Post Treatment Pain Location: Knee - Left Post Treatment Symptoms: A little soreness around medial patella. OBJECTIVE MEASURES WITH LEVEL OF FUNCTION: [place] step length on L compared to R with jogging. TREATMENT: Therapeutic Exercise: 1: Eccentric heel taps on 9 inch step 3x10 2: Hip hikes on elevated step 3x10 LLE 3: SL LP 80# 2 x 10, 90# x9 (Due to fatigue, only 9 reps at 90#) 4: Sidestepping IR/neutral/ER BTB 25 ft x 2 each 5: Wall squats ball on wall 2 x 15 Skilled Intervention: Patient was educated in proper exercise technique and purpose for exercises. Skilled judgment was used in selection of appropriate interventions. Correct performance of therapeutic exercises was facilitated with verbal and visual cuing. Gait Trainin: Jogging on treadmill x 5 minutes speed 4.5 with emphasis on proper technique with even heel strike and pushing off on LLE. Mninal L hip drop with push off on LLE (pain increased to 1/10) 2: Jogging on level ground x 40 ft. Uneven step length with shorter on L than R. (pain increased to1/10) Skilled Intervention: Patient was provided supervision during pre-gait/gait training to prevent falls and insure safety. Facilitated proper gait cycle with the use of verbal and visual cues for correction of gait deviations identified in the objective section above. Billing Therapeutic Exercise Treatment Minutes: 31 Gait Training Treatment Minutes: 12 Skilled Treatment Time Minutes (timed and untimed codes): 43 Total Session Time (minutes): 43 Session Start Time : 1231 Session Stop Time : 1314 HARPREET Iqbal PT documented in this encounterBethesda [facility]03-20-2024 History of Present illness Narrative* Mark Melton PT, DPT - 08/29/2023 3:31 PM EDT Episode Visit Count: 22 Therapist That Will Accept/Oversee The Plan Of Care: Wade Burns PT Start of Care Date: 05/31/23 Onset Date: 05/31/23 Patient Identified by Name and Date of : Yes REHABILITATION AND SPORTS THERAPY PHYSICAL THERAPY TREATMENT NOTE ASSESSMENT: Elliot Murillo tolerated the session with fatigue and expected muscle soreness. He demonstrated improvements in ability to perform SL leg press with increased weight. The patient will continue to benefit from ongoing skilled physical therapy to progress toward set goals. PLAN FOR NEXT VISIT: Consider Stair Master for warm up. SUBJECTIVE: Pt reports that his knee is feeling good day. Pt states that he was able to do the new hip abduction series with 1# ankle weights 2x10 reps. 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 Pain: Pain Pain Level: 0 Pain Location: Knee - Left Post Treatment Pain Post Treatment Pain Level: 0 Post Treatment Pain Location: Knee - Left OBJECTIVE MEASURES WITH LEVEL OF FUNCTION: Form observed throughout session. TREATMENT: Therapeutic Exercise: 1: Stationary bike x 5 minutes, seat # 3 lvl 2.5 (1:1 throughout,discussed repsonse to updated POC.) 2: Hip machine: 60# flexion, abduction, extension 2x10 B 3: Squats with physioball behind back 2x10 4: Prone TKE on foam roll 3x10 with 5# weight 5: Bridges with LE elevated on 65 cm physioball 3x10 6: L SLS on foam, R steam boats with purple TB x20 each direction 7: SL leg press x10 40#, 2x10 50# 8: Hip hikes on 6 inch step 2x10 LLE 9: Standing clamshells with purple T-band 3x10 Skilled Intervention: Patient was educated in proper exercise technique and purpose for exercises. Skilled judgment was used in selection of appropriate interventions. Correct performance of therapeutic exercises was facilitated with verbal and visual cuing. Billing Therapeutic Exercise Treatment Minutes: 45 Skilled Treatment Time Minutes (timed and untimed codes): 45 Total Session Time (minutes): 45 Session Start Time : 152 Session Stop Time : 1613 HARPREET Iqbal PT, DPT documented in this encounterBethesda [facility] Hospital03-18-2024 History of Present illness Narrative* Dyana Ch PTA - 08/27/2023 3:07 PM EDT Program_ID:[id number] Access Code: [email or web address] URL: [email or web address] Date: 08-27-2023 Prepared By: Wade Burns Program Notes Exercises - Seated Hamstring Stretch - 1 x daily - 7 x weekly - 4 sets - reps - Supine Active Straight Leg Raise - 1 x daily - 7 x weekly - 4 sets - 10 reps - Soleus Stretch on Wall - 1 x daily - 7 x weekly - 3 sets - 10 reps - Seated Long Arc Quad - 1 x daily - 7 x weekly - 2 sets - 10 reps - Seated Quad Set - 1 x daily - 7 x weekly - 2 sets - 10 reps - Sidelying Hip Abduction - 1 x daily - 7 x weekly - 3 sets - 10 reps - Sidelying Bent Knee Hip Flexion - 1 x daily - 7 x weekly - 3 sets - 10 reps - Sidelying Hip Circles - 1 x daily - 7 x weekly - 3 sets - 10 reps * Wade Burns, PT - 08/27/2023 2:46 PM EDT Episode Visit Count: 21 Therapist That Will Accept/Oversee The Plan Of Care: Wade Burns PT Start of Care Date: 05/31/23 Onset Date: 05/31/23 Patient Identified by Name and Date of : Yes REHABILITATION AND SPORTS THERAPY PHYSICAL THERAPY TREATMENT NOTE ASSESSMENT: Elliot Murillo tolerated the session with fatigue and expected muscle soreness. He demonstrated difficulty with SL hip abduction series due to weakness and fatigue. The patient will continue to benefit from ongoing skilled physical therapy to progress toward set goals. PLAN FOR NEXT VISIT: Continue with glute, hip abduction, and quad strengthening. SUBJECTIVE: Pt able to do the elliptical with tolerable pain/ soreness(2/10). Pt states that he hasslight pain today in the L knee. Pain: Pain Pain Level: 2 Pain Location: Knee - Left Post Treatment Pain Post Treatment Pain Location: Knee - Left OBJECTIVE MEASURES WITH LEVEL OF FUNCTION: Form observed throughout session. TREATMENT: Therapeutic Exercise: 1: Stationary bike x 5 minutes, seat # 3 lvl 2.5 (1:1 throughout, discussed weak areas and strengthprogressions.) 2: Prone TKE on foam roll 3x10 3: Bridges with glute set on heels 3x10 4: *Hip abduction series 1x10, then 1x5 of each 4 directions 5: Piriformis stretching 2x30 seconds 6: Long sitting hoovers over 5# KB 2x10 7: Glute isometric with 55 cm physioball at edge of table 3x15 seconds B 8: Hip hikes on 6 inch step 2x10 LLE 9: LAQ 3#, 3x10 Skilled Intervention: Patient was educated in proper exercise technique and purpose for exercises. Reviewed and educated patient on additions/changes for home exercise program as above (*). Skilled judgment was used in selection of appropriate interventions. Provided written instruction for home exercise program to facilitate proper performance and compliance. Correct performance of therapeutic exercises was facilitated with verbal and visual cuing. Neuromuscular Re-Education: 1: L SLS ball toss into rebounder 3x10 Skilled Intervention: Skilled judgment used to assess appropriate program for balance and coordination activity. Billing Therapeutic Exercise Treatment Minutes: 38 Neuromuscular Re-Education Treatment Minutes: 5 Skilled Treatment Time Minutes (timed and untimed codes): 43 Total Session Time (minutes): 43 Session Start Time : 1443 Session Stop Time : 1526 HARPREET Iqbal PT documented in this encounterBethesda [facility]03-17-2024 Discharge summary Author Kei Small [facility] August 26, 2023 9:13am Note Date/Time August 26, 2023 6:3 2am [facility] Medical Records Department [address] [place] [address] Emergency Department Summary 08/26/23 MR#: [id number] Acct: [id number] Name: ELLIOT MURILLO Rep #:[id number] : 1975 47 From: Earnest Snyder MD PCP: Dr. Dino Solitario MD Status: REG ER Location: ED HPI History of Present Illness Chief Complaint: Chest Pain Narrative Narrative: 47-year-old male who denies significant past medical history presents with midsternal chest pain and pressure that began at about 3:00 this morning, approximately 3- 1/2 hours ago. He states it awoke him from sleep. While he denies any nausea or vomiting, no diaphoresis with this, he felt a little shortof breath. As he was walking into the emergency department, he states he developed a nonproductive cough. No fevers or chills, occasional runny nose since 3:00 this morning. He denies any leg swelling. He is not a smoker. He presents because of the continued chest pressure. [facility] Medical History Abrasion Acute bronchitis, unspecified Bronchitis Contact with and (suspected) exposure to other viral communicable diseases Left knee pain Patellar tendinitis, left knee Tinnitus URI (upper respiratory infection) Wears glasses Home Medications omega [id number] oil 1,200 mg (144 mg-216 mg) capsule (Fish Oil) 1 cap PO DAILY SUPPLEMENT 05/11/23 [History Last Taken Unknown] Allergy/AdvReac Type Severity Reaction Status Date / Time No Known Allergies Allergy Verified 08/26/23 06:22 Surgical History Hx of hand surgery Social History Smoking Status: Never smoker alcohol intake: current alcohol intake frequency: holidays/special occasions only ROS ROS ED ROS Narrative Constitutional: No fever, no chills. HEENT: No sore throat. No neck pain. No loss of vision. No rhinorrhea. Cardiovascular: Positive midsternal chest pain. No palpitations. No pedal edema. Respiratory: Positive dry cough, a little shortness of breath. Abdominal: No abdominal pain. No nausea. No vomiting. Genitourinary: No dysuria. No hematuria. Musculoskeletal: No myalgias. No arthralgias. Neurologic: No headaches. No dizziness. No lightheadedness. Skin: No rash. No change in color. Psychiatric: No depression. No anxiety. EXAM Physical Exam Narrative Exam Narrative: Afebrile. Vital signs noted. HEENT: Normocephalic. Atraumatic. PERRL, EOMI. Neck soft and supple. No pointtenderness or step off. Cardiovascular: Regular rate and rhythm. No murmurs, rubs, or gallops appreciated. Respiratory: No tachypnea. Lungs clear to auscultation bilaterally. Gastrointestinal: Abdomen soft, nontender, with normoactive bowel sounds. No rebound or guarding. Neurological: Awake. Alert. Nonfocal, nonlateralizing. Skin: No rash. Normal color. No pallor. Musculoskeletal: No pedal edema. Full range of motion extremities. Const Vital Signs: 08/26/23 06:18 08/26/23 06:33 Temperature 98.0 F Temperature Source Temporal Pulse Rate 78 Respiratory Rate 20 H Blood Pressure 124/47 H Blood Pressure Mean 72 Pulse Ox 97 98 Oxygen Delivery Method Room Air Room Air Heart Score History: Slightly/Non-Suspicious ECG: Normal Age: >45 - <65 years Risk Factors: No Risk Factors Troponin: </= Normal Limit Score: 1 MDM MDM MDM Narrative Medical decision making narrative: In the differential diagnosis is acute coronary syndrome versus pulmonary embolism versus aortic dissection versus URI/pneumonia. His symptoms began at 3AM suddenly. He has a dry cough but I have low suspicion for pneumonia as he isafebrile here. I also have low suspicion for pulmonary embolism because he is PERC negative. Regardless, D-dimer will be obtained along with serial troponins, 1 view chest x-ray, CBC, and BMP. EKG was obtained and interpreted by myself independently as normal sinus rhythm at 74 bpm without ectopy or acuteST changes. There is wandering baseline and motion artifact in the inferior leads especially lead II. Chest x-ray in 1 view interpreted by myself independently shows no evidence of an acute pneumonia or consolidation, no pneumothorax. I reviewed the radiology report which confirms my independent interpretation. I reviewed his laboratory work and he has normal white count of 10.3, hemoglobin normal at 14.3, hematocrit 43.5, platelet count normal at 180. D-dimer is negative at less than0.27 so I have low suspicion for pulmonary embolism currently. BMP reviewed andhe has a chloride elevated at 108 which I think is nonspecific, glucose 94, normal BUN of 16 and creatinine 1.20. Sodium is normal at 141 and potassium normal at 3.8. Upon repeat examination at approximately 7:20 AM, he is resting comfortably and states that he feels mildly improved. His initial high-sensitivity troponin is 6. At this point in time, I have low suspicion for acute coronary syndrome. His respiratory swabs are currently pending, but given his cough he may be coming down with an upper respiratory infection/bronchitis. He will be signed out to the oncoming physician, Dr. Small, to check the second troponin, and makefinal disposition on this patient which I anticipate would be discharged. Patient is in stable condition. History & Record Review Discussion w/independent historian: Patient Additional record(s) reviewed:: Prior ED visit Lab Data Attestation: I reviewed the patient's lab results. Labs: Laboratory Results - last 24 hr 08/26/23 06:30 WBC 10.3 RBC 4.86 Hgb 14.3 Hct 43.5 MCV 89.5 MCH 29.4 MCHC 32.9 RDW Std Deviation 40.3 RDW Coeff of Brook 12.4 Plt Count 180 MPV 11.1 Immature Gran % (Auto) 0.500 Neut % (Auto) 80.9 H Lymph % (Auto) 13.2 L Sawyer % (Auto) 3.0 Eos % (Auto) 1.6 Baso % (Auto) 0.8 Absolute Neuts (auto) 8.4 H Absolute Lymphs (auto) 1.36 Nucleated RBC % 0 D-Dimer Quant (PE/DVT) < 0.27 L Sodium 141 Potassium 3.8 Chloride 108 H Carbon Dioxide 30.0 Anion Gap 3 L BUN 16 Creatinine 1.20 Estim Creat Clear Calc 86.61 Est GFR (MDRD) Af Amer 83 Est GFR (MDRD) Non-Af 68 BUN/Creatinine Ratio 13.3 Glucose 94 Calcium 9.0 Troponin I High Sens 6 Radiography Diagnostic Testing: Clinical Impression(s) from Imaging Studies Chest X-Ray 08/26/23 06:40 IMPRESSION: 1. Low lung volumes limit the exam. No consolidations. 2. No acute cardiopulmonary abnormality. Electronically Signed: Mike Ferro MD at 7:15 EDT , Discharge Plan Triage Chief Complaint: Chest Pain ED Provider: Earnest Snyder Dx/Rx/DC Orders Clinical Impression: Cough, Chest pressure Instructions: ED Chest Pain, Uncertain Cause, ED Symptoms Uncertain Cause Prescriptions: No Action omega 0-mdt-mez-fish oil [Fish Oil] 1,200 (144-216) mg capsule 1 cap PO DAILY Patient Comments: WIILL STOP 5 DAYS BEFORE SURGERY Primary Care Provider: Dino Solitario Referrals: Dino Solitario MD [Primary Care Provider] - 3-5 Days if not improving What to do if you have Problems For any increased pain, shortness of breath, bleeding, nausea or vomiting, chestpain, or any unexpected problems, contact your Primary Care Provider. Call [facility] ([phone]) or report to the closest Emergency Room. Call 911 if necessary. 08/26/23 0724 <Electronically signed by Earnest Snyder MD> Cosigner Signature (if applicable): CC: Dr. Dino Solitario MD ~ Signed ADDENDUM by Dr. Kei Small DO on 08/26/23 at 0913 Patient presented to the emergency department with chest pain and was initially evaluated by . His initial workup was unremarkable including D-dimer and chest x-ray and troponin and EKG. Care of patient turned over to me awaiting delta troponin and was felt to be able for discharge if delta troponin was negative. Discharge instructions written by Dr. Snyder. Patient's delta troponin was negative and normal. Patient will be discharged to home in stable condition and advised to follow-up as instructed by Dr. Snyder. 08/26/23 0913<Electronically signed by Kei Small DO> Cosigner Signature (if applicable): cc: Dr. Dino Solitario MD ~* Signed [facility] Work Phone: 1(901) 282-804603-14-2024 History of Present illness Narrative* Wade Burns, PT - 08/23/2023 4:22 PM EDT Images from the original note were not included. Episode Visit Count: 20 Therapist That Will Accept/Oversee The Plan Of Care: Wade Burns PT Start of Care Date: 05/31/23 [...] coping skills . Main findings are gluteal andquadriceps weakness on the LLE. He will benefit from continued skilled therapy services to meet theupdated goals for this plan of care as noted below. Goals updated 07/30/2023 Goals for Episode of Care: created on 05/31/23 through 08/27/23 [place] in home exercise program. - MET so [...] Patient to be seen for Neuromuscular re-education (55432), Therapeutic exercise (06064), Manual therapy (64099), Self-senior care management (13938), Gait Training (33174), Patient/Family/Caregiver Education, Therapeutic activities (37854), Body Mechanics Training, Functional training, General Conditioning PLAN FOR NEXT VISIT: Continue to focus on gluteal and quadriceps strengthening SUBJECTIVE: Saw the physician and said he had no problem for him to start running when the pt is ready. Can get pain with lunges. Still feels some oddness with descending stairs and kneeling in the L[place]. Patient Goals: Return to jogging Functional Limitations: [...] Time : 1622 Session Stop Time : 170 Wade Burns PT [facility] History of Present illness Narrative* Mark Melton PT, DPT - 08/20/2023 3:42 PM EDT Episode Visit Count: 19 Therapist That Will Accept/Oversee The Plan Of Care: Wade Burns PT Start of Care Date: 05/31/23 [...] Time (minutes): 40 Session Start Time : 154 Session Stop Time : 162 Mark Melton PT, DPT documented [facility] History of Present illness Narrative* Mark Melton PT, DPT - 08/15/2023 3:34 PM EST Episode Visit Count: 18 Therapist That Will Accept/Oversee The Plan Of Care: Wade Burns PT Start of Care Date: 05/31/23 [...] Time (minutes): 38 Session Start Time : 153 Session Stop Time : 1610 HARPREET Iqbal, PT, DPT documented in this [facility]Bet[facility]03-04-[facility] History of Present illness Narrative* Aris Hernández, PT - 08/13/2023 3:31 PM EST Episode Visit Count: 17 Therapist That Will Accept/Oversee The Plan Of Care: Wade Burns PT Start of Care Date: 05/31/23 [...] Time (minutes): 45 Session Start Time : 1528 Session Stop Time : 161 HARPREET Iqbal PT documented in [facility]Bet[facility]03-[facility] History of Present illness Narrative* Mark Melton PT, DPT - 08/10/2023 8:48 AM EST Episode Visit Count: 16 Therapist That Will Accept/Oversee The Plan Of Care: Wade Burns PT Start of Care Date: 05/31/23 Onset Date: 06/15/21 Patient Identified by Name and Date of : Yes [facility]AB[facility] SPORTS THERAPY PHYSICAL THERAPY TREATMENT NOTE ASSESSMENT: Elliot Murillo tolerated the session with fatigue and expected muscle soreness. He demonstrated improvements in SL leg press with BFR without any pain in LLE. The patient will continueto benefit from ongoing skilled physical therapy to [...] : 844 Session Stop Time : 926 HARPREET Iqbal PT, DPT documented in this encounterBet[facility]02-28-[facility]24 History of Present illness Narrative* Mark Melton PT, DPT - 08/08/2023 3:24 PM EST Episode Visit Count: 15 Therapist That Will Accept/Oversee The Plan Of Care: Wade Burns PT Start of Care Date: 05/31/23 [...] benefit from ongoing skilled physical therapy to progresstoward set goals. PLAN FOR NEXT VISIT: Consider hip thrusts with BFR or prone HS curls SUBJECTIVE: Pt reports that he was not able to exercise as much last week due to his daughter beinghospitalized. Pt states he is walking at more [...] HARPREET Iqbal PT, DPT documented in this encounterBet[facility]02-[facility] History of Present illness Narrative* Mark Melton PT, DPT - 07/30/2023 3:51 PM EST Episode Visit Count: 14 Therapist That Will Accept/Oversee The Plan Of Care: Wade Burns PT Start of Care Date: 05/31/23 [...] with RLE. He has progressed toward/met goals asoutlined below. Patient continues to present with impairments [...] of Care: created on 05/31/23 through 08/27/23 [place] in home exercise program. - MET so [...] Patient to be seen for Neuromuscular re-education (08581), Therapeutic exercise (26058), Manual therapy (48942), Self-senior care management (96451), Gait Training (79661), Patient/Family/Caregiver Education, Therapeutic activities (88658), Body Mechanics Training, Functional training, General Conditioning [...] : 1547 Session Stop Time : 1630 Mark Melton PT, DPT documented in this encounterBet[facility]02-16-[facility] History of Present illness Narrative* Dyana Ch, MANAGER HAIR - 07/27/2023 3:25 PM EST Episode Visit Count: 13 Therapist That Will Accept/Oversee The Plan Of Care: Wade Burns PT Start of Care Date: 05/31/23 [...] 30, 15,15,15 (30 second rest between sets, 1minute rest between exercise.) 3: BFR M cuff [...] 1609 Dyana Ch PTA documented in this encounterBet[facility]02-12-2024 History of Present illness Narrative* Mark Melton PT, DPT - 07/23/2023 3:51 PM EST Episode Visit Count: 12 Therapist That Will Accept/Oversee The Plan Of Care: Wade Burns PT Start of Care Date: 05/31/23 [...] 30, reduced to 2.5# ankle weight x15 reducedto no weight due to patient muscle fatigue [...] : 1545 Session Stop Time : 1631 Mark Melton PT, YAZMIN documented in this encounterBet[facility]02-07-[facility]24 History of Present illness Narrative* Dyana Ch PTA - 07/18/2023 3:30 PM EST Episode Visit Count: 11 Therapist That Will Accept/Oversee The Plan Of Care: Wade Burns PT Start of Care Date: 05/31/23 [...] sore after last session. Pt reports that sorenesshas decreased, but still having some. Pain: Pain [...] Time (minutes): 42 Session Start Time : 1527 Session Stop Time : 1610 Dyana Ch PTA documented in this encounterBet[facility]12-13-2023 History and physical note Author Zach Hawkins [facility] May 23, 2023 11:00am Note Date/Time May 23, 2023 11:00am [facility] Medical Records Department [address] [place] [id number] History & Physical Exam 05/23/23 1058 MR#: [id number] Acct: [id number] Name: ELLIOT MURILLORIQUE Rep #:[id number] : 1975 47 From: Zach Hawkins MD PCP: Dr. Dino Solitario MD Status: [facility] Location: [place] [address] HPI - General HPI Narrative ELLIOT MURILLO, is a 47 M who presents FOR left knee arthroscopy, debridementpatellar tendon, possible medial meniscus repair or partial meniscectomy. No change to history and physical exam. Patient wished to proceed. Risks alternatives benefits discussed as well as postoperative restrictions and narcotic counseling. Knee marked. MR#: [id number] Acct: [id number] Name: ELLIOT MURILLO ANGÉLICA Rep #: [id number] : 1975 Provider: Dr. Zach Hawkins MD Age/Sex: 47/M [place] [facility] [place] Status: Signed Intake Vital Signs 01/02/2315:18 04/01/2322:29 Height 5 ft 10 in 5 ft 10 in Intake Visit Reasons: LEFT KNEE Chief Complaint: left knee Accompanied by: Self Is patient in pain?: Yes Pain scale (1-10): 1 Allergies No Known Allergies Allergy (Verified 04/05/23 14:29) Medications NK 04/05/23 [History Confirmed 04/05/23] [facility] Medical History (Updated 04/05/23 @ 14:46 by Zach Hawkins MD) Acute bronchitis, unspecified Bronchitis Contact with and (suspected) exposure to other viral communicable diseases Left knee pain Patellar tendinitis, left knee Tinnitus URI (upper respiratory infection) Surgical History Hx of hand surgery Social History Smoking Status: Never smoker alcohol intake: current alcohol intake frequency: holidays/special occasions only HPI LEFT KNEE Details: This documentation accurately reflects the service provided and the decisions made by me, Dr. Zach Hawkins MD 04/05/23 8073. Part of today?s visit was documented by [ ], acting as scribe. ELLIOT MURILLO is a 47 year old M here today for follow-up on left knee pain. Patient states that the injection did help but wore off. Most of his pain is on the medial side more anteriorly as well as slightly at the patellar tendon. Patient is quite active and it is stopping him from doing the activities that heenjoys. The knee is not versus a loose but it is more so painful that is stopping him from doing and living his active lifestyle. Ortho Exam General General: Yes no acute distress Neurologic: Yes alert and Yes oriented x3 Psychologic: Yes reasonable and appropriate Right Knee Patella Translation: 2 Left Knee Skin/Wound: Yes CDI, No ecchymosis, No erythema and No swelling Knee ROM: Yes ROM-Flexion 0-140 Examination: Yes med jt line tenderness, No Lat jt line tenderness, No TTP inf pole patella, No Crepitus, No Pain with flexion, Yes Lorraine's Test, Yes TTP Patellar tendon, No TTP Tibial tubercle, No TTP Pes Anserine and No Illiotibial band tenderness Quad Atrophy: No Stability: NML: Anterior Drawer, NML: Jennie, NML: Posterior Drawer, NML: Valgus 0, NML: Valgus 30, NML: Varus 0 and NML: Varus 30 Apprehension with Lateral Translation: No Patella Translation: 2 Patellar Tilt Normal: Yes Patella Grind: No KNEE: Patient has normal gait normal alignment medial joint line tenderness negative Lorraine's although there was a little bit of a click with going into full extension seeming to come from medial side of the knee. Supplemental Info [facility] Imaging Services [address] [place] [address] Lower Ext Joint Only (Routine) MR#: [id number] Acct: [id number] Name: ELLIOT MURILLO Rep #: [id number] : 1975 M 47 From: Rod Benites MD PCP: Dr. Dino Solitario MD Status: REG CLI Study: Lower Ext Joint Only (Routine) Date of Exam: 02/17/23 Exam# [id number] Ordering Dr: Dino Solitario MD INDICATION: left medial knee pain EXAMINATION: MRI - LEFT MR Knee W/O Contrast TECHNIQUE: Multiplanar and multisequence MR images of the LEFT knee. IV Contrast Dosage and Agent: None. COMPARISON: FINDINGS: BONE: No fracture or abnormal bone marrow signal. JOINT: No pathologic effusion, synovial hypertrophy, or intra-articular body. MUSCLES: Unremarkable. MENISCI: Medial and lateral menisci unremarkable. CRUCIATE LIGAMENTS: Proximal ACL demonstrates mild increased signal intensity on fat saturation imaging consistent with small partial tear likely subacute or chronic given absence of joint effusion. COLLATERAL LIGAMENTS: Medial collateral ligament and lateral collateral ligamentous complex, inclusive of the popliteal tendon, are intact. CARTILAGE: Articular cartilage intact. OTHER SOFT TISSUES: There is a small partial tear of the proximal patellar tendon with high signal intensity seen on fat saturation imaging. MRI/Lower Ext Joint Only (Routine) IMPRESSION: Partial tear proximal patellar tendon. Small subacute or chronic tear of the proximal ACL. Electronically Signed: Rod Benites MD at 9:03 EDT , Coding Level of Care Code Off vis,est,level 3 Diagnoses Left knee pain M25.562 Patellar tendinitis, left knee M76.52 Assessment and Plan Assessment and Plan (1) Left knee pain: Status: Acute Plan: 39-year-old man with ongoing medial sided knee pain as well as pain at the patellar tendon. MRI shows partial undersurface fraying proximal end of patellar tendon. There is no obvious meniscal tear but he has signs and symptoms consistent with a tear of the medial meniscus and there is some area ofsignal change at the anterior aspect of the medial meniscus that seems to correspond to his pain. He did get good relief with an injection but is not interested in carry on with continued injections or other forms of treatment like rest ice anti-inflammatories or physical therapy. The ACL does feel like it has some mild increased translation compared to the other side but a firm endpoint and negative pivot shift with only strain on MRI so I do not think it is tse in this 47-year-old man to consider ACL reconstruction that being said he is interested in the surgical solution to try to address this problem. In myhands that would be a left knee arthroscopy, debridement patellar tendon, possible medial meniscus repair or partial meniscectomy. We talked about the pros and cons risk benefits of this as well as postoperative recovery 1 to 2 weeks on crutches 6 weeks prior to going back to normal activities unless there is a meniscus repair that would prolong things up to 3 months. He understands wishes to proceed with the surgery no further questions or concerns. Pros and cons risks and benefits were discussed with the patient including but not limited to infection, pain, stiffness, bleeding, damage to surrounding structures, neurovascular injury, recurrence or retear, failure or wear of hardware or fixation, instability, fracture, deep vein thrombosis and pulmonary embolism, anesthetic risks, , patient dissatisfaction, need for further surgery and other risks. Patient understood and wished to proceed with surgery,and signed the informed consent documentation. (2) Patellar tendinitis, left knee: [facility] Medical History Abrasion Acute bronchitis, unspecified Bronchitis Contact with and (suspected) exposure to other viral communicable diseases Left knee pain Patellar tendinitis, left knee Tinnitus URI (upper respiratory infection) Wears glasses Home Medications omega 0-zho-djl-fish oil 1,200 mg (144 mg-216 mg) capsule (Fish Oil) 1 cap PO DAILY SUPPLEMENT 05/11/23 [History Last Taken Unknown] Allergy/AdvReac Type Severity Reaction Status Date / Time No Known Allergies Allergy Verified 05/23/23 09:10 Surgical History Hx of hand surgery Social History Smoking Status: Never smoker alcohol intake: current alcohol intake frequency: holidays/special occasions only Vital Signs Vital Signs Vital Signs: 05/23/23 09:12 05/23/23 09:18 Temperature 97 F L Temperature Source Temporal Pulse Rate 61 Respiratory Rate 16 Respiratory Pattern Normal Blood Pressure 117/65 Blood Pressure Mean 82 Blood Pressure Source Monitor Blood Pressure Position Sitting Blood Pressure Location Right Arm Pulse Ox 100 Oxygen Delivery Method Room Air Weight Weight: 178 lb 9.191 oz Body Mass Index (BMI) 25.5 05/23/23 1100 <Electronically signed by Zach Hawkins MD> Cosigner Signature (if applicable): CC: Dr. Dino Solitario MD; Dr. Zach Hawkins MD~ Signed [facility] Work Phone: 1(513) 858-756012-13-2023 Procedure [facility] 04-01-2023 Discharge summary Author Glenn Raymundo [facility] April 02, 2023 12:08am Note Date/Time April 01, 2023 1 1:31pm [facility] Medical Records Department [address] [place] [address] Emergency Department Summary 04/01/23 MR#: [id number] Acct: [id number] Name: ELLIOT MURILLO Rep #:[id number] : 1975 47 From: Glenn Raymundo MD PCP: Dr. Dino Solitario MD Status: REG ER Location: ED HPI History of Present Illness Chief Complaint: Dental Detail of Chief Complaint: Bleeding from gum graft site Informant: patient Onset/Context/Timing Onset: Today and Hours Context: Gradual Onset Timing: Intermittent Current Severity: Mild Maximum Severity: Mild Narrative Narrative: 47-year-old male no significant past medical history. 9 days ago underwent a dental procedure where they took a graft from his hard palate and grafted his gum of his lower dentition and right upper outer gumline. He had been doing well. He was on antibiotics for several days and pain medication. He is not taking ibuprofen. Tonight after eating a meal of soft food he started having some oozing of blood from the graft site. Prior similar symptoms: No Recent Illness/Hospitalization: No PFSH PFSH Medical History Acute bronchitis, unspecified Bronchitis Contact with and (suspected) exposure to other viral communicable diseases Left knee pain Tinnitus URI (upper respiratory infection) Allergy/AdvReac Type Severity Reaction Status Date / Time No Known Allergies Allergy Verified 04/01/23 22:32 Surgical History Hx of hand surgery Social History Smoking Status: Never smoker alcohol intake: current alcohol intake frequency: holidays/special occasions only ROS ROS ED ROS Narrative Denies recent illness. Denies bruising. He is on no blood thinners other than ibuprofen. He has had no nosebleeds or hematuria or bloody stools. Review of Systems ROS Unobtainable: Denies due to encephalopathy Constitutional Constitutional ED: Denies chills or fever(s) Eyes Eyes: Denies blurry vision ENT ENT ED: Denies ear pain Cardiovascular Cardiovascular: Denies chest pain Respiratory/Chest Respiratory/Chest: Denies cough Gastrointestinal Gastrointestinal: Denies abdominal pain Genitourinary Genitourinary ED: Denies dysuria Musculoskeletal Musculoskeletal: Denies arthralgias Integumentary Denies abscess Neurologic Neurologic: Denies headache(s) Psychiatric Psychiatric: Denies anxiety Endocrine Endocrinology: Denies cold intolerance Hematologic/Lymphatic Hematologic/Lymphatic: Denies easy bleeding or easy bruising Allergic/Immunologic Allergic/Immunologic ED: Denies mouth swelling or tongue swelling EXAM Physical Exam Narrative Exam Narrative: Well-appearing middle-age male. Vital signs stable afebrile. H EENT exam thereis an area on his hard palate on the proximal aspect to his right of the midlinemild left where there was a gum graft taken. Currently there is very very minimal oozing. No pulsatile bleeding. The sites where it was grafted on the right upper outer gumline and lower gumline there is no active bleeding. Otherwise exam normal. Lungs are clear. Heart regular rhythm. Abdomen soft nontender. Const Vital Signs: 04/01/23 22:29 Temperature 97.4 F L Temperature Source Temporal Pulse Rate 57 L Respiratory Rate 15 Blood Pressure 131/75 H Blood Pressure Mean 93 Pulse Ox 97 Oxygen Delivery Method Room Air Positive well nourished and well developed; Negative for obese, cachectic, contractures or unkempt General Appearance ED: well developed and NAD; Negative for unkempt, cachectic or contractures Nutritional Appearance: Negative for cachectic or obese HEENT HEENT Narrative: Very minimal bleeding from upper hard palate mucosal graft site. Negative for trauma Throat: posterior oropharynx normal Eyes PERRL and EOMs intact bilaterally General Eye ED: Negative for pale conjunctiva Neck no lymphadenopathy, supple and no JVD General: normal visual inspection; Negative for anterior neck swelling or tenderness Lymph Lymphatic: no lymphadenopathy noted Chest Wall inspection of chest normal and palpation of chest normal Resp normal respiratory effort, no retractions and clear to auscultation bilaterally Cardio regular rate, regular rhythm, S1 normal heart sound, S2 normal heart sound and no murmurs Jugular Venous Distention: Negative for other Palpation: Negative for palpable S3 Rate: Negative for bradycardia or tachycardic Rhythm: Negative for abnormal rhythm GI normal to inspection, nondistended, normoactive bowel sounds, non-tender, non-distended and no masses Extremity normal to inspection and no joint enlargement General Extremety ED: Negative for edema or other findings General Extremity: Negative for edema or other findings Neuro CN's II-XII intact bilaterally, moves all extremities and no focal motor deficits Sensorium / Orientation: oriented to person, oriented to place and oriented to time; Negative for orientation impaired Motor Exam: strength 5/5 throughout Psych mental status grossly normal Appearance: Negative for unkempt Attitude: No agitated Mood & Affect: Negative for depressed, anxious or tearful Skin no rashes or lesions noted and no wounds Image ED - URI/Dental Diagram: 1. Graft site where the graft was harvested from the hard palate. Minimal oozing. MDM MDM MDM Narrative Medical decision making narrative: Patient has very minimal oozing from the graft site on the hard palate. LET anddirect pressure will be applied to the area deceiving get the oozing to stop. Repeat exam patient is doing well at 12:05 AM. He held a let soaked gauze in place for over 20 minutes. There is no further bleeding at this time. He will follow- up with his dentist tomorrow. History & Record Review Discussion w/independent historian: Patient Additional record(s) reviewed:: No prior records Discharge Plan Triage Chief Complaint: Dental ED Provider: Glenn Raymundo Dx/Rx/DC Orders Clinical Impression: History of surgical procedure on mouth, Post-op bleeding Primary Care Provider: Dino Solitario Referrals: Dino Solitario MD [Primary Care Provider] - Activity Restrictions/Additional Instructions: Call and follow-up with the dentist that performed the procedure on your gums tomorrow. If this starts bleeding again hold direct pressure. Ice to the area and or a tea bag. Do not put any gauze in your mouth without being extremely careful by holding itwith direct pressure due to the risk of aspiration. Avoid aspirin and ibuprofen like products that could cause more bleeding. Disposition Disposition: Home, Self Care What to do if you have Problems For any increased pain, shortness of breath, bleeding, nausea or vomiting, chestpain, or any unexpected problems, contact your Primary Care Provider. Call [facility] ([phone]) or report to the closest Emergency Room. Call 911 if necessary. 04/02/237 <Electronically signed by Glenn Raymundo MD> Cosigner Signature (if applicable): CC: Dr. Dino Solitario MD ~ Signed [facility] Work Phone: [phone] 409-865207-11-2023 History of Present illness Narrative* Nimisha Luna PA - 12/19/2022 11:48 AM EDT This note was created using [employer]ent[employer]. Subjective Elliot Murillo is a 47 year [...] If he develops eye pain, headache, vision changes,dizziness, go to ER immediately. -If it does [...] ER evaluation. VJ Onofre [facility] History of Present illness Narrative* Wade Burns, PT - 12/18/2022 5:45 PM EDT Episode Visit Count: 25 Therapist That Will Accept/Oversee The Plan Of Care: Wade Burns Start of Care Date: 06/15/22 Onset Date: 06/15/21 Patient Identified by Name and Date of : Yes REHABILITATION AND SPORTS THERAPY PHYSICAL THERAPY TREATMENT NOTE ASSESSMENT: Elliot Murillo tolerated the session with increased symptoms. He demonstrated difficulty with increased medial joint line pain with weighted knee flexion beyond 70 degrees. The patientwill continue to benefit from ongoing skilled physical [...] 26 Total Treatment Time Minutes (timed/untimed): 26 Wade Burns PT documented in [facility] encounterBet[facility] History of Present illness Narrative* Wade Burns PT - 12/11/2022 9:12 AM EDT Episode Visit Count: 24 Therapist That Will Accept/Oversee The Plan Of Care: Wade Burns Start of Care Date: 06/15/22 Onset [...] exercise, overall function, and L quad control thatinterfere with running . Current prognosis is Good due to: current objective clinical presentation,good overall health status, good support system/ coping [...] weeks or less - Progressed, will continue [place] in home exercise program. - Met so [...] Patient to be seen for Therapeutic exercise (01824), Neuromuscular re-education (72309), Manual therapy (92738), Self-senior care management (53554), Gait Training (25339), Patient/Family/Caregiver Education PLAN FOR NEXT VISIT: Quad [...] 25 Total Treatment Time Minutes (timed/untimed): 25 Wade Burns PT documented in this encounterBet[facility]06-[facility] History of Present illness Narrative* Wade Burns PT - 12/04/2022 12:21 PM EDT Episode Visit Count: 23 Therapist That Will Accept/Oversee The Plan Of Care: Wade Burns Start of Care Date: 06/15/22 Onset [...] 32 Total Treatment Time Minutes (timed/untimed): 32 Wade Burns PT documented in this encounterBet[facility]05-[facility] History of Present illness Narrative* Wade Burns PT - 10/16/2022 1:55 PM EDT Episode Visit Count: 17 Therapist That Will Accept/Oversee The Plan Of Care: Wade Burns Start of Care Date: 06/15/22 Onset Date: 06/15/21 Patient Identified by Name and Date of : Yes REHABILITATION AND SPORTS THERAPY PHYSICAL THERAPY TREATMENT NOTE ASSESSMENT: Elliot Murillo tolerated the session with no issues. He demonstrated good tolerance to therapeutic exercises. The patient will continue to benefit from ongoing skilled physical therapyto progress toward set goals. PLAN FOR NEXT VISIT: Assess reaction to HEP SUBJECTIVE: Patient Reason for Visit: Pain 8in the L knee after running. Now a little painful to [place] stairs and squat. Pain: Pain Pain Location: [...] 40 Total Treatment Time Minutes (timed/untimed): 40 Wade Burns PT documented in this encounterBet[facility]04-27-[facility]23 History of Present illness Narrative* Wade Burns PT - 10/05/2022 8:17 AM EDT Episode Visit Count: 16 Therapist That Will Accept/Oversee The Plan Of Care: Wade Burns Start of Care Date: 06/15/22 Onset [...] BFR cuffs SUBJECTIVE: Patient Reason for Visit: [place] good overall. No pain after the job a few days ago. Painin Left knee with prolonged flexion (in the [...] 38 Total Treatment Time Minutes (timed/untimed): 38 Wade Burns PT documented in this encounterBet[facility]04-24-2023 History of Present illness Narrative* Wade Burns PT - 10/02/2022 8:26 AM EDT Episode Visit Count: 15 Therapist That Will Accept/Oversee The Plan Of Care: Wade Burns Start of Care Date: 06/15/22 Onset Date: 06/15/21 Patient Identified by Name and Date of : Yes REHABILITATION AND SPORTS THERAPY PHYSICAL THERAPY PROGRESS REPORT PLAN OF CARE UPDATE: Assessment: Elliot Murillo demonstrates difficulty with running and improvements in pain levels, tolerance to load in the achilles, and level of independence with the exercise. He has progressed toward goals.Patient continues to present with impairments in independence [...] or less - Not met, will continue [place] in home exercise program. - Met so [...] Patient to be seen for Therapeutic exercise (85232), Neuromuscular re-education (38738), Manual therapy (82081), Self-senior care management (18877), Gait Training (13099), Patient/Family/Caregiver Education PLAN FOR NEXT VISIT: BFR loading of the R tendon SUBJECTIVE: Patient Reason for Visit: On sunday walked around a pool and at the end he felt some pain at the moment but nothing later that day. Pt feels 85% overall improvement at this time. [place]. Patient Goals: Decrease pain to allow pt [...] 45 Total Treatment Time Minutes (timed/untimed): 45 Wade Burns PT documented in this encounterBet[facility]04-17-2023 History of Present illness Narrative* Wade Burns PT - 09/25/2022 8:33 AM EDT Episode Visit Count: 13 Therapist That Will Accept/Oversee The Plan Of Care: Wade Burns Start of Care Date: 06/15/22 Onset [...] 33 Total Treatment Time Minutes (timed/untimed): 33 Wade Burns PT documented in this encounterBet[facility]04-13-2023 History of Present illness Narrative* Wade Burns PT - 09/21/2022 11:29 AM EDT Episode Visit Count: 12 Therapist That Will Accept/Oversee The Plan Of Care: Wade Burns Start of Care Date: 06/15/22 Onset [...] benefit from ongoing skilled physical therapy to progresstoward set goals. PLAN FOR NEXT VISIT: Continue loading achilles with focus on quick concentric phase SUBJECTIVE: Patient Reason for Visit: Pt is feeling really good. Had to help with soccer practice and did some jogging. Today he does not have pain after jogging the day before, just tight. Sometimesif he does not take ibuprofen when going [...] 30 Total Treatment Time Minutes (timed/untimed): 30 Wade Burns PT documented in this encounterBet[facility]04-03-2023 History of Present illness Narrative* Wade Burns PT - 09/11/2022 8:17 AM EDT Episode Visit Count: 11 Therapist That Will Accept/Oversee The Plan Of Care: Wade Burns Start of Care Date: 06/15/22 Onset [...] 1 Pain Location: Heel - Right Description: (I know something is there) OBJECTIVE MEASURES WITH LEVEL OF FUNCTION: Good [...] 30 Total Treatment Time Minutes (timed/untimed): 30 Wade Burns PT documented in this encounterBet[facility]03-27-2023 History of Present illness Narrative* Wade Burns PT - 09/04/2022 1:51 PM EDT Episode Visit Count: 10 Therapist That Will Accept/Oversee The Plan Of Care: Wade Burns Start of Care Date: 06/15/22 Onset [...] 40 Total Treatment Time Minutes (timed/untimed): 40 Wade Burns PT documented in this encounterBet[facility]03-24-2023 History of Present illness Narrative* Wade Burns PT - 09/01/2022 9:15 AM EDT Episode Visit Count: 9 Therapist That Will Accept/Oversee The Plan Of Care: Wade Burns Start of Care Date: 06/15/22 Onset [...] progressed toward goals. Patient continues to present withimpairments in independence in exercise, overall function, and [...] or less - Not met, will continue [place] in home exercise program. - Met so [...] Patient to be seen for Therapeutic exercise (79783), Neuromuscular re-education (41400), Manual therapy (55525), Self-senior care management (26643), Gait Training (55921), Patient/Family/Caregiver Education PLAN FOR NEXT VISIT: BFR [...] 40 Total Treatment Time Minutes (timed/untimed): 40 Wade Burns PT documented in this encounterBet[facility]03-09-2023 History of Present illness Narrative* Wade Burns PT - 08/17/2022 11:24 AM EST Episode Visit Count: 7 Therapist That Will Accept/Oversee The Plan Of Care: Wade Burns Start of Care Date: 06/15/22 Onset [...] 46 Total Treatment Time Minutes (timed/untimed): 46 Wade Burns PT documented in this encounterBet[facility]03-07-2023 History of Present illness Narrative* Wade Burns PT - 08/15/2022 12:35 PM EST Episode Visit Count: 6 Therapist That Will Accept/Oversee The Plan Of Care: Wade Burns Start of Care Date: 06/15/22 Onset [...] Patient Reason for Visit: Lot of pain sun and sunday. [place] like twisted ankle like he ran. but [...] 55 Total Treatment Time Minutes (timed/untimed): 55 Wade Burns PT documented in this encounterBet[facility]03-03-2023 History of Present illness Narrative* Wade Burns PT - 08/11/2022 9:29 AM EST Episode Visit Count: 5 Therapist That Will Accept/Oversee The Plan Of Care: Wade Burns Start of Care Date: 06/15/22 Onset [...] 45 Total Treatment Time Minutes (timed/untimed): 45 Wade Burns PT documented in this encounterBet[facility]02-28-2023 History of Present illness Narrative* Wade Burns PT - 08/08/2022 12:42 PM EST Episode Visit Count: 4 Therapist That Will Accept/Oversee The Plan Of Care: Wade Burns Start of Care Date: 06/15/22 Onset [...] x 15, x15, x15 reps (BFR 60% hdmrcrizo=238 mmHg) Skilled Intervention: Patient was educated in proper exercise technique and purpose for exercises. Correct performance of therapeutic exercises was facilitated with verbal and visual cuing. Billing Therapeutic Exercise Treatment Minutes: 45 Total Treatment Time Minutes (timed/untimed): 45 Wade Burns PT documented in this encounterBet[facility]02-21-2023 History of Present illness Narrative* Wade Burns PT - 08/01/2022 12:43 PM EST Episode Visit Count: 3 Therapist That Will Accept/Oversee The Plan Of Care: Wade Burns Start of Care Date: 06/15/22 Onset [...] negotiation, running, jumping . Current prognosis is Gooddue to: current objective clinical presentation, good overall health status, good support system/ coping skills . He will benefit from continued skilled therapy services to meet the updated goals forthis plan of care as noted below. Goals [...] or less - Not met, will continue [place] in home exercise program. - Met so far, will continue Patient Goals: Decrease pain to allow pt to run and complete ADL's without pain Patient Goals: Decrease pain to allow pt to run and complete ADL's without pain Planned Interventions, Frequency, and Duration: 2x/week, 4 weeks Total Number of Visits Planned: 8 Patient to be seen for Therapeutic exercise (27522), Neuromuscular re-education (35721), Manual therapy (33279), Self-senior care management (94583), Gait Training (77317), Patient/Family/Caregiver Education PLAN FOR NEXT VISIT: BFR training if tolerated/meets requirements SUBJECTIVE: Patient Reason for Visit: The heel has been hurting quite a bit. Running for 15 minutesyesterday and could not walk today. Patient Goals: [...] was facilitated with verbal and visual cuing. Self-Retirement Management: 1: Extensive discussion on the importance of stopping undurance based exercises at this point as pt's pain is worsening. Discussed the importance of preventing further pain to avoid further injury tothe achilles. Discussed tendon pain characteristics. Skilled Intervention: Skilled judgment in the selection of proper modification for activity of daily living/home management based on clinical presentation, deficits, and needs. Billing Therapeutic Exercise Treatment Minutes: 35 Self-Care/Home Management Treatment Minutes: 10 Total Treatment Time Minutes (timed/untimed): 45 Wade Burns PT documented in this encounterBet[facility]01-13-2023 History of Present illness Narrative* Wade Burns PT - 06/23/2022 11:18 AM EST Episode Visit Count: 2 Therapist That Will Accept/Oversee The Plan Of Care: Wade Burns Start of Care Date: 06/15/22 Onset Date: 06/15/21 Patient Identified by Name and Date of : Yes REHABILITATION AND SPORTS THERAPY PHYSICAL THERAPY TREATMENT NOTE ASSESSMENT: Elliot Murillo tolerated the session with no issues. He demonstrated difficulty withpain in the morning after using the elliptical for 30 min then rowing. The patient will continue tobenefit from ongoing skilled physical therapy to progress [...] 40 Total Treatment Time Minutes (timed/untimed): 40 Wade Burns PT documented in this encounterBet[facility]01-05-2023 History of Present illness Narrative* Wade Burns PT - 06/15/2022 9:12 AM EST Episode Visit Count: 1 Therapist That Will Accept/Oversee The Plan Of Care: Wade Burns Start of Care Date: 06/15/22 Onset [...] R when walking. Weakness of the gluteals isanother pertinent finding. He will benefit from skilled [...] displaying decreased R foot pronation with gait in8 weeks or less [place] in home exercise program. Patient Goals: Decrease pain to allow pt to run and complete ADL's without pain Planned Interventions, Frequency, and Duration: Current Frequency: 1x/week Duration: 4 weeks Total Number of Visits Planned: 4 Planned Treatment Interventions: Therapeutic exercise (60850);Neuromuscular re- education (26988);Manual therapy (26582);Self-senior care management (71993);Gait Training (85676);Patient/Family/Caregiver Education PLAN FOR NEXT VISIT: Assess reaction [...] Independent without limitations Relevant History Preferred Language: Lithuanian Intake Information: Prescription present Previous Treatment: Exercises [...] pronation during gait Education: Education Learning Preferences: Demonstration;Explanation;Performance;Printed Materials Barriers: None Learning/educational needs: Home exercise program;Plan of Care Education Provided: Yes, see treatment interventions for education provided Education Provided To: Patient Education Mode/Type: Demonstration;Explanation/Discussion;Literature/Printed Materials;Performance Response to Education/Teach Back: States/Identifies;Return Demonstration [...] 30 Total Treatment Time Minutes (timed/untimed): 48 Wade Burns PT documented in this encounterBethesda [facility] HospitalDischarge summary Author Zach Hawkins [facility] May 23, 2023 12:28pm Note Date/Time May 23, 2023 12:26pm [facility] Medical Records Department [address] [place] [address] Instructions for Home/Discharge Instructions 05/23/23 1226 MR#: [id number] Acct: [id number] Name: ELLIOT MURILLO Rep #:[id number] : 1975 47 From: Zach Hawkins MD PCP: Dr. Dino Solitario MD Status: REG [facility] Discharge Instructions Diet Discharge Diet: No restrictions Activity Discharge Activity: Use Crutches Ice area for (Minutes): 10 Weight Bearing Status: Weight bearing as tolerated Keep extremity elevated above heart level: Operative Extremity Dressing / Incision Call your doctor if your incision/area has: Continuous Slow Oozing, Sudden Increased Bleeding, Increased Pain/ Swelling, Increased Redness, Foul Smelling Discharge and Swelling at the incision site Remove Dressing in: leave in place till F/U Follow Up Care Please Follow Up With: Zach Hawkins MD When: 2 days Test Results: Test results from this visit will be discussed in further detail at your follow- up appointment, if applicable. Discharge Plan Admission Attending Provider: Zach Hawkins Primary Care Provider: Dino Solitario Discharge Orders/Prescriptions Prescriptions: New oxycodone-acetaminophen [Endocet] 5-325 mg tablet 1 tab PO Q4H MDD 6 PRN (Reason: pain) 5 Days Qty: 20 0RF No Action omega 0-rbh-gud-fish oil [Fish Oil] 1,200 (144-216) mg capsule 1 cap PO DAILY Patient Comments: WIILL STOP 5 DAYS BEFORE SURGERY Referrals / Follow Up: Dino Solitario MD [Primary Care Provider] - Zach Hawkins MD [Med Staff - Active Staff] - Disposition Disposition (needs filled in before D/C Order can be placed): Home, Self Care 05/23/23 1228<Electronically signed by Zach Hawkins MD>Zach Hawkins MD CC: Dr. Dino Solitario MD ~ Signed [facility] Work Phone: evaluation noteNo assessment information available [facility] Work Phone: evaluation note* Diagnosis Achilles tendonosis of right lower extremity- Primary documented in this encounter [facility] note* Diagnosis Achilles tendonosis of right lower extremity- Primary documented in this encounter [facility] note* Diagnosis Achilles tendonosis of right lower extremity- Primary documented in this encounter [facility] note* Diagnosis Achilles tendonosis of right lower extremity- Primary documented in this encounter [facility] note* Diagnosis Achilles tendonosis of right lower extremity- [facility] Diagnosis Achilles tendonosis of right lower extremity- Primary [facility]* Diagnosis Achilles tendonosis of right lower extremity- Primary documented in this encounter [facility] note* Diagnosis Achilles tendonosis of right lower extremity- Primary [facility]* Diagnosis Achilles tendonosis of right lower extremity- Primary [facility]* Diagnosis Achilles tendonosis of right lower extremity- Primary [facility]* Diagnosis Achilles tendonosis of right lower extremity- Primary documented in this encounter [facility] note* Diagnosis Achilles tendonosis of right lower extremity- Primary [facility]* Diagnosis Achilles tendonosis of right lower extremity- Primary [facility]* Diagnosis Subconjunctival hemorrhage of right eye- Primary [facility]* Diagnosis Onset Date Resolution Status Acute bronchitis, unspecified acute URI (upper respiratory infection) acute Left knee pain acute [facility] Work Phone: Evaluation note* Diagnosis Onset Date Resolution Status Left knee pain acute [facility] Work Phone: Evaluation note* Diagnosis Onset Date Resolution Status Left knee pain acute Left knee pain acute Patellar tendinitis, left knee acute [facility] Work Phone: Evaluation note* Diagnosis Onset Date Resolution Status Left knee pain acute Left knee pain acute Patellar tendinitis, left knee acute Patellar tendinitis, left knee acute [facility] Work Phone: Evaluation note* Diagnosis Patellar tendinitis of left knee- Primary Patellar tendinitis [facility]* Diagnosis Patellar tendinitis of left knee- Primary Patellar tendinitis [facility]* Diagnosis Patellar tendinitis of left knee- Primary Patellar tendinitis [facility]* Diagnosis Patellar tendinitis of left knee- Primary Patellar tendinitis [facility]* Diagnosis Patellar tendinitis of left knee- Primary Patellar tendinitis [facility]* Diagnosis Patellar tendinitis of left knee- Primary Patellar tendinitis [facility]* Diagnosis Onset Date Resolution Status Patellar tendinitis, left knee acute Left knee pain acute Patellar tendinitis, left knee acute Left knee pain acute Patellar tendinitis, left knee acute Left knee pain acute Patellar tendinitis, left knee acute [facility] Work Phone: Evaluation note* Diagnosis Patellar tendinitis of left knee- Primary Patellar tendinitis documented in this encounter [facility] note* Diagnosis Patellar tendinitis of left knee- Primary Patellar tendinitis [facility]* Diagnosis Encounter for immunization Need for other specified prophylactic vaccination against single bacterial disease documented in this encounter [facility] note* Diagnosis Local reaction to bee sting, accidental or unintentional, initial encounter- [facility] Additional Instructions Call and follow-up with the dentist that performed the procedure on your gums tomorrow. If this starts bleeding again hold direct pressure. Ice to the area and or a tea bag. Do not put any gauze in your mouth without being extremely careful by holding it with direct pressure due to the risk of aspiration. Avoid aspirin and ibuprofen like products that could cause more bleeding.[facility] Work Phone: Reason for referral (narrative)No reason for referral information availableWRegency [facility] Work Phone: Chief Complaint and Reason for Visit Chief Complaint BACK PAIN SOMATIC DYSFUNCTION OF LUMBAR REGION Chief Complaint Bronchitis Chief Complaint CHEST CONGESTION/COU GH/SHORT OF BREATH back injury Pain in left knee LEFT KNEE Reason for Visit Acute bronchitis, un specified URI (upper respiratory infection) Left knee pain Chief Complaint back injury Pain in left knee LEFT KNEE S/P ORAL SURGERY BLEEDING Reason for Visit Left knee pain Chief Complaint back injury Pain in left knee LEFT KNEE S/P ORAL SURGERY BLEEDING LEFT KNEE LAC Reason for Visit Left knee pain Left knee pain Patellar tendinitis, left knee Chief Complaint Pain in left knee LEFT KNEE S/P ORAL SURGERY BLEEDING LEFT KNEE LAC Left knee arthroscopy, debridement Left knee arthroscopy, debridement Reason for Visit Left knee pain Left knee pain Patellar tendinitis, left knee Patellar tendinitis, left knee Chief Complaint Left knee arthroscop y, debridement Left knee arthroscopy, debridement LEFT KNEE LEFT KNEE LEFT KNEE COUGH,RUNNY NOSE,CP Reason for Visit Patellar tendinitis, left knee Left knee pain Patellar tendinitis, left knee Left knee pain Patellar tendinitis, left knee Left knee pain Patellar tendinitis, left knee Chief Complaint Admit Date UPPER EXT October 25, 2024 7:25p m Chief Complaint Admit Date COUGH, CONGESTION March 04, 2025 5:36pm Advance Directives Advance Directive Response Recorded Date/ Time Living Will No March 27 12:39pm Power of Dry Can Tender No March 27, 2021 12:39pm Advance Directive Response Recorded Date/ Time Living Will No March 27 11:39am Power of Dry Can Tender No March 27, 2021 11:39am Advance Directive Response Recorded Date/ Time Living Will No January 02, 2023 4:30pm Power of Dry Can Tender No January 02 4:30pm Advance Directive Response Recorded Date/ Time Living Will No April 01 10:45pm Power of Dry Can Tender No April 01, 2023 10:45pm Advance Directive Response Recorded Date/ Time Living Will No April 18 9:06pm Power of Dry Can Tender No April 18, 2023 9:06pm Advance Directive Response Recorded Date/ Time Living Will No May 11 8:14am Power of Dry Can Tender No May 11, 2023 8:14am Advance Directive Response Recorded Date/ Time Living Will No August 26, 2023 6:20am Power of Dry Can Tender No August 25 6:20am Advance Directive Response Recorded Date/ Time Do you have a Healthcare Power of Dry Can Tender? No October 25, 2024 7:32pm Reason for Referral Specialty Diagnoses / Procedures Referred By Contac t Referred To Contact [facility] Diagnoses Achilles tendonosis of right lower extremity Procedures PT REHAB FOLLOW UP ORDER THERAPEUTIC EXERCISES RE, EA 15 MIN. Wade Burns, PT [facility] [id number] [place] [address] Referral ID Status Reason Start Date Expiration Date Visits Requested Visits Authorized [id number] Pending Review PCP Requested Referral Auto-Generate d Referral 06/15/2022 09/13/2022 1 1 Specialty Diagnoses / Procedures Referred By Contraheem t Referred To Contact [facility] Diagnoses Achilles tendonosis of right lower extremity Procedures PT REHAB FOLLOW UP ORDER THERAPEUTIC EXERCISES RE, EA 15 MIN. Wade Burns, PT [address] [place] [address] [facility] [address] [address] Referral ID Status Reason Start Date Expiration Date Visits Requested Visits Authorized [id number] Pending Review PCP Requested Referral Auto-Generate d Referral 08/01/2022 10/30/2022 1 1 Referral ID Status Reason Start Date Expiration Date Visits Requested Visits Authorized [id number] Pending Review PCP Requested Referral Auto-Generate d Referral 09/01/2022 11/30/2022 1 1 Referral ID Status Reason Start Date Expiration Date Visits Requested Visits Authorized [id number] Pending Review PCP Requested Referral Auto-Generate d Referral 10/02/2022 12/31/2022 1 1 Referral ID Status Reason Start Date Expiration Date Visits Requested Visits Authorized [id number] Pending Review PCP Requested Referral Auto-Generate d Referral 12/11/2022 03/11/2023 1 1 Summary Purpose Family History No Family History Records FoundNo Family History Records Found Additional Source Comments Goals (unrecognized section and content) Goals may be documented in a n alternate sectionGoals may be documented in an alternate sectionGoals may be documented in an alternate sectionGoals may be documented in an alternate sectionGoals may be documented in an alternate sectionGoals may be documented in an alternate sectionGoals may be documented in an alternate section Source Comments (unrecognize d section and content) In the event this informatio n is protected by the Federal Confidentiality of Alcohol and Drug Abuse Patient Records regulations: The Federal rules restrict any use of the information to criminally investigate or prosecute any alcohol or drug abuse patient.[facility] the event this information is protected by the Federal Confidentiality of Alcohol and Drug Abuse Patient Records regulations: The Federal rules restrict any use of the information to criminally investigate or prosecute any alcohol or drug abuse patient.[facility] the event this information is protected by the Federal Confidentiality of Alcohol and Drug Abuse Patient Records regulations: The Federal rules restrict any use of the information to criminally investigate or prosecute any alcohol or drug abuse patient.[facility] the event this information is protected by the Federal Confidentiality of Alcohol and Drug Abuse Patient Records regulations: The Federal rules restrict any use of the information to criminally investigate or prosecute any alcohol or drug abuse patient.[facility] the event this information is protected by the Federal Confidentiality of Alcohol and Drug Abuse Patient Records regulations: The Federal rules restrict any use of the information to criminally investigate or prosecute any alcohol or drug abuse patient.[facility] the event this information is protected by the Federal Confidentiality of Alcohol and Drug Abuse Patient Records regulations: The Federal rules restrict any use of the information to criminally investigate or prosecute any alcohol or drug abuse patient.[facility] the event this information is protected by the Federal Confidentiality of Alcohol and Drug Abuse Patient Records regulations: The Federal rules restrict any use of the information to criminally investigate or prosecute any alcohol or drug abuse patient.[facility] the event this information is protected by the Federal Confidentiality of Alcohol and Drug Abuse Patient Records regulations: The Federal rules restrict any use of the information to criminally investigate or prosecute any alcohol or drug abuse patient.[facility] the event this information is protected by the Federal Confidentiality of Alcohol and Drug Abuse Patient Records regulations: The Federal rules restrict any use of the information to criminally investigate or prosecute any alcohol or drug abuse patient.[facility] the event this information is protected by the Federal Confidentiality of Alcohol and Drug Abuse Patient Records regulations: The Federal rules restrict any use of the information to criminally investigate or prosecute any alcohol or drug abuse patient.[facility]In the event this information is protected by the Federal Confidentiality of Alcohol and Drug Abuse Patient Records regulations: The Federal rules restrict any use of the information to criminally investigate or prosecute any alcohol or drug abuse patient.[facility] HospitalIn the event this information is protected by the Federal Confidentiality of Alcohol and Drug Abuse Patient Records regulations: The Federal rules restrict any use of the information to criminally investigate or prosecute any alcohol or drug abuse patient.[facility] HospitalIn the event this information is protected by the Federal Confidentiality of Alcohol and Drug Abuse Patient Records regulations: The Federal rules restrict any use of the information to criminally investigate or prosecute any alcohol or drug abuse patient.[facility] HospitalIn the event this information is protected by the Federal Confidentiality of Alcohol and Drug Abuse Patient Records regulations: The Federal rules restrict any use of the information to criminally investigate or prosecute any alcohol or drug abuse patient.[facility] HospitalIn the event this information is protected by the Federal Confidentiality of Alcohol and Drug Abuse Patient Records regulations: The Federal rules restrict any use of the information to criminally investigate or prosecute any alcohol or drug abuse patient.[facility] HospitalIn the event this information is protected by the Federal Confidentiality of Alcohol and Drug Abuse Patient Records regulations: The Federal rules restrict any use of the information to criminally investigate or prosecute any alcohol or drug abuse patient.[facility] HospitalIn the event this information is protected by the Federal Confidentiality of Alcohol and Drug Abuse Patient Records regulations: The Federal rules restrict any use of the information to criminally investigate or prosecute any alcohol or drug abuse patient.[facility] HospitalIn the event this information is protected by the Federal Confidentiality of Alcohol and Drug Abuse Patient Records regulations: The Federal rules restrict any use of the information to criminally investigate or prosecute any alcohol or drug abuse patient.[facility] HospitalIn the event this information is protected by the Federal Confidentiality of Alcohol and Drug Abuse Patient Records regulations: The Federal rules restrict any use of the information to criminally investigate or prosecute any alcohol or drug abuse patient.[facility] HospitalIn the event this information is protected by the Federal Confidentiality of Alcohol and Drug Abuse Patient Records regulations: The Federal rules restrict any use of the information to criminally investigate or prosecute any alcohol or drug abuse patient.[facility] HospitalIn the event this information is protected by the Federal Confidentiality of Alcohol and Drug Abuse Patient Records regulations: The Federal rules restrict any use of the information to criminally investigate or prosecute any alcohol or drug abuse patient.[facility] HospitalIn the event this information is protected by the Federal Confidentiality of Alcohol and Drug Abuse Patient Records regulations: The Federal rules restrict any use of the information to criminally investigate or prosecute any alcohol or drug abuse patient.[facility] HospitalIn the event this information is protected by the Federal Confidentiality of Alcohol and Drug Abuse Patient Records regulations: The Federal rules restrict any use of the information to criminally investigate or prosecute any alcohol or drug abuse patient.[facility] HospitalIn the event this information is protected by the Federal Confidentiality of Alcohol and Drug Abuse Patient Records regulations: The Federal rules restrict any use of the information to criminally investigate or prosecute any alcohol or drug abuse patient.[facility]In the event this information is protected by the Federal Confidentiality of Alcohol and Drug Abuse Patient Records regulations: The Federal rules restrict any use of the information to criminally investigate or prosecute any alcohol or drug abuse patient.[facility] HospitalIn the event this information is protected by the Federal Confidentiality of Alcohol and Drug Abuse Patient Records regulations: The Federal rules restrict any use of the information to criminally investigate or prosecute any alcohol or drug abuse patient.[facility] HospitalIn the event this information is protected by the Federal Confidentiality of Alcohol and Drug Abuse Patient Records regulations: The Federal rules restrict any use of the information to criminally investigate or prosecute any alcohol or drug abuse patient.[facility] HospitalIn the event this information is protected by the Federal Confidentiality of Alcohol and Drug Abuse Patient Records regulations: The Federal rules restrict any use of the information to criminally investigate or prosecute any alcohol or drug abuse patient.[facility] HospitalIn the event this information is protected by the Federal Confidentiality of Alcohol and Drug Abuse Patient Records regulations: The Federal rules restrict any use of the information to criminally investigate or prosecute any alcohol or drug abuse patient.[facility]In the event this information is protected by the Federal Confidentiality of Alcohol and Drug Abuse Patient Records regulations: The Federal rules restrict any use of the information to criminally investigate or prosecute any alcohol or drug abuse patient.[facility] HospitalIn the event this information is protected by the Federal Confidentiality of Alcohol and Drug Abuse Patient Records regulations: The Federal rules restrict any use of the information to criminally investigate or prosecute any alcohol or drug abuse patient.[facility] HospitalIn the event this information is protected by the Federal Confidentiality of Alcohol and Drug Abuse Patient Records regulations: The Federal rules restrict any use of the information to criminally investigate or prosecute any alcohol or drug abuse patient.[facility] HospitalIn the event this information is protected by the Federal Confidentiality of Alcohol and Drug Abuse Patient Records regulations: The Federal rules restrict any use of the information to criminally investigate or prosecute any alcohol or drug abuse patient.[facility] HospitalIn the event this information is protected by the Federal Confidentiality of Alcohol and Drug Abuse Patient Records regulations: The Federal rules restrict any use of the information to criminally investigate or prosecute any alcohol or drug abuse patient.[facility] HospitalIn the event this information is protected by the Federal Confidentiality of Alcohol and Drug Abuse Patient Records regulations: The Federal rules restrict any use of the information to criminally investigate or prosecute any alcohol or drug abuse patient.[facility] HospitalIn the event this information is protected by the Federal Confidentiality of Alcohol and Drug Abuse Patient Records regulations: The Federal rules restrict any use of the information to criminally investigate or prosecute any alcohol or drug abuse patient.[facility] HospitalIn the event this information is protected by the Federal Confidentiality of Alcohol and Drug Abuse Patient Records regulations: The Federal rules restrict any use of the information to criminally investigate or prosecute any alcohol or drug abuse patient.[facility] HospitalIn the event this information is protected by the Federal Confidentiality of Alcohol and Drug Abuse Patient Records regulations: The Federal rules restrict any use of the information to criminally investigate or prosecute any alcohol or drug abuse patient.[facility] HospitalIn the event this information is protected by the Federal Confidentiality of Alcohol and Drug Abuse Patient Records regulations: The Federal rules restrict any use of the information to criminally investigate or prosecute any alcohol or drug abuse patient.[facility] Reason for Visit (unrecogniz ed section and content) Reason Comments PT Progress Note Specialty Diagnoses / Procedures Referred By Contac t Referred To Contact PHYSICAL THERAPY Diagnoses lonto/phonophoresis Procedures lonto/phonophoresis Candido Solitario MD [address] [address] Pt [facility] [address] [facility] [place] [address] Referral ID Status Reason Start Date Expiration Date V isits Requested Visits Authorized [id number] Authorized 06/11/2022 06/10/2023 45 45 Reason Comments PT Eval Referral ID Status Reason Start Date Expiration Date V isits Requested Visits Authorized [id number] Outside PCP 06/07/2022 08/06/2022 1 1 Reason Comments Physical Therapy Specialty Diagnoses / Procedures Referred By Contac t Referred To Contact PHYSICAL THERAPY Diagnoses lonto/phonophoresis Procedures lonto/phonophoresis Candido Solitario MD [address] [facility] [address] [place] [address] Pt [facility] [address] [place] [address] Reason Comments Eye Problem Red irritated right eye x 1 day Specialty Diagnoses / Procedures Referred By Contac t Referred To Contact PHYSICAL THERAPY Diagnoses lonto/phonophoresis Procedures lonto/phonophoresis Candido Solitario MD [address] [place] [address] Pt [facility] [address] [place] [address] Referral ID Status Reason Start Date Expiration Date V isits Requested Visits Authorized [id number] Authorized 06/11/2023 06/10/2024 45 45 Reason Comments PT Progress Note Reason Comments Nurse Visit Reason Comments Insect Bite ? 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 Relationship Specialty [place] [address] [place] [address] PCP - General Family Medicine 02/28/16 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 Relationship Specialty Start Date End Date Damian Kam MD [address] [place] [id number] PCP - General Family Medicine 02/28/16 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 Relationship Specialty Start Date End Date Damian Kam MD [address] [place] [address] PCP - General Family Medicine 02/28/16 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 Relationship Specialty Start Date End Date Damian Kam MD [address] [place] [address] PCP - General Family Medicine 02/28/16 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 Relationship Specialty Start Date End Date Damian Kam MD [address] [facility] [place] [address] PCP - General Family Medicine 02/28/16 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 Relationship Specialty Start Date End Date Damian Kam MD [address] [place] [address] PCP - General Family Medicine 02/28/16 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 Relationship Specialty Start Date End Date Damian Kam MD [address] [place] [address] PCP - General Family Medicine 02/28/16 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 Relationship Specialty Start Date End Date Damian Kam MD [address] [place] [address] PCP - General Family Medicine 02/28/16 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 Relationship Specialty Start Date End Date Damian Kam MD [address] [place] [address] PCP - General Family Medicine 02/28/16 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 Damian Kam MD Family Provider Active Dr. Dino Solitario MD Primary Care Provider Activ e Team Status: Inactive Member Role Status Dates Dr. Dino Solitario MD Primary Care Provider, Refe rring Provider Active Harman Calvo PA, PA Attending Provider Active Team Status: Inactive Member Role Status Dates Dr. Dino Solitario MD Primary Care Provider, Refe rring Provider Active Zach Hawkins MD Attending Provider Active Team Status: Inactive Member Role Status Dates Dr. Dino Solitario MD Primary Care Provider Activ e Dr. Hans Sutherland MD Attending Provider, Emergency Provider Active Team Status: Inactive Member Role Status Dates Dr. Dino Solitario MD Primary Care Provider, Attending Provider, Referring Provider Active Team Status: Inactive Member Role Status Dates Dr. Dino Solitario MD Primary Care Provider Activ e Dr. Glenn Raymundo MD Emergency Provider Active Team Status: Inactive Member Role Status Dates Dr. Dino Solitario MD Primary Care Provider Activ e Dr. Glenn Raymundo MD Attending Provider, Emergency Pro vider Active Team Status: Inactive Member Role Status Dates Dr. Dino Solitario MD Primary Care Provider Activ e Dr. Deacon Webster DO Emergency Provider Active Team Status: Active Member Role Status Dates Dr. Dino Solitario MD Primary Care Provider Activ e Zach Hawkins MD Attending Provider, Referring Provider, Other Provider Active Team Status: Inactive Member Role Status Dates Dr. Dino Solitario MD Primary Care Provider Activ e Zach Hawkins MD Attending Provider, Referring Prov ider Active Team Status: Inactive Member Role Status Dates Dr. Dino Solitario MD Primary Care Provider Activ e Dr. 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 Candido Solitario MD Primary Care Provider Acti ve Team Status: Inactive Member Role Status Dates Dr. Candido Solitario MD Primary Care Provider Acti ve Start: October 25, 2024 End: October 25, 2024 Dr. Deacon Webster DO Emergency Provider Active Start: October 25, 2024 End: October 25, 2024 Team Status: Active Member Role/Relationship Status Dates Dr. Candido Solitario MD Primary care physician Act kathy Team Status: Inactive Member Role/Relationship Status Dates Dr. Candido Solitario MD Primary care physician Act kathy Start: March 04, 2025 End: March 04, 2025 Dr. Candido Solitario MD Referring Provider Active Start: March 04, 2025 End: March 04, 2025 Harman ZABALA, PA Attending physician Active Start: March 04, 2025 End: March 04, 2025 (unrecognized sect ion and content) No Status Records FoundNo Status Records Found INFORMATION SOURCE (unrecogn ized section and content) DATE CREATED AUTHOR 02/20/2025 [facility] DATE CREATED AUTHOR AUTHOR'S MARGARET ATION 03/06/2025 [facility] FOR RECORDS PERTAINING TO PATIENTS WHO ARE [...] BE BASED ON THE PRIMARY CLINICAL RECORDS. [employer] [facility]. provides no warranty or guarantee of the accuracy or completeness of information in this document.
[2025-05-22 22:30] VITALS: BP 130/57; PULSE 77; RESP 18; TEMP 36.4; O2SAT 100
--- NOTE | 2025-05-22 22:32 | EDS_ITS ---
HPI History of Present Illness Chief Complaint: Laceration Narrative Narrative: Chief complaint and HPI: 49-year-old male with no significant past medical history presents for evaluation of left thumb laceration. Patient states he was cutting a hand prior to arrival in which he accidentally cut his left thumb with a knife. Denies any numbness or tingling. Describes a burning sensation where the laceration is located. Review of systems: See HPI Medications: As listed on the chart Allergies: As listed on the chart PFSH: Per chart Vital signs: As listed on the chart. Reviewed. Physical exam: Gen: Alert, NAD Eyes: No sclera icterus, conjunctiva clear ENT: Moist mucous membranes CV: Regular rate Resp: Nonlabored respirations Musc: Full ROM of the left upper extremity including all of the fingers, patient has a 1 cm laceration to the dorsal proximal aspect of the left thumb-minimal active bleeding, laceration is superficial and not deep but slightly gaping, radial/ulnar pulse +2, sensation intact, good capillary refill, no bony tenderness, compartments soft Psych: Cooperative, appropriate mood and affect PFS PFSH Medical History Wears glasses Abrasion Patellar tendinitis, left knee Left knee pain Acute bronchitis, unspecified URI (upper respiratory infection) Contact with and (suspected) exposure to other viral communicable diseases Bronchitis Tinnitus Home Medications ?Medication ?Instructions ?Recorded ?Last Taken ?Type omega 0-suf-hot-fish oil 1,200 mg 1 cap PO DAILY SUPPL EMENT 05/11/23 Unknown History (144 mg-216 mg) capsule (Fish Oil) naproxen 500 mg tablet (Naprosyn) 500 mg PO BID PRN pa in #20 tabs 10/25/24 Unknown Rx amoxicillin 875 mg tablet 875 mg PO BID #20 tabs 03/04 Unknown Rx Allergy/AdvReac Type Severity Reaction Status Date / Time No Known Allergies Allergy Verified 05/22/25 21:16 Surgical History Hx of hand surgery Social History Smoking Status: Never smoker alcohol intake: current alcohol intake frequency: holidays/special occasions only EXAM Physical Exam Const Vital Signs: 05/22/25 21:15 05/22/25 22:30 Temperature 98.4 F 97.5 F L Temperature Source Temporal Pulse Rate 61 77 Respiratory Rate 18 18 Blood Pressure 148/90 H 130/57 H Blood Pressure Mean 109 81 Pulse Ox 100 100 Oxygen Delivery Method Room Air MDM MDM MDM Narrative Medical decision making narrative: 49-year-old male with no significant past medical history presents for evaluation of left thumb laceration. See physical exam findings. Laceration does not require suture repair, will skin glue. Wound was cleaned prior to skin glue. Patient tolerated this well. Monitor for signs of infection. Follow-up with primary care physician if needed. He confirmed understand the plan. Patient able to discharge home. Impression: 1. 1 cm left thumb laceration, repaired with skin glue Discharge Plan Triage Chief Complaint: Laceration ED Provider: Zbigniew Lewis Dx/Rx/DC Orders Clinical Impression: Laceration of left thumb Instructions: ED Laceration, Extremity: Skin Glue Prescriptions: No Action amoxicillin 875 mg tablet 875 mg PO BID Qty: 20 0RF omega 6-nqd-qfu-fish oil [Fish Oil] 1,200 (144-216) mg capsule 1 cap PO DAILY Patient Comments: WIILL STOP 5 DAYS BEFORE SURGERY naproxen [Naprosyn] 500 mg tablet 500 mg PO BID PRN (Reason: pain) Qty: 20 0RF Primary Care Provider: Candido Solitario Referrals: Candido Solitario MD [Primary Care Provider, Family Practice] - 3-5 Days Activity Restrictions/Additional Instructions: Okay to wash in 24 hours. Do not scrub when washing hands. No soaking of bathtubs, hot tubs, lakes, celis, oceans until fully healed. Monitor for signs of infection. Follow-up with primary care physician if needed. Print Language: [place] Disposition Disposition: Home, Self Care Discharge Date/Time: 05/22/25 22:33
== END 2025-05-22 22:33 | disposition home or self-care (01) ==
PROVIDERS: Emergency Provider Surgery; PCP Family Medicine; Visit Provider Surgery
DX: S61.012A Laceration without foreign body of left thumb without damage to nail, initial encounter (principal); W26.0XXA Contact with knife, initial encounter
CPT/HCPCS: 12001; 99282